=== PATIENT | male | born 1950 | race Caucasian/White ===

== ENCOUNTER 2018-11-27 23:55 | Emergency (ER) | payer OTHER ==
--- OUTSIDE RECORDS SUMMARY | 2018-11-27 23:57 | XMS REPORT | Clinical Summary ---
:1950 Author Organization [facility] Address [address] [place] [address] Care Team Providers Name Role Phone Vincent Pinedo MD Primary Care Provider Allergies Active Allergy Reactions Severity Noted Date Comments Niacin 08/19/2016 Medications Medication Sig Dispensed Refills Start Date End Date Status metoprolol metoprolol 0 Active succinate XL succinate ER 50 (TOPROL-XL) 50 mg mg 24 hr tablet tablet,extended release 24 hr insulin degludec Tresiba FlexTouch 0 Active (TRESIBA U-200 200 unit/mL FLEXTOUCH U-200) (3 mL) 200 unit/mL (3 subcutaneous mL) insulin pen insulin pen ELVIS ASPIRIN Elvis Aspirin 0 Active ORAL pen needle, BD Ultra-Fine 0 Active diabetic 32 gauge Roselia Pen [place] x 5/32" needle 32 gauge x 5/32" omeprazole omeprazole 40 mg 0 Active (PriLOSEC) 40 MG capsule,delayed capsule release fenofibrate Take 134 mg by 1 06/25/2016 Active micronized mouth once daily. (LOFIBRA) 134 MG capsule isosorbide Take 1 tablet (30 90 tablet 3 12/16/2016 Active mononitrate mg total) by (IMDUR) 30 MG 24 mouth daily. hr tabletIndications : Essential hypertension repaglinide TAKE 1 TABLET BY 1 10/12/2016 Active (PRANDIN) 2 MG MOUTH 3 TIMES A tablet DAY BEFORE MEALS hydrALAZINE Take 25 mg by 1 10/10/2016 Active (APRESOLINE) 25 mouth 2 (two) MG tablet times a day. gabapentin Take 100 mg by 0 Active (NEURONTIN) 100 mouth 3 (three) mg capsule times a day. rosuvastatin Take 1 tablet (20 90 tablet 3 02/24/2018 Active (CRESTOR) 20 MG mg total) by tablet mouth once daily. omega-3 acid TAKE 1 CAPSULE (1 360 capsule 0 11/03/2018 Active ethyl esters G TOTAL) BY MOUTH (LOVAZA) 1 gram 4 (FOUR) TIMES A capsuleIndication DAY. s: Coronary artery disease involving [place] coronary artery of [place] heart without angina pectoris, Carotid artery disease, unspecified laterality (HCC) amLODIPine Take 1 tablet (10 60 tablet 0 11/08/2018 Active (NORVASC) 10 mg mg total) by tabletIndications mouth 2 (two) : Coronary artery times a day. disease involving [place] coronary artery of [place] heart without angina pectoris, Carotid artery disease, unspecified laterality (HCC) amLODIPine Take 1 tablet (10 180 tablet 3 12/17/2016 02/17/20 Discontinued (NORVASC) 10 mg mg total) by 18 tabletIndications mouth 2 (two) : Coronary artery times a day. disease involving [place] coronary artery of [place] heart without angina pectoris, Carotid artery disease, unspecified laterality (HCC) omega-3 acid Take 1 capsule (1 360 capsule 3 12/17/2016 12/30/19 Discontinued ethyl esters g total) by mouth 18 (LOVAZA) 1 gram 4 (four) times a capsuleIndication day. s: Coronary artery disease involving [place] coronary artery of [place] heart without angina pectoris, Carotid artery disease, unspecified laterality (HCC) rosuvastatin Take 1 tablet (20 90 tablet 3 02/15/2017 02/25/20 Discontinued (CRESTOR) 20 MG mg total) by 18 tablet mouth once daily. clopidogrel Take 1 tablet (75 90 tablet 3 06/15/2017 06/15/20 (PLAVIX) 75 mg mg total) by 18 tablet mouth daily. omega-3 acid Take 1 capsule (1 360 capsule 2 12/29/2017 07/27/20 Discontinued ethyl esters g total) by mouth 18 (LOVAZA) 1 gram 4 (four) times a capsuleIndication day. s: Coronary artery disease involving [place] coronary artery of [place] heart without angina pectoris, Carotid artery disease, unspecified laterality (HCC) amLODIPine Take 1 tablet (10 180 tablet 3 02/16/2018 08/10/20 Discontinued (NORVASC) 10 mg mg total) by 18 tabletIndications mouth 2 (two) : Coronary artery times a day. disease involving [place] coronary artery of [place] heart without angina pectoris, Carotid artery disease, unspecified laterality (HCC) omega-3 acid Take 1 capsule (1 360 capsule 0 07/27/2018 11/02/19 Discontinued ethyl esters g total) by mouth 19 (LOVAZA) 1 gram 4 (four) times a capsuleIndication day. s: Coronary artery disease involving [place] coronary artery of [place] heart without angina pectoris, Carotid artery disease, unspecified laterality (HCC) amLODIPine Take 1 tablet (10 180 tablet 0 08/10/2018 08/12/20 Discontinued (NORVASC) 10 mg mg total) by 18 tabletIndications mouth 2 (two) : Coronary artery times a day. disease involving [place] coronary artery of [place] heart without angina pectoris, Carotid artery disease, unspecified laterality (HCC) amLODIPine Take 1 tablet (10 180 tablet 0 08/12/2018 11/08/19 Discontinued (NORVASC) 10 mg mg total) by 19 tabletIndications mouth 2 (two) : Coronary artery times a day. disease involving [place] coronary artery of [place] heart without angina pectoris, Carotid artery disease, unspecified laterality (HCC) Active Problems Problem Noted Date CAD in [place] artery 08/31/2017 SOB (shortness of breath) 08/31/2017 Coronary artery disease involving [place] coronary artery of [place] heart 12/20 without angina pectoris Carotid artery disease 12/20/2016 Stented coronary artery 12/20/2016 Stenosis of left carotid artery 08/19/2016 Last Assessment & Plan: Advised to start a statin. Need CTA neck and aortic arch to assess for plaque due to conflicting carotid reports Encounters Date Type Specialty Care Team Description 11/08/2018 Orders Only Cardiology Shan Parra MA Coronary artery disease involving [place] coronary artery of [place] heart without angina pectoris; Carotid artery disease, unspecified laterality (HCC) 11/02/2018 Refill Cardiology Kenan Alvarez MD Med Refill 08/12/2018 Orders Only Cardiology Shan Parra MA Coronary artery disease involving [place] coronary artery of [place] heart without angina pectoris; Carotid artery disease, unspecified laterality (HCC) 08/10/2018 Orders Only Cardiology Shan Parra MA Coronary artery disease involving [place] coronary artery of [place] heart without angina pectoris; Carotid artery disease, unspecified laterality (HCC) 07/27/2018 Orders Only Cardiology Shan Parra MA Coronary artery disease involving [place] coronary artery of [place] heart without angina pectoris; Carotid artery disease, unspecified laterality (HCC) 02/24/2018 Refill Cardiology Keysha Hendrix Med Refill MA 02/16/2018 Orders Only Cardiology Shan Parra MA Coronary artery disease involving [place] coronary artery of [place] heart without angina pectoris; Carotid artery disease, unspecified laterality 01/04/2018 Office Visit Cardiology Kenan Alvarez MD CAD in [place] artery (Primary Dx); Bilateral carotid artery disease 12/29/2017 Refill Cardiology Shan Parra MA Med Refill after 11/26/2017 Social History Tobacco Use Types Packs/Day Years Used Date Light Tobacco Smoker Cigars Quit: 08/19/1976 Alcohol Use Drinks/Week oz/Week Comments Yes moderate Sex Assigned at Date Recorded Not on file Job Start Date Occupation Industry Not on file Not on file Not on file Travel History Travel Start Travel End No recent travel history available. Last Filed Vital Signs Vital Sign Reading Time Taken Blood Pressure 116/64 01/04/2018 8:21 AM CDT Pulse 61 01/04/2018 8:21 AM CDT Temperature - - Respiratory Rate - - Oxygen Saturation - - Inhaled Oxygen Concentration - - Weight 91.6 kg (202 lb) 01/04/2018 8:21 AM CDT Height 172.7 cm (5' 8") 01/04/2018 8:21 AM CDT Body Mass Index 30.71 01/04/2018 8:21 AM CDT Plan of Treatment Health Maintenance Due Date Last Done Comments COLON CANCER SCREENING 2000 SHINGLES VACCINES (#1) 2000 65+ PNEUMOCOCCAL VACCINE (2 of 2 - PPSV23) 12/14/2015 08/28/2017 INFLUENZA VACCINE 04/13/2018 PNEUMOCOCCAL POLYSACCHARIDE VACCINE AGE 65 AND OVER Completed 08/28/2017 Results Not on fileafter 11/26/2017 Insurance Payer Benefit Plan / Group Subscriber ID Type Phone Address AETNA MEDICARE AETNA MEDICARE HMO/PPO [facility] xxxxxxxx HMO ([place]) [place] [address] Advance Directives Patient has advance care planning documents on file. For more information, please contact:Kole Morel[address] [place] [address]
[2018-11-28] MEDS ORDERED: ASPIRIN 81 MG CHEWABLE TABLET ONE (00:51)
[2018-11-28] MEDS ORDERED: NITROGLYCERIN 1 GM PKT TD ONE (00:52)
[2018-11-28] MEDS ORDERED: MORPHINE 2 MG/ML SYR ONE (00:52)
[2018-11-28 01:20] LABS: Absolute Lymphocytes (CBC) 1.2 K/uL (0.7-4.9); Absolute Monocytes 0.5 K/uL (0.1-1.3); Absolute Neutrophil 6.1 K/uL (1.8-8.0); Basophils % 1.2 % (0-1.3); Eosinophils % 2.9 % (0-4.4); Lymphocytes % 14.8 % (15.3-44.8); MPV 8.3 fL (7.6-11.3); RBC Red Blood Cell Count 6.13 M/uL (4.33-5.43)
[2018-11-28 01:21] LABS: Protime INR 1.01
[2018-11-28 02:06] LABS: ALT/SGPT 50 U/L (12-78); AST/SGOT 35 U/L (15-37); Albumin 3.7 g/dL (3.4-5.0); Alkaline Phosphatase 64 U/L (45-117); BUN Blood Urea Nitrogen 34 mg/dL (7-18); Bicarbonate 27 mmol/L (21-32); Bilirubin Direct < 0.1 mg/dL (0-0.2); Bilirubin Total 0.6 mg/dL (0.2-1.0); Glucose Level 282 mg/dL (74-106); Magnesium 2.1 mg/dL (1.8-2.4); NT PRO-BNP 734 pg/mL (<125); Potassium 4.3 mmol/L (3.5-5.1); Protein, Total 7.8 g/dL (6.4-8.2); Sodium Level 137 mmol/L (136-145)
[2018-11-28 02:08] LABS: Troponin (Emerg Dept Use Only) 0.59 ng/mL (0.0-0.045)
[2018-11-28] MEDS ORDERED: HEPARIN/D5W 25,000 UNIT/500 ML BAG IV ONE (02:42)
[2018-11-28] MEDS ORDERED: HEPARIN 5000 UNIT/ML 1 ML VIAL ONE (02:42)
--- NOTE | 2018-11-28 03:22 | ER ---
Nurse's Notes [facility] Name: Fran Summers Age: 67 yrs Sex: Male : 1950 Arrival Date: 11/27/2018 Time: 23:55 Bed 16 Private MD: Diagnosis: Non-ST elevation (NSTEMI) myocardial infarction;Renal insufficiency;Mild pulmonary edema Presentation: 11/28 00:02 Presenting complaint: Patient states: he started having severe chest pain at approx bb 1900 tonight thought it was heart burn at first but pain is getting worse pain is constant and radiates to arms pt has 11 heart stents. Transition of care: patient was not received from another setting of care. Onset of symptoms was November 27, 2018. Risk Assessment: Do you want to hurt yourself or someone else? Patient reports no desire to harm self or others. Initial Sepsis Screen: Does the patient meet any 2 criteria? No. Patient's initial sepsis screen is negative. Does the patient have a suspected source of infection? No. Patient's initial sepsis screen is negative. Care prior to arrival: None. 00:02 Method Of Arrival: Ambulatory 00:02 Acuity: CRAIG 2 bb Triage Assessment: 00:10 General: Appears in no apparent distress. uncomfortable, Behavior is cooperative. Pain: cc3 Complains of pain in chest Pain currently is 10 out of 10 on a pain scale. Quality of pain is described as aching. EENT: No signs and/or symptoms were reported regarding the EENT system. Neuro: Level of Consciousness is awake, alert, obeys commands, Oriented to person, place, time, situation, Appropriate for age. Cardiovascular: Reports chest pain, Patient's skin is warm and dry. Respiratory: Airway is patent Respiratory effort is even, unlabored, Respiratory pattern is regular, symmetrical. GI: Abdomen is round non-distended. : No signs and/or symptoms were reported regarding the genitourinary system. Derm: No signs and/or symptoms reported regarding the dermatologic system. Musculoskeletal: Circulation, motion, and sensation intact. Range of motion: intact in all extremities. Historical: - Allergies: 00:04 Niaspan; bb - Home Meds: 03:45 gabapentin 100 mg oral cap 3 times per day [Active]; amlodipine 10 mg oral tab twice cc3 daily [Active]; Hira Chewable Aspirin 81 mg Oral chew once daily [Active]; Crestor Oral [Active]; Glimepiride Oral [Active]; isosorbide mononitrate 30 mg oral Tb24 once daily [Active]; Omeprazole Oral [Active]; Toujeo SoloStar 300 unit/mL (1.5 mL) subcutaneous inpn [Active]; repaglinide 2 mg oral tab 1 tab 3 times per day [Active]; omega-3 fatty acids 1,000 mg oral cap four times a day [Active]; metoprolol tartrate 50 mg Oral tab once daily [Active]; hydralazine 25 mg Oral tab 2 times per day [Active]; Plavix 75 mg Oral tab 1 tab once daily [Active]; Tresiba 40 units daily [Active]; Lasix 40 mg Oral tab once daily [Active]; - PMHx: 00:04 Diabetes - NIDDM; Hypertension; Myocardial infarction; CAD; Hyperlipidemia; Diabetes - bb IDDM; - PSHx: 00:04 Heart stents; bb - Immunization history:: Adult Immunizations up to date. - Social history:: Smoking status: Patient/guardian denies using tobacco. - Ebola Screening: : No symptoms or risks identified at this time. Screenin:10 Abuse screen: Denies threats or abuse. Denies injuries from another. Nutritional cc3 screening: No deficits noted. Tuberculosis screening: No symptoms or risk factors identified. Fall Risk Ambulatory Aid- None/Bed Rest/Nurse Assist (0 pts). Gait- Normal/Bed Rest/Wheelchair (0 pts) Mental Status- Oriented to own ability (0 pts). Assessment: 00:10 Pain: Pain radiates to bilateral arms Pain began 1900H tonight. cc3 01:18 Reassessment: Patient appears in no apparent distress at this time. Patient and/or cc3 family updated on plan of care and expected duration. Pain level reassessed. Patient is alert, oriented x 3, equal unlabored respirations, skin warm/dry/pink. 02:25 Reassessment: Patient appears in no apparent distress at this time. Patient and/or cc3 family updated on plan of care and expected duration. Pain level reassessed. Patient is alert, oriented x 3, equal unlabored respirations, skin warm/dry/pink. 03:22 Reassessment: Patient appears in no apparent distress at this time. Patient and/or cc3 family updated on plan of care and expected duration. Pain level reassessed. Patient is alert, oriented x 3, equal unlabored respirations, skin warm/dry/pink. 03:50 Reassessment: Patient for transfer to [facility] but as per finishing room operator named Sloane jose enrique she's having problems connecting to the receiving unit so she'll call me back, charge nurse Catalina de la rosa. 04:00 Reassessment: Patient appears in no apparent distress at this time. Patient and/or cc3 family updated on plan of care and expected duration. Pain level reassessed. Patient is alert, oriented x 3, equal unlabored respirations, skin warm/dry/pink. [facility] called and report handed over to GUY Mack for continuity of care. Transfer form completed and signed by the patient himself. EMS contacted by the secretary office clerk. 05:15 Reassessment: Patient appears in no apparent distress at this time. Patient and/or cc3 family updated on plan of care and expected duration. Pain level reassessed. Patient is alert, oriented x 3, equal unlabored respirations, skin warm/dry/pink. [facility] came for patient transport. Patient left ER vitally stable by EMS stretcher. Vital Signs: 00:04 BP 173 / 96; Pulse 92; Resp 18 S; Temp 98(O); Pulse Ox 97% on R/A; Weight 89.81 kg (R); bb Height 5 ft. 8 in. (172.72 cm) (R); Pain 10/10; 01:00 BP 173 / 96; Pulse 79; Resp 20 S; Pulse Ox 96% on R/A; cc3 02:18 BP 159 / 88; Pulse 77; Resp 20 S; Pulse Ox 95% on R/A; Pain 0/10; cc3 02:30 BP 167 / 81; Pulse 79; Resp 20 S; Pulse Ox 95% on R/A; Pain 0/10; cc3 03:15 BP 174 / 92; Pulse 75; Resp 20 S; Pulse Ox 96% on R/A; Pain 0/10; cc3 03:45 BP 170 / 85; Pulse 76; Resp 13 S; Pulse Ox 96% on R/A; Pain 0/10; cc3 04:13 BP 168 / 91; Pulse 74; Resp 15 S; Pulse Ox 97% on R/A; Pain 0/10; cc3 05:00 BP 163 / 86; Pulse 71; Resp 15 S; Pulse Ox 96% on R/A; Pain 0/10; cc3 00:04 Body Mass Index 30.11 (89.81 kg, 172.72 cm) bb ED Course: 11/27 23:55 Patient arrived in ED. am2 11/28 00:03 Triage completed. bb 00:04 Arm band placed on Patient placed in an exam room, on a stretcher, on ekg monitor, bb on pulse oximetry. EKG completed in triage. Results shown to MD. Family accompanied patient. 00:10 Dari Moran is Primary Nurse. cc3 00:10 Patient has correct armband on for positive identification. Placed in gown. Bed in low cc3 position. Call light in reach. Side rails up X2. equipment monitor phototypesetting on. Pulse ox on. NIBP on. 00:10 Patient maintains SpO2 saturation greater than 95% on room air. cc3 00:15 Inserted saline lock: 20 gauge in left antecubital area, using aseptic technique. Blood cc3 collected. 00:18 Terri Underwood FNP-C is PHCP. snw 00:18 Greg Lnad MD is Attending Physician. snw 00:41 X-ray completed. Portable x-ray completed in exam room. Patient tolerated procedure kw well. 00:42 XRAY Chest (1 view) In Process Unspecified. EDMS 05:15 No provider procedures requiring assistance completed. Patient transferred, IV remains cc3 in place. Administered Medications: 00:45 Drug: Nitroglycerin Ointment 2 % 1 inches Route: Transdermal; Site: anterior chest wall;cc3 01:00 Follow up: Response: No adverse reaction; Pain is decreased cc3 00:45 Drug: Aspirin Chewable Tablet 324 mg Route: PO; cc3 01:00 Follow up: Response: No adverse reaction; Pain is decreased cc3 00:50 Drug: morphine 2 mg Route: IVP; Site: left antecubital; cc3 01:15 Follow up: Response: No adverse reaction; Pain is decreased cc3 02:35 Drug: Heparin (MN-Bolus No thrombolytic) - HEParin 60 units/kg {Co-Signature: cc3 la1 (Dari Cordel).} Route: IVP; Site: left antecubital; 02:40 Follow up: Response: No adverse reaction cc3 02:38 Drug: Heparin ([place] Drip) 12 units/kg/hr - (HEParin 50883 units, D5W 500 ml) la1 {Co-Signature: cc3 (Dari Cordel).} Route: IV; Rate: calculated rate; Site: left antecubital; 03:50 Follow up: Response: No adverse reaction; IV Status: Infusion continued upon transfer cc3 Outcome: 03:21 ER care complete, transfer ordered by sncecilia 05:15 Transferred by ground EMS [place] [facility]. cc3 05:15 Condition: stable 05:15 Instructed on the need for transfer, Demonstrated understanding of instructions. 05:20 Patient left the ED. cc3 Signatures: Dispatcher [employer] EDMS Terri Underwood, MICAH SEWING PATTERN LAYOUT TECHNICIAN-Berkley Payton RN RN bb Whitley, Kimberlee kw Attema, Lee, RN RN la1 Queenie Mojica am2 Dari Moran cc3 Dari Cordel cc3 Corrections: (The following items were deleted from the chart) 03:22 02:18 BP 159 / 88; Pulse 77bpm; Resp 20bpm; Spontaneous; Pulse Ox 95% RA; cc3 cc3 03:58 02:30 BP 167 / 81; Pulse 79bpm; Resp 20bpm; Spontaneous; Pulse Ox 95% RA; 3 cc3 03:58 03:15 BP 174 / 92; Pulse 75bpm; Resp 20bpm; Spontaneous; Pulse Ox 96% RA; 3 cc3 03:58 03:45 BP 170 / 85; Pulse 76bpm; Resp 13bpm; Spontaneous; Pulse Ox 96% RA; cc3 cc3 05:25 04:13 BP 168 / 91; Pulse 74bpm; Resp 15bpm; Spontaneous; Pulse Ox 97% RA; 3 cc3 05:25 05:00 BP 163 / 86; Pulse 71bpm; Resp 15bpm; Spontaneous; Pulse Ox 96% RA; cc3 cc3
--- NOTE | 2018-11-28 03:22 | EDPHYS ---
Physician Documentation [facility] Name: Fran Summers Age: 67 yrs Sex: Male : 1950 Arrival Date: 11/27/2018 Time: 23:55 Bed 16 Private MD: ED Physician Greg Land HPI: 11/28 00:27 This 67 yrs old Male presents to ER via Ambulatory with complaints of Chest snw Pain. 00:27 The patient or guardian reports chest pain that is located primarily in the substernal snw area. Onset: suddenly, at 19:00, and became persistent. The pain radiates to the left shoulder, the right shoulder. Associated signs and symptoms: Pertinent positives: None. The chest pain is described as causing indigestion, a pressure. Duration: The patient or guardian reports a single episode, that is still ongoing. Severity of pain: At its worst the pain was moderate severe. The patient has experienced similar episodes in the past. The patient has not recently seen a physician. Pt sees Dr. Pinedo, Dr. Arango, Dr. Alvarez, Has had stents here and at [facility]. + stage 5 kidney damage and pt went to see Dr. Conroy. Pt taken off 6 medications and GFR has recovered to 30. Historical: - Allergies: 00:04 Niaspan; bb - Home Meds: 03:45 gabapentin 100 mg oral cap 3 times per day [Active]; amlodipine 10 mg oral tab twice cc3 daily [Active]; Hira Chewable Aspirin 81 mg Oral chew once daily [Active]; Crestor Oral [Active]; Glimepiride Oral [Active]; isosorbide mononitrate 30 mg oral Tb24 once daily [Active]; Omeprazole Oral [Active]; Toujeo SoloStar 300 unit/mL (1.5 mL) subcutaneous inpn [Active]; repaglinide 2 mg oral tab 1 tab 3 times per day [Active]; omega-3 fatty acids 1,000 mg oral cap four times a day [Active]; metoprolol tartrate 50 mg Oral tab once daily [Active]; hydralazine 25 mg Oral tab 2 times per day [Active]; Plavix 75 mg Oral tab 1 tab once daily [Active]; Tresiba 40 units daily [Active]; Lasix 40 mg Oral tab once daily [Active]; - PMHx: 00:04 Diabetes - NIDDM; Hypertension; Myocardial infarction; CAD; Hyperlipidemia; Diabetes - bb IDDM; - PSHx: 00:04 Heart stents; bb - Immunization history:: Adult Immunizations up to date. - Social history:: Smoking status: Patient/guardian denies using tobacco. - Ebola Screening: : No symptoms or risks identified at this time. ROS: 00:26 Constitutional: Negative for fever, chills, and weight loss, Eyes: Negative for injury, snw pain, redness, and discharge, ENT: Negative for injury, pain, and discharge, Neck: Negative for injury, pain, and swelling, Respiratory: Negative for shortness of breath, cough, wheezing, and pleuritic chest pain, Abdomen/GI: Negative for abdominal pain, nausea, vomiting, diarrhea, and constipation, Back: Negative for injury and pain, : Negative for injury, bleeding, discharge, and swelling, MS/Extremity: Negative for injury and deformity, Skin: Negative for injury, rash, and discoloration, Neuro: Negative for headache, weakness, numbness, tingling, and seizure, Psych: Negative for depression, anxiety, suicide ideation, homicidal ideation, and hallucinations. 00:26 Cardiovascular: Positive for chest pain. Exam: 00:26 Constitutional: This is a well developed, well nourished patient who is awake, alert, snw and in no acute distress. Head/Face: Normocephalic, atraumatic. Eyes: Pupils equal round and reactive to light, extra-ocular motions intact. Lids and lashes normal. Conjunctiva and sclera are non-icteric and not injected. Cornea within normal limits. Periorbital areas with no swelling, redness, or edema. ENT: Nares patent. No nasal discharge, no septal abnormalities noted. Tympanic membranes are normal and external auditory canals are clear. Oropharynx with no redness, swelling, or masses, exudates, or evidence of obstruction, uvula midline. Mucous membranes moist. Neck: Trachea midline, no thyromegaly or masses palpated, and no cervical lymphadenopathy. Supple, full range of motion without nuchal rigidity, or vertebral point tenderness. No Meningismus. Chest/axilla: Normal chest wall appearance and motion. Nontender with no deformity. No lesions are appreciated. Abdomen/GI: Soft, non-tender, with normal bowel sounds. No distension or tympany. No guarding or rebound. No evidence of tenderness throughout. Back: No spinal tenderness. No costovertebral tenderness. Full range of motion. Skin: Warm, dry with normal turgor. Normal color with no rashes, no lesions, and no evidence of cellulitis. MS/ Extremity: Pulses equal, no cyanosis. Neurovascular intact. Full, normal range of motion. Neuro: Awake and alert, GCS 15, oriented to person, place, time, and situation. Cranial nerves II-XII grossly intact. Motor strength 5/5 in all extremities. Sensory grossly intact. Cerebellar exam normal. Normal gait. Psych: Awake, alert, with orientation to person, place and time. Behavior, mood, and affect are within normal limits. 00:26 Cardiovascular: Regular rate and rhythm with a normal S1 and S2. No gallops, murmurs, or rubs. Normal PMI, no JVD. No pulse deficits. Respiratory: Lungs have equal breath sounds bilaterally, clear to auscultation and percussion. No rales, rhonchi or wheezes noted. No increased work of breathing, no retractions or nasal flaring. Vital Signs: 00:04 BP 173 / 96; Pulse 92; Resp 18 S; Temp 98(O); Pulse Ox 97% on R/A; Weight 89.81 kg (R); bb Height 5 ft. 8 in. (172.72 cm) (R); Pain 10/10; 01:00 BP 173 / 96; Pulse 79; Resp 20 S; Pulse Ox 96% on R/A; cc3 02:18 BP 159 / 88; Pulse 77; Resp 20 S; Pulse Ox 95% on R/A; Pain 0/10; cc3 02:30 BP 167 / 81; Pulse 79; Resp 20 S; Pulse Ox 95% on R/A; Pain 0/10; cc3 03:15 BP 174 / 92; Pulse 75; Resp 20 S; Pulse Ox 96% on R/A; Pain 0/10; cc3 03:45 BP 170 / 85; Pulse 76; Resp 13 S; Pulse Ox 96% on R/A; Pain 0/10; cc3 04:13 BP 168 / 91; Pulse 74; Resp 15 S; Pulse Ox 97% on R/A; Pain 0/10; cc3 05:00 BP 163 / 86; Pulse 71; Resp 15 S; Pulse Ox 96% on R/A; Pain 0/10; cc3 00:04 Body Mass Index 30.11 (89.81 kg, 172.72 cm) bb MDM: 01:09 Patient medically screened. snw 02:24 The patient was given aspirin in the Emergency Department. Data reviewed: vital signs, snw nurses notes, lab test result(s), EKG, radiologic studies. Data interpreted: Pulse oximetry: on room air is 97 %. Interpretation: acceptable. Counseling: I had a detailed discussion with the patient and/or guardian regarding: the historical points, exam findings, and any diagnostic results supporting the discharge/admit diagnosis, the presence of at least one elevated blood pressure reading (>120/80) during this emergency department visit, lab results, radiology results, the need to transfer to another facility, for higher level of care, no ICU beds, pt needs cardiology, nephrology,. 03:10 ECG:. snw 03:16 Medication response: morphine relieved the patient's pain. Symptoms have resolved. [facility] Physician consultation: Dr Jim was called at 03:00, was contacted at 03:10, regarding regarding transfer, to [facility]. Dr. Jim kindly accepts pt in transfer. We have no beds in ICU and pt may require bypass/higher level of care. 11/28 00:18 Order name: Basic Metabolic Panel; Complete Time: 02:09 snw 11/28 00:18 Order name: CBC with Diff; Complete Time: :34 snw 11/28 00:18 Order name: LFT's; Complete Time: 02:09 snw 11/28 00:18 Order name: Magnesium; Complete Time: 02:09 snw 11/28 00:18 Order name: NT PRO-BNP; Complete Time: 02:09 snw 11/28 00:18 Order name: PT-INR; Complete Time: :34 snw 11/28 00:18 Order name: Troponin (emerg Dept Use Only); Complete Time: 02:09 snw 11/28 00:18 Order name: XRAY Chest (1 view) snw 11/28 01:10 Order name: Urine Microscopic Only snw 11/28 02:33 Order name: Urine Dipstick--Ancillary (enter results); Complete Time: 04:07 mw2 11/28 00:18 Order name: EKG; Complete Time: 00:19 snw 11/28 00:18 Order name: Cardiac monitoring; Complete Time: 00:20 snw 11/28 00:18 Order name: EKG - Nurse/Tech; Complete Time: 00:20 snw 11/28 00:18 Order name: IV Saline Lock; Complete Time: 00: snw 11/28 00:18 Order name: Labs collected and sent; Complete Time: 00:21 snw 11/28 00:18 Order name: O2 Per Protocol; Complete Time: 00:21 snw 11/28 00:18 Order name: O2 Sat Monitoring; Complete Time: 00: snw 11/28 01:10 Order name: Urine Dipstick-Ancillary (obtain specimen); Complete Time: 02:45 snw EC:10 Rate is 93 beats/min. Rhythm is regular. QRS [place] is Normal. [place] interval is normal. QRS snw interval is normal. QT interval is normal. Q waves are Old in leads II, III, aVF. T waves are Normal. ST Segment is depressed in leads V3, V4, V5, 2-5mm. Clinical impression: Cardiac ischemia. Administered Medications: 00:45 Drug: Nitroglycerin Ointment 2 % 1 inches Route: Transdermal; Site: anterior chest wall;cc3 01:00 Follow up: Response: No adverse reaction; Pain is decreased cc3 00:45 Drug: Aspirin Chewable Tablet 324 mg Route: PO; cc3 01:00 Follow up: Response: No adverse reaction; Pain is decreased cc3 00:50 Drug: morphine 2 mg Route: IVP; Site: left antecubital; cc3 01:15 Follow up: Response: No adverse reaction; Pain is decreased cc3 02:35 Drug: Heparin (WA-Bolus No thrombolytic) - HEParin 60 units/kg {Co-Signature: cc3 la1 (Dari Cordel).} Route: IVP; Site: left antecubital; 02:40 Follow up: Response: No adverse reaction cc3 02:38 Drug: Heparin ([place] Drip) 12 units/kg/hr - (HEParin 61846 units, D5W 500 ml) la1 {Co-Signature: cc3 (Dari Cordel).} Route: IV; Rate: calculated rate; Site: left antecubital; 03:50 Follow up: Response: No adverse reaction; IV Status: Infusion continued upon transfer cc3 Disposition: 11/28/18 03:21 Transfer ordered to [facility]. Diagnosis are Non-ST elevation (NSTEMI) myocardial infarction, Renal insufficiency, Mild pulmonary edema. - Reason for transfer: Higher level of care. - Accepting physician is Dr. Jim. - Condition is Stable. - Problem is new. - Symptoms have improved. Signatures: Dispatcher [employer] EDMS Terri Underwood, DENSITY CONTROL PUNCHER-C DENSITY CONTROL PUNCHER-Csnw Berkley Douglas RN RN bb Shahab Andersen RN RN la1 Dari Moran cc3 Dari Moran cc3 Corrections: (The following items were deleted from the chart) 05:20 03:21 11/28/2018 03:21 Transfer ordered to [facility]. Diagnosis is cc3 Non-ST elevation (NSTEMI) myocardial infarction; Renal insufficiency; Mild pulmonary edema. Reason for transfer: Higher level of care. Accepting physician is Dr. Jim. Condition is Stable. Problem is new. Symptoms have improved. snw
[2018-11-28 03:39] LABS: Urine Blood 1+ (NEG); Urine Glucose TRACE (NEG); Urine Protein 3+ (NEG); Urine Specific Gravity 1.025 (1.005-1.030); Urine pH 6.5 (5.0-7.0)
[2018-11-28 04:51] LABS: Urine Bacteria <20 /HPF (NONE SEEN); Urine RBC <5 /HPF (NONE SEEN)
[2018-11-28 04:52] LABS: Urine Culture Reflex Order NOT NEEDED
[2018-11-28 05:31] VITALS: TEMP 98
[2018-11-28 05:40] VITALS: BP 163/86; O2SAT 96
--- NOTE | 2018-11-28 08:38 | RAD REPORT ---
EXAM DESCRIPTION: Ketan Single View11/28/2018 12:42 am CLINICAL HISTORY: Chest pain COMPARISON: May 2018 FINDINGS: Borderline mild interstitial pulmonary edema. Heart is normal size
--- NOTE | 2018-11-28 12:19 | EKG ---
Test Date: 2018-11-27 Test Time: 23:58:08 Photographic Equipment Assembler: KIAHB MEASUREMENT RESULTS: Intervals: Rate: 93 PA: 172 QRSD: 90 QT: 348 QTc: 432 [place]: P: 61 PA: 172 QRS: -4 T: 94 INTERPRETIVE STATEMENTS: Normal sinus rhythm Possible Inferior infarct, age undetermined Marked ST abnormality, possible lateral subendocardial injury Abnormal ECG Compared to ECG 08/27/2017 16:12:01 ST (T wave) deviation now present Myocardial infarct finding still present Electronically Signed On 11-28-18 12:18:39 CDT by Hugo Pacheco
== END 2018-11-28 05:20 | disposition short-term general hospital (02) ==
LOC: ER 23:55
DX: I21.4 Non-ST elevation (NSTEMI) myocardial infarction (principal); J81.1 Chronic pulmonary edema; I12.0 Hypertensive chronic kidney disease with stage 5 chronic kidney disease or end stage renal disease; E11.22 Type 2 diabetes mellitus with diabetic chronic kidney disease; N18.5 Chronic kidney disease, stage 5; Z79.4 Long term (current) use of insulin; Z79.82 Long term (current) use of aspirin; Z88.8 Allergy status to other drugs, medicaments and biological substances; Z95.818 Presence of other cardiac implants and grafts
CPT/HCPCS: 96365; 93005; 85025; 80048; 36415; 83735; 85610; 80076; 84484; 83880; 71045; 96375; 99285; J1644; J2270; 81003; 81015

== ENCOUNTER 2019-02-21 08:18 | Day surgery (SDC) | payer OTHER ==
--- NOTE | 2019-02-20 16:18 | RAD REPORT ---
EXAM DESCRIPTION: Ketan Davis (2 Views)02/20/2019 4:13 pm CLINICAL HISTORY: Preop coronary arterial catheterization COMPARISON: May 2018 FINDINGS: The lungs appear clear of acute infiltrate. The heart is normal size IMPRESSION: No acute abnormalities displayed
[2019-02-20 17:14] LABS: Absolute Lymphocytes (CBC) 1.7 K/uL (0.7-4.9); Absolute Monocytes 0.5 K/uL (0.1-1.3); Absolute Neutrophil 3.3 K/uL (1.8-8.0); Basophils % 1.3 % (0-1.3); Eosinophils % 6.2 % (0-4.4); Lymphocytes % 28.8 % (15.3-44.8); MPV 7.9 fL (7.6-11.3)
[2019-02-20 17:17] LABS: Protime INR 1.03
[2019-02-20 17:52] LABS: Potassium 4.7 mmol/L (3.5-5.1)
--- OUTSIDE RECORDS SUMMARY | 2019-02-21 08:21 | XMS REPORT | Clinical Summary ---
:1950 Author Organization [facility] Address [address] [place] [address] Care Team Providers Name Role Phone Vincent [...] 0 Active diabetic 32 gauge Roselia Pen [place] x 5/32" needle 32 gauge x 5/32" [...] capsuleIndication DAY. s: Coronary artery disease involving [place] coronary artery of [place] heart without angina pectoris, Carotid artery disease, unspecified laterality (HCC) amLODIPine Take 1 tablet (10 60 tablet 0 11/08/2018 Active (NORVASC) 10 mg mg total) by tabletIndications mouth 2 (two) : Coronary artery times a day. disease involving [place] coronary artery of [place] heart without angina pectoris, Carotid artery disease, [...] capsuleIndication day. s: Coronary artery disease involving [place] coronary artery of [place] heart without angina pectoris, Carotid artery disease, unspecified laterality (HCC) amLODIPine Take 1 tablet (10 180 tablet 3 02/16/2018 08/10/20 Discontinued (NORVASC) 10 mg mg total) by 18 tabletIndications mouth 2 (two) : Coronary artery times a day. disease involving [place] coronary artery of [place] heart without angina pectoris, Carotid artery disease, unspecified laterality (HCC) omega-3 acid Take 1 capsule (1 360 capsule 0 07/27/2018 11/02/19 Discontinued ethyl esters g total) by mouth 19 (LOVAZA) 1 gram 4 (four) times a capsuleIndication day. s: Coronary artery disease involving [place] coronary artery of [place] heart without angina pectoris, Carotid artery disease, unspecified laterality (HCC) amLODIPine Take 1 tablet (10 180 tablet 0 08/10/2018 08/12/20 Discontinued (NORVASC) 10 mg mg total) by 18 tabletIndications mouth 2 (two) : Coronary artery times a day. disease involving [place] coronary artery of [place] heart without angina pectoris, Carotid artery disease, unspecified laterality (HCC) amLODIPine Take 1 tablet (10 180 tablet 0 08/12/2018 11/08/19 Discontinued (NORVASC) 10 mg mg total) by 19 tabletIndications mouth 2 (two) : Coronary artery times a day. disease involving [place] coronary artery of [place] heart without angina pectoris, Carotid artery disease, unspecified laterality (HCC) Active Problems Problem Noted Date CAD in [place] artery 08/31/2017 SOB (shortness of breath) 08/31/2017 Coronary artery disease involving [place] coronary artery of [place] heart 12/20 without angina pectoris Carotid artery disease 12/20/2016 Stented coronary artery 12/20/2016 Stenosis of left carotid artery 08/19/2016 Last Assessment & Plan: Advised to start a statin. Need CTA neck and aortic arch to assess for plaque due to conflicting carotid reports Encounters Date Type Specialty Care Team Description 12/01/2018 Refill Cardiology Kenan Alvarez MD Med Refill 11/08/2018 Orders Only Cardiology Shan Parra MA Coronary artery disease involving [place] coronary artery of [place] heart without angina pectoris; Carotid artery disease, unspecified laterality (HCC) 11/02/2018 Refill Cardiology Kenan Alvarez MD Med Refill 08/12/2018 Orders Only Cardiology Shan Parra MA Coronary artery disease involving [place] coronary artery of [place] heart without angina pectoris; Carotid artery disease, unspecified laterality (HCC) 08/10/2018 Orders Only Cardiology Shan aPrra MA Coronary artery disease involving [place] coronary artery of [place] heart without angina pectoris; Carotid artery disease, unspecified laterality (HCC) 07/27/2018 Orders Only Cardiology Shan Parra MA Coronary artery disease involving [place] coronary artery of [place] heart without angina pectoris; Carotid artery disease, unspecified laterality (HCC) 02/24/2018 Refill Cardiology Keysha Hendrix Med Refill MA after 02/20/2018 Social History Tobacco Use Types Packs/Day Years Used Date Light Tobacco Smoker Cigars Quit: 08/19/1976 Alcohol Use Drinks/Week oz/Week Comments Yes moderate Sex Assigned at Date Recorded Not on file Job Start Date Occupation Industry Not on file Not on file Not on file Travel History Travel Start Travel End No recent travel history available. Last Filed Vital Signs Not on file Plan of Treatment Health Maintenance Due Date Last Done Comments COLONOSCOPY SCREENING 2000 SHINGLES VACCINES (#1) 2000 65+ PNEUMOCOCCAL VACCINE (2 of 2 - PPSV23) 12/14/2015 08/28/2017 INFLUENZA VACCINE 04/13/2019 Results Not on fileafter 02/20/2018 Advance Directives Patient has advance care planning documents on file. For more information, please contact:Kole Morel[address] [place] [address]
--- OUTSIDE RECORDS SUMMARY | 2019-02-21 08:22 | XMS REPORT | Clinical Summary ---
:1950 Author Organization [facility] Address [address] [place] [address] Care Team Providers Name Role Phone ShahidaGianni rojaspatricia Sutherland Primary Care Provider Allergies Active Allergy Reactions Severity Noted Date Comments Niacin 08/19/2016 Medications Medication Sig Dispensed Refills Start End Date Status Date gabapentin Take 100 mg by 0 Active (NEURONTIN) 100 MG mouth 3 (three) capsule times daily. repaglinide Take 2 mg by mouth 0 Active (PRANDIN) 2 MG 3 (three) times tablet daily before meals. omega-3 acid ethyl Take 2 g by mouth 0 Active esters (LOVAZA) 1 2 (two) times gram capsule daily. aspirin 81 MG EC Take 81 mg by 0 Active tablet mouth daily Hira . insulin degludec Inject 40 Units 0 Active 100 unit/mL (3 mL) subcutaneously InPn daily. amLODIPine Take 1 tablet (5 90 tablet 3 11/30/19 Active (NORVASC) 5 MG mg total) by mouth 9 20 tablet daily. atorvastatin Take 1 tablet (80 90 tablet 3 11/30/19 Active (LIPITOR) 80 MG mg total) by mouth 9 20 tablet nightly. carvedilol (COREG) Take 1 tablet 180 tablet 3 11/30/19 Active 6.25 MG tablet (6.25 mg total) by 9 20 mouth 2 (two) times daily. ezetimibe (ZETIA) Take 1 tablet (10 90 tablet 3 11/30/19 Active 10 mg tablet mg total) by mouth 9 20 nightly. losartan (COZAAR) Take 1 tablet (100 90 tablet 3 11/30/19 Active 100 MG tablet mg total) by mouth 9 20 daily. prasugrel Take 1 tablet (10 90 tablet 0 Active (EFFIENT) 10 mg mg total) by mouth 9 Tab tablet daily. spironolactone Take 1 tablet (50 90 tablet 3 11/30/19 Active (ALDACTONE) 50 MG mg total) by mouth 9 20 tablet daily. isosorbide Take 30 mg by 0 12/01/19 Discontinued mononitrate mouth daily. 19 (IMDUR) 30 MG 24 hr tablet metoprolol Take 50 mg by 0 12/01/19 Discontinued (TOPROL-XL) 50 MG mouth daily. 19 24 hr tabletIndications: chronic heart failure, hypertension amLODIPine Take 10 mg by 0 12/01/19 Discontinued (NORVASC) 10 MG mouth 2 (two) 19 tablet times daily. hydrALAZINE Take 25 mg by 0 12/01/19 Discontinued (APRESOLINE) 25 MG mouth 2 (two) 19 tablet times daily. clopidogrel Take 75 mg by 0 12/01/19 Discontinued (PLAVIX) 75 mg mouth nightly. 19 tablet furosemide (LASIX) Take 40 mg by 0 12/01/19 Discontinued 40 MG tablet mouth daily. 19 Active Problems Problem Noted Date NSTEMI (non-ST elevated myocardial infarction) 11/28/2018 Encounters Date Type Specialty Care Team Description 11/28/2018 Surgery Tello Jim L CATH & PCI MD Rigoberto 11/28/2018 - Hospital Encounter Cardiology Tello Jim NSTEMI (non-ST 11/30/2018 MD Rigoberto elevated myocardial infarction) (HCC) (Primary Dx) 11/28/2018 Orders Only General Internal Medicine 11/28/2018 Travel after 02/20/2018 Social History Tobacco Use Types Packs/Day Years Used Date Former Smoker Cigarettes, Cigars Smokeless Tobacco: Never Used Comments: quit over 40 years ago Alcohol Use Drinks/Week oz/Week Comments Yes Alcohol Habits Answer Date Recorded How often do you have a drink containing alcohol? Monthly or less 11/28/2018 How many drinks containing alcohol do you have on a 1 or 2 11/28/2018 typical day when you are drinking? How often do you have six or more drinks on one Never 11/28/2018 occasion? Financial Resource Strain Answer Date Recorded How hard is it for you to pay for the very basics like Not hard at all 2018 food, housing, medical care, and heating? Sex Assigned at Date Recorded Not on file Job Start Date Occupation Industry Not on file Not on file Not on file Travel History Travel Start Travel End No recent travel history available. Last Filed Vital Signs Vital Sign Reading Time Taken Blood Pressure 170/86 11/30/2018 8:00 AM CDT Pulse 67 11/30/2018 8:00 AM CDT Temperature 36.1 C (96.9 F) 11/30/2018 8:00 AM CDT Respiratory Rate 18 11/30/2018 8:00 AM CDT Oxygen Saturation 97% 11/30/2018 8:00 AM CDT Inhaled Oxygen Concentration - - Weight 89.4 kg (197 lb 1.5 oz) 11/28/2018 9:42 AM CDT Height 172.7 cm (5' 8") 11/28/2018 9:42 AM CDT Body Mass Index 29.97 11/28/2018 9:42 AM CDT Plan of Treatment Not on file Implants Implanted Type Area Reed Maker Device Shelf Model / Identifier Expiration Serial / Date Lot 3.00mm X 38mm Synergy Stent Left: Shareight 08/14/2020 [id number] / Implanted: Qty: 1 on 11/28/2018 by Tello Jim MD Coronary [employer]ENT[employer] / [id number] 3.00 Mm X 12 Mm Snergy Stet Left: Shareight 08/16/2020 [id number] / Implanted: Qty: 1 on 11/28/2018 by Tello Jim MD [employer] / [id number] 3.50mm X 20mm Synergy Stent Right: Shareight 02/02/2020 [id number] / Implanted: Qty: 1 on 11/28/2018 by Tello Jim MD [employer] / [id number] 6f/7f Mynx Permit Technician Vascular Closure Device Right: [facility] 09/12/2020 [id number] / Implanted: Qty: 1 on 11/28/2018 by Tello Jim MD Arterial / [id number] Procedures Procedure Name Priority Date/Time Associated Comments Diagnosis VASCULAR DIAGRAM -SCAN 12/22/2018 2:12 PM CDT REPORT OF PROCEDURE - 12/01/2018 12:51 ENDOSCOPY SCAN PM CDT RHYTHM STRIP - SCAN 12/01/2018 12:51 PM CDT VASCULAR DIAGRAM -SCAN 12/01/2018 12:50 PM CDT CARDIAC CATH REPORT - 12/01/2018 12:50 SCAN PM CDT POCT-GLUCOSE METER Routine 11/30/2018 8:10 Results for this AM CDT procedure are in the results section. CBC (HEMOGRAM ONLY) Routine 11/30/2018 6:28 Results for this AM CDT procedure are in the results section. B-TYPE NATRIURETIC Routine 11/30/2018 5:07 Results for this FACTOR (BNP) AM CDT procedure are in the results section. BASIC METABOLIC PANEL Routine 11/30/2018 5:07 Results for this (7) AM CDT procedure are in the results section. POCT-GLUCOSE METER Routine 11/29/2018 10:11 Results for this PM CDT procedure are in the results section. ECHOCARDIOGRAM REPORT - 11/29/2018 9:11 SCAN PM CDT POCT-GLUCOSE METER Routine 11/29/2018 6:10 Results for this PM CDT procedure are in the results section. 2D ECHO W/ DOPPLER MARIE 11/29/2018 9:05 Results for this (CW/PW/COLOR) AM CDT procedure are in the results section. POCT-GLUCOSE METER Routine 11/29/2018 8:07 Results for this AM CDT procedure are in the results section. HEMOGLOBIN A1C Routine 11/29/2018 6:49 Results for this AM CDT procedure are in the results section. URINALYSIS W/ Routine 11/29/2018 3:46 Results for this MICROSCOPIC AM CDT procedure are in the results section. PROTEIN, RANDOM URINE Routine 11/29/2018 3:46 Results for this AM CDT procedure are in the results section. SODIUM, RANDOM URINE Routine 11/29/2018 3:46 Results for this AM CDT procedure are in the results section. CREATININE, RANDOM Routine 11/29/2018 3:46 Results for this URINE AM CDT procedure are in the results section. CBC (HEMOGRAM ONLY) Routine 11/29/2018 3:11 Results for this AM CDT procedure are in the results section. B-TYPE NATRIURETIC Routine 11/29/2018 3:11 Results for this FACTOR (BNP) AM CDT procedure are in the results section. URIC ACID Routine 11/29/2018 3:11 Results for this AM CDT procedure are in the results section. PTH, INTACT Routine 11/29/2018 3:11 Results for this AM CDT procedure are in the results section. BASIC METABOLIC PANEL Routine 11/29/2018 3:11 Results for this (7) AM CDT procedure are in the results section. POCT-GLUCOSE METER Routine 11/28/2018 9:15 Results for this PM CDT procedure are in the results section. L CATH & PCI 11/28/2018 7:41 Unstable angina PM CDT (HCC) POCT-ACT Routine 11/28/2018 7:41 Results for this PM CDT procedure are in the results section. POCT-ACT Routine 11/28/2018 7:31 Results for this PM CDT procedure are in the results section. POCT-GLUCOSE METER Routine 11/28/2018 5:34 Results for this PM CDT procedure are in the results section. APTT Routine 11/28/2018 3:59 Results for this PM CDT procedure are in the results section. POCT-GLUCOSE METER Routine 11/28/2018 12:30 Results for this PM CDT procedure are in the results section. LIPID PANEL Routine 11/28/2018 11:18 Results for this AM CDT procedure are in the results section. BASIC METABOLIC PANEL Routine 11/28/2018 11:18 Results for this (7) AM CDT procedure are in the results section. HEMOGLOBIN A1C Routine 11/28/2018 9:30 Results for this AM CDT procedure are in the results section. FIBRINOGEN Routine 11/28/2018 9:30 Results for this AM CDT procedure are in the results section. PROTHROMBIN TIME/INR Routine 11/28/2018 9:30 Results for this AM CDT procedure are in the results section. CBC (HEMOGRAM ONLY) Routine 11/28/2018 9:30 Results for this AM CDT procedure are in the results section. APTT Routine 11/28/2018 9:30 Results for this AM CDT procedure are in the results section. ECG 12-LEAD STAT 11/28/2018 8:53 Results for this AM CDT procedure are in the results section. after 02/20/2018 Results VASCULAR DIAGRAM -SCAN (12/22/2018 2:12 PM CDT)Only the most recent of2 resultswithin the time period is included. Narrative Performed At EKG-SCANNED (12/01/2018 12:51 PM CDT) Narrative Performed At RHYTHM STRIP - SCAN (12/01/2018 12:51 PM CDT) Narrative Performed At CARDIAC CATH REPORT - SCAN (12/01/2018 12:50 PM CDT) Narrative Performed At POC-Glucose meter (11/30/2018 8:10 AM CDT)Only the most recent of7 resultswithin the time period is included. POC-Glucose Meter 124 (H)Comment: TESTED AT 70 - 110 mg/dL [facility] [address] [facility] [address] Specimen Blood Performing Organization Address City/[facility] Phone Number [address] [address] CENTER CBC (hemogram only) (11/30/2018 6:28 AM CDT)Only the most recent of3 resultswithin the time period is included. WBC 6.2 3.5 - 10.5 K/L [facility] RBC 5.97 4.63 - 6.08 M/L [facility] Hemoglobin 14.6 13.7 - 17.5 GM/DL [facility] Hematocrit 46.5 40.1 - 51.0 % [facility] MCV 77.9 (L) 79.0 - 92.2 fL [facility] MCH 24.5 (L) 25.7 - 32.2 pg [facility] MCHC 31.4 (L) 32.3 - 36.5 GM/DL [facility] RDW 15.1 (H) 11.6 - 14.4 % [facility] Platelets 216 150 - 450 K/CU MM [facility] MPV 9.8 9.4 - 12.4 fL [facility] nRBC 0 0 - 0 /100 WBC [facility] Specimen Blood Performing Organization Address City/State/Zipcode Phone Number [facility] [address], [place] [address] [phone] CENTER B-type Natriuretic Factor (BNP) (11/30/2018 5:07 AM CDT)Only the most recent of2 resultswithin the time period is included. BNP 417 (H) 0 - 100 pg/mL [facility] Specimen Blood Performing Organization Address [facility]/Zipcode Phone Number [facility] [address], [place] [phone] [place] Basic Metabolic Panel (11/30/2018 5:07 AM CDT)Only the most recent of3 resultswithin the time period is included. Sodium 138 136 - 145 meq/L [facility] Potassium 3.6 3.5 - 5.1 meq/L [facility] Chloride 106 98 - 107 meq/L [facility] CO2 23 22 - 29 meq/L [facility] BUN 22 (H) 7 - 21 mg/dL [facility] Creatinine 1.95 (H) 0.57 - 1.25 mg/dL [facility] Glucose 118 (H) 70 - 105 mg/dL [facility] Calcium 9.3 8.4 - 10.2 mg/dL [facility] EGFR 34Comment: ESTIMATED GFR IS mL/min/1.73 sq m [facility] NOT ACCURATE CREATININE [facility] CLEARANCE IN PREDICTING GLOMERULAR FILTRATION RATE. ESTIMATED GFR IS NOT APPLICABLE FOR DIALYSIS PATIENTS. Specimen Blood Performing Organization Address City/[facility]/Zipcode Phone Number [address] [address] [place] ECHOCARDIOGRAM REPORT - SCAN (11/29/2018 9:11 PM CDT) Narrative Performed At 2D Echo W/Doppler(CW/PW/Color) (11/29/2018 9:05 AM CDT) Ejection Fraction [facility] Specimen Narrative Performed At Transthoracic Echocardiography Report (TTE) [facility] Demographics Patient Name Isidoro SUMMERS of Study 11/29/2018 HERBER [id number] GenderMale Visit Number [id number] RaceCaucasian [id number] Room Number C632 Number Date of Birth1950 Referring Physician Hernán Javed MD Age67 year(s) Forensic Science Technician Mickey Clayton [facility] Brock Andrade MD Physician Procedure Type of Study TTE procedure:2DECHO W DOPPLER(CW/PW/COLOR) (MARIE) Indications:Acute Chest Pain/ Suspected CAD. Clinical History HGB 14.6 HCT 45.0 % HTN, HLD, DM2, CKD, CAD, STENTS X11 Height: 68 inches Weight: 89.36 kg (197 lbs) BSA: 2.03 m^2 BMI: 29.95 kg/m^2 HR: 69 bpm BP: 157/87 mmHg Summary HGB 14.6 HCT 45.0 % Global LV systolic function lower limits of normal . Normal LV wall thickness. The following segment(s) appear mildly hypokinetic: basal to mid inferior, inferolateral . Grade 1 diastolic dysfunction (impaired relaxation and low-normal LA pressure). LA size is mildly enlarged (35-41 ml/m2) . Unable to estimate peak systolic PA pressure; inadequate TR velocity signal. The estimated RA pressure by IVC dynamics 5-10mmHg . Aortic root size (Sinus of Valsalva diameter) is moderately dilated. 4.2 cm Proximal ascending aorta size is mildly dilated . Previous Study No prior exam available for comparison. Signature Findings Left Ventricle Global LV systolic function lower limits of normal . Th e left ventricle is chamber size (by vol index) is normal (male - LVED vol - 34-74ml/m2). No rmal LV wall thickness. Th e following segment(s) appear mildly hypokinetic: ba mayur to mid inferior, inferolateral . Th e other segments contract normally. Gr savannah 1 diastolic dysfunction (impaired relaxation an d low-normal LA pressure). Left AtriumLA size is mildly enlarged (35-41 ml/m2) . Right VentricleThe right ventricular chamber size and systolic fu nction are within normal limits. Right Atrium RA size is normal. Aortic Valve Normal AoV structure. Mitral Valve Normal MV structure. Tricuspid ValveTV structure is normal. Un able to estimate peak systolic PA pressure; in adequate TR velocity signal. Pulmonic Valve PV is not well visualized. AortaAortic root size (Sinus of Valsalva diameter) is mo derately dilated. 4.2 cm Pr oximal ascending aorta size is mildly dilated . PericardiumNo pericardial effusion is visualized. IVC/SVC/PA/PV/PleuralThe estimated RA pressure by IVC dynamics 5-10mmHg . Chambers/Structures Left Atrium LA Volume: 70.45 ml LA Area: 13.98 cm^2 LA Vol. Index: 35 ml/m^2 Left Ventricle LVIDd: 4.55 cm LVIDs: 3.51 cm LV Septum Diastolic: 1 cm LV PW Diastolic: 1.16 cm LV FS: 22.9 % LVEDV Crocker's:97.57 ml LVESV Crocker's:51.46 ml LVEDVI: 48 ml/m^2 LVEF Crocker's: 47.3 % LVESVI: 25 ml/m^2 LVOT Diameter: 2.09 cm Aorta Ascending Aorta: 3.91 cm Doppler/Quantitative Measurements Mitral Valve MV Peak E-Wave: 0.64 m/s MV Peak A-Wave: 0.74 m/s E/A Ratio: 0.86 Peak Gradient: 1.62 mmHg MV Luigi. Peak: Tissue Doppler E' Septal Velocity: 0.04 m/s E/E': 17.14 E' Lateral Velocity: 0.06 m/s Aortic Valve Peak Velocity: 1.16 m/s Mean Velocity: 0.77 m/s Peak Gradient: 5.43 mmHgMean Gradient: 2.8 mmHg AV Area (continuity): 3.72 cm^2 AV VTI: 22.49 cm AV DVI: 1.09 LVOT Peak Velocity: 1.17 m/s Peak Gradient: 5.52 mmHg Mean Velocity: 0.68 m/s Mean Gradient: 2.23 mmHg LVOT Diameter: 2.09 cmLVOT VTI: 24.43 cm LVOT Area: 3.43 cm^2LVOT SV:83.77 ml LVOT CO: 5.78 l/min LVOT CI: 2.85 l/min/m^2 Procedure Note Interface, External Ris In - 11/29/2018 4:12 PM CDT Transthoracic Echocardiography Report (TTE) Demographics Patient Name RODNEY SUMMERS Date of Study 11/29/2018 HERBER Gender Male Visit Number [id number] Race Room Number C632 Number Date of 1950 Referring Physician Hernán Javed MD Age 67 year(s) Forensic Science Technician Mickey Clayton RD Interpreting Roz Andrade MD Physician Procedure Type of Study TTE procedure:2DECHO W DOPPLER(CW/PW/COLOR) (MARIE) Indications:Acute Chest Pain/ Suspected CAD. Clinical History HGB 14.6 HCT 45.0 % HTN, HLD, DM2, CKD, CAD, STENTS X11 Height: 68 inches Weight: 89.36 kg (197 lbs) BSA: 2.03 m^2 BMI: 29.95 kg/m^2 HR: 69 bpm BP: 157/87 mmHg Summary HGB 14.6 HCT 45.0 % Global LV systolic function lower limits of normal . Normal LV wall thickness. The following segment(s) appear mildly hypokinetic: basal to mid inferior, inferolateral . Grade 1 diastolic dysfunction (impaired relaxation and low-normal LA pressure). LA size is mildly enlarged (35-41 ml/m2) . Unable to estimate peak systolic PA pressure; inadequate TR velocity signal. The estimated RA pressure by IVC dynamics 5-10mmHg . Aortic root size (Sinus of Valsalva diameter) is moderately dilated. 4.2 cm Proximal ascending aorta size is mildly dilated . Previous Study No prior exam available for comparison. Signature Findings Left Ventricle Global LV systolic function lower limits of normal . The left ventricle is chamber size (by vol index) is normal (male - LVED vol - 34-74ml/m2). Normal LV wall thickness. The following segment(s) appear mildly hypokinetic: basal to mid inferior, inferolateral . The other segments contract normally. Grade 1 diastolic dysfunction (impaired relaxation and low-normal LA pressure). Left Atrium LA size is mildly enlarged (35-41 ml/m2) . Right Ventricle The right ventricular chamber size and systolic function are within normal limits. Right Atrium RA size is normal. Aortic Valve Normal AoV structure. Mitral Valve Normal MV structure. Tricuspid Valve TV structure is normal. Unable to estimate peak systolic PA pressure; inadequate TR velocity signal. Pulmonic Valve PV is not well visualized. Aorta Aortic root size (Sinus of Valsalva diameter) is moderately dilated. 4.2 cm Proximal ascending aorta size is mildly dilated . Pericardium No pericardial effusion is visualized. IVC/SVC/PA/PV/Pleural The estimated RA pressure by IVC dynamics 5-10mmHg . Chambers/Structures Left Atrium LA Volume: 70.45 ml LA Area: 13.98 cm^2 LA Vol. Index: 35 ml/m^2 Left Ventricle LVIDd: 4.55 cm LVIDs: 3.51 cm LV Septum Diastolic: 1 cm LV PW Diastolic: 1.16 cm LV FS: 22.9 % LVEDV Crocker's:97.57 ml LVESV Crocker's:51.46 ml LVEDVI: 48 ml/m^2 LVEF Crocker's: 47.3 % LVESVI: 25 ml/m^2 LVOT Diameter: 2.09 cm Aorta Ascending Aorta: 3.91 cm Doppler/Quantitative Measurements Mitral Valve MV Peak E-Wave: 0.64 m/s MV Peak A-Wave: 0.74 m/s E/A Ratio: 0.86 Peak Gradient: 1.62 mmHg MV Luigi. Peak: Tissue Doppler E' Septal Velocity: 0.04 m/s E/E': 17.14 E' Lateral Velocity: 0.06 m/s Aortic Valve Peak Velocity: 1.16 m/s Mean Velocity: 0.77 m/s Peak Gradient: 5.43 mmHg Mean Gradient: 2.8 mmHg AV Area (continuity): 3.72 cm^2 AV VTI: 22.49 cm AV DVI: 1.09 LVOT Peak Velocity: 1.17 m/s Peak Gradient: 5.52 mmHg Mean Velocity: 0.68 m/s Mean Gradient: 2.23 mmHg LVOT Diameter: 2.09 cm LVOT VTI: 24.43 cm LVOT Area: 3.43 cm^2 LVOT SV:83.77 ml LVOT CO: 5.78 l/min LVOT CI: 2.85 l/min/m^2 Performing Organization Address [facility] Phone Number [facility] Hemoglobin A1c (11/29/2018 6:49 AM CDT)Only the most recent of2 resultswithin the time period is included. Hemoglobin A1C 7.8 (H) 4.3 - 6.1 % [facility] Specimen Blood Performing Organization Address [facility] Cent[facility]ode Phone Number [address] [address] CENTER Sodium, random urine (11/29/2018 3:46 AM CDT) Sodium Urine 130 meq/L [facility] Specimen Urine Narrative Performed At Reference Range: No Normals [facility] Performing Organization Address [facility] Cent[facility] Phone Number [address] [address] CENTER Protein, random urine (11/29/2018 3:46 AM CDT) Protein, Urine 94 (H) 0 - 14 mg/dL [facility] Specimen Urine Performing Organization Address City/[facility]/Zipcode Phone Number [address] [address] [place] Creatinine, random urine (11/29/2018 3:46 AM CDT) Creatinine, Ur 32.4 mg/dL [facility] Specimen Urine Narrative Performed At Reference Range: No Normals [facility] Performing Organization Address [facility] Phone Number [address] [address] [place] Urinalysis w/Microscopic (11/29/2018 3:46 AM CDT) Color, UA Colorless [facility] Clarity, UA Clear [facility] Specific [place], UA 1.011 1.001 - 1.035 [facility] pH, UA 7.5 5.0 - 8.0 [facility] Protein, UA 70 mg/dL (A) Negative [facility] Glucose, UA Negative Negative [facility] Ketones, UA Negative Negative [facility] Bilirubin, UA Negative Negative [facility] Blood, UA Negative Negative [facility] Nitrite, UA Negative Negative [facility] Leukocytes, UA Negative Negative [facility] Urobilinogen, UA 0.2 0.2 - 1.0 mg/dL [facility] RBC, UA 2 /HPF [facility] WBC, UA 0 /HPF [facility] Mucus Rare [facility] Squam Epithel, UA <1 /HPF [facility] Specimen Source Urine, Voided [facility] Specimen Urine Performing Organization Address [facility] Centercout Phone Number [address] [phone] [place] Uric acid (11/29/2018 3:11 AM CDT) Uric Acid 8.2 (H) 2.6 - 7.2 mg/dL [facility] Specimen Blood Performing Organization Address City/[facility] Phone Number [address] [address] [phone] [place] PTH, intact (11/29/2018 3:11 AM CDT) PTH 165.0 (H) 8.5 - 72.5 pg/mL [facility] Specimen Blood Performing Organization Address [facility] Phone Number [address] [address] [place] POC ACTIVATED CLOTTING TIME (11/28/2018 7:41 PM CDT)Only the most recent of2 resultswithin the time period is included. Activated Clotting Time 230Comment: TESTED AT sec [address] [address] Specimen Blood Performing Organization Address [facility] Phone Number [address] [address] [place] aPTT (11/28/2018 3:59 PM CDT)Only the most recent of2 resultswithin the time period is included. PTT 44.3 (H) 22.5 - 36.0 seconds [facility] Specimen Blood Performing Organization Address [facility] Phone Number [address] [address] [place] Lipid panel (11/28/2018 11:18 AM CDT) Triglycerides 455Comment: Specimen slightly mg/dL [facility] hemolyzed [facility] [place] Cholesterol 196Comment: Specimen slightly mg/dL [facility] hemolyzed [facility] [place] HDL 26 mg/dL [facility] Specimen Blood Narrative Performed At Calculated LDL not valid if triglyceride >400 [facility] mg/dL Triglyceride Reference Range: Low Risk <150 [id number] High Risk 200-499 Very High Risk>=500 Cholesterol Reference Range: Low Risk <200 [id number] High Risk>240 HDL Cholesterol Reference Range: Low Risk >=60 High Risk <40 LDL Cholesterol Reference Range: Optimal<100 Near [id number] Very High >=190 Performing Organization Address [facility] Centercode Phone Number [address] [address] [place] Prothromin time/INR (11/28/2018 9:30 AM CDT) Protime 13.7 11.7 - 14.7 seconds [facility] INR 1.0 <=5.9 [facility] Specimen Blood Narrative Performed At RECOMMENDED COUMADIN/WARFARIN INR THERAPY [facility] RANGES STANDARD DOSE: 2.0 - 3.0 Includes: PROPHYLAXIS for venous thrombosis, systemic embolization; TREATMENT for venous thrombosis and/or pulmonary embolus. HIGH RISK: Target INR is 2.5-3.5 for patients with mechanical heart valves. Prior to initiating heparin Performing Organization Address [facility] [facility] Phone Number [address] [address] CENTER Fibrinogen (11/28/2018 9:30 AM CDT) Fibrinogen 438 (H) 225 - 434 mg/dl [facility] Specimen Blood Narrative Performed At Prior to initiating heparin [facility] Performing Organization Address [facility] Phone Number [address] [address] [phone] [place] ECG 12 lead (11/28/2018 8:53 AM CDT) Specimen Narrative Performed At Ventricular Rate 67 BPM GE MUSE Atrial Rate 67 BPM P-R Interval 172 ms QRS Duration 92 ms Q-T Interval 386 ms QTC Calculation(Bazett) 407 ms P [place] 69 degrees R [place] -29 degrees T [place] 24 degrees Normal sinus rhythm Inferior infarct , age undetermined Abnormal ECG No previous ECGs available Confirmed by Yolie YODER BASANT ([id number]) on 11/30/2018 6:31:28 PM Procedure Note Interface, External Ris In - 11/30/2018 6:31 PM CDT Ventricular Rate 67 BPM Atrial Rate 67 BPM P-R Interval 172 ms QRS Duration 92 ms Q-T Interval 386 ms QTC Calculation(Bazett) 407 ms P [place] 69 degrees R [place] -29 degrees T [place] 24 degrees Normal sinus rhythm Inferior infarct , age undetermined Abnormal ECG No previous ECGs available Confirmed by Yolie YODER, ALIE ([id number]) on 11/30/2018 6:31:28 PM Performing Organization Address City/State/Zipcode Phone Number GE MUSE after 02/20/2018 Insurance Payer Benefit Plan / Subscriber ID Type Phone Address Group [employer] - MEDICARE AETNA MEDICARE O xxxxxxxx [phone] [address] [place] [address] Advance Directives For more information, please contact:[address] [phone] Code Status Date Activated Date Inactivated Comments Full Code 11/28/2018 7:06 AM 11/30/2018 1:58 PM This code status was determined by: Patient
--- OUTSIDE RECORDS SUMMARY | 2019-02-21 08:22 | XMS REPORT ---
:1950 [facility] Address [facility] Octavio Jett [address] [place] [id number] Care Team Providers Name Role Phone LAUREN LAM Unavailable Unavailable Problems This patient has no known problems. Allergies, Adverse Reactions, Alerts This patient has no known allergies or adverse reactions. Medications This patient has no known medications. Results Test Description Test Time Test Comments Text Results Atomic Results Result Comments POCT-GLUCOSE METER 2018-11-30 08:43:00 Test Item Value Reference Range Comments POC-GLUCOSE METER (BEAKER) (test 124 mg/dL 70-[address] [facility] [address] [facility] agtn=[id number]) [facility] [id number] CBC (HEMOGRAM ONLY)2018-11-30 07:16:00 Test Item Value Reference Range Comments WHITE BLOOD CELL COUNT (BEAKER) (test hnge=134) 6.2 K/ L 3.5-10.5 RED BLOOD CELL COUNT (BEAKER) (test lbli=616) 5.97 M/ L 4.63-6.08 HEMOGLOBIN (BEAKER) (test cezl=530) 14.6 GM/DL 13.7-17.5 HEMATOCRIT (BEAKER) (test gskl=245) 46.5 % 40.1-51.0 MEAN CORPUSCULAR VOLUME (BEAKER) (test kstc=642) 77.9 fL 79.0-92.2 MEAN CORPUSCULAR HEMOGLOBIN (BEAKER) (test 24.5 pg 25.7-32.2 kdin=789) MEAN CORPUSCULAR HEMOGLOBIN CONC (BEAKER) (test 31.4 GM/DL 32.3-36.5 rotd=387) RED CELL DISTRIBUTION WIDTH (BEAKER) (test 15.1 % 11.6-14.4 ovvy=269) PLATELET COUNT (BEAKER) (test qzwz=465) 216 K/CU MM 150-450 MEAN PLATELET VOLUME (BEAKER) (test gwde=845) 9.8 fL 9.4-12.4 NUCLEATED RED BLOOD CELLS (BEAKER) (test 0 /100 WBC 0-0 uugb=922) B-TYPE NATRIURETIC FACTOR (BNP)2018-11-30 06:12:00 Test Item Value Reference Range Comments B-TYPE NATRIURETIC PEPTIDE (BEAKER) (test 417 pg/mL 0-100 gfgk=058) BASIC METABOLIC [id number] 06:09:00 Test Item Value Reference Range Comments SODIUM (BEAKER) (test 138 meq/L 136-145 ohdr=428) POTASSIUM (BEAKER) (test 3.6 meq/L 3.5-5.1 peku=998) CHLORIDE (BEAKER) (test 106 meq/L 98-107 egjz=924) CO2 (BEAKER) (test 23 meq/L 22-29 zuve=847) BLOOD UREA NITROGEN 22 mg/dL 7-21 (BEAKER) (test shrb=811) CREATININE (BEAKER) (test 1.95 mg/dL 0.57-1.25 kgjw=222) GLUCOSE RANDOM (BEAKER) 118 mg/dL 70-105 (test owuk=992) CALCIUM (BEAKER) (test 9.3 mg/dL 8.4-10.2 ncyb=269) EGFR (BEAKER) (test 34 mL/min/1.73 sq m ESTIMATED GFR IS NOT bvop=9898) ACCURATE CREATININE CLEARANCE IN PREDICTING GLOMERULAR FILTRATION RATE. ESTIMATED GFR IS NOT APPLICABLE FOR DIALYSIS PATIENTS. POCT-GLUCOSE [id number] 22:52:00 Test Item Value Reference Range Comments POC-GLUCOSE METER (BEAKER) 83 mg/dL 70-110 TESTED AT [address] (test eiag=6076) [place] [id number] POCT-GLUCOSE [id number] 18:13:00 Test Item Value Reference Range Comments POC-GLUCOSE METER (BEAKER) 178 mg/dL 70-110 TESTED AT [address] (test fyrz=1773) [facility] [address] HEMOGLOBIN [id number] 09:48:00 Test Item Value Reference Range Comments HEMOGLOBIN A1C (BEAKER) (test xtyu=244) 7.8 % 4.3-6.1 POCT-GLUCOSE [id number] 08:23:00 Test Item Value Reference Range Comments POC-GLUCOSE METER (BEAKER) 134 mg/dL 70-[address] [facility] [address] (test reen=5035) [facility] [address] CREATININE, RANDOM [id number] 05:00:00 Test Item Value Reference Range Comments CREATININE URINE (BEAKER) (test flws=298) 32.4 mg/dL Reference Range: No NormalsPROTEIN, RANDOM [id number] 05:00:00 Test Item Value Reference Range Comments PROTEIN, URINE (BEAKER) (test okji=1826) 94 mg/dL 0-14 SODIUM, RANDOM [id number] 05:00:00 Test Item Value Reference Range Comments SODIUM URINE (BEAKER) (test psbp=868) 130 meq/L Reference Range: No NormalsURINALYSIS W/ [id number] 04:52:00 Test Item Value Reference Range Comments COLOR (BEAKER) (test nryy=943) Colorless CLARITY (BEAKER) (test ptpu=706) Clear SPECIFIC GRAVITY UA (BEAKER) (test nntx=027) 1.011 1.001-1.035 PH UA (BEAKER) (test mkbj=796) 7.5 5.0-8.0 PROTEIN UA (BEAKER) (test myrg=649) 70 mg/dL Negative GLUCOSE UA (BEAKER) (test xjbo=779) Negative Negative KETONES UA (BEAKER) (test cumx=670) Negative Negative BILIRUBIN UA (BEAKER) (test wssx=308) Negative Negative BLOOD UA (BEAKER) (test ckve=916) Negative Negative NITRITE UA (BEAKER) (test mwrr=745) Negative Negative LEUKOCYTE ESTERASE UA (BEAKER) (test byyt=573) Negative Negative UROBILINOGEN UA (BEAKER) (test nnqk=900) 0.2 mg/dL 0.2-1.0 RBC UA (BEAKER) (test enyz=969) 2 /HPF WBC UA (BEAKER) (test hwvu=847) 0 /HPF MUCUS (BEAKER) (test okoi=6126) Rare SQUAMOUS EPITHELIAL (BEAKER) (test ruvq=346) < /HPF SOURCE(BEAKER) (test zcbi=1697) Urine, Voided PTH, [id number] 03:55:00 Test Item Value Reference Range Comments PARATHYROID HORMONE INTACT (BEAKER) (test 165.0 pg/mL 8.5-72.5 elvy=634) B-TYPE NATRIURETIC FACTOR (BNP)2018-11-29 03:54:00 Test Item Value Reference Range Comments B-TYPE NATRIURETIC PEPTIDE (BEAKER) (test 777 pg/mL 0-100 xdah=269) BASIC METABOLIC [id number] 03:47:00 Test Item Value Reference Range Comments SODIUM (BEAKER) (test 138 meq/L 136-145 bger=125) POTASSIUM (BEAKER) (test 3.7 meq/L 3.5-5.1 Specimen slightly uqml=767) hemolyzed CHLORIDE (BEAKER) (test 105 meq/L 98-107 runq=243) CO2 (BEAKER) (test 23 meq/L 22-29 rxwf=904) BLOOD UREA NITROGEN 23 mg/dL 7-21 (BEAKER) (test owal=796) CREATININE (BEAKER) (test 2.04 mg/dL 0.57-1.25 Specimen slightly qygz=068) hemolyzed GLUCOSE RANDOM (BEAKER) 114 mg/dL 70-105 (test rrqs=238) CALCIUM (BEAKER) (test 9.0 mg/dL 8.4-10.2 kruu=085) EGFR (BEAKER) (test 33 mL/min/1.73 sq m ESTIMATED GFR IS NOT kddg=8555) ACCURATE CREATININE CLEARANCE IN PREDICTING GLOMERULAR FILTRATION RATE. ESTIMATED GFR IS NOT APPLICABLE FOR DIALYSIS PATIENTS. URIC [id number] 03:47:00 Test Item Value Reference Range Comments URIC ACID (BEAKER) (test maws=922) 8.2 mg/dL 2.6-7.2 CBC (HEMOGRAM ONLY)2018-11-29 03:41:00 Test Item Value Reference Range Comments WHITE BLOOD CELL COUNT (BEAKER) (test qlin=280) 6.8 K/ L 3.5-10.5 RED BLOOD CELL COUNT (BEAKER) (test xwuf=365) 5.86 M/ L 4.63-6.08 HEMOGLOBIN (BEAKER) (test qbxk=566) 14.6 GM/DL 13.7-17.5 HEMATOCRIT (BEAKER) (test qlpu=366) 45.0 % 40.1-51.0 MEAN CORPUSCULAR VOLUME (BEAKER) (test ocdj=767) 76.8 fL 79.0-92.2 MEAN CORPUSCULAR HEMOGLOBIN (BEAKER) (test 24.9 pg 25.7-32.2 qald=068) MEAN CORPUSCULAR HEMOGLOBIN CONC (BEAKER) (test 32.4 GM/DL 32.3-36.5 lrrv=480) RED CELL DISTRIBUTION WIDTH (BEAKER) (test 15.0 % 11.6-14.4 ijgj=401) PLATELET COUNT (BEAKER) (test oswf=735) 231 K/CU MM 150-450 MEAN PLATELET VOLUME (BEAKER) (test zarv=743) 9.7 fL 9.4-12.4 NUCLEATED RED BLOOD CELLS (BEAKER) (test 0 /100 WBC 0-0 znos=253) POCT-GLUCOSE [id number] 21:40:00 Test Item Value Reference Range Comments POC-GLUCOSE METER (BEAKER) 111 mg/dL 70-110 TESTED AT [address] (test pcgi=7250) [place] [address] [id number] 20:29:00 Test Item Value Reference Range Comments ACTIVATED CLOTTING TIME 230 sec TESTED AT [address] (BEAKER) (test yxif=985) [place] [address] [id number] 20:29:00 Test Item Value Reference Range Comments ACTIVATED CLOTTING TIME 131 sec TESTED AT [address] (BEAKER) (test dbjl=951) [place] [address] POCT-GLUCOSE [id number] 17:58:00 Test Item Value Reference Range Comments POC-GLUCOSE METER (BEAKER) 137 mg/dL 70-110 TESTED AT [address] (test tpuf=4291) [place] [address] [id number] 16:46:00 Test Item Value Reference Range Comments PARTIAL THROMBOPLASTIN TIME (BEAKER) (test 44.3 seconds 22.5-36.0 uxnm=579) BASIC METABOLIC [id number] 12:43:00 Test Item Value Reference Range Comments SODIUM (BEAKER) (test 137 meq/L 136-145 qlxc=571) POTASSIUM (BEAKER) (test 4.0 meq/L 3.5-5.1 Specimen slightly vgqa=340) hemolyzed CHLORIDE (BEAKER) (test 100 meq/L 98-107 ajdp=402) CO2 (BEAKER) (test 27 meq/L 22-29 xwdj=714) BLOOD UREA NITROGEN 29 mg/dL 7-21 (BEAKER) (test jbse=695) CREATININE (BEAKER) (test 2.33 mg/dL 0.57-1.25 Specimen slightly vzmk=326) hemolyzed GLUCOSE RANDOM (BEAKER) 154 mg/dL 70-105 (test vagp=369) CALCIUM (BEAKER) (test 9.1 mg/dL 8.4-10.2 tejd=029) EGFR (BEAKER) (test 28 mL/min/1.73 sq m ESTIMATED GFR IS NOT mrwf=4061) ACCURATE CREATININE CLEARANCE IN PREDICTING GLOMERULAR FILTRATION RATE. ESTIMATED GFR IS NOT APPLICABLE FOR DIALYSIS PATIENTS. POCT-GLUCOSE [id number] 12:33:00 Test Item Value Reference Range Comments POC-GLUCOSE METER (BEAKER) 140 mg/dL 70-[address] [facility] [address] [facility] (test nnog=2798) [facility] [address] LIPID [id number] 12:28:00 Test Item Value Reference Range Comments TRIGLYCERIDES (BEAKER) (test 455 mg/dL Specimen slightly hemolyzed guxi=095) CHOLESTEROL (BEAKER) (test 196 mg/dL Specimen slightly hemolyzed xzvk=285) HDL CHOLESTEROL (BEAKER) (test 26 mg/dL kadi=019) Calculated LDL not valid if triglyceride >400 mg/dLTriglyceride Reference Range: Low Risk <150 Borderline 150-199 High Risk 200-499 Very High Risk >=500Cholesterol Reference Range: Low Risk <200 Borderline 200-239 High Risk >240HDL Cholesterol Reference Range: Low Risk >=60 High Risk <40LDL Cholesterol ReferenceRange: Optimal <100 Near Optimal 100-129 Borderline 130-159 High 160-189 Very High >=190HEMOGLOBIN [id number] 11:30:00 Test Item Value Reference Range Comments HEMOGLOBIN A1C (BEAKER) (test hxus=913) 7.9 % 4.3-6.1 PROTHROMBIN [id number] 10:31:00 Test Item Value Reference Range Comments PROTIME (BEAKER) (test svyt=200) 13.7 seconds 11.7-14.7 INR (BEAKER) (test qajg=714) 1.0 <=5.9 RECOMMENDED COUMADIN/WARFARIN INR THERAPY RANGESSTANDARD DOSE: 2.0 - 3.0 Includes: PROPHYLAXIS forvenous thrombosis, systemic embolization; TREATMENT for venous thrombosis and/or pulmonary embolus.HIGH RISK: Target INR is 2.5-3.5 for patients with mechanical heart valves.Prior to initiating [id number] 10:31:00 Test Item Value Reference Range Comments FIBRINOGEN LEVEL (BEAKER) (test qaig=174) 438 mg/dl 225-434 Prior to initiating [id number] 10:31:00 Test Item Value Reference Range Comments PARTIAL THROMBOPLASTIN TIME (BEAKER) (test 35.8 seconds 22.5-36.0 jjar=068) Prior to initiating heparinCBC (HEMOGRAM ONLY)2018-11-28 10:11:00 Test Item Value Reference Range Comments WHITE BLOOD CELL COUNT (BEAKER) (test zjrh=466) 7.4 K/ L 3.5-10.5 RED BLOOD CELL COUNT (BEAKER) (test rrdo=669) 5.46 M/ L 4.63-6.08 HEMOGLOBIN (BEAKER) (test cjwh=720) 13.8 GM/DL 13.7-17.5 HEMATOCRIT (BEAKER) (test xuwl=512) 41.2 % 40.1-51.0 MEAN CORPUSCULAR VOLUME (BEAKER) (test mnhf=099) 75.5 fL 79.0-92.2 MEAN CORPUSCULAR HEMOGLOBIN (BEAKER) (test 25.3 pg 25.7-32.2 fkgi=442) MEAN CORPUSCULAR HEMOGLOBIN CONC (BEAKER) (test 33.5 GM/DL 32.3-36.5 pfcl=297) RED CELL DISTRIBUTION WIDTH (BEAKER) (test 15.3 % 11.6-14.4 kxrh=578) PLATELET COUNT (BEAKER) (test znbb=124) 211 K/CU MM 150-450 MEAN PLATELET VOLUME (BEAKER) (test qqml=317) 10.3 fL 9.4-12.4 NUCLEATED RED BLOOD CELLS (BEAKER) (test 0 /100 WBC 0-0 suaz=075)
[2019-02-21] MEDS ORDERED: NA CHLORIDE 0.9% 500 ML ONE (08:44)
[2019-02-21] MEDS ORDERED: MIDAZOLAM HCL 2 MG/2 ML INJ ONE ×2 (10:15→10:38)
[2019-02-21] MEDS ORDERED: NA CHLORIDE 0.9% 50 ML ONE (10:15)
[2019-02-21] MEDS ORDERED: FENTANYL CITR 100 MCG/2 ML ONE (10:15)
[2019-02-21] MEDS ORDERED: ATROPINE SULF 1 MG/10 ML SYR IV ONE (10:15)
[2019-02-21] MEDS ORDERED: PRASUGREL (EFFIENT) 10 MG TAB ONE (11:13)
[2019-02-21] MEDS ORDERED: ACETYLCYST 20% 4 ML VIAL IH ONE (11:13)
[2019-02-21] MEDS ORDERED: MORPHINE 4 MG/ML SYR IV PRN (12:52)
[2019-02-21] MEDS ORDERED: ZOLPIDEM TARTRATE 5 MG TABLET PO PRN (12:53)
[2019-02-21] MEDS: NA CHLORIDE 0.9% 1,000 ML IV SCH ×2 (13:25→21:11)
[2019-02-21 17:39] VITALS: BMI 29.6
--- NOTE | 2019-02-21 18:28 | OP ---
Date of Procedure: 02/21/2019 Surgeon: Isaiah Arango MD Animal Researcher: Abe Montoya and Akua Carreon. Admitted to my service as an outpatient on 02/21/2019. Reason For Admission: Performing a left heart catheterization, selective coronary arteriogram. The procedure also included a primary stent of the LAD. Indication: CAD and unstable angina. Procedure In Detail: The patient was brought up to the wastewater analyst lab analyst as an outpatient on 02/21/2019, was given 75 of fentanyl and 3 mg of Versed for IV sedation. Six-Malay sheath introduced in the right c ommon femoral artery. StarClose was used to close the case. Leeann catheter was used to do the ang iography. Mr. Summers has had multiple stents. He has a proximal RCA stent with 30% in-stent resten osis. He had multiple patent distal RCA stent. He had proximal stent in the circumflex that was ope n. He has a 70% stenosis in the distal posterolateral branch and a nondominant circ. He had a 90% o stial LAD stenosis. He has many stents in the proximal, mid, and distal LAD, all of which were open. He had about a 30% left main stenosis. His 90% ostial LAD stenosis was opened with a 2.5 x 12 Syne rgy stent using an XB LAD 3.5 guide with side hole Browning wire. Anesthesia: Total conscious sedation was 45 minutes. Complications: None. Blood Loss: 5 cc. Final Diagnosis: Coronary artery disease status post primary stent of the left anterior descending. The patient received Angiomax, aspirin, and Effient during the procedure. He also received Mucomyst before and after the procedure for renal insufficiency. MYLENE/LIZZY Voice ID: [id number] Report ID: [id number]
[2019-02-21] MEDS ORDERED: EZETIMIBE 10 MG TAB PO SCH (21:00)
[2019-02-21] MEDS ORDERED: REPAGLINIDE 2 MG PO SCH (21:00)
[2019-02-21] MEDS: GABAPENTIN 100 MG CAP PO SCH (21:11)
[2019-02-21] MEDS: CARVEDILOL 12.5 MG TAB PO SCH (21:11)
[2019-02-22 04:47] VITALS: O2SAT 97
[2019-02-22 05:07] LABS: Absolute Lymphocytes (CBC) 1.4 K/uL (0.7-4.9); Absolute Monocytes 0.5 K/uL (0.1-1.3); Absolute Neutrophil 4.3 K/uL (1.8-8.0); Eosinophils % 5.9 % (0-4.4); Lymphocytes % 21.3 % (15.3-44.8); MPV 7.8 fL (7.6-11.3); Monocytes % 7.5 % (3.3-12.3); RBC Red Blood Cell Count 5.21 M/uL (4.33-5.43)
[2019-02-22] MEDS: CARVEDILOL 12.5 MG TAB PO SCH (08:12)
[2019-02-22] MEDS: GABAPENTIN 100 MG CAP PO SCH (08:12)
[2019-02-22 08:21] VITALS: BP 166/81
[2019-02-22] MEDS ORDERED: ASPIRIN 81 MG CHEWABLE TABLET PO SCH (09:00)
[2019-02-22] MEDS ORDERED: PRASUGREL (EFFIENT) 10 MG TAB PO SCH (09:00)
[2019-02-22] MEDS ORDERED: SPIRONOLACTONE 25 MG TABLET PO SCH (09:00)
[2019-02-22] MEDS ORDERED: DOCOSAHEXANOIC AC/EPA 1000 MG PO SCH (09:00)
[2019-02-22] MEDS ORDERED: AMLODIPINE 5 MG TAB PO SCH (09:00)
[2019-02-22] MEDS ORDERED: LOSARTAN POTASSIUM 50 MG TABLET PO SCH (09:00)
[2019-02-22] MEDS ORDERED: TRESIBA SQ SCH (09:00)
[2019-02-22 09:55] VITALS: TEMP 97.6
--- NOTE | 2019-02-22 14:06 | EKG ---
Test Date: 2019-02-22 Test Time: 07:34:39 Coal Yard Supervisor: MARYAM MEASUREMENT RESULTS: Intervals: Rate: 64 [place]: 180 QRSD: 82 QT: 398 QTc: 410 [place]: P: 54 NJ: 180 QRS: -25 T: -33 INTERPRETIVE STATEMENTS: Normal sinus rhythm Possible Lateral infarct, age undetermined Inferior infarct, age undetermined Abnormal ECG Compared to ECG 11/27/2018 23:58:08 ST (T wave) deviation no longer present Myocardial infarct finding still present Electronically Signed On 02-22-19 14:04:56 CDT by Hugo Pacheco
== END 2019-02-22 09:47 | disposition home or self-care (01) ==
LOC: CCL 08:18 → 4TH 11:17 → CCL 02-22 09:47
DX: I25.110 Atherosclerotic heart disease of native coronary artery with unstable angina pectoris (principal); E11.22 Type 2 diabetes mellitus with diabetic chronic kidney disease; I12.9 Hypertensive chronic kidney disease with stage 1 through stage 4 chronic kidney disease, or unspecified chronic kidney disease; N18.4 Chronic kidney disease, stage 4 (severe); K21.9 Gastro-esophageal reflux disease without esophagitis; M10.9 Gout, unspecified; E11.51 Type 2 diabetes mellitus with diabetic peripheral angiopathy without gangrene; E78.5 Hyperlipidemia, unspecified; F17.210 Nicotine dependence, cigarettes, uncomplicated; Z79.82 Long term (current) use of aspirin; Z79.4 Long term (current) use of insulin; Z79.899 Other long term (current) drug therapy; Z82.49 Family history of ischemic heart disease and other diseases of the circulatory system
CPT/HCPCS: 93005; 85025 ×2; 80048 ×2; 36415 ×2; 85610; 80061; 82962 ×5; 85347 ×3; 85730; 71046; 93454; C1893; C1725; C1877; C9600; J2250 ×2; J3010; J0583; J7030 ×2

== ENCOUNTER 2019-08-12 08:24 | Emergency (ER) | payer OTHER ==
--- OUTSIDE RECORDS SUMMARY | 2019-08-12 08:27 | XMS REPORT ---
:1950 Author Organization [facility] Address [address] [place] [address] Care Team Providers Name Role Phone LAUREN [...] (BEAKER) (test 124 mg/dL 70-110 TESTED AT [facility] [address] [facility] djvh=[id number]) [facility] [address] CBC (HEMOGRAM ONLY)2018-11-30 07:16:00 Test Item Value Reference Range Comments WHITE BLOOD CELL COUNT (BEAKER) (test cegk=403) 6.2 K/ L 3.5-10.5 RED BLOOD CELL COUNT (BEAKER) (test vleh=724) 5.97 M/ L 4.63-6.08 HEMOGLOBIN (BEAKER) (test irog=092) 14.6 GM/DL 13.7-17.5 HEMATOCRIT (BEAKER) (test uswg=397) 46.5 % 40.1-51.0 MEAN CORPUSCULAR VOLUME (BEAKER) (test afqs=121) 77.9 fL 79.0-92.2 MEAN CORPUSCULAR HEMOGLOBIN (BEAKER) (test 24.5 pg 25.7-32.2 pkxh=669) MEAN CORPUSCULAR HEMOGLOBIN CONC (BEAKER) (test 31.4 GM/DL 32.3-36.5 onnd=274) RED CELL DISTRIBUTION WIDTH (BEAKER) (test 15.1 % 11.6-14.4 atiy=596) PLATELET COUNT (BEAKER) (test csss=943) 216 K/CU MM 150-450 MEAN PLATELET VOLUME (BEAKER) (test fxac=038) 9.8 fL 9.4-12.4 NUCLEATED RED BLOOD CELLS (BEAKER) (test 0 /100 WBC 0-0 dzfy=535) B-TYPE NATRIURETIC FACTOR (BNP)2018-11-30 06:12:00 Test Item Value Reference Range Comments B-TYPE NATRIURETIC PEPTIDE (BEAKER) (test 417 pg/mL 0-100 jpli=597) BASIC METABOLIC [id number] 06:09:00 Test Item Value Reference Range Comments SODIUM (BEAKER) (test 138 meq/L 136-145 ifhd=062) POTASSIUM (BEAKER) (test 3.6 meq/L 3.5-5.1 mhkz=547) CHLORIDE (BEAKER) (test 106 meq/L 98-107 hbbo=828) CO2 (BEAKER) (test 23 meq/L 22-29 ilsb=936) BLOOD UREA NITROGEN 22 mg/dL 7-21 (BEAKER) (test mudl=282) CREATININE (BEAKER) (test 1.95 mg/dL 0.57-1.25 hqxl=535) GLUCOSE RANDOM (BEAKER) 118 mg/dL 70-105 (test lpgb=362) CALCIUM (BEAKER) (test 9.3 mg/dL 8.4-10.2 nwif=134) EGFR (BEAKER) (test 34 mL/min/1.73 sq m ESTIMATED GFR IS NOT ibab=2634) ACCURATE CREATININE CLEARANCE IN PREDICTING GLOMERULAR FILTRATION RATE. ESTIMATED GFR IS NOT APPLICABLE FOR DIALYSIS PATIENTS. POCT-GLUCOSE [id number] 22:52:00 Test Item Value Reference Range Comments POC-GLUCOSE METER (BEAKER) 83 mg/dL 70-110 TESTED AT [facility] [address] [facility] (test kval=2030) [facility] [address] POCT-GLUCOSE [id number] 18:13:00 Test Item Value Reference Range Comments POC-GLUCOSE METER (BEAKER) 178 mg/dL 70-110 TESTED AT [place] [id number] [facility] (test goos=9737) [facility] [address] HEMOGLOBIN [id number] 09:48:00 Test Item Value Reference Range Comments HEMOGLOBIN A1C (BEAKER) (test bodr=894) 7.8 % 4.3-6.1 POCT-GLUCOSE [id number] 08:23:00 Test Item Value Reference Range Comments POC-GLUCOSE METER (BEAKER) 134 mg/dL 70-110 TESTED AT [facility] [address] (test usix=9051) [facility] [address] CREATININE, RANDOM [id number] 05:00:00 Test Item Value Reference Range Comments CREATININE URINE (BEAKER) (test pijk=262) 32.4 mg/dL Reference Range: No NormalsPROTEIN, RANDOM [id number] 05:00:00 Test Item Value Reference Range Comments PROTEIN, URINE (BEAKER) (test noyp=6019) 94 mg/dL 0-14 SODIUM, RANDOM [id number] 05:00:00 Test Item Value Reference Range Comments SODIUM URINE (BEAKER) (test yanp=287) 130 meq/L Reference Range: No NormalsURINALYSIS W/ [id number] 04:52:00 Test Item Value Reference Range Comments COLOR (BEAKER) (test uege=417) Colorless CLARITY (BEAKER) (test cgeg=374) Clear SPECIFIC GRAVITY UA (BEAKER) (test mixx=705) 1.011 1.001-1.035 PH UA (BEAKER) (test tyms=826) 7.5 5.0-8.0 PROTEIN UA (BEAKER) (test qzrz=370) 70 mg/dL Negative GLUCOSE UA (BEAKER) (test ojnf=818) Negative Negative KETONES UA (BEAKER) (test fxgi=038) Negative Negative BILIRUBIN UA (BEAKER) (test wewt=676) Negative Negative BLOOD UA (BEAKER) (test lyef=928) Negative Negative NITRITE UA (BEAKER) (test accb=263) Negative Negative LEUKOCYTE ESTERASE UA (BEAKER) (test xuih=390) Negative Negative UROBILINOGEN UA (BEAKER) (test uedw=285) 0.2 mg/dL 0.2-1.0 RBC UA (BEAKER) (test gzwk=322) 2 /HPF WBC UA (BEAKER) (test udmd=246) 0 /HPF MUCUS (BEAKER) (test vmun=8397) Rare SQUAMOUS EPITHELIAL (BEAKER) (test lilm=862) < /HPF SOURCE(BEAKER) (test rzis=7373) Urine, Voided PTH, [id number] 03:55:00 Test Item Value Reference Range Comments PARATHYROID HORMONE INTACT (BEAKER) (test 165.0 pg/mL 8.5-72.5 stfl=526) B-TYPE NATRIURETIC FACTOR (BNP)2018-11-29 03:54:00 Test Item Value Reference Range Comments B-TYPE NATRIURETIC PEPTIDE (BEAKER) (test 777 pg/mL 0-100 hcnq=265) BASIC METABOLIC [id number] 03:47:00 Test Item Value Reference Range Comments SODIUM (BEAKER) (test 138 meq/L 136-145 kpqa=654) POTASSIUM (BEAKER) (test 3.7 meq/L 3.5-5.1 Specimen slightly vied=908) hemolyzed CHLORIDE (BEAKER) (test 105 meq/L 98-107 lfoz=474) CO2 (BEAKER) (test 23 meq/L 22-29 kblk=263) BLOOD UREA NITROGEN 23 mg/dL 7-21 (BEAKER) (test cuun=221) CREATININE (BEAKER) (test 2.04 mg/dL 0.57-1.25 Specimen slightly jsiv=593) hemolyzed GLUCOSE RANDOM (BEAKER) 114 mg/dL 70-105 (test ytad=178) CALCIUM (BEAKER) (test 9.0 mg/dL 8.4-10.2 oecj=343) EGFR (BEAKER) (test 33 mL/min/1.73 sq m ESTIMATED GFR IS NOT phbb=2077) ACCURATE CREATININE CLEARANCE IN PREDICTING GLOMERULAR FILTRATION RATE. ESTIMATED GFR IS NOT APPLICABLE FOR DIALYSIS PATIENTS. URIC [id number] 03:47:00 Test Item Value Reference Range Comments URIC ACID (BEAKER) (test hbwe=656) 8.2 mg/dL 2.6-7.2 CBC (HEMOGRAM ONLY)2018-11-29 03:41:00 Test Item Value Reference Range Comments WHITE BLOOD CELL COUNT (BEAKER) (test fimn=083) 6.8 K/ L 3.5-10.5 RED BLOOD CELL COUNT (BEAKER) (test hzyi=130) 5.86 M/ L 4.63-6.08 HEMOGLOBIN (BEAKER) (test auwq=107) 14.6 GM/DL 13.7-17.5 HEMATOCRIT (BEAKER) (test brik=816) 45.0 % 40.1-51.0 MEAN CORPUSCULAR VOLUME (BEAKER) (test jdjg=605) 76.8 fL 79.0-92.2 MEAN CORPUSCULAR HEMOGLOBIN (BEAKER) (test 24.9 pg 25.7-32.2 myya=017) MEAN CORPUSCULAR HEMOGLOBIN CONC (BEAKER) (test 32.4 GM/DL 32.3-36.5 svor=804) RED CELL DISTRIBUTION WIDTH (BEAKER) (test 15.0 % 11.6-14.4 hrqu=737) PLATELET COUNT (BEAKER) (test hwcn=493) 231 K/CU MM 150-450 MEAN PLATELET VOLUME (BEAKER) (test fdxp=447) 9.7 fL 9.4-12.4 NUCLEATED RED BLOOD CELLS (BEAKER) (test 0 /100 WBC 0-0 lvsb=605) POCT-GLUCOSE [id number] 21:40:00 Test Item Value Reference Range Comments POC-GLUCOSE METER (BEAKER) 111 mg/dL 70-110 TESTED AT [address] (test hcul=9700) [place] [address] [id number] 20:29:00 Test Item Value Reference Range Comments ACTIVATED CLOTTING TIME 230 sec TESTED AT [address] (BEAKER) (test qcft=457) [place] [address] [id number] 20:29:00 Test Item Value Reference Range Comments ACTIVATED CLOTTING TIME 131 sec TESTED AT [address] (BEAKER) (test lizw=956) [place] [address] POCT-GLUCOSE [id number] 17:58:00 Test Item Value Reference Range Comments POC-GLUCOSE METER (BEAKER) 137 mg/dL 70-110 TESTED AT [address] (test cjsu=6122) [place] [address] [id number] 16:46:00 Test Item Value Reference Range Comments PARTIAL THROMBOPLASTIN TIME (BEAKER) (test 44.3 seconds 22.5-36.0 uxbv=947) BASIC METABOLIC [id number] 12:43:00 Test Item Value Reference Range Comments SODIUM (BEAKER) (test 137 meq/L 136-145 wjbq=422) POTASSIUM (BEAKER) (test 4.0 meq/L 3.5-5.1 Specimen slightly pqiw=655) hemolyzed CHLORIDE (BEAKER) (test 100 meq/L 98-107 hdxh=605) CO2 (BEAKER) (test 27 meq/L 22-29 rjxl=343) BLOOD UREA NITROGEN 29 mg/dL 7-21 (BEAKER) (test bpia=074) CREATININE (BEAKER) (test 2.33 mg/dL 0.57-1.25 Specimen slightly zlsk=067) hemolyzed GLUCOSE RANDOM (BEAKER) 154 mg/dL 70-105 (test isbq=695) CALCIUM (BEAKER) (test 9.1 mg/dL 8.4-10.2 wrty=572) EGFR (BEAKER) (test 28 mL/min/1.73 sq m ESTIMATED GFR IS NOT lghk=3471) ACCURATE CREATININE CLEARANCE IN PREDICTING GLOMERULAR FILTRATION RATE. ESTIMATED GFR IS NOT APPLICABLE FOR DIALYSIS PATIENTS. POCT-GLUCOSE [id number] 12:33:00 Test Item Value Reference Range Comments POC-GLUCOSE METER (BEAKER) 140 mg/dL 70-110 TESTED AT [facility] [address] [facility] (test jzdn=7010) [facility] [address] LIPID [id number] 12:28:00 Test Item Value Reference Range Comments TRIGLYCERIDES (BEAKER) (test 455 mg/dL Specimen slightly hemolyzed orkz=617) CHOLESTEROL (BEAKER) (test 196 mg/dL Specimen slightly hemolyzed gpoz=190) HDL CHOLESTEROL (BEAKER) (test 26 mg/dL rmkp=332) Calculated LDL not valid if triglyceride >400 mg/dLTriglyceride Reference Range: Low Risk <150 Borderline 150-199 High Risk 200-499 Very High Risk >=500Cholesterol Reference Range: Low Risk <200 Borderline 200-239 High Risk >240HDL Cholesterol Reference Range: Low Risk >=60 High Risk <40LDL Cholesterol ReferenceRange: Optimal <100 Near Optimal 100-129 Borderline 130-159 High 160-189 Very High >=190HEMOGLOBIN [id number] 11:30:00 Test Item Value Reference Range Comments HEMOGLOBIN A1C (BEAKER) (test qzzb=618) 7.9 % 4.3-6.1 PROTHROMBIN TIME/[id number] 10:31:00 Test Item Value Reference Range Comments PROTIME (BEAKER) (test tkxc=775) 13.7 seconds 11.7-14.7 INR (BEAKER) (test afzv=853) 1.0 <=5.9 RECOMMENDED COUMADIN/WARFARIN INR THERAPY RANGESSTANDARD DOSE: 2.0 - 3.0 Includes: PROPHYLAXIS forvenous thrombosis, systemic embolization; TREATMENT for venous thrombosis and/or pulmonary embolus.HIGH RISK: Target INR is 2.5-3.5 for patients with mechanical heart valves.Prior to initiating [id number] 10:31:00 Test Item Value Reference Range Comments FIBRINOGEN LEVEL (BEAKER) (test tecs=134) 438 mg/dl 225-434 Prior to initiating [id number] 10:31:00 Test Item Value Reference Range Comments PARTIAL THROMBOPLASTIN TIME (BEAKER) (test 35.8 seconds 22.5-36.0 wfjt=112) Prior to initiating heparinCBC (HEMOGRAM ONLY)2018-11-28 10:11:00 Test Item Value Reference Range Comments WHITE BLOOD CELL COUNT (BEAKER) (test bksr=285) 7.4 K/ L 3.5-10.5 RED BLOOD CELL COUNT (BEAKER) (test zxmv=131) 5.46 M/ L 4.63-6.08 HEMOGLOBIN (BEAKER) (test aixe=854) 13.8 GM/DL 13.7-17.5 HEMATOCRIT (BEAKER) (test ebbq=130) 41.2 % 40.1-51.0 MEAN CORPUSCULAR VOLUME (BEAKER) (test qylx=767) 75.5 fL 79.0-92.2 MEAN CORPUSCULAR HEMOGLOBIN (BEAKER) (test 25.3 pg 25.7-32.2 fpyt=774) MEAN CORPUSCULAR HEMOGLOBIN CONC (BEAKER) (test 33.5 GM/DL 32.3-36.5 jbvx=156) RED CELL DISTRIBUTION WIDTH (BEAKER) (test 15.3 % 11.6-14.4 bjgk=479) PLATELET COUNT (BEAKER) (test aiat=522) 211 K/CU MM 150-450 MEAN PLATELET VOLUME (BEAKER) (test zzwx=583) 10.3 fL 9.4-12.4 NUCLEATED RED BLOOD CELLS (BEAKER) (test 0 /100 WBC 0-0 zncv=635)
--- NOTE | 2019-08-12 09:24 | EDPHYS ---
Physician Documentation [facility] Name: Mansoor Summers Age: 68 yrs Sex: Male : 1950 Arrival Date: 08/12/2019 Time: 08:25 Bed 19 Private MD: ED Physician Darinel Guerrero HPI: 08/12 09:08 This 68 yrs old Male presents to ER via Ambulatory with complaints of Flu nh Symptoms. 09:08 Onset: The symptoms/episode began/occurred gradually, 1 week(s) ago, and became nh persistent. Associated signs and symptoms: Pertinent positives: congestion, cough, Pertinent negatives: abdominal pain, chest pain, dysuria, earache, headache, shortness of breath, sore throat, vomiting, wheezing. Modifying factors: The patient symptoms are alleviated by nothing, the patient symptoms are aggravated by nothing. The patient has not experienced similar symptoms in the past. The patient has not recently seen a physician. Historical: - Allergies: 08:35 Niaspan; ss - PMHx: 08:35 CAD; Diabetes - IDDM; Hypertension; Hyperlipidemia; Myocardial infarction; ss - PSHx: 08:35 Heart stents; ss - Immunization history:: Adult Immunizations up to date. - Social history:: Smoking status: Patient/guardian denies using tobacco. - Ebola Screening: : Patient denies exposure to infectious person Patient denies travel to an Ebola-affected area in the 21 days before illness onset. ROS: 09:08 Constitutional: Negative for fever, chills, and weight loss, Eyes: Negative for injury, nh pain, redness, and discharge, ENT: Negative for injury, pain, and discharge, Neck: Negative for injury, pain, and swelling, Cardiovascular: Negative for chest pain, palpitations, and edema, Abdomen/GI: Negative for abdominal pain, nausea, vomiting, diarrhea, and constipation, Back: Negative for injury and pain, : Negative for injury, bleeding, discharge, and swelling, MS/Extremity: Negative for injury and deformity, Skin: Negative for injury, rash, and discoloration, Neuro: Negative for headache, weakness, numbness, tingling, and seizure, Psych: Negative for depression, anxiety, suicide ideation, homicidal ideation, and hallucinations, Allergy/Immunology: Negative for hives, rash, and allergies, Endocrine: Negative for neck swelling, polydipsia, polyuria, polyphagia, and marked weight changes, Hematologic/Lymphatic: Negative for swollen nodes, abnormal bleeding, and unusual bruising. 09:08 Respiratory: Positive for cough, with green sputum, Negative for dyspnea on exertion, hemoptysis, orthopnea, pleurisy, shortness of breath, sputum production, wheezing. Exam: 09:08 Constitutional: This is a well developed, well nourished patient who is awake, alert, nh and in no acute distress. Head/Face: Normocephalic, atraumatic. Eyes: Pupils equal round and reactive to light, extra-ocular motions intact. Lids and lashes normal. Conjunctiva and sclera are non-icteric and not injected. Cornea within normal limits. Periorbital areas with no swelling, redness, or edema. ENT: Nares patent. No nasal discharge, no septal abnormalities noted. Tympanic membranes are normal and external auditory canals are clear. Oropharynx with no redness, swelling, or masses, exudates, or evidence of obstruction, uvula midline. Mucous membranes moist. Neck: Trachea midline, no thyromegaly or masses palpated, and no cervical lymphadenopathy. Supple, full range of motion without nuchal rigidity, or vertebral point tenderness. No Meningismus. Chest/axilla: Normal chest wall appearance and motion. Nontender with no deformity. No lesions are appreciated. Cardiovascular: Regular rate and rhythm with a normal S1 and S2. No gallops, murmurs, or rubs. Normal PMI, no JVD. No pulse deficits. Respiratory: Lungs have equal breath sounds bilaterally, clear to auscultation and percussion. No rales, rhonchi or wheezes noted. No increased work of breathing, no retractions or nasal flaring. Abdomen/GI: Soft, non-tender, with normal bowel sounds. No distension or tympany. No guarding or rebound. No evidence of tenderness throughout. Back: No spinal tenderness. No costovertebral tenderness. Full range of motion. Skin: Warm, dry with normal turgor. Normal color with no rashes, no lesions, and no evidence of cellulitis. MS/ Extremity: Pulses equal, no cyanosis. Neurovascular intact. Full, normal range of motion. Neuro: Awake and alert, GCS 15, oriented to person, place, time, and situation. Cranial nerves II-XII grossly intact. Motor strength 5/5 in all extremities. Sensory grossly intact. Cerebellar exam normal. Normal gait. Vital Signs: 08:35 BP 145 / 92; Pulse 94; Resp 17; Temp 98.3(O); Pulse Ox 99% on R/A; Height 5 ft. 8 in. ss (172.72 cm); Pain 6/10; MDM: 08:26 Patient medically screened. wa 09:08 Data reviewed: vital signs, nurses notes, lab test result(s), radiologic studies, I nh have discussed the patient's presentation/case with the attending Emergency Department Physician; and as a result, I will discharge patient. Counseling: I had a detailed discussion with the patient and/or guardian regarding: the historical points, exam findings, and any diagnostic results supporting the discharge/admit diagnosis, lab results, radiology results, the need for outpatient follow up, to return to the emergency department if symptoms worsen or persist or if there are any questions or concerns that arise at home. 08/12 08:34 Order name: Flu; Complete Time: 09:05 wa 08/12 08:34 Order name: Chest Pa And Lat (2 Views) XRAY wa Administered Medications: No medications were administered Disposition: 11:41 Co-signature as Attending Physician, Darinel Guerrero MD. rn Disposition: 08/12/19 09:24 Discharged to Home. Impression: Acute upper respiratory infection, unspecified. - Condition is Stable. - Discharge Instructions: Upper Respiratory Infection, Adult. - Prescriptions for Augmentin 875- 125 mg Oral Tablet - take 1 tablet by ORAL route every 12 hours for 10 days; 20 tablet. - Medication Reconciliation Form, Thank You Letter, Antibiotic Education, Prescription Opioid Use form. - Follow up: Private Physician; When: 2 - 3 days; Reason: Recheck today's complaints. - Problem is new. - Symptoms are unchanged. Signatures: Dispatcher [employer] EDMS Yesenia Pardo, APPLIANCE INSTALLER APPLIANCE INSTALLER wa Stephan Hook, AADC PLANS STAFF OFFICER AADC PLANS STAFF OFFICER Darinel Quinonez MD MD rn Smirch, Shelby, RN RN ss Corrections: (The following items were deleted from the chart) 09:44 09:24 08/12/2019 09:24 Discharged to Home. Impression: Acute upper respiratory em infection, unspecified. Condition is Stable. Forms are Medication Reconciliation Form, Thank You Letter, Antibiotic Education, Prescription Opioid Use. Follow up: Private Physician; When: 2 - 3 days; Reason: Recheck today's complaints. Problem is new. Symptoms are unchanged. nh
--- NOTE | 2019-08-12 09:24 | ER ---
Nurse's Notes [facility] Name: Mansoor Summers Age: 68 yrs Sex: Male : 1950 Arrival Date: 08/12/2019 Time: 08:25 Bed 19 Private MD: Diagnosis: Acute upper respiratory infection, unspecified Presentation: 08/12 08:33 Presenting complaint: Patient states: cough with green sputum, runny nose, nasal ss congestion and sinus pressure x 1 week. Denies fever. Transition of care: patient was not received from another setting of care. Onset of symptoms was August 04, 2019. Risk Assessment: Do you want to hurt yourself or someone else? Patient reports no desire to harm self or others. Initial Sepsis Screen: Does the patient meet any 2 criteria? HR > 90 bpm. Does the patient have a suspected source of infection? Yes: Productive cough/pneumonia. Care prior to arrival: None. 08:33 Method Of Arrival: Ambulatory ss 08:33 Acuity: CRAIG 3 ss Historical: - Allergies: 08:35 Niaspan; ss - PMHx: 08:35 CAD; Diabetes - IDDM; Hypertension; Hyperlipidemia; Myocardial infarction; ss - PSHx: 08:35 Heart stents; ss - Immunization history:: Adult Immunizations up to date. - Social history:: Smoking status: Patient/guardian denies using tobacco. - Ebola Screening: : Patient denies exposure to infectious person Patient denies travel to an Ebola-affected area in the 21 days before illness onset. Screenin:49 Abuse screen: Denies threats or abuse. Nutritional screening: No deficits noted. em Tuberculosis screening: No symptoms or risk factors identified. Fall Risk None identified. Assessment: 08:45 General: Appears in no apparent distress. comfortable, Behavior is calm, cooperative, em Denies fever. Pain: Complains of pain in chest Pain currently is 6 out of 10 on a pain scale. Neuro: Level of Consciousness is awake, alert, obeys commands, Oriented to person, place, time, situation, Appropriate for age. Cardiovascular: Capillary refill < 3 seconds Patient's skin is warm and dry. Respiratory: Reports pain with cough Airway is patent Respiratory effort is even, unlabored, Respiratory pattern is regular, symmetrical, Breath sounds are clear bilaterally. Derm: Skin is intact, is healthy with good turgor, Skin is pink, warm \T\ dry. Musculoskeletal: Capillary refill < 3 seconds, Range of motion: intact in all extremities. 08:45 EENT: Reports nasal congestion since 1 week. em Vital Signs: 08:35 BP 145 / 92; Pulse 94; Resp 17; Temp 98.3(O); Pulse Ox 99% on R/A; Height 5 ft. 8 in. ss (172.72 cm); Pain 6/10; ED Course: 08:25 Patient arrived in ED. as 08:26 Yesenia Pardo FNP is PHCP. nh 08:26 Darinel Guerrero MD is Attending Physician. nh 08:29 Stephan Hook LVN is Primary Nurse. em 08:34 Triage completed. ss 08:35 Arm band placed on right wrist. ss 08:41 Flu and/or RSV swab sent to lab. em1 08:49 Patient has correct armband on for positive identification. Bed in low position. Call em light in reach. Side rails up X2. Adult w/ patient. Pulse ox on. NIBP on. 09:04 Chest Pa And Lat (2 Views) XRAY In Process Unspecified. EDMS 09:43 No provider procedures requiring assistance completed. Patient did not have IV access em during this emergency room visit. Administered Medications: No medications were administered Outcome: 09:24 Discharge ordered by . ma 09:43 Discharged to home ambulatory. em 09:43 Condition: good 09:43 Discharge instructions given to patient, Instructed on discharge instructions, follow up and referral plans. medication usage, Demonstrated understanding of instructions, follow-up care, medications, Prescriptions given X 1. 09:44 Patient left the ED. em Signatures: Dispatcher [employer] EDMS Yesenia Pardo FNP FNP ma Stephan Hook LVN LVN em Radhika Barksdale Eric em1 Seema Sanchez, GUY RN
--- NOTE | 2019-08-12 09:28 | RAD REPORT ---
EXAM DESCRIPTION: Ketan Davis (2 Views)08/12/2019 9:07 am CLINICAL HISTORY: Cough COMPARISON: February 2019 FINDINGS: The lungs appear clear of acute infiltrate. The heart is normal size IMPRESSION: No acute abnormalities displayed
[2019-08-12 13:03] VITALS: BP 145/92; TEMP 98.3; O2SAT 99
== END 2019-08-12 09:44 | disposition home or self-care (01) ==
LOC: ER 08:24
DX: J06.9 Acute upper respiratory infection, unspecified (principal); I10 Essential (primary) hypertension; I25.2 Old myocardial infarction; Z88.8 Allergy status to other drugs, medicaments and biological substances; Z95.818 Presence of other cardiac implants and grafts
CPT/HCPCS: 71046; 87804; 99284

== ENCOUNTER 2023-03-04 06:00 | Day surgery (SDC) | payer OTHER ==
[2023-03-02 15:59] LABS: Absolute Lymphocytes (CBC) 1.8 K/uL (0.7-4.9); Hematocrit 41.9 % (39.6-49.0); MCV 90.2 fL (80-100); MPV 7.5 fL (7.6-11.3); RBC Red Blood Cell Count 4.64 M/uL (4.33-5.43)
[2023-03-02 16:19] LABS: Potassium 5.1 mEq/L (3.5-5.1)
[2023-03-02 16:23] LABS: Protime INR 1.04
[2023-03-04] MEDS ORDERED: HEPA 1000U/500MLS 2,000 UNIT/1,000 ML BAG IV ONE (06:22)
[2023-03-04] MEDS ORDERED: MIDAZOLAM HCL 2 MG/2 ML INJ ONE (06:23)
[2023-03-04] MEDS ORDERED: FENTANYL CITR 100 MCG/2 ML ONE (06:23)
[2023-03-04] MEDS ORDERED: VERAPAMIL HCL 10 MG/4 ML VIAL IV ONE (06:23)
[2023-03-04] MEDS ORDERED: NA CHLORIDE 0.9% 500 ML ONE (06:24)
[2023-03-04] MEDS ORDERED: HEPARIN 10,000 UNIT/10 ML VIAL IV ONE (06:24)
[2023-03-04] MEDS ORDERED: ATROPINE SULF 1 MG/10 ML SYR IV ONE (06:24)
[2023-03-04] MEDS ORDERED: NITROGLYCERIN 100 MCG/ML SYR (for cath lab use only) IV ONE (06:24)
[2023-03-04] MEDS ORDERED: HEPARIN 5000 UNIT/ML 1 ML VIAL ONE (06:25)
[2023-03-04 06:40] VITALS: TEMP 98.4
[2023-03-04 09:32] VITALS: BP 161/73; O2SAT 99
== END 2023-03-04 09:20 | disposition home or self-care (01) ==
LOC: CCL 06:00
PROVIDERS: ATTEND Internal Medicine
DX: I25.110 Atherosclerotic heart disease of native coronary artery with unstable angina pectoris (principal); T82.855A Stenosis of coronary artery stent, initial encounter; I65.23 Occlusion and stenosis of bilateral carotid arteries; I73.9 Peripheral vascular disease, unspecified; I12.9 Hypertensive chronic kidney disease with stage 1 through stage 4 chronic kidney disease, or unspecified chronic kidney disease; E11.22 Type 2 diabetes mellitus with diabetic chronic kidney disease; N18.4 Chronic kidney disease, stage 4 (severe); E78.2 Mixed hyperlipidemia; I51.7 Cardiomegaly; G62.9 Polyneuropathy, unspecified; K21.9 Gastro-esophageal reflux disease without esophagitis; M10.9 Gout, unspecified; Z87.891 Personal history of nicotine dependence; Z88.8 Allergy status to other drugs, medicaments and biological substances
CPT/HCPCS: 85025; 80048; 36415; 85610; 82947; 85730; 93458; 76937; C1893; Q9966; J1644; J2250; J3010; J7040; J0461

== ENCOUNTER 2023-04-28 17:19 | Inpatient (IN) | payer OTHER ==
--- OUTSIDE RECORDS SUMMARY | 2023-04-28 17:34 | XMS REPORT | Continuity of Care Document ---
:1950 Author Organization [facility] t Address [address] [place] [address] Care Team Providers Name Role Phone Vincent Pinedo MD Primary Care Physician Johan Lovelace Attending Clinician Unavailable LAUREN LAM Attending Clinician Unavailable Vincent Pinedo V Admitting Clinician Unavailable LAUREN LAM Admitting Clinician Unavailable Payers Payer Name Policy Type Policy Number Effective Date Expiration Date S ource Problems Condition Condition Condition Status Onset Resolution Last Treating Co mments Source Name Details Category Date Date Treatment Clinician Date NSTEMI NSTEMI Disease Recurre [facility] elevated elevated 00:00: Medica l myocardial myocardial 00 Ce nter infarction infarction ) ) CAD in CAD in Disease Active 2016-09 [facility] habematolel habematolel 2-19 st artery artery 00:00: Hospita 00 l SOB SOB Disease Active 2016-09 [facility] (shortness (shortness 2-19 st of breath) of breath) 00:00: Ho spita 00 l 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 4-09 st disease disease 00:00: Hospita involving involving 00 l habematolel habematolel coronary coronary artery of artery of habematolel habematolel heart heart without without angina angina pectoris pectoris Carotid Carotid Disease Active Methodi artery artery 4-09 st disease disease 00:00: Hospita 00 l Stented Stented Disease Active [facility] coronary coronary 4-09 st artery artery 00:00: Hospita 00 l Stenosis Stenosis Disease Active 2015-09 Last Metho di of left of left 2-[address] carotid carotid 00:00: t & Plan: Hospi ta artery artery 00 Formattin l g of this note might be different from the original. Advised to start a statin.Ne ed CTA neck and aortic arch to assess for plaque due to conflicti ng carotid reports Allergies, Adverse Reactions, Alerts Allergy Allergy Status Severity Reaction(s) Onset Inactive Treating Comm ents Source Name Type Date Date Clinician niacin DA Active SV "PINS AND [facility] NEEDLES ALL 03-19 Clear OVER" PER PT 00:[facility]: [facility] Niacin Propensi Active 2015-09 Methodi ty to 2-07 st adverse 00:00: Hospita reaction 00 l s to drug Niacin Propensi Active 2015-[address] ty to 2-07 [facility] adverse 00:00: Medical reaction 00 Center s NIACIN Allergy Active 2015-[address] 2[facility]07 [facility] 00:[facility]: Medical 00 Center Social History Social Habit Start Date Stop Date Quantity Comments Source History of tobacco Cigar Smoker [facility] Alcohol intake 2018-11-29 2018-11-29 [facility] alcohol [facility] (finding) Tobacco use and 2018-11-28 2018-11-[address] [facility] exposure 00:00:00 00:00:00 tobacco non-user Medical Center History [facility] 2018-11-28 2018-11-[address] [facility] Alcohol Std Drinks 00:00:00 00:00:00 Medica l Center History [facility] 2018-11-28 2018-11-[address] [facility] Alcohol Binge 00:00:00 00:00:[address] [facility] [address] History [facility] 2018-11-28 2018-11-[address] [facility] Financial 00:00:00 00:00:00 Medical Center Tobacco Comment 2018-11-28 2018-11-28 quit over [address] [facility] 00:00:00 00:00:00 years ago Medical Center History SDOH 2018-11-28 2018-11-[address] [facility] Alcohol Frequency 00:00:00 00:00:00 Medical Center History of Social 2016-12-17 2016-12-[address] function 00:00:00 00:00:00 Hospital Alcohol Comment 2016-08-19 2016-08-19 moderate Religious 00:00:00 00:00:00 [facility] Sex Assigned At [address] 00:00:00 00:00:00 [facility] Smoking Status Start Date Stop Date Source Ex-smoker 2018-11-28 00:00:00 2018-11-28 00:00:[address] [facility] Light tobacco smoker 2016-12-17 00:00:00 [facility] Medications Ordered Filled Start Stop Current Ordering Indication Dosage Frequency Signature Comments Components Source Medication Medication Date Date Medication? Clinician (SIG) Name Name gabapentin Yes 100mg Q.[id number] Take [address] (NEURONTIN) 3-20 [id number] mg by L ukes 100 MG 11:58: 3D mouth 3 Medical capsule 54 (three) Center times daily. repaglinide 2018-0 Yes 2mg Take [address] (PRANDIN) 2 3-20 by mouth 3 Sofi kes MG tablet 11:58: (three) Medic al 54 times Center daily before meals. omega-3 2019-0 Yes 2g Q.5D Take [address] acid ethyl 3-20 by mouth 2 Yajaira es esters 11:58: (two) Medical (LOVAZA) 1 54 times Center gram daily. capsule aspirin 81 2019-0 Yes 81mg QD Take [address] MG EC 3-20 by mouth [facility] tablet 11:58: daily Medical 54 Hira . Center insulin 0 Yes 40U QD Inject 40 [facility] t degludec 3-20 Units [facility] 100 unit/mL 11:58: subcutaneo Medical (3 mL) InPn 54 usly Center daily. gabapentin 2019-0 Yes 100mg Q.[id number] Take [address] (NEURONTIN) 3-20 [id number] mg by L ukes 100 MG 11:58: 3D mouth 3 Medical capsule 54 (three) Center times daily. repaglinide 2019-0 Yes 2mg Take [address] (PRANDIN) 2 3-20 by mouth 3 Sofi kes MG tablet 11:58: (three) Medic al 54 times Center daily before meals. omega-3 2019-0 Yes 2g Q.5D Take [address] acid ethyl 3-20 by mouth 2 Yajaira es esters 11:58: (two) Medical (LOVAZA) 1 54 times Center gram daily. capsule aspirin 81 2019-0 Yes 81mg QD Take [address] MG EC 3-20 by mouth [facility] tablet 11:58: daily Medical 54 Hira . [place] insulin 2019-0 Yes 40U QD Inject 40 [facility]I S t degludec 3-20 Units [facility] 100 unit/mL 11:58: subcutaneo Medical (3 mL) InPn 54 usly Center daily. prasugrel 2019-0 Yes 10mg QD Take [address] (EFFIENT) 3-20 tablet (10 Luke s 10 mg Tab 00:00: mg total) Med ical tablet 00 by mouth Center daily. prasugrel 2019-0 Yes 10mg QD Take [address] (EFFIENT) 3-20 tablet (10 Luke s 10 mg Tab 00:00: mg total) Med ical tablet 00 by mouth Center daily. amLODIPine 2019-0 Yes [id number] 10mg Q.5D Take 1 Methodi (NORVASC) 2-26 tablet (10 st 10 mg 00:00: mg total) Hospita tablet 00 by mouth 2 l (two) times a day. amLODIPine 2019-0 Yes [id number] 10mg Q.5D Take 1 [facility] (NORVASC) 2-26 tablet (10 st 10 mg 00:00: mg total) Hospita tablet 00 by mouth 2 l (two) times a day. omega-3 2019-0 Yes [id number] 1g Q.25D TAKE 1 Me thodi acid ethyl 2-21 CAPSULE (1 st esters 00:00: G TOTAL) Hospita (LOVAZA) 1 00 BY MOUTH 4 l gram (FOUR) capsule TIMES A DAY. omega-3 2019-0 Yes [id number] 1g Q.25D TAKE 1 Me thodi acid ethyl 2-21 CAPSULE (1 st esters 00:00: G TOTAL) Hospita (LOVAZA) 1 00 BY MOUTH 4 l gram (FOUR) capsule TIMES A DAY. rosuvastati 2018-0 Yes 20mg QD Take 1 Meth steven n (CRESTOR) 6-14 tablet (20 st 20 MG 00:00: mg total) Hospita tablet 00 by mouth l once daily. rosuvastati 2018-0 Yes 20mg QD Take 1 Meth steven n (CRESTOR) 6-14 tablet (20 st 20 MG 00:00: mg total) Hospita tablet 00 by mouth l once daily. omeprazole Yes omeprazole M ethodi (PriLOSEC) 4-[address] 40 MG 08:22: capsule,de Hospit a capsule 51 layed l release gabapentin 2018-0 Yes 100mg Q.[id number] Take 100 Methodi (NEURONTIN) 4-24 [id number] mg by s t 100 mg 08:22: 3D mouth 3 Hospita capsule 51 (three) l times a day. metoprolol Yes metoprolol M ethodi succinate 4-[address] XL 08:22: ER 50 mg Hospita (TOPROL-XL) 51 tablet,ext l 50 mg 24 hr ended tablet release 24 hr insulin Yes Tresiba Methodi degludec 4-[address] (TRESIBA 08:22: U-200 200 Hosp olga FLEXTOUCH 51 unit/mL (3 l U-200) 200 mL) unit/mL (3 subcutaneo mL) insulin us insulin pen pen HIRA Yes Hira Methodi ASPIRIN 4-[address] ORAL 08:22: Hospita 51 l pen needle, Yes BD Method i diabetic 32 4-[address] Ultra-[address] gauge x 08:22: [facility] " 51 Dora 32 l needle gauge x 5/32" omeprazole 2017-0 Yes omeprazole M ethodi (PriLOSEC) 4-[address] 40 MG 08:22: capsule,de Hospit a capsule 51 layed l release gabapentin 2017-0 Yes 100mg Q.[id number] Take 100 Methodi (NEURONTIN) 4-24 [id number] mg by s t 100 mg 08:22: 3D mouth 3 Hospita capsule 51 (three) l times a day. metoprolol 0 Yes metoprolol M ethodi succinate 4-[address] XL 08:22: ER 50 mg Hospita (TOPROL-XL) 51 tablet,ext l 50 mg 24 hr ended tablet release 24 hr insulin Yes Tresiba Methodi degludec 4-[address] (TRESIBA 08:22: U-200 200 Hosp olga FLEXTOUCH 51 unit/mL (3 l U-200) 200 mL) unit/mL (3 subcutaneo mL) insulin us insulin pen pen HIRA Yes Hira Methodi ASPIRIN 4-[address] ORAL 08:22: Hospita 51 l pen needle, Yes BD Method i diabetic 32 4-[address] gauge x 08:22: [facility] " 51 [place] 32 l needle gauge x " isosorbide Yes [id number] 30mg QD Take 1 M ethodi mononitrate 4-05 tablet (30 st (IMDUR) 30 00:00: mg total) Ho spita MG 24 hr 00 by mouth l tablet daily. isosorbide Yes [id number] 30mg QD Take 1 M ethodi mononitrate 4-05 tablet (30 st (IMDUR) 30 00:00: mg total) Ho spita MG 24 hr 00 by mouth l tablet daily. repaglinide Yes TAKE 1 Meth steven (PRANDIN) 2 1-[address] MG tablet 00:00: MOUTH 3 Hospi ta 00 TIMES A l DAY BEFORE MEALS repaglinide Yes TAKE 1 Meth steven (PRANDIN) 2 1-[address] MG tablet 00:00: MOUTH 3 Hospi ta 00 TIMES A l DAY BEFORE MEALS hydrALAZINE Yes 25mg Q.5D Take 25 mg Methodi (APRESOLINE 1-[address] ) 25 MG 00:00: (two) Hospita tablet 00 times a l day. hydrALAZINE Yes 25mg Q.5D Take 25 mg [facility]i (APRESOLINE 1-[address] ) 25 MG 00:00: (two) Hospita tablet 00 times a l day. fenofibrate 2015-09 Yes 134mg QD Take 134 M ethodi micronized 0-[address] (LOFIBRA) 00:00: mouth once Ho spita 134 MG 00 daily. l capsule fenofibrate 2015-09 Yes 134mg QD Take 134 M ethodi micronized 0-[address] (LOFIBRA) 00:00: mouth once Ho spita 134 MG 00 daily. l capsule Procedures This patient has no known procedures. Plan of Care Planned Activity Planned Date Details Comments Source Future Scheduled 2023-04-14 [facility] 05:01:06 malignant neoplasm of colon (procedure) [code = 264776872] Future Scheduled 2023-04-14 [facility] Test 05:01:06 malignant neoplasm of colon (procedure) [code = 392350429] Future Scheduled 2023-04-14 [facility] Test 05:01:06 malignant neoplasm of colon (procedure) [code = 457025714] Future Scheduled 2023-04-14 COVID-19 VACCINE (#1) Me [facility] Test 05:01:06 [code = COVID-19 VACCINE (#1)] Future Scheduled 2023-04-14 [facility] Test 05:01:06 malignant neoplasm of colon (procedure) [code = 199155243] Future Scheduled 2023-04-14 [facility] Test 05:01:06 malignant neoplasm of colon (procedure) [code = 779672633] Future Scheduled 2023-04-14 [facility] 05[facility]01:06 of 2) [code = SHINGLES VACCINES (1 of 2)] Future Scheduled 2023-04-14 65+ [facility] 05:01:06 VACCINE (1 - PCV) [code = 65+ PNEUMOCOCCAL VACCINE (1 - PCV)] Future Scheduled 2023-04-14 INFLUENZA VACCINE Method [facility] Test 05:01:06 [code = INFLUENZA VACCINE] Future Scheduled 2023-03-03 [facility] Test 05:18:26 malignant neoplasm of colon (procedure) [code = 853977084] Future Scheduled 2023-03-03 [facility] Test 05:18:26 malignant neoplasm of colon (procedure) [code = 546772431] Future Scheduled 2023-03-03 [facility] Test 05:18:26 malignant neoplasm of colon (procedure) [code = 808096249] Future Scheduled 2023-03-03 COVID-19 VACCINE (#1) [facility] Test 05:18:26 [code = COVID-19 VACCINE (#1)] Future Scheduled 2023-03-[address] [facility] Test 05:18:26 malignant neoplasm of colon (procedure) [code = 154883399] Future Scheduled 2023-03-[address] [facility] Test 05:18:26 malignant neoplasm of colon (procedure) [code = 313881522] Future Scheduled 2023-03-03 SHINGLES VACCINES ([facility] 05:18:26 of 2) [code = SHINGLES VACCINES (1 of 2)] Future Scheduled 2023-03-03 65+ [facility] 05:18:26 VACCINE (1 - PCV) [code = 65+ PNEUMOCOCCAL VACCINE (1 - PCV)] Future Scheduled 2023-03-03 INFLUENZA VACCINE Method [facility] Test 05:18:26 [code = INFLUENZA VACCINE] Results Test Description Test Time Test Comments Results Result Comments Source GLUCOSE BEDSIDE 2023-04-09 15:02:00 Test Item Value Reference Range Interpretation Comme nts GLUCOSE BEDSIDE (test code = 106 MG/DL 70-110 N Performed by certified pneumatic system conveyor operator at [facility]) [facility] [id number] 12:15:00 Test Item Value Reference Range Interpretation Comments ACT-ISTAT (test code 305 SEC 74-137 H Perform ed by certified = ACTI) pneumatic system conveyor operator at [facility] [id number] 11:55:00 Test Item Value Reference Range Interpretation Comments ACT-ISTAT (test code 299 SEC 74-137 H Perform ed by certified = ACTI) pneumatic system conveyor operator at [facility] GLUCOSE [id number] 10:16:00 Test Item Value Reference Range Interpretation Comments GLUCOSE BEDSIDE (test 113 MG/DL 70-[address] [facility] by certified code = GLUBED) pneumatic system conveyor operator at [facility] BASIC METABOLIC [id number] 18:26:00 Test Item Value Reference Range Interpretation Comments SODIUM (test code = 138 mEq/L 134-147 N NA) POTASSIUM (test code 4.6 mEq/L 3.4-5.0 N = K) CHLORIDE (test code 104 mEq/L 100-108 N = CL) CARBON DIOXIDE (test 24 mEq/l 21-33 N code = CO2) ANION GAP (test code 15 0-20 N = GAP) GLUCOSE (test code = 131 mg/dL 70-110 H GLU) BLOOD UREA NITROGEN 31 mg/dL 7-18 H (test code = BUN) GLOMERULAR 25.4 70-80 L The Glomerular FILTRATION RATE Filtration R ate is a (test code = GFR) calculated parameterbased on serum Creatinine, pat ient age and sex. GFR va luesless than 60 mL/min/ 1.73 square meters a re indicative ofCh ronic Kidney Disease. Values less than 15 mL/min/1.73squa re meters indicate Kidney failure. The calculation forGFR is based on the CKD-EPI (2020) calculat ion. This formulais race indifferent and is the recommended for spike for GFRby the Natio nal Kidney Foundati on for Adults.The GFR will not calculate if th e sex is unknown or if thepatient's ag e is <18 years. CREATININE (test 2.6 mg/dL 0.6-1.3 H code = CREAT) CALCIUM (test code = 9.3 mg/dL 8.0-10.5 N CA) PROTHROMBIN [id number] 18:13:00 Test Item Value Reference Range Interpretation Comments PROTHROMBIN TIME 12.5 SECONDS 9.3-12.9 N PATIENT (test code = PTP) INTERNATIONAL NORMAL 1.1 0.8-1.2 N TARGET INR BY RATIO (test code = INDICATIO N Indication INR) INR1. Prophylax is of venous thrombos is 2.0 - 3.0 (orthoped ic surgery), Proph ylaxis of venous throm bosis (other than hig h-risk surgery), Treat ment of Deep Vein Thrombosis/Pulm onary Embolism, Preve ntion of systemic emb olism - Tissue heart va lves, Acute Myocardia l Infarction (to prevent systemic emboli sm), Valvular heart disease, Atrial Fibrillation, Bileaflet mecha nical valve in aortic position.2. Mec hanical prosthetic valv es (high risk), 2. 5 - 3.5 Presence of Lup us Anticoagulant o r Antiphospholipi d Antibodies, Pre vention of systemic emb olism - Acute Myocardia l Infarction (to prevent recurrent infar ct). CBC W/AUTO [id number] 18:08:00 Test Item Value Reference Range Interpretation Comments WHITE BLOOD CELL (test code = 7.1 x10 3/uL 4.5-11.0 N WBC) RED BLOOD CELL (test code = 4.76 x10 6/uL 4.00-5.60 N RBC) HEMOGLOBIN (test code = HGB) 14.3 g/dL 12.5-16.9 N HEMATOCRIT (test code = HCT) 42.4 % 37.5-50.7 N MEAN CELL VOLUME (test code = 89.1 fL 81.0-99.0 N MCV) MEAN CELL HGB (test code = MCH) 30.0 pg 27.0-33.0 N MEAN CELL HGB CONCETRATION 33.7 g/dL 33.0-37.0 N (test code = MCHC) RED CELL DISTRIBUTION WIDTH CV 13.8 % 11.5-14.5 N (test code = RDW) RED CELL DISTRIBUTION WIDTH SD 44.9 fL 37.0-54.0 N (test code = RDW-SD) PLATELET COUNT (test code = 210 x10 3/uL 150-400 N PLT) MEAN PLATELET VOLUME (test code 9.3 fL 7.0-9.0 H = MPV) NEUTROPHIL % (test code = NT%) 63.6 % 56.0-77.0 N IMMATURE GRANULOCYTE % (test 0.3 % 0.0-2.0 N code = IG%) LYMPHOCYTE % (test code = LY%) 21.3 % 14.0-32.0 N MONOCYTE % (test code = MO%) 7.7 % 4.8-9.0 N EOSINOPHIL % (test code = EO%) 5.8 % 0.3-3.7 H BASOPHIL % (test code = BA%) 1.3 % 0.0-2.0 N NUCLEATED RBC % (test code = 0.0 % 0-0 N NRBC%) NEUTROPHIL # (test code = NT#) 4.54 x10 3/uL 2.0-7.6 N IMMATURE GRANULOCYTE # (test 0.02 x10 3/uL 0.00-0.03 N code = IG#) LYMPHOCYTE # (test code = LY#) 1.52 x10 3/uL 1.0-3.8 N MONOCYTE # (test code = MO#) 0.55 x10 3/uL 0.1-0.8 N EOSINOPHIL # (test code = EO#) 0.41 x10 3/uL 0.0-0.2 H BASOPHIL # (test code = BA#) 0.09 x10 3/uL 0.0-0.2 N NUCLEATED RBC # (test code = 0.00 x10 3/uL 0.0-0.1 N NRBC#) MANUAL DIFF REQUIRED (test code NO = MDIFF) - XR CHEST 2 [id number] 00:00:00 [facility] 1950 Sex: M FAX: Johan Walker MD [phone] [place]: St: PRE Name: RODNEY PURDY [facility] : 1950 Age/S: 72/M [address] [place] [address] Unit #: [id number] Loc: [place] [address] Phys: Johan Lovelace MD Acct: [id number] Dis Date: Status: PRE [facility] [place] PHONE #: [phone] Exam Date: 03/19/2023 1633 FAX #: [phone] Reason: PRE OP EXAMS: CPT CODE: [id number] XR CHEST 2 V 54006 PROCEDURE INFORMATION: Exam: XR Chest Exam date and time: 03/19/2023 4:30 PM Age: 72 years old Clinical indication: Pre-operative exam; Respiratory screening exam; Additional info: Pre op TECHNIQUE: Imaging protocol: Radiologic exam of the chest. Views: 2 views. PA and Lateral COMPARISON: No relevant prior studies available. FINDINGS: Lungs: There are normal lung volumes without consolidation or interstitial opacities. Pleural spaces: Unremarkable. No pleural effusion. No pneumothorax. Heart/Mediastinum: The heart size is normal. The pulmonary vasculature is normal. The mediastinal contour is normal. The trachea is midline. Bones/joints: No acute abnormality seen. IMPRESSION: No acute cardiopulmonary findings. at 1707 Reported and signed by: Sylvester Harden M.D. CC: Johan Lovelace MD Technologist: RT Kody(Linda) Trnscrd Date/Time/By: 03/19/2023 (1706) :By: JuliaTDO Orig Print D/T: S: 03/19/2023 (1706) PAGE 1 Signed ReportPOCT-GLUCOSE [id number] 08:43:00 Test Item Value Reference Range Interpretation Comments POC-GLUCOSE METER 124 mg/dL 70-110 H TESTED AT [facility] 67[address] ([facility]) (test code = JONAS Mckeon [facility] 1538) [address] CBC (HEMOGRAM ONLY)2018-11-30 07:16:00 Test Item Value Reference Range Interpretation Comments WHITE BLOOD CELL COUNT ([facility]) 6.2 K/ L 3.5-10.5 (test code = 775) RED BLOOD CELL COUNT (AKER) 5.97 M/ L 4.63-6.08 (test code = 761) HEMOGLOBIN (BEAKER) (test code = 14.6 GM/DL 13.7-17.5 410) HEMATOCRIT ([facility]) (test code = 46.5 % 40.1-51.0 411) MEAN CORPUSCULAR VOLUME (AKER) 77.9 fL 79.0-92.2 L (test code = 753) MEAN CORPUSCULAR HEMOGLOBIN 24.5 pg 25.7-32.2 L (AKER) (test code = 751) MEAN CORPUSCULAR HEMOGLOBIN CONC 31.4 GM/DL 32.3-36.5 L (BEAKER) (test code = 752) RED CELL DISTRIBUTION WIDTH 15.1 % 11.6-14.4 H (BEAKER) (test code = 412) PLATELET COUNT (BEAKER) (test 216 K/CU MM 150-450 code = 756) MEAN PLATELET VOLUME (BEAKER) 9.8 fL 9.4-12.4 (test code = 754) NUCLEATED RED BLOOD CELLS 0 /100 WBC 0-0 (BEAKER) (test code = 413) B-TYPE NATRIURETIC FACTOR (BNP)2018-11-30 06:12:00 Test Item Value Reference Range Interpretation Comments B-TYPE NATRIURETIC PEPTIDE (BEAKER) 417 pg/mL 0-100 H (test code = 700) BASIC METABOLIC [id number] 06:09:00 Test Item Value Reference Range Interpretation Comments SODIUM (BEAKER) 138 meq/L 136-145 (test code = 381) POTASSIUM (BEAKER) 3.6 meq/L 3.5-5.1 (test code = 379) CHLORIDE (BEAKER) 106 meq/L 98-107 (test code = 382) CO2 (BEAKER) (test 23 meq/L 22-29 code = 355) BLOOD UREA NITROGEN 22 mg/dL 7-21 H (BEAKER) (test code = 354) CREATININE (BEAKER) 1.95 mg/dL 0.57-1.25 H (test code = 358) GLUCOSE RANDOM 118 mg/dL 70-105 H (BEAKER) (test code = 652) CALCIUM (BEAKER) 9.3 mg/dL 8.4-10.2 (test code = 697) EGFR (BEAKER) (test 34 mL/min/1.73 ESTIMA ALPHONSO GFR IS code = 1092) sq m NOT ACCURATE CREATININE CLEARANCE IN PREDICTING GLOMERULAR FILTRATION RATE . ESTIMATED GFR I S NOT APPLICABLE FOR DIALYSIS PATIEN TS. POCT-GLUCOSE [id number] 22:52:00 Test Item Value Reference Range Interpretation Comments POC-GLUCOSE METER 83 mg/dL 70-110 TESTED AT [facility] [address] ([facility]) (test code = [place] [address] 1538) POCT-GLUCOSE [id number] 18:13:00 Test Item Value Reference Range Interpretation Comments POC-GLUCOSE METER 178 mg/dL 70-110 H TESTED AT [facility] 6720 (BEAKER) (test code = JONAS Mckeon [facility] 1538) [address] HEMOGLOBIN [id number] 09:48:00 Test Item Value Reference Range Interpretation Comments HEMOGLOBIN A1C (BEAKER) (test code = 7.8 % 4.3-6.1 H 368) POCT-GLUCOSE [id number] 08:23:00 Test Item Value Reference Range Interpretation Comments POC-GLUCOSE METER 134 mg/dL 70-110 H TESTED AT [facility] 67[address] (BEAKER) (test code = [facility] Linda [facility] 1538) [address] CREATININE, RANDOM [id number] 05:00:00 Test Item Value Reference Range Interpretation Comments CREATININE URINE (BEAKER) (test 32.4 mg/dL code = 375) Reference Range: No NormalsPROTEIN, RANDOM [id number] 05:00:00 Test Item Value Reference Range Interpretation Comments PROTEIN, URINE (BEAKER) (test code = 94 mg/dL 0-14 H 1569) SODIUM, RANDOM [id number] 05:00:00 Test Item Value Reference Range Interpretation Comments SODIUM URINE (BEAKER) (test code = 130 meq/L 243) Reference Range: No NormalsURINALYSIS W/ [id number] 04:52:00 Test Item Value Reference Range Interpretation Comments COLOR (BEAKER) (test code = Colorless 470) CLARITY (BEAKER) (test code = Clear 469) SPECIFIC GRAVITY UA (BEAKER) 1.011 1.001-1.035 (test code = 468) PH UA (BEAKER) (test code = 7.5 5.0-8.0 467) PROTEIN UA (BEAKER) (test code 70 mg/dL Negative A = 464) GLUCOSE UA (BEAKER) (test code Negative Negative = 365) KETONES UA (BEAKER) (test code Negative Negative = 371) BILIRUBIN UA (BEAKER) (test Negative Negative code = 462) BLOOD UA (BEAKER) (test code = Negative Negative 461) NITRITE UA (BEAKER) (test code Negative Negative = 465) LEUKOCYTE ESTERASE UA (BEAKER) Negative Negative (test code = 466) UROBILINOGEN UA (BEAKER) (test 0.2 mg/dL 0.2-1.0 code = 463) RBC UA (BEAKER) (test code = 2 /HPF 519) WBC UA (BEAKER) (test code = 0 /HPF 520) MUCUS (BEAKER) (test code = Rare 1574) SQUAMOUS EPITHELIAL (BEAKER) < /HPF (test code = 516) SOURCE(BEAKER) (test code = Urine, Voided 2560) PTH, [id number] 03:55:00 Test Item Value Reference Range Interpretation Comments PARATHYROID HORMONE INTACT 165.0 pg/mL 8.5-72.5 H (BEAKER) (test code = 577) B-TYPE NATRIURETIC FACTOR (BNP)2018-11-29 03:54:00 Test Item Value Reference Range Interpretation Comments B-TYPE NATRIURETIC PEPTIDE (BEAKER) 777 pg/mL 0-100 H (test code = 700) BASIC METABOLIC [id number] 03:47:00 Test Item Value Reference Range Interpretation Comments SODIUM (BEAKER) 138 meq/L 136-145 (test code = 381) POTASSIUM (BEAKER) 3.7 meq/L 3.5-5.1 Specimen slightly (test code = 379) hemolyzed CHLORIDE (BEAKER) 105 meq/L 98-107 (test code = 382) CO2 (BEAKER) (test 23 meq/L 22-29 code = 355) BLOOD UREA NITROGEN 23 mg/dL 7-21 H (BEAKER) (test code = 354) CREATININE (BEAKER) 2.04 mg/dL 0.57-1.25 H Specimen slightly (test code = 358) hemolyzed GLUCOSE RANDOM 114 mg/dL 70-105 H (BEAKER) (test code = 652) CALCIUM (BEAKER) 9.0 mg/dL 8.4-10.2 (test code = 697) EGFR (BEAKER) (test 33 mL/min/1.73 ESTIMA ALPHONSO GFR IS code = 1092) sq m NOT ACCURATE CREATININE CLEARANCE IN PREDICTING GLOMERULAR FILTRATION RATE . ESTIMATED GFR I S NOT APPLICABLE FOR DIALYSIS PATIEN TS. URIC [id number] 03:47:00 Test Item Value Reference Range Interpretation Comments URIC ACID (BEAKER) (test code = 8.2 mg/dL 2.6-7.2 H 773) CBC (HEMOGRAM ONLY)2018-11-29 03:41:00 Test Item Value Reference Range Interpretation Comments WHITE BLOOD CELL COUNT (BEAKER) 6.8 K/ L 3.5-10.5 (test code = 775) RED BLOOD CELL COUNT (AKER) 5.86 M/ L 4.63-6.08 (test code = 761) HEMOGLOBIN (BEAKER) (test code = 14.6 GM/DL 13.7-17.5 410) HEMATOCRIT (BEAKER) (test code = 45.0 % 40.1-51.0 411) MEAN CORPUSCULAR VOLUME (BEAKER) 76.8 fL 79.0-92.2 L (test code = 753) MEAN CORPUSCULAR HEMOGLOBIN 24.9 pg 25.7-32.2 L (BEAKER) (test code = 751) MEAN CORPUSCULAR HEMOGLOBIN CONC 32.4 GM/DL 32.3-36.5 (BEAKER) (test code = 752) RED CELL DISTRIBUTION WIDTH 15.0 % 11.6-14.4 H (AKER) (test code = 412) PLATELET COUNT ([facility]) (test 231 K/CU MM 150-450 code = 756) MEAN PLATELET VOLUME (BEAKER) 9.7 fL 9.4-12.4 (test code = 754) NUCLEATED RED BLOOD CELLS 0 /100 WBC 0-0 (AKER) (test code = 413) POCT-GLUCOSE [id number] 21:40:00 Test Item Value Reference Range Interpretation Comments POC-GLUCOSE METER 111 mg/dL 70-110 H TESTED AT [place] [address] ([facility]) (test code = JONAS Mckeon [facility] 1538) [id number] 20:29:00 Test Item Value Reference Range Interpretation Comments ACTIVATED CLOTTING TIME 230 sec TEST ED AT [place] [address] ([facility]) (test code = JONAS Mckeon [facility] 441) [id number] 20:29:00 Test Item Value Reference Range Interpretation Comments ACTIVATED CLOTTING TIME 131 sec TEST ED AT [place] [address] ([facility]) (test code = [facility] 441) [id number] POCT-GLUCOSE [id number] 17:58:00 Test Item Value Reference Range Interpretation Comments POC-GLUCOSE METER 137 mg/dL 70-110 H TESTED AT [place] [address] ([facility]) (test code = [facility] 1538) [id number] 16:46:00 Test Item Value Reference Range Interpretation Comments PARTIAL THROMBOPLASTIN TIME 44.3 seconds 22.5-36.0 H (BEAKER) (test code = 760) BASIC METABOLIC [id number] 12:43:00 Test Item Value Reference Range Interpretation Comments SODIUM (BEAKER) 137 meq/L 136-145 (test code = 381) POTASSIUM (BEAKER) 4.0 meq/L 3.5-5.1 Specimen slightly (test code = 379) hemolyzed CHLORIDE (BEAKER) 100 meq/L 98-107 (test code = 382) CO2 (BEAKER) (test 27 meq/L 22-29 code = 355) BLOOD UREA NITROGEN 29 mg/dL 7-21 H (BEAKER) (test code = 354) CREATININE (BEAKER) 2.33 mg/dL 0.57-1.25 H Specimen slightly (test code = 358) hemolyzed GLUCOSE RANDOM 154 mg/dL 70-105 H (BEAKER) (test code = 652) CALCIUM (BEAKER) 9.1 mg/dL 8.4-10.2 (test code = 697) EGFR (BEAKER) (test 28 mL/min/1.73 ESTIMA ALPHONSO GFR IS code = 1092) sq m NOT ACCURATE CREATININE CLEARANCE IN PREDICTING GLOMERULAR FILTRATION RATE . ESTIMATED GFR I S NOT APPLICABLE FOR DIALYSIS PATIEN TS. POCT-GLUCOSE [id number] 12:33:00 Test Item Value Reference Range Interpretation Comments POC-GLUCOSE METER 140 mg/dL 70-110 H TESTED AT [facility] 6720 (BEAKER) (test code = [place] 1538) [id number] LIPID [id number] 12:28:00 Test Item Value Reference Range Interpretation Comments TRIGLYCERIDES (BEAKER) 455 mg/dL Speci men slightly (test code = 540) hemolyzed CHOLESTEROL (BEAKER) 196 mg/dL Specime n slightly (test code = 631) hemolyzed HDL CHOLESTEROL (BEAKER) 26 mg/dL (test code = 976) Calculated LDL not valid if triglyceride >400 mg/dLTriglyceride Reference Range: Low Risk <150 Borderline 150-199 High Risk 200-499 Very High Risk >=500Cholesterol Reference Range: Low Risk <200 Borderline 200-239 High Risk >240HDL Cholesterol Reference Range: Low Risk >=60 High Risk <40LDL Cholesterol Reference Range: Optimal <100 Near Optimal 100-129 Borderline 130-159 Hdqz422-150 Very High >=190HEMOGLOBIN [id number] 11:30:00 Test Item Value Reference Range Interpretation Comments HEMOGLOBIN A1C (BEAKER) (test code = 7.9 % 4.3-6.1 H 368) PROTHROMBIN [id number] 10:31:00 Test Item Value Reference Range Interpretation Comments PROTIME (BEAKER) (test code = 13.7 seconds 11.7-14.7 759) INR (BEAKER) (test code = 370) 1.0 <=5.9 RECOMMENDED COUMADIN/WARFARIN INR THERAPY RANGESSTANDARD DOSE: 2.0 - 3.0 Includes: PROPHYLAXIS for venous thrombosis, systemic embolization; TREATMENT for venous thrombosis and/or pulmonary embolus.HIGH RISK: Target INR is 2.5-3.5 for patients with mechanical heart valves.Prior to initiating heparinFIBRINOGEN 2018-11-28 10:31:00 Test Item Value Reference Range Interpretation Comments FIBRINOGEN LEVEL (BEAKER) (test 438 mg/dl 225-434 H code = 658) Prior to initiating [id number] 10:31:00 Test Item Value Reference Range Interpretation Comments PARTIAL THROMBOPLASTIN TIME 35.8 seconds 22.5-36.0 (BEAKER) (test code = 760) Prior to initiating heparinCBC (HEMOGRAM ONLY)2018-11-28 10:11:00 Test Item Value Reference Range Interpretation Comments WHITE BLOOD CELL COUNT (BEAKER) 7.4 K/ L 3.5-10.5 (test code = 775) RED BLOOD CELL COUNT (BEAKER) 5.46 M/ L 4.63-6.08 (test code = 761) HEMOGLOBIN (BEAKER) (test code = 13.8 GM/DL 13.7-17.5 410) HEMATOCRIT (BEAKER) (test code = 41.2 % 40.1-51.0 411) MEAN CORPUSCULAR VOLUME (BEAKER) 75.5 fL 79.0-92.2 L (test code = 753) MEAN CORPUSCULAR HEMOGLOBIN 25.3 pg 25.7-32.2 L (BEAKER) (test code = 751) MEAN CORPUSCULAR HEMOGLOBIN CONC 33.5 GM/DL 32.3-36.5 (BEAKER) (test code = 752) RED CELL DISTRIBUTION WIDTH 15.3 % 11.6-14.4 H (BEAKER) (test code = 412) PLATELET COUNT (BEAKER) (test 211 K/CU MM 150-450 code = 756) MEAN PLATELET VOLUME (BEAKER) 10.3 fL 9.4-12.4 (test code = 754) NUCLEATED RED BLOOD CELLS 0 /100 WBC 0-0 (BEAKER) (test code = 413) Notes Date/Time Note Provider Source 2023-03-23 12:37:00-00:00 [id number] [place] [address] PATIENT NAME: RODNEY PURDY ADMIT DATE: 3 ACCOUNT NO: [id number] ROOM NO: AGE: 72 REPORT TYPE: eELECTROCARDIOGRAM REPORT SEX: M ADMITTING PHYSICIAN: ATTENDING PHYSICIAN:Johan Lovelace MD Order: [id number] Test Reason : PCI Postprocedure Test Date/Time Stamp: WedMar 23 2023 12:37:13 Blood Pressure : / mmHG Vent. Rate : 063 BPM Atrial Rate : 063 BPM P-R Int : 168 ms QRS Dur : 086 ms QT Int : 420 ms P-R-T Axes : 060 -26 045 degree s QTc Int : 429 ms Normal sinus rhythm Inferior infarct (cited on or before 19-MAR-2023 ) Abnormal ECG When compared with ECG of 19-MAR-2023 16:25, No significant change was found Confirmed by MD MCKENZIE, MCKENZIE ([id number]) on 3 7:43:47 AM Referred By: Johan Lovelace Confirmed by:MCKENZIE QUESADA MD Electronically Signed by Mckenzie García MD on at 0743 PATIENT NAME: RODNEY PURDY [id number] 2023-03-19 16:25:00-00:00 [id number] [place] [address] PATIENT NAME: RODNEY PURDY ADMIT DATE: 3 ACCOUNT NO: [id number] ROOM NO: AGE: 72 REPORT TYPE: eELECTROCARDIOGRAM REPORT SEX: M ADMITTING PHYSICIAN: ATTENDING PHYSICIAN:Johan Lovelace MD Order: [id number] Test Reason : PREOP Test Date/Time Stamp: WedMar 19 2023 16:25:53 Blood Pressure : / mmHG Vent. Rate : 064 BPM Atrial Rate : 064 BPM P-R Int : 164 ms QRS Dur : 084 ms QT Int : 410 ms P-R-T Axes : 055 -03 020 degree s QTc Int : 422 ms Normal sinus rhythm Inferior infarct , age undetermined Abnormal ECG No previous ECGs available Confirmed by VIOLETTA ALVAREZ MD ([id number]) on 03/31/2023 11:06:02 AM Referred By: Johan Lovelace Confirmed by:VIOLETTA ALLAN MD Electronically Signed by Violetta Alvarez MD on 03/13 06/05 at 1106 PATIENT NAME: RODNEY PURDY [id number]
[2023-04-28] MEDS ORDERED: ONDANSETRON 4 MG/2 ML VIAL IV PRN (18:00)
[2023-04-28] MEDS ORDERED: DIPHENHYDRAMINE 25 MG TAB/CAP PO PRN (18:00)
[2023-04-28] MEDS ORDERED: PNEUMOCOCCAL VACCINE 0.5 ML IMVAC ONE (18:00)
[2023-04-28] MEDS ORDERED: LOPERAMIDE HCL 2 MG CAPSULE PO PRN (18:00)
[2023-04-28] MEDS ORDERED: POLYETHYL GLY 3350 17 GM/DOSE PO PRN (18:00)
[2023-04-28] MEDS ORDERED: ONDANSETRON 4 MG (ODT) TAB PO PRN (18:00)
[2023-04-28] MEDS ORDERED: ACETAMINOPHEN 325 MG TABLET PO PRN (18:00)
--- NOTE | 2023-04-28 18:30 | RAD REPORT ---
EXAM DESCRIPTION: RAD - Chest Pa And Lat (2 Views) - 04/28/2023 6:15 pm CLINICAL HISTORY: shortness of breath Chest pain. COMPARISON: <Comparisons> FINDINGS: Mild interstitial pulmonary edema suspected. Trace bilateral pleural effusions. The heart is mildly enlarged in size. No displaced fractures. IMPRESSION: Mild CHF is suspected.
[2023-04-28] MEDS: ENOXAPARIN 30 MG/0.3 ML SQ SCH (18:43)
[2023-04-28 18:59] LABS: Absolute Lymphocytes (CBC) 1.4 K/uL (0.7-4.9); Hematocrit 37.5 % (39.6-49.0); Lymphocytes % 19.9 % (15.3-44.8); MCV 86.4 fL (80-100); MPV 7.2 fL (7.6-11.3); Platelets 211 thou/uL (152-406); RBC Red Blood Cell Count 4.33 M/uL (4.33-5.43)
[2023-04-28 19:16] LABS: Protime INR 1.19
[2023-04-28 19:30] LABS: Albumin 3.3 g/dL (3.4-5.0); Bilirubin Direct 0.2 mg/dL (0-0.2); Bilirubin Indirect, Calculated 0.3 mg/dL (0.2-0.8); Bilirubin Total 0.5 mg/dL (0.2-1.0); Phosphorus 3.1 mg/dL (2.5-4.9); Potassium 4.4 mEq/L (3.5-5.1); Protein, Total 6.6 g/dL (6.4-8.2); Thyroid Stimulating Hormone 2.22 uIU/mL (0.358-3.740)
[2023-04-28] MEDS ORDERED: D50W 25 GM/50 ML SYRINGE IV PRN (20:12)
[2023-04-28] MEDS ORDERED: GLUCAGON 1 MG/VIAL IM PRN (20:12)
[2023-04-28] MEDS: FUROSEMIDE 100 MG in NA CHLORIDE 0.9% 90 ML IV SCH (20:28)
[2023-04-28] MEDS: INSULIN -REGULAR HUMAN 50 UNIT/0.5 ML ML SQ SCH (21:00)
[2023-04-28] MEDS: NACHLORIDE 0.45% 1,000 ML IV SCH (22:34)
[2023-04-29] MEDS: FUROSEMIDE 100 MG in NA CHLORIDE 0.9% 90 ML IV SCH ×2 (04:00→15:44)
[2023-04-29 05:13] LABS: Absolute Lymphocytes (CBC) 1.4 K/uL (0.7-4.9); Lymphocytes % 19.6 % (15.3-44.8); Platelets 220 thou/uL (152-406); RBC Red Blood Cell Count 3.79 M/uL (4.33-5.43)
[2023-04-29 05:33] LABS: Magnesium 1.7 mg/dL (1.6-2.4); Potassium 4.2 mEq/L (3.5-5.1)
[2023-04-29] MEDS: ENOXAPARIN 30 MG/0.3 ML SQ SCH (08:23)
[2023-04-29] MEDS: INSULIN -REGULAR HUMAN 50 UNIT/0.5 ML ML SQ SCH ×4 (08:26→20:06)
[2023-04-29 14:50] LABS: Specific Gravity 1.008 (1.005-1.030); Urine Bacteria None Seen /HPF (<20); Urine Bilirubin NEGATIVE (Negative); Urine Blood Negative (Negative); Urine Clarity Turbid (Clear); Urine Color Colorless (Yellow); Urine Glucose NEGATIVE (Negative); Urine Mucus Slight /HPF (None Seen); Urine Protein 1+ (Negative); Urine RBC <5 /HPF (None Seen); Urine Urobilinogen Normal (Normal); Urine pH 5.5 (5.0-7.0)
[2023-04-29 15:07] LABS: UR MICROALBUMIN 29.8 mg/dL (< 1.9)
--- NOTE | 2023-04-29 15:12 | CON ---
Date of Consultation: 04/29/2023 Reason For Consultation: Elevated BUN, creatinine. Fluid management. History Of Present Illness: This is a pleasant 72-year-old gentleman with significant past medical history of type 2 diabetes since 2007; no retinopathy; positive neuropathy; hypertension since 2007; CAD, status post PTCA recently, complicated with congestive heart failure, diastolic dysfunction, preserved ejection fraction; chronic kidney disease, stage 3B/4 secondary to hypertension, nephrosclerosis, cardiorenal, diabetes nephropathy. Patient came to the hospital complaining of shortness of breath. Patient was found to be overvolume. For that reason, patient was started on Lasix drip. Patient is feeling slightly better. Patient is seen by Cardiology. Plan for cardiac cath today or tomorrow. Past Medical History: Includes: 1. Diabetes. 2. Hypertension. 3. Hyperlipidemia. 4. CAD. 5. Chronic kidney disease, stage 4. Past Surgical History: Include: 1. Cardiac cath. 2. PTCA. Social History: Denied smoking. Denied drinking. Denied drugs abuse. Family History: Positive for diabetes. Home Medications: Include: 1. Allopurinol. 2. Finerenone. 3. Carvedilol. 4. Lyrica. 5. Losartan. 6. Aspirin. 7. Amlodipine. Review of Systems: Head and Neck: No red eye. No ear pain. GI: No nausea, no vomiting. : No polyuria, no dysuria, no hematuria. UTILITY BILL COLLECTOR: Not applicable. Respiratory: Has shortness of breath. Cardiovascular: Has orthopnea. Endocrine: No polydipsia. Skin: No rash. Neuro: Has neuropathy. Musculoskeletal: No joint pain. Physical Examination: Vital Signs: When I saw the patient, blood pressure of 137/81, pulse of 84, afebrile. Chest: Clear on the upper zone, crackles on the base. Heart: S1, S2. Systolic murmur. Abdomen: Soft, nontender. Extremities: No edema. Neurologic: Alert. No focality. Laboratory Data: Hemoglobin 11.3. Sodium 140, potassium 4.2, bicarb 24, BUN 60, creatinine 2.5. GFR of 27. Calcium 8.6. Magnesium 1.7. Chest x-ray: Cardiomegaly with congestion. Current Medications: The patient is on include Lovenox, Tylenol, Lasix, loperamide. Assessment And Plan: 1. Acute kidney injury on chronic kidney disease secondary to cardiorenal, still on the wet side. I am going to continue diuresis for the time being. 2. Hypertension. We will continue to utilize blood pressure for more diuresis. 3. Congestive heart failure with exacerbation. We will optimize the fluid status. 4. Non-ST elevation myocardial infarction, possible cardiac cath tomorrow. We will continue diuresis until midnight, then we will start the patient on normal saline 50 per hour, 10 hour before and 10 hour after the cardiac cath. We will follow up with Cardiology. 5. Diabetes as by primary. Time spent examining the patient [id number], reviewing data, lab and radiology, placing order, discussing the case with the patient, discussing the case with the member including nursing staffand the hospitalist more than 65 minutes. SYLVIA Voice ID: [id number] Report ID: [id number] XAVI
[2023-04-29] MEDS: INSULIN GLARGINE 100 UNIT/ML SQ SCH (15:53)
--- NOTE | 2023-04-29 18:28 | P.PN ---
Subjective Date of Service: 04/29/23 Chief Complaint: DYSPNEA Subjective: Improving HE CALLED YESTERDAY SAYING HE CAN'T SLEEP LAYING DOWN HE IS SHORT OF BREATH. HE IS NOT COMPLIANT WITH HIS DIET EVEN AFTER MANY DISCUSSIONS OVER LAST 5 YEARS. HE EATS WHATEVER HE WANTS. IT CAN BE SALTY AND OILY. I ADMITED HIM AND PUT HIM ON LASIX DRIPS SO HIS RENAL FUNCTION WILL NOT GET RAPIDLY WORSE. I CONSULTED DR. MILLER AND NEPHROLOGY TEAM. HE WILL GET CATH ON WEDNESDAY. HE WANTS TO GO HOME BUT HE WILLHAVE TO STAY TO CONTINUE DIURESIS. Review of Systems 10-point ROS is otherwise unremarkable General: Weakness Physical Examination - Vital Signs Temperature: 98.1 F Blood Pressure: 147/82 Pulse: 85 Respirations: 16 Pulse Ox (%): 84 - Physical Exam General: Oriented x3, Mild distress HEENT: Atraumatic, PERRLA, EOMI Neck: Supple, JVD not distended Respiratory: Clear to auscultation bilaterally, Normal air movement Cardiovascular: Regular rate/rhythm, Normal S1 S2 Gastrointestinal: Normal bowel sounds, No tenderness Musculoskeletal: No tenderness Integumentary: No rashes Neurological: Normal speech, Normal tone, Normal affect Lymphatics: No axilla or inguinal lymphadenopathy - Studies Laboratory Data (last 24 hrs) 04/29/23 04/29/23 04/28/23 04:57 04:57 18:31 WBC 7.00 Hgb 11.3 L D Hct 33.0 L Plt Count 220 PT INR APTT Sodium 140 140 Potassium 4.2 4.4 BUN 60 H 39 H Creatinine 2.51 H 2.48 H Glucose 171 H 109 H Phosphorus 3.1 Magnesium 1.7 2.0 Total Bilirubin 0.5 AST 19 ALT 27 Alkaline Phosphatase 74 04/28/23 04/28/23 18:31 18:31 WBC 7.00 Hgb 12.7 L Hct 37.5 L Plt Count 211 PT 13.1 H INR 1.19 APTT 32.1 Sodium Potassium BUN Creatinine Glucose Phosphorus Magnesium Total Bilirubin AST ALT Alkaline Phosphatase Medications List Reviewed: Yes Assessment And Plan - Current Problems (Diagnosis) (1) Acute on chronic diastolic (congestive) heart failure Current Visit: Yes Status: Acute Plan: LASIX DRIP AND CONSULTS ABOVE WE MAY BE ABLE TO AVOID HD FOR NOW. DIET ADVISE GIVEN ONCE AGAIN. (2) Diabetes mellitus due to underlying condition with chronic kidney disease on chronic dialysis Current Visit: Yes Status: Chronic Plan: HE AHS HAD RENAL MD FOR A WHILE. (3) Diabetic vasculopathy Current Visit: Yes Status: Acute (4) Coronary artery disease due to type 2 diabetes mellitus Current Visit: Yes Status: Chronic Plan: HE HAS HAD MORE THAN 10 STENTS ALREADY. HE IS A DIABETIC WITH POOR HABITS AND POOR DM CONTROL FOR LONG TIME MAINLY DUE TO LACK OF COMPLIANCE.
[2023-04-29] MEDS ORDERED: SODIUM CHLORIDE 0.9% 10ML INJ IV PRN (18:38)
[2023-04-29 18:54] LABS: Potassium 4.1 mEq/L (3.5-5.1)
[2023-04-29] MEDS: PANTOPRAZOLE 40 MG INJ IVP SCH (19:43)
--- NOTE | 2023-04-29 19:57 | PN ---
Date of Progress Note: 04/29/2023 Subjective: Seen by bedside. Doing clinically better. His fluid status is improving slowly. Still has orthopnea and mild lower extremity edema. Review of Systems: No chest pain. Has orthopnea. No cough. Has shortness of breath on exertion. No lower extremity e antoine anymore. No nausea, vomiting, diarrhea. All other systems reviewed are negative. Physical Examination: Vital Signs: Reviewed. Head and Neck: Pupils are equal, reactive to light. Intact eye movements. Positive JVD. No cervic al lymphadenopathy. Neck is supple. Thyroid is not enlarged. Lungs: Decreased breathing sounds with thin crackles in the bases. No accessory muscle use or muscl e retraction. Heart: Irregular. No extra sounds. Abdomen: Soft, nontender. Bowel sounds positive. No organomegaly. No masses or hernia. No rigidi ty or rebound. Extremities: Trace edema bilaterally. No clubbing, cyanosis. Intact pulses. Skin: No rash. Neurologic: Alert, awake. No acute focal deficits were appreciated. Investigations: BUN 60, creatinine is 2.51. Assessment And Recommendations: 1.Acute on chronic diastolic heart failure exacerbation. He is improving gradually. I recommend to repeat basic metabolic panel this evening as his BUN has jumped significantly and to hold the Lasix if there is a rise in the creatinine. 2.Acute on chronic renal failure and Nephrology is following. 3.Coronary artery disease, status post multiple vessel percutaneous coronary intervention and he nee ds a percutaneous coronary intervention of the left circumflex. This will be put on hold until his kidney function gets situated and stabilized as well as the heart failure condition is cont rolled. SR/MODL Voice ID: [id number] Report ID: [id number]
[2023-04-29] MEDS: ATORVASTATIN 40 MG TAB PO SCH (20:05)
[2023-04-29] MEDS: carvediloL 12.5 MG TAB PO SCH (20:05)
[2023-04-29] MEDS: allopurinoL 100 MG TAB PO SCH (20:05)
[2023-04-29] MEDS ORDERED: REPAGLINIDE 0.5 MG TABLET PO SCH (21:00)
[2023-04-30] MEDS: NACHLORIDE 0.45% 1,000 ML IV SCH (03:49)
[2023-04-30 04:52] LABS: Magnesium 1.5 mg/dL (1.6-2.4); Potassium 3.8 mEq/L (3.5-5.1)
[2023-04-30] MEDS: DOXAZOSIN 2 MG TAB PO SCH (08:55)
[2023-04-30] MEDS: AMLODIPINE 10 MG TAB PO SCH (08:55)
[2023-04-30] MEDS: ASPIRIN EC 81 MG TAB PO SCH (08:56)
[2023-04-30] MEDS: PANTOPRAZOLE 40 MG INJ IVP SCH ×2 (08:56→22:02)
[2023-04-30] MEDS: allopurinoL 100 MG TAB PO SCH ×2 (08:56→22:04)
[2023-04-30] MEDS: carvediloL 12.5 MG TAB PO SCH ×2 (08:56→22:02)
[2023-04-30] MEDS: INSULIN -REGULAR HUMAN 50 UNIT/0.5 ML ML SQ SCH ×4 (08:57→22:04)
[2023-04-30] MEDS: PRASUGREL (EFFIENT) 10 MG TAB PO SCH (08:57)
[2023-04-30 08:59] LABS: SARS-CoV-2 Antigen Rapid Res Negative (Negative)
[2023-04-30] MEDS ORDERED: POTASSIUM CL SA 10 MEQ TAB PO ONE (09:00)
[2023-04-30] MEDS: INSULIN GLARGINE 100 UNIT/ML SQ SCH (09:00)
[2023-04-30] MEDS ORDERED: HOME MED 1 EA UNK (Insulin Degludec [Tresiba] 100 UNIT/ML Vial) SQ SCH (09:00)
[2023-04-30] MEDS ORDERED: REPAGLINIDE PO SCH (09:00)
[2023-04-30] MEDS ORDERED: Magnesium Sulfate 2gm IVPB 2 G/50 ML BAG IV ONE (09:00)
--- NOTE | 2023-04-30 11:09 | P.PN ---
Subjective Date of Service: 04/30/23 Chief Complaint: DYSPNEA Subjective: No new changes HE CALLED YESTERDAY SAYING HE CAN'T SLEEP LAYING DOWN HE IS SHORT OF BREATH. HE IS NOT COMPLIANT WITH HIS DIET EVEN AFTER MANY DISCUSSIONS OVER LAST 5 YEARS. HE EATS WHATEVER HE WANTS. IT CAN BE SALTY AND OILY. I ADMITED HIM AND PUT HIM ON LASIX DRIPS SO HIS RENAL FUNCTION WILL NOT GET RAPIDLY WORSE. I CONSULTED DR. MILLER AND NEPHROLOGY TEAM. HE WILL GET CATH ON WEDNESDAY. HE WANTS TO GO HOME BUT HE WILLHAVE TO STAY TO CONTINUE DIURESIS. HE JUST TOOK SHOWER. EXHAUSTED. ALSO MENTALLY HE IS STRESSED HIS WAS FOUND ON THE FLOOR PASSED OUT WITH COVID A NEW DIAGNOSIS. Physical Examination - Vital Signs Temperature: 97.7 F Blood Pressure: 145/82 Pulse: 95 Respirations: 16 Pulse Ox (%): 99 - Physical Exam General: Oriented x3, Mild distress, Moderate distress, Obese HEENT: Atraumatic, PERRLA, EOMI Neck: Supple, JVD not distended Respiratory: Clear to auscultation bilaterally, Normal air movement Cardiovascular: Regular rate/rhythm, Normal S1 S2 Gastrointestinal: Normal bowel sounds, No tenderness Musculoskeletal: No tenderness Integumentary: No rashes Neurological: Normal speech, Normal tone, Normal affect Lymphatics: No axilla or inguinal lymphadenopathy - Studies Laboratory Data (last 24 hrs) 04/30/23 04/29/23 03:49 18:28 Sodium 134 L 136 Potassium 3.8 4.1 BUN 120 H 98 H Creatinine 3.01 H 2.84 H Glucose 194 H 184 H Magnesium 1.5 L Medications List Reviewed: Yes Assessment And Plan - Current Problems (Diagnosis) (1) Acute on chronic diastolic (congestive) heart failure Current Visit: Yes Status: Acute Plan: LASIX DRIP AND CONSULTS ABOVE WE MAY BE ABLE TO AVOID HD FOR NOW. DIET ADVISE GIVEN ONCE AGAIN. EATS SALTY FOOD NOT FOLLOWING ADVISE FOR MANY YEARS. HE DOES WHAT HE WANTS. PROGNOSIS IS POOR OVERALL. I WILL BE OUT OF TOWN UNTIL WEDNESDAY 8 AM CHECKED OUT TO HOSPITAL DOCTORS. (2) Diabetes mellitus due to underlying condition with chronic kidney disease on chronic dialysis Current Visit: Yes Status: Chronic Plan: HE AHS HAD RENAL MD FOR A WHILE. (3) Diabetic vasculopathy Current Visit: Yes Status: Acute (4) Coronary artery disease due to type 2 diabetes mellitus Current Visit: Yes Status: Chronic Plan: HE HAS HAD MORE THAN 10 STENTS ALREADY. HE IS A DIABETIC WITH POOR HABITS AND POOR DM CONTROL FOR LONG TIME MAINLY DUE TO LACK OF COMPLIANCE.
--- NOTE | 2023-04-30 12:04 | RAD REPORT ---
EXAM DESCRIPTION: RAD - Chest Pa And Lat (2 Views) - 04/30/2023 11:53 am CLINICAL HISTORY: dyspnea COMPARISON: Chest Pa And Lat (2 Views) dated 04/28/2023; Chest Pa And Lat (2 Views) dated 04/26/2023; Chest Pa And Lat (2 Views) dated 09/09/2022; Chest Pa And Lat (2 Views) dated 03/07/2020 FINDINGS: Lines: None. Lungs: No evidence of edema or pneumonia. Pleural: No significant pleural effusions or pneumothorax. Cardiac: The heart size is within normal limits. Mediastinum: Within normal limits. Bones: No acute fractures. Other: None IMPRESSION: No acute cardiopulmonary disease.
--- NOTE | 2023-04-30 15:24 | P.PN ---
Subjective Date of Service: 04/30/23 Chief Complaint: DYSPNEA Subjective: Other (No complaints of increased shortness of breath.) Physical Examination - Vital Signs Temperature: 97.2 F Blood Pressure: 140/71 Pulse: 83 Respirations: 16 Pulse Ox (%): 98 - Physical Exam General: Other (appears as his stated age) HEENT: Atraumatic, Normocephalic Neck: Supple Respiratory: Other (symmetric chest expansion) Cardiovascular: No rubs, No murmurs Gastrointestinal: Soft and benign, No rebound Musculoskeletal: No clubbing Integumentary: No warmth Neurological: Normal tone Lymphatics: No axilla or inguinal lymphadenopathy Urinary: Other (no bladder distention) External genitalia: Deferred Rectal: Deferred - Studies Laboratory Data (last 24 hrs) 04/30/23 04/29/23 03:49 18:28 Sodium 134 L 136 Potassium 3.8 4.1 BUN 120 H 98 H Creatinine 3.01 H 2.84 H Glucose 194 H 184 H Magnesium 1.5 L Medications List Reviewed: Yes Assessment And Plan - Plan 1. Acute kidney injury on chronic kidney disease secondary to cardiorenal. SCr increased to 3.0. [place] po fluid intake at least 2L/d. Resume lasix at 20 mg po bid.. 2. Hypertension. continue current medication regimen. 3. Congestive heart failure with exacerbation. Lasix by mouth as above. [place] by mouth fluid intake. Low-sodium diet less than 2 g per day. 4. Non-ST elevation myocardial infarction. Per Cardiology. 5. DM2. Mgnt per primary team.
[2023-04-30] MEDS: REPAGLINIDE PO SCH (16:53)
[2023-04-30 17:45] VITALS: BMI 31.3
--- NOTE | 2023-04-30 18:14 | PN ---
Date of Progress Note: 04/30/2023 Subjective: Seen by bedside. No shortness of breath. Review of Systems: No chest pain, shortness of breath, orthopnea, cough. No nausea, vomiting, diarrhea. All other syst ems reviewed are negative. Physical Examination: Vital signs: Reviewed. Head and Neck: Pupils are equal, reactive to light. Intact eye movements. No JVD. No cervical lym phadenopathy. Neck is supple. Thyroid is not enlarged. Lungs: Clear to auscultation bilaterally. No rhonchi, wheezing, or crackles. No accessory muscle u se. Heart: Irregular. No extra sounds. Abdomen: Soft, nontender. Bowel sounds positive. No organomegaly. No masses or hernia. No rigidi ty or rebound. Extremities: No edema, clubbing, cyanosis. Intact pulses. Skin: No rash. No nodules. Neurologic: Alert, awake, oriented x3. No acute focal deficits appreciated. Investigations: His BUN is 120, creatinine is 3, and hemoglobin is 11.1. Assessment/recommendations: 1.Acute on chronic renal failure. Very high BUN. Nephrology saw the patient and will follow up wit h recommendations. Hold the Lasix. 2.Acute on chronic diastolic heart failure exacerbation. He seems to be euvolemic. Stop the Lasix for now due to the rise in BUN and creatinine. 3.Coronary artery disease. Needs percutaneous coronary intervention of his left circumflex, which c an be done later on as an outpatient. At this point, I will avoid giving him any contrast due to the acute on chronic renal fa ilure. SR/MODL Voice ID: [id number] Report ID: [id number]
[2023-04-30] MEDS: ATORVASTATIN 40 MG TAB PO SCH (22:04)
[2023-05-01 04:29] LABS: Magnesium 2.1 mg/dL (1.6-2.4); Potassium 3.5 mEq/L (3.5-5.1)
--- NOTE | 2023-05-01 07:13 | P.PN ---
Date of Service: 05/01/23 Subjective: doing okay, denies chest pain, no abdominal pain black tarry stool continues since shortly after admission no acute events overnight ROS: 10 point ROS as noted above, otherwise negative Physical Exam: GEN: Alert, orientedx3, NAD HEENT: pale conjunctiva, sclera anicteric CV: Regular rate and rhythm, trace b/l pedal edema Pulm: Nonlabored respirations on room air, clear bilaterally ABD: Soft, nontender, nondistended; umbilical hernia Integumentary: No rashes Neuro: Normal speech, normal affect vitals reviewed Problem List: Acute on chronic Diastolic CHF exacerbation CAD, s/p multiple PCI - most recent 04/06/23 acute blood loss anemia secondary to UGI bleed h/o GERD KARIN on CKD 3 Hypertension IDDM2 h/o Constipation Acute on chronic Diastolic CHF exacerbation CAD, s/p multiple PCI CXR(04/28): mild CHF pattern CXR(04/30): No acute cardiopulmonary disease. noted to have 16 stents, last stent on 04.06.23 at [place] Cardiology consulted tentative plan for cardiac cath as outpatient; await for stabilized renal function cont aspirin 81mg, statin, coreg, amlodipine monitor on tele patient was on DAPT at home, review of MAR notes for some reason patient did not receive Prasugrel during hospitalization -noted to be unavailable so not given despite ordered will f/u with nursing and pharmacy pt high risk given recent PCI for stent thrombosis Cardiology recommended to hold DAPT (05/01) for 24-48hrs for GI bleed / EGD Patient has not received effient 04/29-05/01, unclear if took day of admission received lovenox on admission KARIN on CKD3 Nephrology consulted karin felt to be secondary to cardiorenal syndrome had stability, then worsened, likely from overdiuresis Previously on lasix drip IV fluids ordered 05/01 liberal PO fluid intake Cr downtrending since admission acute blood loss anemia secondary to UGI bleed h/o GERD black tarry stools since admission noted to take ~1500 mg mc aspirin "most days of the week" for the past 2-3 months no GI director of food and nutrition services IV protonix changed to drip on 05/01 NPO, IVF Hgb: 11.3 (04/29) -> 7.3 (05/01) 1uPRBC ordered stat 05/01 vitals stable transfer initiated for GI given ongoing meleena, high risk given cardiac history - recent PCI and need to minimize missing DAPT Hypertension Continue home medications as appropriate IDDM2 ACHS Accu-Chek, SSI Cont semglee Constipation PRN glycolax VTE: SCD Code: Full Dispo: transfer initiated to [facility]
[2023-05-01] MEDS: PRASUGREL (EFFIENT) 10 MG TAB PO SCH (09:00)
[2023-05-01] MEDS ORDERED: POTASSIUM CL SA 10 MEQ TAB PO ONE (09:00)
[2023-05-01] MEDS ORDERED: NA CHLORIDE 0.9% 1,000 ML IV SCH (10:00)
[2023-05-01] MEDS: INSULIN GLARGINE 100 UNIT/ML SQ SCH (10:11)
[2023-05-01] MEDS: INSULIN -REGULAR HUMAN 50 UNIT/0.5 ML ML SQ SCH ×4 (10:11→20:56)
[2023-05-01] MEDS: FUROSEMIDE 20 MG TABLET PO SCH ×2 (10:12→18:04)
[2023-05-01] MEDS: ASPIRIN EC 81 MG TAB PO SCH (10:12)
[2023-05-01] MEDS: AMLODIPINE 10 MG TAB PO SCH (10:12)
[2023-05-01] MEDS: carvediloL 12.5 MG TAB PO SCH ×2 (10:12→21:07)
[2023-05-01] MEDS: PANTOPRAZOLE 40 MG INJ IVP SCH (10:13)
[2023-05-01] MEDS: DOXAZOSIN 2 MG TAB PO SCH (10:13)
[2023-05-01] MEDS: allopurinoL 100 MG TAB PO SCH ×2 (10:13→21:07)
[2023-05-01] MEDS: REPAGLINIDE PO SCH ×2 (10:13→18:04)
[2023-05-01 10:25] LABS: Hematocrit 21.7 % (39.6-49.0); MCV 88.5 fL (80-100); MPV 7.3 fL (7.6-11.3); Platelets 233 thou/uL (152-406); RBC Red Blood Cell Count 2.45 M/uL (4.33-5.43)
[2023-05-01] MEDS ORDERED: NA CHLORIDE 0.9% 250 ML ONE (12:58)
[2023-05-01] MEDS: PANTOPRAZOLE INJ 80 MG in NA CHLORIDE 0.9% 250 ML IV SCH ×2 (13:03→21:06)
--- NOTE | 2023-05-01 14:09 | P.DS ---
Admission Date: 04/30/23 Discharge Date: 05/02/23 Reason for Admission: DYSPNEA Consultations: Cardiology - Dr. Lovelace Nephrology - Dr. Jael Mera Hospital Course: Problem List: Acute on chronic Diastolic CHF exacerbation NSTEMI CAD, s/p multiple PCI KARIN on CKD secondary to cardiorenal acute upper GI bleed Hypertension IDDM2 Constipation CHF/KARIN on CKD Patient came in as a direct admission by PCP for volume overload / acute CHF. Started on lasix drip. Cardio and nephrology were consulted. He responded well and diuresed 4.5 L of urine on 04/30. his BUN and Creatine were noted to increase throughout hospitalization, (05/01 BUN/CR: 118/3.39). Baseline Cr ~2.2. KARIN on CKD felt secondary to cardiorenal on admission, improved, then worsened, likely secondary to overdiuresis and anemia. On 05/01 he was started on normal saline 50ml/hour. CAD s/p multiple PCI Patient recently underwent heart cath with PCI on 04/06/23 at [place]. He reports history of 16 total stents and has been taking aspirin and effient. Cardiology was consulted. initially was contemplating repeating cardiac catheterization, but patient was without chest pain / asymptomatic and currently plans for outpatient evaluation once renal function settles. Acute blood loss anemia secondary to UGI bleed Patient reported "black tarry stools" that began the day after admission. On 05/01 he reported no significant worsening, denied any abdominal pain. He was started on BID protonix on 04/29 evening. His hgb trended from 12.7 - 11.3(04/29) - 7.3. (05/01) He did receive DVT prophylaxis Lovenox on admission which has since been discontinued. He was continued on aspirin 81mg, and was ordered to continue on his effient, however he did not receive the effient for unknown reason at this time - noted as "unavailable" on MAR review. Cardiology recommended to hold DAPT on 05/01 given GI bleed and anemia and to initiate urgent transfer for GI evaluation for EGD - to minimize duration patient is off DAPT given recent PCI on 04/06/23. Vitals stable in last 24-48hrs, HR: 80-90s, BP: 140-160s. Protonix IV BID started evening of 04/29, transitioned to protonix drip on 05/01 1u PRBC transfused on 05/01 and made NPO Transfer initiated to [facility], doc to doc performed and patient was accepted by refuse laborer pending bed. Patient reported taking 3 Hira pills (500mg aspirin each), most days of the week for last ~2-3 months. Increasing his risk of stomach ulcer / bleed / renal failure. Physical Exam: GEN: Alert, oriented, NAD HEENT: Normal conjunctiva, sclera anicteric CV: Regular rate and rhythm, no edema Pulm: Nonlabored respirations on room air ABD: Soft, nontender, nondistended MSK: No joint tenderness Integumentary: No rashes Neuro: Normal speech, normal affect Vital Signs/Physical Exam: Temp Pulse Resp BP Pulse Ox 98.4 F 88 18 142/70 H 95 05/01/23 12:00 05/01/23 12:00 05/01/23 12:00 05/01/23 12:00 05/01/23 12:00 Laboratory Data at Discharge: WBC 7.40 thou/uL (4.3-10.9) 05/01/23 10:13 Hgb Cancelled 05/01/23 11:37 Hct Cancelled 05/01/23 11:37 Plt Count 233 thou/uL (152-406) 05/01/23 10:13 PT 13.1 SECONDS (9.5-12.5) H 04/28/23 18:31 INR 1.19 04/28/23 18:31 APTT 32.1 SECONDS (24.3-36.9) 04/28/23 18:31 Sodium 137 mEq/L (136-145) 05/01/23 03:17 Potassium 3.5 mEq/L (3.5-5.1) 05/01/23 03:17 BUN 118 mg/dL (7-18) H 05/01/23 03:17 Creatinine 3.39 mg/dL (0.70-1.30) H 05/01/23 03:17 Glucose 119 mg/dL (74-106) H 05/01/23 03:17 Phosphorus 3.1 mg/dL (2.5-4.9) 04/28/23 18:31 Magnesium 2.1 mg/dL (1.6-2.4) 05/01/23 03:17 Total Bilirubin 0.5 mg/dL (0.2-1.0) 04/28/23 18:31 AST 19 U/L (15-37) 04/28/23 18:31 ALT 27 U/L (16-61) 04/28/23 18:31 Alkaline Phosphatase 74 U/L (45-117) 04/28/23 18:31 Home Medications: Amlodipine [Norvasc] 10 mg PO DAILY 02/21/19 Aspirin [Aspirin EC 81 MG] 81 mg PO DAILY 02/21/19 Insulin Degludec [Tresiba] 40 unit SQ DAILY 02/21/19 Prasugrel HCl 10 mg PO DAILY 02/21/19 Repaglinide 2 mg PO BID 02/21/19 Allopurinol 100 mg PO BID 04/28/23 Atorvastatin Calcium [Lipitor] 40 mg PO DAILY 04/28/23 Carvedilol [Coreg] 12.5 mg PO BID 04/28/23 Doxazosin [Cardura*] 2 mg PO DAILY 04/28/23 Physician Discharge Instructions: CHF/KARIN on CKD Patient came in as a direct admission by PCP for volume overload / acute CHF. Started on lasix drip. Cardio and nephrology were consulted. He responded well and diuresed 4.5 L of urine on 04/30. his BUN and Creatine were noted to increase throughout hospitalization, (05/01 BUN/CR: 118/3.39). Baseline Cr ~2.2. KARIN on CKD felt secondary to cardiorenal on admission, improved, then worsened, likely secondary to overdiuresis and anemia. On 05/01 he was started on normal saline 50ml/hour. CAD s/p multiple PCI Patient recently underwent heart cath with PCI on 04/06/23 at [place]. He reports history of 16 total stents and has been taking aspirin and effient. Cardiology was consulted. initially was contemplating repeating cardiac catheterization, but patient was without chest pain / asymptomatic and currently plans for outpatient evaluation once renal function settles. Acute blood loss anemia secondary to UGI bleed Patient reported "black tarry stools" that began the day after admission. On 05/01 he reported no significant worsening, denied any abdominal pain. He was started on BID protonix on 04/29 evening. His hgb trended from 12.7 - 11.3(04/29) - 7.3. (05/01) He did receive DVT prophylaxis Lovenox on admission which has since been discontinued. He was continued on aspirin 81mg, and was ordered to continue on his effient, however he did not receive the effient for unknown reason at this time - noted as "unavailable" on NOV review. Cardiology recommended to hold DAPT on 05/01 given GI bleed and anemia and to initiate urgent transfer for GI evaluation for EGD - to minimize duration patient is off DAPT given recent PCI on 04/06/23. Vitals stable in last 24-48hrs, HR: 80-90s, BP: 140-160s. Protonix IV BID started evening of 04/29, transitioned to protonix drip on 05/01 1u PRBC transfused on 05/01 and made NPO Transfer initiated to [facility], doc to doc performed and patient was accepted by refuse laborer pending bed. Patient reported taking 3 Hira pills (500mg aspirin each), most days of the week for last ~2-3 months. Increasing his risk of stomach ulcer / bleed / renal failure. Time spent managing pt's care (in minutes): 45
[2023-05-01 19:25] LABS: Hematocrit 26.7 % (39.6-49.0)
--- NOTE | 2023-05-01 19:42 | PN ---
Date of Progress Note: 05/01/2023 Chief Complaint: Shortness of breath. Subjective: Patient came to the hospital because of shortness of breath, generalized weakness, and f luid overload. Patient was found to have acute kidney injury, cardiorenal syndrome. Patient is medi cated with IV magnesium for hypomagnesemia. Serum creatinine is going up and Lasix was stopped yeste rday. Patient is tolerating p.o. intake. Despite p.o. fluid intake, serum creatinine has not improv ed. Review of Systems: Denies chest pain, palpitation. Physical Examination: Lungs: Clear to auscultation bilaterally. Heart: S1, S2. Abdomen: Soft, benign. Extremities: Slight edema. Impression And Plan: 1.Acute kidney injury on chronic kidney disease secondary to cardiorenal syndrome. Serum creatinine level has not improved over last 48 hours. Patient will continue p.o. hydration. Plan is to start mild hydration with IV normal saline. 2.Hypertension. Continue current medication. 3.Congestive heart failure exacerbation. Patient was treated with Lasix. Currently, Lasix is on ho ld. Continue to monitor renal function and urine output. 4.[id number] myocardial infarction per Cardiology. 5.Diabetes mellitus. Monitor blood glucose. Avoid metformin. Continue insulin. EB/MODL Voice ID: [id number] Report ID: [id number]
[2023-05-01] MEDS: ATORVASTATIN 40 MG TAB PO SCH (21:07)
--- NOTE | 2023-05-01 21:48 | RAD REPORT ---
EXAM DESCRIPTION: US - Renal Ultrasound-Complete - 05/01/2023 8:46 pm CLINICAL HISTORY: basilio COMPARISON: Renal Ultrasound-Complete dated 11/20/2021 TECHNIQUE: Sonographic grayscale and color flow images of the kidneys and bladder were obtained. FINDINGS: Right kidney is atrophic with cortical thinning. Normal renal contour bilaterally The right kidney measures 6.2 cm in length, previously measured at 9.1 cm. No hydronephrosis, focal m ass or perinephric fluid. The left kidney measures 12.9 cm in length. No hydronephrosis, focal mass or perinephric fluid. The urinary bladder is incompletely distended without gross abnormality seen. IMPRESSION: Atrophic right kidney again seen with cortical thinning. No hydronephrosis or evidence of calculi.
[2023-05-02 06:57] LABS: Hematocrit 26.4 % (39.6-49.0); MPV 7.9 fL (7.6-11.3); Platelets 183 thou/uL (152-406); RBC Red Blood Cell Count 2.96 M/uL (4.33-5.43)
[2023-05-02 07:12] LABS: Magnesium 2.2 mg/dL (1.6-2.4); Potassium 3.2 mEq/L (3.5-5.1); Uric Acid 8.3 mg/dL (3.5-7.2)
[2023-05-02] MEDS: INSULIN -REGULAR HUMAN 50 UNIT/0.5 ML ML SQ SCH ×2 (07:30→11:30)
[2023-05-02] MEDS: PANTOPRAZOLE INJ 80 MG in NA CHLORIDE 0.9% 250 ML IV SCH (08:00)
[2023-05-02] MEDS ORDERED: PANTOPRAZOLE INJ 80 MG in NA CHLORIDE 0.9% 250 ML IV SCH (09:00)
[2023-05-02] MEDS ORDERED: POTASSIUM CL SA 10 MEQ TAB PO ONE (09:00)
[2023-05-02] MEDS: AMLODIPINE 10 MG TAB PO SCH (09:39)
[2023-05-02] MEDS: REPAGLINIDE PO SCH (09:39)
[2023-05-02] MEDS: carvediloL 12.5 MG TAB PO SCH (09:40)
[2023-05-02] MEDS: DOXAZOSIN 2 MG TAB PO SCH (09:42)
[2023-05-02] MEDS: allopurinoL 100 MG TAB PO SCH (09:43)
[2023-05-02 12:32] VITALS: BP 122/50; TEMP 99.1
--- NOTE | 2023-05-02 20:45 | PN ---
Date of Progress Note: 05/02/2023 Chief Complaint: Shortness of breath. Subjective: The patient was found to have acute kidney injury on chronic kidney disease secondary to cardiorenal syndrome. Patient came to the hospital because of shortness of breath, generalized weak ness, fluid overload. The patient has been treated with IV Lasix for cardiorenal syndrome, was medic ated with IV magnesium for hypomagnesemia, and currently Lasix is on hold. Patient received IV fluid s and severe hyperazotemia. Patient is tolerating p.o. intake. He is to have GI workup for acute an emia. Review of Systems: Denies chest pain, palpitation. Physical Examination: Lungs: Clear to auscultation bilaterally. Heart: S1, S2. Abdomen: Soft. Extremities: Slight edema. Impression And Plan: 1.Acute kidney injury on chronic kidney disease secondary to cardiorenal syndrome. Serum creatinine level has not improved over last 48 hours, although patient has nonoliguric urine output. There is no uremic symptomatology and the patient has electrolytes within normal ranges. Continue to monitor. Continue p.o. hydration. 2.Hypertension. Continue current medication. 3.Congestive heart failure. Patient was treated with Lasix. Lasix on hold due to hyperazotemia. T he patient, symptomatically is improving. 4.Non-ST elevation myocardial infarction per Cardiology. 5.Diabetes mellitus. Monitor blood glucose. Avoid metformin. Continue insulin. ROSALIE/MICHELLEL Voice ID: [id number] Report ID: [id number]
[2023-05-05 16:01] LABS: Albumin, (SPE) 3.1 g/dL (3.8-4.8); Alpha-1-Globulins 0.5 g/dL (0.2-0.3); Alpha-2-Globulins 0.8 g/dL (0.5-0.9); Gamma Globulins 0.4 g/dL (0.8-1.7); INTERPRETATION REPORT
== END 2023-05-02 17:00 | disposition short-term general hospital (02) | DRG 280 ==
LOC: INTOOBSV 17:19 → 4TH 17:19 → OBSVTOIN 04-30 17:08
PROVIDERS: ADMIT Internal Medicine; ATTEND Hospitalist
PROC: 30233N1 Transfusion of Nonautologous Red Blood Cells into Peripheral Vein, Percutaneous Approach (ICD-10-PCS; principal; 2023-05-01)
DX: I13.0 Hypertensive heart and chronic kidney disease with heart failure and stage 1 through stage 4 chronic kidney disease, or unspecified chronic kidney disease (principal); I50.33 Acute on chronic diastolic (congestive) heart failure; I21.4 Non-ST elevation (NSTEMI) myocardial infarction; N18.4 Chronic kidney disease, stage 4 (severe); N17.9 Acute kidney failure, unspecified; M31.8 Other specified necrotizing vasculopathies; D62 Acute posthemorrhagic anemia; K92.2 Gastrointestinal hemorrhage, unspecified; N18.30 Chronic kidney disease, stage 3 unspecified; E11.22 Type 2 diabetes mellitus with diabetic chronic kidney disease; E11.40 Type 2 diabetes mellitus with diabetic neuropathy, unspecified; D63.1 Anemia in chronic kidney disease; E83.42 Hypomagnesemia; K59.00 Constipation, unspecified; I25.10 Atherosclerotic heart disease of native coronary artery without angina pectoris; Z20.822 Contact with and (suspected) exposure to COVID-19; Z79.02 Long term (current) use of antithrombotics/antiplatelets; Z79.82 Long term (current) use of aspirin; Z79.899 Other long term (current) drug therapy; Z91.148 Patient's other noncompliance with medication regimen for other reason; Z91.119 Patient's noncompliance with dietary regimen due to unspecified reason
CPT/HCPCS: 36415; 71046; 76770; 80048; 80076; 81001; 82043; 82306; 82550; 82570; 82607; 82947; 83036; 83735; 84100; 84132; 84165; 84443; 84550; 85014; 85018; 85025; 85027; 85610; 85730; 86021; 86334; 86850; 86900; 86901; 86920; 87811; C9113; G0378; J1650; J1815; J3475; J7030; J7050; P9016

== ENCOUNTER 2023-05-13 09:45 | Emergency (ER) | payer OTHER ==
--- OUTSIDE RECORDS SUMMARY | 2023-05-13 09:50 | XMS REPORT | Continuity of Care Document ---
:1950 Author Organization [facility] t Address [address] [facility] [address] [place] [address] Care Team Providers Name Role Phone VINCENT PINEDO Primary Care Physician UnavailBRANDEE Kaufman Attending Clinician Unavailable GABRIEL SUMNER Attending Clinician Unavailable NGOZI RICKETTS Attending Clinician Unavailable Sheikh CORBIN, Kamilla Solomon Attending Clinician Sophia Infante MD Attending Clinician Franchesca Burgess MD Attending Clinician Johan Lovelace Attending Clinician Unavailable LAUREN LAM Attending Clinician Unavailable CANDY OLIVER Admitting Clinician Unavailable GABRIEL SUMNER Admitting Clinician Unavailable Vincent Pinedo V Admitting Clinician Unavailable LAUREN LAM Admitting Clinician Unavailable Payers Payer Name Policy Type Policy Number Effective Date Expiration Date S gabby [employer] MEDICARE HMO [id number] 2018 POS PPO 00:00:00 Problems Condition Condition Condition Status Onset Resolution Last Treating Co mments Source Name Details Category Date Date Treatment Clinician Date CHF CHF Disease Rec[facility]cong[facility]iv (congestiv nce 8-20 [facility] e heart e heart 00:00: Medical failure) failure) 00 Center HTN HTN Disease Recurre [facility] (hypertens (hypertens nce 8-20 Sofi kes ion) ion) 00:00: Medical 00 Center CAD CAD Disease Recurre [facility] (coronary (coronary nce 8-20 [facility] artery artery 00:00: Medical disease) disease) 00 Center T2DM (type T2DM (type Disease Recurre [facility] 2 diabetes 2 diabetes nce 8-20 Sofi kes mellitus) mellitus) 00:00: Medi kelly 00 Center CKD CKD Disease Recurre [facility] (chronic (chronic nce 8-20 [facility] kidney kidney 00:00: Medical disease) disease) 00 Center stage 4, stage 4, GFR 15-29 GFR 15-29 ml/min ml/min Gastrointe Gastrointe Disease Active C HI [facility] stinal stinal 8-20 [facility] hemorrhage hemorrhage 00:00: Me dical with with 00 Center melena melena NSTEMI NSTEMI Disease Recurre [facility] (non-ST (non-ST nce 3-18 [facility] elevated elevated 00:00: Medica l myocardial myocardial 00 Ce nter infarction infarction ) ) CAD in CAD in Disease Active 2016-09 [facility] [place] 2-19 [facility] artery artery 00:00: Hospita 00 l SOB SOB Disease Active 2016-09 [facility] (shortness (shortness 2-19 st of breath) of breath) 00:00: Ho spita 00 l 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 4-09 st disease disease 00:00: Hospita involving involving 00 [place] coronary coronary artery of artery of [place] heart heart without without angina angina pectoris pectoris Carotid Carotid Disease Active [facility] artery artery 4-09 st disease disease 00:00: Hospita 00 l Stented Stented Disease Active [facility] coronary coronary 4-09 st artery artery 00:00: Hospita 00 l Stenosis Stenosis Disease Active 2015-09 Last [facility] di of left of left 10-[address] carotid carotid 00:00: t & [...] Clear OVER" [facility] Active Other (See 2015-[address] [facility] to Comments) 10-20 needles [facility] adverse 00:00: sensation Medica l reaction 00 Center s Niacin Propensi Active 2015-09 Methodi ty to 10-20 st adverse 00:00: Hospita reaction 00 l s to drug NIACIN Allergy Active Other 2015-09 [facility] 10-20 00:00: 00 Family History Family Member Diagnosis Comments Start Date Stop Date Source Natural brother Heart disease [facility] Natural father Heart disease [facility] Natural son Diabetes [facility] Social History Social Habit Start Date Stop Date Quantity Comments Source History of tobacco Chews Tobacco [facility] use [facility] Gender identity [facility] Sexual orientation Method [facility] Tobacco Comment 2023-05-02 2023-05-02 quit over [address] [facility] 00:00:00 00:00:00 years ago Medical Center Tobacco use and 2023-05-02 2023-05-02 Former smokeless [facility] exposure 00:00:00 00:00:00 tobacco user Medical Cent er Cigarettes smoked 2023-05-02 2023-05-[address] [facility] current (pack per 00:00:00 00:00:00 Medical Center day) - Reported Cigarette 2023-05-02 2023-05-[address] [facility] pack-years 00:00:00 00:00:00 Medical Center History [facility] 2018-11-28 2018-11-[address] [facility] Financial 00:00:00 00:00:00 Medical Center History [facility] 2018-11-28 2018-11-[address] [facility] Alcohol Frequency 00:00:00 00:00:00 [facility] Center History [facility] 2018-11-28 2018-11-[address] [facility] Alcohol Std Drinks 00:00:00 00:00:00 Medica l Center History [facility] 2018-11-28 2018-11-[address] [facility] Alcohol Binge 00:00:00 00:00:[address] Alcohol intake 2018-01-04 2018-01-04 Current drinker [facility] dist 00:00:00 00:00:00 of alcohol Hospital (finding) History of Social 2016-12-17 2016-12-[address] function 00:00:00 00:00:00 Hospital Alcohol Comment 2016-08-19 2016-08-19 moderate [facility] 00:00:00 00:00:00 [facility] Sex Assigned At [birth year] [facility] 00:00:00 00:00:00 [facility] Smoking Status Start Date Stop Date Source Ex-smoker 2023-05-02 00:00:00 2023-05-02 00:00:00 [facility] Light tobacco smoker 2016-12-17 00:00:00 [facility] Medications Ordered Filled Start Stop Current Ordering Indication Dosage Frequency Signature Comments Components Source Medication Medication Date Date Medication? Clinician (SIG) Name Name gabapentin 2022-2022- No 100mg Q.[id number] Take [address] (NEURONTIN) 8-20 08-20 [id number] capsule [facility] 100 MG 20:05: 00:00 3D (100 mg Medical capsule 32 :00 total) by Center mouth 3 (three) times daily. repaglinide 2022-0 Yes 2mg Take [address] [facility] (PRANDIN) 2 8-20 tablet (2 Yajaira es MG tablet 20:05: mg total) Med ical 29 by mouth 3 Center (three) times daily before meals. omega-3 2022-0 Yes 2g Q.5D Take [address] acid ethyl 8-20 capsules [facility] esters 20:05: (2 g Medical (LOVAZA) 1 29 total) by Cent er gram mouth 2 capsule (two) times daily. aspirin 81 2022-0 Yes 81mg QD Take 1 [facility]I S t MG EC 8-20 tablet (81 [facility] tablet 20:05: mg total) Medica l 29 by mouth Center daily Hira . insulin 2022-0 Yes 40U QD Inject 40 [facility]I S t degludec 8-20 Units [facility] 100 unit/mL 20:05: subcutaneo Medical (3 mL) InPn 29 usly Center daily. amLODIPine 2022-0 Yes hypertensio 10mg QD Take [address] (NORVASC) 8-20 n tablet (10 Luke s 10 MG 20:05: mg total) Medical tablet 29 by mouth Center daily. doxazosin 2022-0 Yes 2mg QD Take [address] (CARDURA) 2 8-20 tablet (2 Yajaira es MG tablet 20:05: mg total) Med ical 29 by mouth Center nightly. carvediloL 2022-0 Yes 12.5mg Take [address] (COREG) 8-20 tablet [facility] 12.5 MG 20:05: (12.5 mg Medica l tablet 29 total) by Center mouth 2 (two) times daily with breakfast and dinner. atorvastati 2022-0 Yes 40mg QD Take [address] n (LIPITOR) 8-20 tablet (40 Sofi kes 40 MG 20:05: mg total) Medical tablet 29 by mouth Center daily. allopurinoL 2022-0 Yes 100mg QD Take [address] (ZYLOPRIM) 8-20 tablet [facility] 100 MG 20:05: (100 mg Medical tablet 29 total) by Center mouth daily. gabapentin 2018-0 Yes 100mg Q.[id number] Take [address] (NEURONTIN) 3-20 [id number] mg by L ukes 100 MG 11:58: [...] daily Medical 54 Hira . Center insulin 2018-0 Yes 40U QD Inject 40 CHI S t degludec 3-20 Units [facility] 100 unit/mL 11:58: subcutaneo Medical (3 mL) InPn 54 [facility] Center daily. gabapentin 2019-0 Yes 100mg Q.[id number] Take [address] (NEURONTIN) 3-20 [id number] mg by L ukes 100 MG 11:58: [...] by mouth [facility] tablet 11:58: daily Medical [address] [place] [address] . [place] insulin 2019-0 Yes 40U QD Inject 40 CHI S t degludec 3-20 Units [facility] 100 unit/mL 11:58: subcutaneo Medical (3 mL) InPn 54 [facility] Center daily. prasugrel 2019-0 Yes 10mg QD [...] by mouth Center daily. amLODIPine 2019-0 Yes [id number] 10mg Q.5D Take 1 Methodi (NORVASC) 2-26 tablet (10 st 10 mg 00:00: mg total) Hospita tablet 00 by mouth 2 l (two) times a day. amLODIPine 2019-0 Yes [id number] 10mg Q.5D Take 1 [facility] (NORVASC) 2-26 tablet (10 st 10 mg 00:00: mg total) Hospita tablet 00 by mouth 2 l (two) times a day. amLODIPine Yes [id number] 10mg Q.5D Take 1 [facility] (NORVASC) 2-26 tablet (10 st 10 mg 00:00: mg total) Hospita tablet 00 by mouth 2 l (two) times a day. omega-3 Yes [id number] 1g Q.25D TAKE 1 Me thodi acid ethyl 2-21 CAPSULE (1 st esters 00:00: G TOTAL) Hospita (LOVAZA) 1 00 BY MOUTH 4 l gram (FOUR) capsule TIMES A DAY. omega-3 Yes [id number] 1g Q.25D TAKE 1 Me thodi acid ethyl 2-21 CAPSULE (1 st esters 00:00: G TOTAL) Hospita (LOVAZA) 1 00 BY MOUTH 4 l gram (FOUR) capsule TIMES A DAY. omega-3 Yes [id number] 1g Q.25D TAKE 1 Me thodi acid ethyl 2-21 CAPSULE (1 st esters 00:00: G TOTAL) Hospita (LOVAZA) 1 00 BY MOUTH 4 l gram (FOUR) capsule TIMES A DAY. rosuvastati 2017-0 Yes 20mg QD Take 1 Meth steven n (CRESTOR) 6-14 tablet (20 st 20 MG 00:00: mg total) Hospita tablet 00 by mouth l once daily. rosuvastati 2017-0 Yes 20mg QD Take 1 Meth steven n (CRESTOR) 6-14 tablet (20 st 20 MG 00:00: mg total) Hospita tablet 00 by mouth l once daily. rosuvastati 2018-0 Yes 20mg QD Take 1 Meth steven n (CRESTOR) 6-14 tablet (20 st 20 MG 00:00: mg total) Hospita tablet 00 by mouth l once daily. metoprolol Yes metoprolol M ethodi succinate 4-[address] XL 08:22: ER 50 mg Hospita (TOPROL-XL) 51 tablet,ext l 50 mg 24 hr ended tablet release 24 hr insulin Yes Tresiba Methodi degludec 4-[address] (TRESIBA 08:22: U-200 200 Hosp olga FLEXTOUCH 51 unit/mL (3 l U-200) 200 mL) unit/mL (3 subcutaneo mL) insulin us insulin pen pen HIRA 2018-0 Yes Hira Methodi ASPIRIN 4-[address] ORAL 08:22: Hospita 51 l pen needle, 2018-0 Yes BD Method i diabetic 32 4-24 Ultra-Fine [address] gauge x 08:22: [facility] " [facility] [address] 32 l needle gauge x " omeprazole 2018-0 Yes omeprazole M ethodi (PriLOSEC) 4-[address] 40 MG 08:22: capsule,de Hospit a capsule 51 layed l release gabapentin 2017-0 Yes 100mg Q.[id number] Take 100 Methodi (NEURONTIN) 4-24 [id number] mg by s t 100 mg 08:22: 3D mouth 3 Hospita capsule 51 (three) l times a day. metoprolol Yes metoprolol M ethodi succinate 4-[address] XL 08:22: ER 50 mg Hospita (TOPROL-XL) 51 tablet,ext l 50 mg 24 hr ended tablet release 24 hr insulin 2017- Yes Tresiba Methodi degludec 4-[address] (TRESIBA 08:22: U-200 200 Hosp olga FLEXTOUCH 51 unit/mL (3 l U-200) 200 mL) unit/mL (3 subcutaneo mL) insulin us insulin pen pen HIRA 2018-0 Yes Hira Methodi ASPIRIN 4-[address] ORAL 08:22: Hospita 51 l pen needle, 2018-0 Yes BD Method i diabetic 32 4-[address] Ultra[address] gauge x 08:22: [facility] " [facility] [address] 32 l needle gauge x " omeprazole 2018- Yes omeprazole M ethodi (PriLOSEC) 4-[address] 40 MG 08:22: capsule,de Hospit a capsule 51 layed l release gabapentin 2018-0 Yes 100mg Q.[id number] Take 100 Methodi (NEURONTIN) 4-24 [id number] mg by s t 100 mg 08:22: 3D mouth 3 Hospita capsule 51 (three) l times a day. metoprolol 2017- Yes metoprolol M ethodi succinate 4-24 succinate [...] 08:22: [facility] " [address] 32 l needle gauge x " omeprazole Yes omeprazole M ethodi (PriLOSEC) 4-[address] 40 MG 08:22: capsule,de Hospit a capsule 51 layed l release gabapentin Yes 100mg Q.[id number] Take 100 Methodi (NEURONTIN) 4-24 [id number] mg by s t 100 mg 08:22: 3D mouth 3 Hospita capsule 51 (three) l times a day. isosorbide Yes [id number] 30mg QD Take 1 M ethodi mononitrate 4-05 tablet (30 st (IMDUR) 30 00:00: mg total) Ho spita MG 24 hr 00 by mouth l tablet daily. isosorbide Yes [id number] 30mg QD Take 1 M ethodi mononitrate 4-05 tablet (30 st (IMDUR) 30 00:00: mg total) Ho spita MG 24 hr 00 by mouth l tablet daily. isosorbide Yes [id number] 30mg QD Take 1 M ethodi mononitrate [...] TIMES A l DAY BEFORE MEALS hydrALAZINE 2017-0 Yes 25mg Q.5D Take 25 mg Methodi (APRESOLINE 1-[address] ) 25 MG 00:00: (two) Hospita tablet 00 times a l day. hydrALAZINE 2017-0 Yes 25mg Q.5D Take 25 mg [facility] (APRESOLINE 1-[address] ) 25 MG 00:00: (two) Hospita tablet 00 times a l day. hydrALAZINE 2017-0 Yes 25mg Q.5D Take 25 mg Methodi [...] spita 134 MG 00 daily. l capsule Vital Signs Vital Name Observation Time Observation Value Comments Source HEIGHT 2023-05-03 05:37:21 172.7 cm WEIGHT 2023-05-03 05:37:21 89.7 kg HEIGHT 2023-05-03 05:37:21 172.7 cm WEIGHT 2023-05-03 05:37:21 89.7 kg Heart rate 2023-05-04 07:55:13 80 /min [facility] Body temperature 2023-05-04 07:55:13 36.72 Alma Rosa [facility] Respiratory rate 2023-05-04 07:55:13 20 /min [facility] Oxygen saturation in 2023-05-04 07:55:13 96 /min [facility] Arterial blood by Medical Ce nter Pulse oximetry Systolic blood 2023-05-04 07:53:45 156 mm[Hg] [facility] Diastolic blood 2023-05-04 07:53:45 77 mm[Hg] [facility] Body height 2023-05-03 05:37:21 172.7 cm [facility] Body weight 2023-05-03 05:37:21 89.7 kg [facility] BMI 2023-05-03 05:37:21 30.07 kg/m2 [facility] Procedures Procedure Date / Time Performed Performing Clinician Melanie crowe POCT-GLUCOSE METER 2023-05-03 22:38:00 B[facility] POCT-GLUCOSE METER 2023-05-03 17:36:00 [facility] - 2023-05-03 14:38:[address] [facility] ENDOSCOPY, UPPER GI 2023-05-03 14:02:00 Kamilla Downey [facility] TRACT, [facility] BIOPSY [facility] PO[facility]-GLUCOSE METER 2023-05-03 12:53:00 [facility] ECHO W/ CONTRAST LIMITED 2023-05-03 11:20:00 Brandee Erickson [facility] URINALYSIS W/ MICROSCOPIC 2023-05-03 05:49:[address] Sch[address]ina [address] [facility] POCT-GLUCOSE METER 2023-05-03 05:41:00 Candy Oliver [facility] B-TYPE NATRIURETIC FACTOR 2023-05-03 01:52:00 Reina Schuster CH I [facility] (BNP) [facility] CBC W/PLT COUNT & AUTO 2023-05-03 01:51:00 SchusterReina [facility] S [facility] DIFFERENTIAL [facility] ABORH, MANUAL 2023-05-03 01:51:00 Christine Wan [facility] CBC W/PLT COUNT & AUTO 2023-05-03 01:51:00 SchusterReina [facility] DIFFERENTIAL [facility] HIGH SENSITIVITY TROPONIN 2023-05-03 01:51:[address] [facility] BASIC METABOLIC PANEL 2023-05-03 01:51:00 Schuster, Reina [facility] HEMOGLOBIN A1C 2023-05-03 01:51:00 Schuster, Reina [facility] MAGNESIUM 2023-05-03 01:51:00 Schuster, Reina [facility] PHOSPHORUS 2023-05-03 01:51:00 Schuster, Reina [facility] ECG 12-LEAD 2023-05-02 21:03:16 Schuster, Reina [facility] ECG 12-LEAD 2023-05-02 21:03:16 Unknown, Hl7 Doctor [facility] XR CHEST 1 VIEW PORTABLE 2023-05-02 20:41:59 Schuster, Reina [facility] / BEDSIDE [facility] TYPE AND SCREEN, 2023-05-02 18:38:00 Candy Oliver [facility] AUTOMATED [facility] CBC W/PLT COUNT & AUTO 2023-05-02 18:38:00 Candy Oliver [facility] CBC W/PLT COUNT & AUTO 2023-05-02 18:38:00 Candy Oliver [facility] DIFFERENTIAL [facility] COMPREHENSIVE METABOLIC 2023-05-02 18:38:00 Candy Oliver [facility] PANEL [facility] PROTHROMBIN TIME/INR 2023-05-02 18:38:00 Candy Oliver [facility] HIGH SENSITIVITY TROPONIN 2023-05-02 18:38:00 Candy Oliver [facility] B-TYPE NATRIURETIC FACTOR 2023-05-02 18:38:00 Candy Oliver [facility] (BNP) [facility] MAGNESIUM 2023-05-02 18:38:00 Candy Oliver [facility] POCT-GLUCOSE METER 2023-05-02 18:13:[address] [facility] Plan of Care Planned Activity Planned Date Details Comments Source Future Scheduled 2024-05-02 Tobacco Cessation [facility] Test 00:00:00 Counseling and Medical Cente r Screening (12+) [code = Tobacco Cessation Counseling and Screening (12+)] Future Scheduled 2023-05-14 Influenza Vaccine (#1) [facility] Test 00:00:00 [code = Influenza Medical Ce nter Vaccine (#1)] Future Scheduled 2023-05-08 [facility]ening [facility] Test 08:01:46 malignant neoplasm of colon (procedure) [code = 402303531] Future Scheduled 2023-05-08 [facility] Test 08:01:46 malignant neoplasm of colon (procedure) [code = 468288024] Future Scheduled 2023-05-08 [facility] Test 08:01:46 malignant neoplasm of colon (procedure) [code = 808534095] Future Scheduled 2023-05-08 COVID-19 [facility]ACCINE (#[facility]) [facility] 08:01:46 [code = COVID-19 VACCINE (#1)] Future Scheduled 2023-05-08 Screening [facility] Test 08:01:46 malignant neoplasm of colon (procedure) [code = 098611480] Future Scheduled 2023-05-08 [facility]ening [facility] Test 08:01:46 malignant neoplasm of colon (procedure) [code = 973859435] Future Scheduled 2023-05-08 SHINGLES VACCINES (1 [facility] Test 08:01:46 of 2) [code = SHINGLES VACCINES (1 of 2)] Future Scheduled 2023-05-08 65+ PNEUMOCOCCAL [facility] Test 08:01:46 VACCINE (1 - PCV) [code = 65+ PNEUMOCOCCAL VACCINE (1 - PCV)] Future Scheduled 2023-05-08 INFLUENZA VACCINE (#1) [facility] Test 08:01:46 [code = INFLUENZA VACCINE (#1)] Future Scheduled 2023-05-02 Hemoglobin A1c [facility] Test 00:00:00 [facility] (procedure) [code = 08948154] Future Scheduled 2023-04-14 Screening [facility] Test 05:01:06 malignant neoplasm of colon (procedure) [code = 742532312] Future Scheduled 2023-04-14 [facility] Test 05:01:06 malignant neoplasm of colon (procedure) [code = 599598863] Future Scheduled 2023-04-14 [facility]ening [facility] Test 05:01:06 malignant neoplasm of colon (procedure) [code = 605838684] Future Scheduled 2023-04-14 COVID-19 VACCINE (#1) [facility] Test 05:01:06 [code = COVID-19 VACCINE (#1)] Future Scheduled 2023-04-14 [facility]ening [facility] Test 05:01:06 malignant neoplasm of colon (procedure) [code = 578394252] Future Scheduled 2023-04-14 [facility] Test 05:01:06 malignant neoplasm of colon (procedure) [code = 162198734] Future Scheduled 2023-04-14 SHINGLES VACCINES (1 [facility] Test 05:01:06 of 2) [code = SHINGLES VACCINES (1 of 2)] Future Scheduled 2023-04-14 65+ PNEUMOCOCCAL [facility] Test 05:01:06 VACCINE (1 - PCV) [code = 65+ PNEUMOCOCCAL VACCINE (1 - PCV)] Future Scheduled 2023-04-14 INFLUENZA VACCINE Method [facility] Hospital Test 05:01:06 [code = INFLUENZA VACCINE] Future Scheduled 2023-03-03 [facility] Test 05:18:26 malignant neoplasm of colon (procedure) [code = 304265682] Future Scheduled 2023-03-03 [facility] Test 05:18:26 malignant neoplasm of colon (procedure) [code = 373135227] Future Scheduled 2023-03-03 [facility] Test 05:18:26 malignant neoplasm of colon (procedure) [code = 538743641] Future Scheduled 2023-03-03 [facility] 05:18:26 [code = COVID-19 VACCINE (#1)] Future Scheduled 2023-03-03 [facility] Test 05:18:26 malignant neoplasm of colon (procedure) [code = 689908389] Future Scheduled 2023-03-03 [facility] Test 05:18:26 malignant neoplasm of colon (procedure) [code = 399169170] Future Scheduled 2023-03-03 SHINGLES VACCINES (1 [facility] Test 05:18:26 of 2) [code = SHINGLES VACCINES (1 of 2)] Future Scheduled 2023-03-03 65+ [facility]OCOCCAL [facility] Test 05:18:26 VACCINE (1 - PCV) [code = 65+ PNEUMOCOCCAL VACCINE (1 - PCV)] Future Scheduled 2023-03-03 INFLUENZA VACCINE [facility] Hospital Test 05:18:26 [code = INFLUENZA VACCINE] Future Scheduled 2022-09-[address] [facility] Test 00:00:00 (12+) [code = Medical Center DEPRESSION SCREENING (12+)] Future Scheduled 2022-09-13 FALLS RISK SCREENING [facility] Test 00:00:00 [code = FALLS RISK Medical C enter SCREENING] Future Scheduled 2021-01-13 COVID-19 VACCINE (3 - [facility] 00:00:00 Booster for [facility] series) [code = COVID-19 VACCINE (3 - Booster for [employer] series)] Future Scheduled 2019-09-[address] [facility] Test 00:00:00 WELLNESS (YEAR 2 or Medical Center FIRST YEAR if no IPPE) [code = MEDICARE ANNUAL WELLNESS (YEAR 2 or FIRST YEAR if no IPPE)] Future Scheduled 2015-12-[address] [facility] Test 00:00:00 aneurysm screening Medical C enter (procedure) [code = 472834509] Future Scheduled 2000 SHINGLES VACCINES ([address] [facility] Test 00:00:00 of 2) [code = SHINGLES Medic al Center VACCINES (1 of 2)] Future Scheduled 1969 DTAP/TDAP/TD VACCINES [facility] Test 00:00:00 (1 - Tdap) [code = Medical C enter DTAP/TDAP/TD VACCINES (1 - Tdap)] Future Scheduled 1968 HEPATITIS C SCREENING [facility] Test 00:00:00 [code = HEPATITIS C Medical Center SCREENING] Future Scheduled 1960 DIABETIC EYE EXAM [facility] Test 00:00:00 [code = DIABETIC EYE Medical Center EXAM] Future Scheduled [address] [facility] Test 00:00:00 examination Medical Center (regime/therapy) [code = 536230305] Future Scheduled 1960 Urine screening for [facility] Test 00:00:00 protein (procedure) Medical Center [code = 779046592] Future Scheduled [address] [facility] Test 00:00:00 (combo) [code = CT Medical C enter Colonography (combo)] Future Scheduled [address] [facility] Test 00:00:00 malignant neoplasm of Medica l Center colon (procedure) [code = 807013641] Future Scheduled [address] [facility] Test 00:00:00 malignant neoplasm of Medica l Center colon (procedure) [code = 762244020] Future Scheduled [address] [facility] Test 00:00:00 malignant neoplasm of Medica l Center colon (procedure) [code = 126635856] Future Scheduled [address] [facility] Test 00:00:00 malignant neoplasm of Medical Center [place] [facility] colon (procedure) [code = 059232301] Future Scheduled 1950 Sigmoidoscopy [code = [facility] Test 00:00:00 Sigmoidoscopy] Medical Cente r Encounters Start End Encounter Admission Attending Care Care Encounter Source Date/Time Date/Time Type Type Clinicians Facility Department ID 2023-05-03 Inpatient UR MARCELINO [facility] [id number] SLE 10:36:04 BRANDEE 2023-05-02 Inpatient UR TAISHA, SLE SLE [id number] SLE 18:52:13 GABRIEL 2023-05-02 2023-05-05 Inpatient UR LILIAM, SLE Gastro [id number] [facility] 18:09:00 17:07:00 NGOZI 2023-05-03 2023-05-03 Surgery , [facility] [id number] 14:30:00 15:30:00 Kamilla Juanito [facility] 2023-05-03 2023-05-03 Anesthesia Sophia Infante [facility] [id number] 14:02:00 14:55:00 Event [facility] 2023-05-02 2023-05-02 Orders [facility] [id number] 00:00:00 00:00:[address] [facility] 2023-05-01 2023-05-01 Telephone Jenifer [facility] [id number] [facility] 00:00:00 00:00:[address] [facility] Results Test Description Test Time Test Comments Results Result Comments Source POCT-GLUCOSE METER 2023-05-05 11:45:12 Test Item Value Reference Range Interpretation Comme nts POC-GLUCOSE METER (BEAKER) 208 mg/dL 70-110 H : TESTED AT [facility] [address] [facility] (test code = 1538) [facility], [address]: Skiver Counter/Techni lisandro ID = [id number] for Jackie Vallejo POCT-GLUCOSE [id number] 07:44:27 Test Item Value Reference Range Interpretation Comments POC-GLUCOSE METER 130 mg/dL 70-110 H : TESTED A T [facility] [address] (BEAKER) (test code = JONAS Mckeon [facility], 1538) [address]: Skiver Counter/Techni lisandro ID = [id number] for Jackie Arndt BASIC METABOLIC [id number] 05:18:27 Test Item Value Reference Range Interpretation Comments SODIUM (BEAKER) 136 meq/L 136-145 (test code = 381) POTASSIUM 3.3 meq/L 3.5-5.1 L (BEAKER) (test code = 379) CHLORIDE (BEAKER) 104 meq/L 98-107 (test code = 382) CO2 (BEAKER) 22 meq/L 22-29 (test code = 355) BLOOD UREA 49 mg/dL 7-21 H NITROGEN (BEAKER) (test code = 354) CREATININE 3.01 mg/dL 0.57-1.25 H (BEAKER) (test code = 358) GLUCOSE RANDOM 121 mg/dL 70-105 H (BEAKER) (test code = 652) CALCIUM (BEAKER) 7.9 mg/dL 8.4-10.2 L (test code = 697) EGFR (BEAKER) 22 Interpretatio n of eGFR (test code = mL/min/1.73 values Stage De scription 1092) sq m Result G1 Mercedez l or high >=90 G2 Mildly decreased 60-89 G3a Mildl y to moderately 45-5 9 G3b Moderately to s everely 30-44 G4 Severl y decreased 15-29 G5 Kidney failure <15Reported eGF R is based on the CKD-EPI 2020 equation that d oes not use a race coefficientEsti mated GFR is not as accur ate as Creatinine Natasha chow in predicting glom erular filtration rate . Estimated GFR is not appl icable for dialysis patien ts Skiver Counter ID - EMCBC W/PLT COUNT & AUTO [id number] 04:39:04 Test Item Value Reference Range Interpretation Comments WHITE BLOOD CELL COUNT (BEAKER) 4.0 K/ L 3.5-10.5 (test code = 775) RED BLOOD CELL COUNT (BEAKER) 2.89 M/ L 4.63-6.08 L (test code = 761) HEMOGLOBIN (BEAKER) (test code = 8.4 GM/DL 13.7-17.5 L 410) HEMATOCRIT (BEAKER) (test code = 25.3 % 40.1-51.0 L 411) MEAN CORPUSCULAR VOLUME (BEAKER) 88 fL 79-92 (test code = 753) MEAN CORPUSCULAR HEMOGLOBIN 29.1 pg 25.7-32.2 (BEAKER) (test code = 751) MEAN CORPUSCULAR HEMOGLOBIN CONC 33.2 GM/DL 32.3-36.5 (BEAKER) (test code = 752) RED CELL DISTRIBUTION WIDTH 15.2 % 11.6-14.4 H (BEAKER) (test code = 412) PLATELET COUNT (BEAKER) (test 168 K/CU MM 150-450 code = 756) MEAN PLATELET VOLUME (BEAKER) 10.4 fL 9.4-12.4 (test code = 754) NUCLEATED RED BLOOD CELLS 0 /100 WBC 0-0 (BEAKER) (test code = 413) NEUTROPHILS RELATIVE PERCENT 63 % (BEAKER) (test code = 429) LYMPHOCYTES RELATIVE PERCENT 24 % (BEAKER) (test code = 430) MONOCYTES RELATIVE PERCENT 7 % (BEAKER) (test code = 431) EOSINOPHILS RELATIVE PERCENT 4 % (BEAKER) (test code = 432) BASOPHILS RELATIVE PERCENT 1 % (BEAKER) (test code = 437) NEUTROPHILS ABSOLUTE COUNT 2.50 K/ L 1.78-5.38 (BEAKER) (test code = 670) LYMPHOCYTES ABSOLUTE COUNT 0.96 K/ L 1.32-3.57 L (BEAKER) (test code = 414) MONOCYTES ABSOLUTE COUNT (BEAKER) 0.29 K/ L 0.30-0.82 L (test code = 415) EOSINOPHILS ABSOLUTE COUNT 0.17 K/ L 0.04-0.54 (BEAKER) (test code = 416) BASOPHILS ABSOLUTE COUNT (BEAKER) 0.02 K/ L 0.01-0.08 (test code = 417) IMMATURE GRANULOCYTES-RELATIVE 0.30 % 0.00-1.00 PERCENT (BEAKER) (test code = 2801) POCT-GLUCOSE [id number] 20:35:48 Test Item Value Reference Range Interpretation Comments POC-GLUCOSE METER 147 mg/dL 70-110 H : TESTED A T [facility] 6720 (BEAKER) (test code = [facility], 1538) [address]: Skiver Counter/Techni lisandro ID = [id number] for An Denisse tucker OSMOLALITY, [id number] 18:49:14 Test Item Value Reference Range Interpretation Comments OSMOLALITY URINE 400 mOsm/kg See_Comment [Automated message] (BEAKER) (test code = The sy stem which 614) generated this result transmitted ref erence range: 50-1,200 mOsm/kg. The reference range was not used to int erpret this result as normal/abnormal . POCT-GLUCOSE [id number] 15:43:13 Test Item Value Reference Range Interpretation Comments POC-GLUCOSE METER 129 mg/dL 70-110 H : TESTED A T [facility] 6720 (BEAKER) (test code = [facility], 1538) [address]: Skiver Counter/Techni lisandro ID = [id number] for Pr imas (contrac), Samu el PROTEIN, RANDOM [id number] 15:37:22 Test Item Value Reference Range Interpretation Comments PROTEIN, URINE (BEAKER) (test code = 72 mg/dL 0-14 H 1569) Skiver Counter ID - ADMINSODIUM, RANDOM [id number] 15:37:22 Test Item Value Reference Range Interpretation Comments SODIUM URINE (BEAKER) (test code = 35 meq/L 243) Reference Range: No NormalsOperator ID - ADMINCHLORIDE, RANDOM [id number] 15:37:21 Test Item Value Reference Range Interpretation Comments CHLORIDE URINE (BEAKER) (test code = 42 meq/L 20-330 682) Reference Range: No NormalsOperator ID - ADMINCREATININE, RANDOM [id number] 15:37:21 Test Item Value Reference Range Interpretation Comments CREATININE URINE (BEAKER) (test 80.7 mg/dL code = 375) Reference Range: No NormalsOperator ID - ADMINTISSUE [id number] 13:47:19 Surgical Pathology Report Case: [id number] Authorizing Provider: Kamilla Downey MD Collected: 05/03/2023 02:28 PM Ordering Location: [address] Received: 05/03/2023 04:23 PM Service Pathologist: Megan Dumont MD Specimen: Biopsy, Gastric, gastric biopsy r/o H PYLORI GASTRIC, RANDOM BIOPSY- Gastric antrum and oxyntic type mucosa with reactive gastropathy-Negative for intestinal metaplasia, dysplasia or H. pylori-like organisms Signing Pathologist Direct Phone Line: [phone] signed by Megan Dumont MD on 05/04/2023 at 1:47 PMEndoscopy report [id number] hemorrhageA. Biopsy, GastricReceived in formalin labeled with the patient's name, medical record number and "gastric biopsy" are 2 damon-yellow soft tissue fragments ranging in size from 0.3-0.4 cm, which are submitted in toto in A1.[facility], [facility] of [facility]ology, [address] [place] [address], [facility], [facility] of [facility], [address] [place] [address], [facility], Department of Pathology, [address] [place] [address], GHDX-GLUCOSE [id number] 11:16:58 Test Item Value Reference Range Interpretation Comments POC-GLUCOSE METER 237 mg/dL 70-110 H : TESTED A T [facility] 6720 (BEAKER) (test code = JONAS Mckeon [facility], 1538) [address]: Skiver Counter/Techni lisandro ID = [id number] for Pr imas (contrac), Samu el [id number] 10:22:15 Test Item Value Reference Range Interpretation Comments FERRITIN (BEAKER) (test code = 78.61 ng/mL 5.00-275.00 361) Skiver Counter ID Diana ENGLISH WBASIC METABOLIC [id number] 10:16:14 Test Item Value Reference Range Interpretation Comments SODIUM (BEAKER) 135 meq/L 136-145 L (test code = 381) POTASSIUM 3.7 meq/L 3.5-5.1 (BEAKER) (test code = 379) CHLORIDE (BEAKER) 105 meq/L 98-107 (test code = 382) CO2 (BEAKER) 20 meq/L 22-29 L (test code = 355) BLOOD UREA 59 mg/dL 7-21 H NITROGEN (BEAKER) (test code = 354) CREATININE 3.27 mg/dL 0.57-1.25 H (BEAKER) (test code = 358) GLUCOSE RANDOM 203 mg/dL 70-105 H (BEAKER) (test code = 652) CALCIUM (BEAKER) 8.1 mg/dL 8.4-10.2 L (test code = 697) EGFR (BEAKER) 20 Interpretatio n of eGFR (test code = mL/min/1.73 values Stage De scription 1092) sq m Result G1 Mercedez l or high >=90 G2 Mildly decreased 60-89 G3a Mildl y to moderately 45-5 9 G3b Moderately to s everely 30-44 G4 Severl y decreased 15-29 G5 Kidney failure <15Reported eGF R is based on the CKD-EPI 2020 equation that d oes not use a race coefficientEsti mated GFR is not as accur ate as Creatinine Natasha claudine in predicting glom erular filtration rate . Estimated GFR is not appl icable for dialysis patien ts Skiver Counter ID - TAMEKA WIRON, TIBC, % SAT. (WITHOUT FERRITIN)2023-05-04 10:05:54 Test Item Value Reference Range Interpretation Comments IRON (BEAKER) (test code = 547) 19.0 ug/dL 40.0-160.0 L TOTAL IRON BINDING CAPACITY 301 ug/dL 250-450 (BEAKER) (test code = 769) IRON % SATURATION (2) (BEAKER) 6 % 20-55 L (test code = 2590) Skiver Counter ID - TAMEKA WPOCT-GLUCOSE [id number] 08:06:05 Test Item Value Reference Range Interpretation Comments POC-GLUCOSE METER 115 mg/dL 70-110 H : TESTED A T [facility] 6720 (BEAKER) (test code = [facility], 1538) [address]: Skiver Counter/Techni lisandro ID = [id number] for Gio mcclain (contrac)Ruddy el POC-Glucose [id number] 22:50:18 Test Item Value Reference Range Interpretation Comments POC-Glucose Meter (test 255 mg/dL 70-110 H : TE STED AT [facility] code = 1538) 6720 [facility], 770 30: Skiver Counter/Techni lisandro ID = [id number] for Nik Willis el Lab Interpretation (test Abnormal code = 74185-8) [facility] [id number] 22:50:18 Test Item Value Reference Range Interpretation Comments POC-GLUCOSE METER 255 mg/dL 70-110 H : TESTED A T [facility] 6720 (BEAKER) (test code = [facility], 1538) [address]: Skiver Counter/Techni lisandro ID = [id number] for Alex Patel POCT-GLUCOSE [id number] 17:47:56 Test Item Value Reference Range Interpretation Comments POC-GLUCOSE METER 156 mg/dL 70-110 H : TESTED A T [facility] 6720 (BEAKER) (test code = [facility], 1538) [address]: Skiver Counter/Techni lisandro ID = [id number] for Mu nguia, Jackie POCT-GLUCOSE [id number] 13:05:04 Test Item Value Reference Range Interpretation Comments POC-GLUCOSE METER 119 mg/dL 70-110 H : TESTED A T [facility] 6720 (BEAKER) (test code = [facility], 153) [address]: Skiver Counter/Techni lisandro ID = [id number] for Mu nguia, Jackie XR CHEST 1 VIEW PORTABLE / [id number] 10:46:31 [facility] 1950 Sex: MINDICATION: CHF exacerbationCOMPARISON: NoneTECHNIQUE: Single frontal view of the chest.FINDINGS: Lines,tubes, and devices: None.Lungs and pleura: Clear lungs. No pneumothorax.Heart and mediastinum: Normal heart size. Unremarkable mediastinalcontours.Osseous structures: No acute abnormality.Other: None.IM PRESSION:No acute intrathoracic abnormality.Electronically Signed By: Marcus Stevenson05/03/2023 10:48 CDTWorkstation Name: [id number] 07:43:14 Test Item Value Reference Range Interpretation Comments HEMOGLOBIN A1C 6.0 % See_Comment H [Automated m essage] ELECTROPHORESIS (BEAKER) The system which (test code = 3811) generated this result transmitted ref erence range: <=5.6%. The reference range was not used to int erpret this result as normal/abnormal . "The A1c is measured using a NGSP-certified method. HbA1c value equal to or greater than 6.5% as thediagnosis cutoff for diabetes. An HbA1c value of 5.7- 6.4% indicates increased risk for diabetes (prediabetes)."Skiver Counter ID - [id number] ID - ADMUrinalysis w/[id number] 06:23:56 Test Item Value Reference Range Interpretation Comments Color, UA (test code Light Yellow = 5778-6) Clarity, UA (test Clear code = 5767-9) Specific [place], UA 1.014 1.001-1.035 (test code = 5811-5) pH, UA (test code = 6.0 5.0-8.0 5803-2) Protein, UA (test 70 mg/dL Negative A code = 73717-2) Glucose, UA (test Negative Negative code = 365) Ketones, UA (test Negative Negative code = 2514-8) Bilirubin, UA (test Negative Negative code = 50496-6) Blood, UA (test code Negative Negative = 56044-2) Nitrite, UA (test Negative Negative code = 5802-4) Leukocytes, UA (test Negative Negative code = 5799-2) Urobilinogen, UA 0.2 0.2-1.0 (test code = 15050-2) RBC, UA (test code = 0 See_Comment [Autom ated 10435-3) message] The system which generated this result transmit alphonso reference range : /HPF. The reference range was not used to interpret this result as normal/abnormal . WBC, UA (test code = 1 See_Comment [Autom ated 5821-4) message] The system which generated this result transmit alphonso reference range : /HPF. The reference range was not used to interpret this result as normal/abnormal . Bacteria, UA (test Rare code = 50508-0) Squam Epithel, UA See_Comment [Automate d (test code = 20361-8) messag e] The system which generated this result transmit alphonso reference range : /HPF. The reference range was not used to interpret this result as normal/abnormal . Hyaline Casts, UA 2 See_Comment [Automate d (test code = 45907-3) messag e] The system which generated this result transmit alphonso reference range : /LPF. The reference range was not used to interpret this result as normal/abnormal . Specimen Source (test Urine, Voided code = 2795) ROMINA (test code = ROMINA) Skiver Counter ID - [auto]Skiver Counter ID - tech Lab Interpretation Abnormal (test code = 83825-8) [facility]/ [id number] 06:23:56 Test Item Value Reference Range Interpretation Comments COLOR (BEAKER) (test code = Light Yellow 470) CLARITY (BEAKER) (test code = Clear 469) SPECIFIC GRAVITY UA (BEAKER) 1.014 1.001-1.035 (test code = 468) PH UA (BEAKER) (test code = 6.0 5.0-8.0 467) PROTEIN UA (BEAKER) (test code [...] = 466) UROBILINOGEN UA (BEAKER) (test 0.2 0.2-1.0 code = 463) RBC UA (BEAKER) (test code = 0 /HPF 519) WBC UA (BEAKER) (test code = 1 /HPF 520) BACTERIA (BEAKER) (test code = Rare 517) SQUAMOUS EPITHELIAL (BEAKER) < /HPF (test code = 516) HYALINE CASTS (BEAKER) (test 2 /LPF code = 514) SOURCE(BEAKER) (test code = Urine, Voided 0255) Skiver Counter ID - [auto]Skiver Counter ID - techPOCT-GLUCOSE [id number] 06:09:19 Test Item Value Reference Range Interpretation Comments POC-GLUCOSE METER 100 mg/dL 70-110 : TESTED A T [facility] 6720 (BEAKER) (test code = JONAS Mckeon [facility], 1538) [address]: Skiver Counter/Techni lisandro ID = [id number] for MELINDA GUADARRAMA HIGH SENSITIVITY TROPONIN [id number] 02:44:53 Test Item Value Reference Range Interpretation Comments HIGH SENSITIVITY 884 pg/ml See_Comment HH [Automated message] TROPONIN I (test code The sy stem which = [id number]) generated this result transmitted ref erence range: <=35. Th e reference range was not used to int erpret this result as normal/abnormal . Skiver Counter ID - ADMINThe WEB COMMUNICATIONS SPECIALIST STAT High Sensitivity Troponin-I results should be used in conjunction with other diagnostic information such as ECG, clinical observations and information, and patientsymptoms to aid in the diagnosis of NV. B-TYPE NATRIURETIC FACTOR (BNP)2023-05-03 02:33:51 Test Item Value Reference Range Interpretation Comments B-TYPE NATRIURETIC PEPTIDE (BEAKER) 666 pg/mL 0-100 H (test code = 700) Skiver Counter ID - ADMINBASIC METABOLIC [id number] 02:29:29 Test Item Value Reference Range Interpretation Comments SODIUM (BEAKER) 136 meq/L 136-145 (test code = 381) POTASSIUM 3.6 meq/L 3.5-5.1 (BEAKER) (test code = 379) CHLORIDE (BEAKER) 105 meq/L 98-107 (test code = 382) CO2 (BEAKER) 19 meq/L 22-29 L (test code = 355) BLOOD UREA 80 mg/dL 7-21 H NITROGEN (BEAKER) (test code = 354) CREATININE 3.40 mg/dL 0.57-1.25 H (BEAKER) (test code = 358) GLUCOSE RANDOM 86 mg/dL 70-105 (BEAKER) (test code = 652) CALCIUM (BEAKER) 8.0 mg/dL 8.4-10.2 L (test code = 697) EGFR (BEAKER) 19 Interpretatio n of eGFR (test code = mL/min/1.73 values Stage De scription 1092) sq m Result G1 Mercedez l or high >=90 G2 Mildly decreased 60-89 G3a Mildl y to moderately 45-5 9 G3b Moderately to s everely 30-44 G4 Severl y decreased 15-29 G5 Kidney failure <15Reported eGF R is based on the CKD-EPI 2020 equation that d oes not use a race coefficientEsti mated GFR is not as accur ate as Creatinine Natasha claudine in predicting glom erular filtration rate . Estimated GFR is not appl icable for dialysis patien ts Skiver Counter ID - [id number] 02:26:12 Test Item Value Reference Range Interpretation Comments PHOSPHORUS (BEAKER) (test code = 4.3 mg/dL 2.3-4.7 604) Skiver Counter ID - [id number] 02:26:11 Test Item Value Reference Range Interpretation Comments MAGNESIUM (BEAKER) (test code = 1.9 mg/dL 1.6-2.6 627) Skiver Counter ID - ADMINCBC W/PLT COUNT & AUTO [id number] 02:06:08 Test Item Value Reference Range Interpretation Comments WHITE BLOOD CELL COUNT (BEAKER) 4.1 K/ L 3.5-10.5 (test code = 775) RED BLOOD CELL COUNT (BEAKER) 2.83 M/ L 4.63-6.08 L (test code = 761) HEMOGLOBIN (BEAKER) (test code = 8.3 GM/DL 13.7-17.5 L 410) HEMATOCRIT (BEAKER) (test code = 25.1 % 40.1-51.0 L 411) MEAN CORPUSCULAR VOLUME (BEAKER) 89 fL 79-92 (test code = 753) MEAN CORPUSCULAR HEMOGLOBIN 29.3 pg 25.7-32.2 (BEAKER) (test code = 751) MEAN CORPUSCULAR HEMOGLOBIN CONC 33.1 GM/DL 32.3-36.5 (BEAKER) (test code = 752) RED CELL DISTRIBUTION WIDTH 15.2 % 11.6-14.4 H (BEAKER) (test code = 412) PLATELET COUNT (BEAKER) (test 160 K/CU MM 150-450 code = 756) MEAN PLATELET VOLUME (BEAKER) 9.7 fL 9.4-12.4 (test code = 754) NUCLEATED RED BLOOD CELLS 0 /100 WBC 0-0 (BEAKER) (test code = 413) NEUTROPHILS RELATIVE PERCENT 58 % (BEAKER) (test code = 429) LYMPHOCYTES RELATIVE PERCENT 25 % (BEAKER) (test code = 430) MONOCYTES RELATIVE PERCENT 15 % (BEAKER) (test code = 431) EOSINOPHILS RELATIVE PERCENT 2 % (BEAKER) (test code = 432) BASOPHILS RELATIVE PERCENT 0 % (BEAKER) (test code = 437) NEUTROPHILS ABSOLUTE COUNT 2.41 K/ L 1.78-5.38 (BEAKER) (test code = 670) LYMPHOCYTES ABSOLUTE COUNT 1.03 K/ L 1.32-3.57 L (BEAKER) (test code = 414) MONOCYTES ABSOLUTE COUNT (BEAKER) 0.60 K/ L 0.30-0.82 (test code = 415) EOSINOPHILS ABSOLUTE COUNT 0.06 K/ L 0.04-0.54 (BEAKER) (test code = 416) BASOPHILS ABSOLUTE COUNT (BEAKER) 0.01 K/ L 0.01-0.08 (test code = 417) IMMATURE GRANULOCYTES-RELATIVE 0.50 % 0.00-1.00 PERCENT (BEAKER) (test code = 2801) HIGH SENSITIVITY TROPONIN [id number] 19:13:16 Test Item Value Reference Range Interpretation Comments HIGH SENSITIVITY 1240 pg/ml See_Comment HH [Automated message] TROPONIN I (test code The sy stem which = [id number]) generated this result transmitted ref erence range: <=35. Th e reference range was not used to int erpret this result as normal/abnormal . Skiver Counter ID - JSThe WEB COMMUNICATIONS SPECIALIST STAT High Sensitivity Troponin-I results should be used in conjunctionwith other diagnostic information such as ECG, clinical observations and information, and patient symptoms to aid in the diagnosis of NV.COMPREHENSIVE METABOLIC [id number] 19:08:55 Test Item Value Reference Range Interpretation Comments TOTAL PROTEIN 5.7 gm/dL 6.0-8.3 L (BEAKER) (test code = 770) ALBUMIN (BEAKER) 3.6 g/dL 3.5-5.0 (test code = 1145) ALKALINE 55 U/L 40-150 PHOSPHATASE (BEAKER) (test code = 346) BILIRUBIN TOTAL 0.5 mg/dL 0.2-1.2 (BEAKER) (test code = 377) SODIUM (BEAKER) 136 meq/L 136-145 (test code = 381) POTASSIUM (BEAKER) 4.1 meq/L 3.5-5.1 (test code = 379) CHLORIDE (BEAKER) 104 meq/L 98-107 (test code = 382) CO2 (BEAKER) (test 21 meq/L 22-29 L code = 355) BLOOD UREA 86 mg/dL 7-21 H NITROGEN (BEAKER) (test code = 354) CREATININE 3.48 mg/dL 0.57-1.25 H (BEAKER) (test code = 358) GLUCOSE RANDOM 138 mg/dL 70-105 H (BEAKER) (test code = 652) CALCIUM (BEAKER) 8.3 mg/dL 8.4-10.2 L (test code = 697) AST (SGOT) 33 U/L 5-34 (BEAKER) (test code = 353) ALT (SGPT) 40 U/L 6-55 (BEAKER) (test code = 347) EGFR (BEAKER) 18 Interpretatio n of eGFR (test code = 1092) mL/min/1.[address] age Description sq m Result G1 Mercedez l or high >=90 G2 Mildly decreased 60-89 G3a Mildl y to moderately 45-5 9 G3b Moderately to s everely 30-44 G4 Severl y decreased 15-29 G5 Kidney failure <15Reported eGF R is based on the CKD-EPI 2020 equation that d oes not use a race coefficientEsti mated GFR is not as accur ate as Creatinine Natasha chow in predicting glom erular filtration rate . Estimated GFR is not appl icable for dialysis patien ts Skiver Counter ID - JSB-TYPE NATRIURETIC FACTOR (BNP)2023-05-02 19:08:50 Test Item Value Reference Range Interpretation Comments B-TYPE NATRIURETIC PEPTIDE (BEAKER) 722 pg/mL 0-100 H (test code = 700) Skiver Counter ID - [id number] 19:06:53 Test Item Value Reference Range Interpretation Comments MAGNESIUM (BEAKER) (test code = 2.0 mg/dL 1.6-2.6 627) Skiver Counter ID - JSPROTHROMBIN TIME/[id number] 18:59:33 Test Item Value Reference Range Interpretation Comments PROTIME (BEAKER) 15.3 seconds 11.9-14.2 H (test code = 759) INR (BEAKER) (test 1.29 See_Comment [Automat ed message] code = 370) The system CoPatient generated this result transmitted ref erence range: <=5.90. The reference range was not used to int erpret this result as normal/abnormal . RECOMMENDED COUMADIN/WARFARIN INR THERAPY RANGESSTANDARD DOSE: 2.0 - 3.0 Includes: PROPHYLAXIS for venous thrombosis, systemic embolization; TREATMENT for venous thrombosis and/or pulmonary embolus.HIGH RISK: Target INR is 2.5-3.5 for patients with mechanical heart valves.CBC W/PLT COUNT & AUTO [id number] 18:46:27 Test Item Value Reference Range Interpretation Comments WHITE BLOOD CELL COUNT (BEAKER) 4.1 K/ L 3.5-10.5 (test code = 775) RED BLOOD CELL COUNT (BEAKER) 3.09 M/ L 4.63-6.08 L (test code = 761) HEMOGLOBIN (BEAKER) (test code = 8.9 GM/DL 13.7-17.5 L 410) HEMATOCRIT (BEAKER) (test code = 27.4 % 40.1-51.0 L 411) MEAN CORPUSCULAR VOLUME (BEAKER) 89 fL 79-92 (test code = 753) MEAN CORPUSCULAR HEMOGLOBIN 28.8 pg 25.7-32.2 (BEAKER) (test code = 751) MEAN CORPUSCULAR HEMOGLOBIN CONC 32.5 GM/DL 32.3-36.5 (BEAKER) (test code = 752) RED CELL DISTRIBUTION WIDTH 15.4 % 11.6-14.4 H (BEAKER) (test code = 412) PLATELET COUNT (BEAKER) (test 171 K/CU MM 150-450 code = 756) MEAN PLATELET VOLUME (BEAKER) 9.1 fL 9.4-12.4 L (test code = 754) NUCLEATED RED BLOOD CELLS 0 /100 WBC 0-0 (BEAKER) (test code = 413) NEUTROPHILS RELATIVE PERCENT 66 % (BEAKER) (test code = 429) LYMPHOCYTES RELATIVE PERCENT 18 % (BEAKER) (test code = 430) MONOCYTES RELATIVE PERCENT 15 % (BEAKER) (test code = 431) EOSINOPHILS RELATIVE PERCENT 1 % (BEAKER) (test code = 432) BASOPHILS RELATIVE PERCENT 0 % (BEAKER) (test code = 437) NEUTROPHILS ABSOLUTE COUNT 2.72 K/ L 1.78-5.38 (BEAKER) (test code = 670) LYMPHOCYTES ABSOLUTE COUNT 0.75 K/ L 1.32-3.57 L (BEAKER) (test code = 414) MONOCYTES ABSOLUTE COUNT (BEAKER) 0.60 K/ L 0.30-0.82 (test code = 415) EOSINOPHILS ABSOLUTE COUNT 0.05 K/ L 0.04-0.54 (BEAKER) (test code = 416) BASOPHILS ABSOLUTE COUNT (BEAKER) 0.00 K/ L 0.01-0.08 L (test code = 417) IMMATURE GRANULOCYTES-RELATIVE 0.20 % 0.00-1.00 PERCENT (BEAKER) (test code = 2801) POCT-GLUCOSE [id number] 18:24:01 Test Item Value Reference Range Interpretation Comments POC-GLUCOSE METER 139 mg/dL 70-110 H : [facility] (test code = [facility] [place], 1538) [address]: Skiver Counter/Techni lisandro ID = [id number] for Gio mcclain (contrac)Ruddy GLUCOSE [id number] 15:02:00 Test Item Value Reference Range Interpretation Comments GLUCOSE BEDSIDE (test 106 MG/DL 70-110 N Perfor med by certified code = GLUBED) 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 [facility] [id number] 12:15:00 Test Item Value Reference Range Interpretation Comments ACT-ISTAT (test code 305 SEC 74-137 H Perform ed by certified = ACTI) 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 [facility] [id number] 11:55:00 Test Item Value Reference Range Interpretation Comments ACT-ISTAT (test code 299 SEC 74-137 H Perform ed by certified = ACTI) 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 CBC W/AUTO [id number] 18:08:00 Test Item Value Reference Range Interpretation [...] NO = MDIFF) - XR CHEST 2 [id number] 00:00:00 [facility]: RODNEY PURDY : 1950 Sex: M FAX: Johan Walker MD [phone] [place]: St: PRE Name: RODNEY PURDY [facility] Cecilia Jessica : 1950 Age/S: 72/M [address] [place] [address] Unit #: [id number] Loc: [place] [address] Phys: Johan Lovelace MD Acct: [id number] Dis Date: Status: PRE SDC PHONE #: [phone] Exam Date: 03/19/2023 1633 FAX #: [phone] Reason: PRE OP EXAMS: CPT CODE: [id number] XR CHEST 2 V 25781 PROCEDURE INFORMATION: Exam: XR ChestExam date and time: 03/19/2023 4:30 PM Age: 72 years old Clinical indication: Pre-operative exam; Respiratory screening exam; Additional info: Pre op TECHNIQUE: Imaging protocol: Radiologic exam of the est. Views: 2 views. PA and Lateral COMPARISON: No relevant prior studies available. FINDINGS: Lungs: There are normal lung volumes without consolidation or interstitial opacities. Pleural spaces: Unremarkable. No pleural effusion. No pneumothorax. Heart/Mediastinum: The heart size is normal. The pulmonary vasculature is normal. The mediastinal contour is normal. The trachea is midline. Bones/joints:No acute abnormality seen. IMPRESSION: No acute cardiopulmonary findings. at 1707 Reported and signed by: Sylvester Harden M.D. CC: Johan Lovelace MD Technologist: RT Kody(R) Trnscrd Date/Time/By: 03/19/2023 (1706) : By: Ray Orig Print D/T: S: 03/19/2023 (1706) PAGE 1 Signed ReportPOCT-GLUCOSE [id number] 08:43:00 Test Item Value Reference Range Interpretation Comments POC-GLUCOSE METER 124 mg/dL 70-110 H TESTED AT [place] [address] (BEAKER) (test code = [place] 1538) [id number] CBC (HEMOGRAM ONLY)2018-11-30 07:16:00 Test Item Value Reference Range Interpretation Comments WHITE BLOOD CELL COUNT (BEAKER) 6.2 K/ L 3.5-10.5 (test code = 775) RED BLOOD CELL COUNT (BEAKER) 5.97 M/ L 4.63-6.08 (test code = 761) HEMOGLOBIN (BEAKER) (test code = 14.6 GM/DL 13.7-17.5 410) HEMATOCRIT (BEAKER) (test code = 46.5 % 40.1-51.0 411) MEAN CORPUSCULAR VOLUME (BEAKER) 77.9 fL 79.0-92.2 L (test code = 753) MEAN CORPUSCULAR HEMOGLOBIN 24.5 pg 25.7-32.2 L (BEAKER) (test code = [...] H (test code = 700) BASIC METABOLIC [id number] 06:09:00 Test Item Value Reference Range Interpretation [...] NOT APPLICABLE FOR DIALYSIS PATIEN TS. POCT-GLUCOSE [id number] 22:52:00 Test Item Value Reference Range Interpretation Comments POC-GLUCOSE METER 83 mg/dL 70-110 TESTED AT [place] [address] ([facility]) (test code = [facility] [address]) POCT-GLUCOSE [id number] 18:13:00 Test Item Value Reference Range Interpretation Comments POC-GLUCOSE METER 178 mg/dL 70-110 H TESTED AT [place] [address] ([facility]) (test code = [facility] 1538) [address] HEMOGLOBIN [id number] 09:48:00 Test Item Value Reference Range Interpretation Comments HEMOGLOBIN A1C (BEAKER) (test code = 7.8 % 4.3-6.1 H 368) POCT-GLUCOSE [id number] 08:23:00 Test Item Value Reference Range Interpretation Comments POC-GLUCOSE METER 134 mg/dL 70-110 H TESTED AT [place] [address] ([facility]) (test code = [facility] 1538) [address] CREATININE, RANDOM [id number] 05:00:00 Test Item Value Reference Range Interpretation Comments CREATININE URINE (BEAKER) (test 32.4 mg/dL code = 375) Reference Range: No NormalsPROTEIN, RANDOM [id number] 05:00:00 Test Item Value Reference Range Interpretation Comments PROTEIN, URINE (BEAKER) (test code = 94 mg/dL 0-14 H 1569) SODIUM, RANDOM [id number] 05:00:00 Test Item Value Reference Range Interpretation Comments SODIUM URINE (BEAKER) (test code = 130 meq/L 243) Reference Range: No NormalsURINALYSIS W/ [id number] 04:52:00 Test Item Value Reference Range Interpretation [...] 516) SOURCE(BEAKER) (test code = Urine, Voided 0599) PTH, [id number] 03:55:00 Test Item Value Reference Range Interpretation Comments PARATHYROID HORMONE INTACT 165.0 pg/mL 8.5-72.5 H (BEAKER) (test code = 577) B-TYPE NATRIURETIC FACTOR (BNP)2018-11-29 03:54:00 Test Item Value Reference Range Interpretation Comments B-TYPE NATRIURETIC PEPTIDE (BEAKER) 777 pg/mL 0-100 H (test code = 700) BASIC METABOLIC [id number] 03:47:00 Test Item Value Reference Range Interpretation [...] NOT APPLICABLE FOR DIALYSIS PATIEN TS. URIC [id number] 03:47:00 Test Item Value Reference Range Interpretation Comments URIC ACID (BEAKER) (test code = 8.2 mg/dL 2.6-7.2 H 773) CBC (HEMOGRAM ONLY)2018-11-29 03:41:00 Test Item Value Reference Range Interpretation Comments WHITE BLOOD CELL COUNT (BEAKER) 6.8 K/ L 3.5-10.5 (test code = 775) RED BLOOD CELL COUNT (BEAKER) 5.86 M/ L 4.63-6.08 (test code = [...] CELL DISTRIBUTION WIDTH 15.0 % 11.6-14.4 H (BEAKER) (test code = 412) PLATELET COUNT (BEAKER) (test 231 K/CU MM 150-450 code = 756) MEAN PLATELET VOLUME (BEAKER) 9.7 fL 9.4-12.4 (test code = 754) NUCLEATED RED BLOOD CELLS 0 /100 WBC 0-0 (BEAKER) (test code = 413) POCT-GLUCOSE [id number] 21:40:00 Test Item Value Reference Range Interpretation Comments POC-GLUCOSE METER 111 mg/dL 70-110 H TESTED AT [place] [address] ([facility]) (test code = [place] 1538) [address] [id number] 20:29:00 Test Item Value Reference Range Interpretation Comments ACTIVATED CLOTTING TIME 230 sec TEST ED AT [place] [address] ([facility]) (test code = [place] [address]) [address] [id number] 20:29:00 Test Item Value Reference Range Interpretation Comments ACTIVATED CLOTTING TIME 131 sec TEST ED AT [place] [address] ([facility]) (test code = [place] [address]) [address] POCT-GLUCOSE [id number] 17:58:00 Test Item Value Reference Range Interpretation Comments POC-GLUCOSE METER 137 mg/dL 70-110 H TESTED AT [place] [address] ([facility]) (test code = JON[place] 1538) [address] [id number] 16:46:00 Test Item Value Reference Range Interpretation Comments PARTIAL THROMBOPLASTIN TIME 44.3 seconds 22.5-36.0 H (BEAKER) (test code = 760) BASIC METABOLIC [id number] 12:43:00 Test Item Value Reference Range Interpretation [...] NOT APPLICABLE FOR DIALYSIS PATIEN TS. POCT-GLUCOSE [id number] 12:33:00 Test Item Value Reference Range Interpretation Comments POC-GLUCOSE METER 140 mg/dL 70-110 H TESTED AT [facility] 67[facility] (ADEEL) (test code = [place] 1538) [address] LIPID [id number] 12:28:00 Test Item Value Reference Range Interpretation Comments TRIGLYCERIDES (ADEEL) 455 mg/dL Speci men slightly (test code = 540) hemolyzed CHOLESTEROL (ELLIOTAKER) 196 mg/dL Specime n slightly (test code = 631) hemolyzed HDL CHOLESTEROL (ADEEL) 26 mg/dL (test code = 976) Calculated LDL not valid if triglyceride >400 mg/dLTriglyceride Reference Range: Low Risk <150Borderline 150-199 High Risk 200-499 Very High Risk >=500Cholesterol Reference Range: Low Risk <200 Borderline 200-239 High Risk >240HDL Cholesterol Reference Range: Low Risk >=60 High Risk<40LDL Cholesterol Reference Range: Optimal <100 Near Optimal 100-129 Borderline 130-159 High 160-189 Very High >=190HEMOGLOBIN [id number] 11:30:00 Test Item Value Reference Range Interpretation Comments HEMOGLOBIN A1C (ADEEL) (test code = 7.9 % 4.3-6.1 H 368) PROTHROMBIN [id number] 10:31:00 Test Item Value Reference Range Interpretation Comments PROTIME (ADEEL) (test code = 13.7 seconds 11.7-14.7 759) INR (ADEEL) (test code = 370) 1.0 <=5.9 RECOMMENDED COUMADIN/WARFARIN INR THERAPY RANGESSTANDARD DOSE: 2.0 - 3.0 Includes: PROPHYLAXIS for venous thrombosis, systemic embolization; TREATMENT for venous thrombosis and/or pulmonary embolus.HIGH RISK: Target INR is 2.5-3.5 for patients with mechanical heart valves.Prior to initiating heparinFIBRINOGEN 2018-11-28 10:31:00 Test Item Value Reference Range Interpretation Comments FIBRINOGEN LEVEL (ADEEL) (test 438 mg/dl 225-434 H code = 658) Prior to initiating [id number] 10:31:00 Test Item Value Reference Range Interpretation [...] Notes Date/Time Note Provider Source 2023-03-23 12:37:00-00:00 [id number] [place] [address] PATIENT NAME: RODNEY PURDY ADMIT DATE: 3 ACCOUNT NO: [id number] ROOM NO: AGE: 72 REPORT TYPE: eELECTROCARDIOGRAM REPORT SEX: M ADMITTING PHYSICIAN: ATTENDING PHYSICIAN:Johan Lovelace MD Order: [id number] Test Reason : PCI Postprocedure Test Date/Time [...] Confirmed by MD MCKENZIE, MCKENZIE ([id number]) on 7:43:47 AM Referred By: Johan Lovelace Confirmed by:MCKENZIE QUESADA MD Electronically Signed by Mckenzie García MD on at 0743 PATIENT NAME: RODNEY PURDY 8571 2023-03-19 16:25:00-00:00 [id number] [place] [address] PATIENT NAME: RODNEY PURDY ADMIT DATE: 3 ACCOUNT NO: [id number] ROOM NO: AGE: 72 REPORT TYPE: eELECTROCARDIOGRAM REPORT SEX: M ADMITTING PHYSICIAN: ATTENDING PHYSICIAN:Johan Lovelace MD Order: [id number] Test Reason : PREOP Test Date/Time Stamp: [...] No previous ECGs available Confirmed by VIOLETTA FERNANDEZ MD ([id number]) on 03/31/2023 11:06:02 AM Referred By: Johan Lovelace Confirmed by:VIOLETTA ALLAN MD Electronically Signed by Violetta Fernandez MD on 03/13 06/05 at 1106 PATIENT NAME: RODNEY PURDY [id number]
[2023-05-13 10:43] LABS: Absolute Lymphocytes (CBC) 0.6 K/uL (0.7-4.9); Hematocrit 23.3 % (39.6-49.0); Lymphocytes % 6.1 % (15.3-44.8); MCV 83.6 fL (80-100); MPV 7.6 fL (7.6-11.3); Platelets 388 thou/uL (152-406); Protime INR 1.42; RBC Red Blood Cell Count 2.79 M/uL (4.33-5.43)
[2023-05-13 10:54] LABS: SARS-CoV-2 Antigen Rapid Res Negative (Negative)
[2023-05-13 11:01] LABS: Albumin 2.3 g/dL (3.4-5.0); Bilirubin Direct 0.3 mg/dL (0-0.2); Bilirubin Indirect, Calculated 0.4 mg/dL (0.2-0.8); Bilirubin Total 0.7 mg/dL (0.2-1.0); Magnesium 2.2 mg/dL (1.6-2.4); Potassium 3.5 mEq/L (3.5-5.1); Protein, Total 5.9 g/dL (6.4-8.2)
[2023-05-13 11:04] LABS: Troponin High Sensitivity 469.3 pg/mL (<58.9)
[2023-05-13] MEDS ORDERED: ALBUTEROL 2.5 MG/3 ML NEB SOL ONE (11:07)
[2023-05-13] MEDS ORDERED: IPRATROPIUM BROM 0.5MG/2.5ML ONE (11:07)
[2023-05-13] MEDS ORDERED: INSULIN -REGULAR HUMAN 50 UNIT/0.5 ML ML ONE (12:02)
--- NOTE | 2023-05-13 12:13 | RAD REPORT ---
EXAM DESCRIPTION: Ketan Single View05/13/2023 10:10 am CLINICAL HISTORY: Cough COMPARISON: April 30, 2023 FINDINGS: The lungs appear clear of acute infiltrate. The heart is normal size IMPRESSION: No acute abnormalities displayed
--- NOTE | 2023-05-13 13:19 | EDPHYS ---
Physician Documentation [facility] [place] Name: Mansoor Summers Age: 72 yrs Sex: Male : 1950 Arrival Date: 05/13/2023 Time: 09:45 Bed 17 Private MD: Vincent Pinedo V ED Physician Devin Fleming HPI: 05/13 10:00 This 72 yrs old Male presents to ER via Wheelchair with complaints of Breathing jh7 Difficulty, Cough. 10:00 The patient has shortness of breath at rest. Onset: The symptoms/episode began/occurred jh7 7 day(s) ago. Associated signs and symptoms: Pertinent positives: non-productive cough, chest tightness, Pertinent negatives: fever, hemoptysis, vomiting. 72-year-old male presents for progressive cough and shortness of breath over the past week. The patient was [facility] from [facility] last Wednesday with a diagnosis of CHF, KARIN on CKD, CAD with multiple PCI, and acute blood loss anemia secondary to upper GI bleed. He reports that his PCP Dr. Pinedo treated him for COVID with azithromycin and Lagevrio. States that his cough and shortness of breath have been getting much worse.. Historical: - Allergies: 09:56 Niaspan; ll1 - PMHx: 09:56 Diabetes - IDDM; Diabetes - NIDDM; Hyperlipidemia; Hypertension; CAD; Myocardial ll1 infarction; - Immunization history:: Adult Immunizations up to date. - Social history:: Smoking status: unknown. ROS: 10:00 Eyes: Negative for injury, pain, redness, and discharge, ENT: Negative for injury, jh7 pain, and discharge, Neck: Negative for injury, pain, and swelling, Cardiovascular: Negative for chest pain, palpitations, and edema, Abdomen/GI: Negative for abdominal pain, nausea, vomiting, diarrhea, and constipation, MS/Extremity: Negative for injury and deformity, Skin: Negative for injury, rash, and discoloration, Neuro: Negative for headache, weakness, numbness, tingling, and seizure. 10:00 Constitutional: Positive for fatigue. 10:00 Respiratory: Positive for cough, orthopnea, shortness of breath. 10:00 Back: Positive for pain at rest. 10:00 All other systems are negative. Exam: 10:00 Head/Face: Normocephalic, atraumatic. Eyes: Pupils equal round and reactive to light, jh7 extra-ocular motions intact. Lids and lashes normal. Conjunctiva and sclera are non-icteric and not injected. Cornea within normal limits. Periorbital areas with no swelling, redness, or edema. Neck: Trachea midline, no thyromegaly or masses palpated, and no cervical lymphadenopathy. Supple, full range of motion without nuchal rigidity, or vertebral point tenderness. No Meningismus. Cardiovascular: Regular rate and rhythm with a normal S1 and S2. No gallops, murmurs, or rubs. Normal PMI, no JVD. No pulse deficits. Abdomen/GI: Soft, non-tender, with normal bowel sounds. No distension or tympany. No guarding or rebound. No evidence of tenderness throughout. Back: No spinal tenderness. No costovertebral tenderness. Full range of motion. Skin: Warm, dry with normal turgor. Normal color with no rashes, no lesions, and no evidence of cellulitis. MS/ Extremity: Pulses equal, no cyanosis. Neurovascular intact. Full, normal range of motion. Neuro: Awake and alert, GCS 15, oriented to person, place, time, and situation. Motor strength 5/5 in all extremities. Sensory grossly intact. 10:00 Constitutional: The patient appears alert, awake, uncomfortable. 10:00 Respiratory: mild respiratory distress is noted, Respirations: labored breathing, that is mild, Breath sounds: decreased breath sounds, are located in both bases, Respiratory rate: 20 Vital Signs: 10:03 BP 121 / 54; Pulse 79; Resp 22; Temp 98.2; Pulse Ox 97% on NC; Weight 89.36 kg; Height ll1 5 ft. 8 in. ; Pain 8/10; 11:46 BP 109 / 38; Pulse 71; Resp 18; Pulse Ox 93% on 4 lpm Breathing tx; nj1 12:45 BP 121 / 71; Pulse 69; Resp 19; Pulse Ox 100% 4 lpm ; nj1 13:08 BP 115 / 27; Pulse 64; Resp 18; Pulse Ox 93% on R/A; nj1 14:17 BP 110 / 47; Pulse 73; Resp 20; Pulse Ox 99% on 2 lpm NC; nj1 15:11 BP 115 / 60; Pulse 67; Resp 16; Pulse Ox 94% on 2 lpm NC; nj1 10:03 Body Mass Index 29.95 (89.36 kg, 172.72 cm) ll1 10:03 Pain Scale: Adult ll1 MDM: 09:49 Patient medically screened. [facility] 12:45 Management of patient was discussed with the following: Primary Care Provider: Dr. autumn Pinedo. Notified Dr. Pinedo of his patient's condition. Informed him that due to the patient's renal failure we are unable to do a CTA and that nuclear medicine stated that they could not perform a VQ scan due to lack of equipment. He requested that my attending call him.. 13:30 Differential diagnosis: CHF exacerbation, Myocardial Infarction pneumonia, pulmonary aDx edema, Pulmonary Embolism Unstable Angina. The patient's pulmonary embolism risk score was calculated as follows: suspected deep vein thrombosis (3 Pts) alternative diagnosis is less likely (3 Pts) patient has experienced immobilization or surgery in the last four weeks (1.5 Pts) Total Score: greater than 6 points. This patient was found to be at low risk for a pulmonary embolism by using the Well's assessment criteria. Data reviewed: vital signs, nurses notes, lab test result(s), EKG, radiologic studies, plain films. Consideration of Admission/Observation The patient was transferred. I considered the following discharge prescriptions or medication management in the emergency department Medications were administered in the Emergency Department. See MAR. Independent interpretation of the following test(s) in the Emergency Department EKG: See my EKG interpretation above. Historians other than the Patient: Spouse/Significant Other: . Care significantly affected by the following chronic conditions: Diabetes, Hypertension, Congestive Heart Failure. Counseling: I had a detailed discussion with the patient and/or guardian regarding the historical points, exam findings, and any diagnostic results supporting the discharge/admit diagnosis, the need to transfer to another facility, for higher level of care. Response to treatment: the patient's symptoms have mildly improved after treatment. ED course: Discussed the patient's condition with attending physician Dr. Fleming. He agreed that transfer was appropriate due to no [employer] this week and inability to do VQ scan due to lack of equipment. The patient was informed of the need for transfer and he agreed.. 05/13 10:01 Order name: Basic Metabolic Panel; Complete Time: 11:06 [facility] 05/13 10:01 Order name: CBC with Diff; Complete Time: 11:06 [facility] 05/13 10:01 Order name: LFT's; Complete Time: 11:06 [facility] 05/13 10:01 Order name: Magnesium; Complete Time: 11:06 [facility] 05/13 10:01 Order name: NT PRO-BNP; Complete Time: 11:06 [facility] 05/13 10:01 Order name: PT-INR; Complete Time: 11:06 [facility] 05/13 10:01 Order name: Troponin HS; Complete Time: 11: [facility] 05/13 10:01 Order name: SARS RAPID; Complete Time: 11:06 [facility] 05/13 11:07 Order name: Lactate w/ 2H reflex if indic.; Complete Time: 12:44 [facility] 05/13 13:10 Order name: D-Dimer; Complete Time: 14:02 [facility] 05/13 13:41 Order name: Glucose, Ancillary Testing; Complete Time: 14:02 [facility] 05/13 10:01 Order name: XRAY Chest (1 view); Complete Time: 12:30 [facility] 05/13 11:33 Order name: XRAY Thoracic Spine (Ap/lat); Complete Time: 14:25 [facility] 05/13 10:01 Order name: EKG; Complete Time: 10:02 [facility] 05/13 10:01 Order name: Cardiac monitoring; Complete Time: 10:21 [facility] 05/13 10:01 Order name: EKG - Nurse/Tech; Complete Time: 10:39 [facility] 05/13 10:01 Order name: IV Saline Lock; Complete Time: 10:39 [facility] 05/13 10:01 Order name: Labs collected and sent; Complete Time: 10:39 [facility] 05/13 10:01 Order name: O2 Per Protocol; Complete Time: 10:21 [facility] 05/13 10:01 Order name: O2 Sat Monitoring; Complete Time: 10:21 [facility] EC:37 Rate is 72 beats/min. Rhythm is regular. QRS [place] is Normal. OR interval is normal at 7 170 msec. QRS interval is normal at 92 msec. QT interval is normal at 414 msec. No Q waves. T waves are Normal. ST Segment is depressed in leads I, II, aVL, V5, V6. Clinical impression: Normal sinus rhythm with ST depression in lateral leads. Administered Medications: 10:59 Drug: DuoNeb Nebulize (2.5 mg - 0.5 mg) 3 ml Route: Nebulizer; nj1 14:18 Follow up: Response: No adverse reaction nj1 12:05 Drug: Insulin Regular Human IVP 10 units {Co-Signature: db (Sahra Andrews RN).} nj1 Route: IVP; Site: right forearm; 13:43 Follow up: Response: No adverse reaction; Blood sugar is lowered nj1 Disposition: 14:51 Co-signature as Attending Physician, Devin Fleming DO I was immediately available on-site ms3 in the Emergency Department for consultation in the care of the patient . Disposition Summary: 05/13/23 13:18 Transfer Ordered Transfer Location: [place] [address] Reason: Higher level of care [facility] Condition: Fair [facility] Problem: new [facility] Symptoms: have worsened [facility] Accepting Physician: Dr. Aaron Haynes, cardiology(05/13/23 16:00) nj1 Diagnosis - Subsequent non-ST elevation (NSTEMI) myocardial infarction 7 - Shortness of breath [facility] - R/O pulmonary embolism [facility] Forms: - Medication Reconciliation Form 7 - SBAR form [facility] Signatures: Dispatcher [employer] EDMS Misael Joshi, RN RN 1 Devin Fleming DO DO ms3 Jessica Gaston, ACID TESTER ACID TESTER 7 Mercedez William RN RN nj1 Sahra Andrews RN Corrections: (The following items were deleted from the chart) 11:24 10:02 Chest For PE Angio+CT.RAD.BRZ ordered. EDAR EDMS 15:03 13:18 Transferring [place] [address] 16:00 15:03 Dr. Aaron Haynes, cardiology [facility] nj1
--- NOTE | 2023-05-13 13:19 | ER ---
Nurse's Notes [facility] Name: Mansoor Summers Age: 72 yrs Sex: Male : 1950 Arrival Date: 05/13/2023 Time: 09:45 Bed 17 Private MD: Vincent Pinedo V Diagnosis: Subsequent non-ST elevation (NSTEMI) myocardial infarction;Shortness of breath;R/O pulmonary embolism Presentation: 05/13 10:03 Chief complaint: Patient states: pt states hard to catch his breath and pain all over. ll1 Coronavirus screen: Client denies travel out of the [place] in the last 14 days. At this time, the client does not indicate any symptoms associated with coronavirus-19. Ebola Screen: No symptoms or risks identified at this time. Onset of symptoms was May 10, 2023. 10:03 Method Of Arrival: Wheelchair ll1 10:03 Acuity: CRAIG 2 ll1 10:03 Initial Sepsis Screen: Does the patient meet any 2 criteria? RR > 20 per min. No. ll1 Patient's initial sepsis screen is negative. Does the patient have a suspected source of infection? Yes: Productive cough/pneumonia. Risk Assessment: Do you want to hurt yourself or someone else? Patient reports no desire to harm self or others. Triage Assessment: 10:05 General: Appears uncomfortable, Behavior is calm. Cardiovascular: No deficits noted. ll1 Respiratory: Reports shortness of breath labored breathing since 05/10/2023. GI: No deficits noted. : No deficits noted. Derm: No deficits noted. Musculoskeletal: No deficits noted. Historical: - Allergies: 09:56 Niaspan; ll1 - PMHx: 09:56 Diabetes - IDDM; Diabetes - NIDDM; Hyperlipidemia; Hypertension; CAD; Myocardial ll1 infarction; - Immunization history:: Adult Immunizations up to date. - Social history:: Smoking status: unknown. Screenin:55 [facility] ED Fall Risk Assessment (Adult) Score/Fall Risk Level 0 - 2 = Low Risk nj1 Oriented to surroundings, Maintained a safe environment, Hourly rounding (assess needs \\T\\ fall precautionary measures) done. 10:55 Abuse screen: Denies threats or abuse. Denies injuries from another. Nutritional nj1 screening: No deficits noted. Tuberculosis screening: No symptoms or risk factors identified. Assessment: 10:55 General: Appears uncomfortable, Behavior is calm, cooperative, appropriate for age. nj1 Pain: Complains of pain in back and abdomen Pain currently is 7 out of 10 on a pain scale. 10:55 Neuro: Level of Consciousness is awake, alert, obeys commands, Oriented to person, nj1 place, time, situation. Cardiovascular: Patient's skin is warm and dry. Rhythm is. Respiratory: Airway is patent Respiratory effort is labored. 12:10 Reassessment: Patient appears in no apparent distress at this time. Patient and/or nj1 family updated on plan of care and expected duration. Pain level reassessed. Patient is alert, oriented x 3, equal unlabored respirations, skin warm/dry/pink. 13:08 Reassessment: Patient appears in no apparent distress at this time. Patient and/or nj1 family updated on plan of care and expected duration. Pain level reassessed. Patient is alert, oriented x 3, equal unlabored respirations, skin warm/dry/pink. 14:18 Reassessment: Patient appears in no apparent distress at this time. Patient and/or nj1 family updated on plan of care and expected duration. Pain level reassessed. Patient is alert, oriented x 3, equal unlabored respirations, skin warm/dry/pink. 14:39 Reassessment: Unsuccessful attempt to kelly report at this time. "Room not clean, call in nj1 20 minutes". Charge nurse notified. 15:10 Reassessment: Unsuccessful attempt to call report, no answer, kept on hold for 10 nj1 minutes. Call again, no report given, "they are blocking rooms, unsure if that's the room the patient will get" kept on hold for 10 minutes, no answer. This RN notifies charge nurse, instructed to call access center. 15:18 Reassessment: Report given to Zach BATISTA EMTRaquel. [facility] 15:39 Reassessment: This RN calls access center, transferred to give report. After waiting on nj1 hold for about 10 minutes, able to give report to nurse Wang. Patient already on his way. Vital Signs: 10:03 BP 121 / 54; Pulse 79; Resp 22; Temp 98.2; Pulse Ox 97% on NC; Weight 89.36 kg; Height ll1 5 ft. 8 in. ; Pain 8/10; 11:46 BP 109 / 38; Pulse 71; Resp 18; Pulse Ox 93% on 4 lpm Breathing tx; nj1 12:45 BP 121 / 71; Pulse 69; Resp 19; Pulse Ox 100% 4 lpm ; nj1 13:08 BP 115 / 27; Pulse 64; Resp 18; Pulse Ox 93% on R/A; nj1 14:17 BP 110 / 47; Pulse 73; Resp 20; Pulse Ox 99% on 2 lpm NC; nj1 15:11 BP 115 / 60; Pulse 67; Resp 16; Pulse Ox 94% on 2 lpm NC; nj1 10:03 Body Mass Index 29.95 (89.36 kg, 172.72 cm) ll1 10:03 Pain Scale: Adult ll1 ED Course: 09:47 Patient arrived in ED. rg4 09:47 Vincent Pinedo MD is Private Physician. rg4 09:49 [facility] jh7 09:49 Darinel Guerrero MD is Attending Physician. jh7 09:56 Misael Joshi, GUY is Primary Nurse. ll1 09:56 Arm band placed on Patient placed in an exam room, on a stretcher. ll1 10:05 Triage completed. ll1 10:12 XRAY Chest (1 view) In Process Unspecified. EDMS 10:39 SARS RAPID Sent. bc6 10:39 Basic Metabolic Panel Sent. bc6 10:39 CBC with Diff Sent. bc6 10:40 LFT's Sent. bc6 10:40 Magnesium Sent. bc6 10:40 NT PRO-BNP Sent. bc6 10:40 PT-INR Sent. bc6 10:40 Troponin HS Sent. bc6 10:40 Inserted saline lock: 22 gauge in left antecubital area, using aseptic technique. Blood bc6 collected. 10:55 Patient has correct armband on for positive identification. Bed in low position. Call nj1 light in reach. Adult w/ patient. Provided Education on: fall precautions, call light. 11:05 Notified Nurse Practitioner and/or Physician Seeing Eye Dog Teacher of a critical lab result(s), ll1 troponin 469.3. 13:05 Devin Fleming DO is Attending Physician. 7 13:13 XRAY Thoracic Spine (Ap/lat) In Process Unspecified. EDMS 14:13 called spoke with [facility] ,[id number] to kj1 15:20 No provider procedures requiring assistance completed. Patient transferred, IV remains nj1 in place. Administered Medications: 10:59 Drug: DuoNeb Nebulize (2.5 mg - 0.5 mg) 3 ml Route: Nebulizer; nj 14:18 Follow up: Response: No adverse reaction nj1 12:05 Drug: Insulin Regular Human IVP 10 units {Co-Signature: db (Sahra Andrews RN).} nj Route: IVP; Site: right forearm; 13:43 Follow up: Response: No adverse reaction; Blood sugar is lowered nj1 Medication: 15:20 VIS not applicable for this client. nj1 Outcome: 13:18 ER care complete, transfer ordered by MD. leyva 15:20 Transferred by ground EMS to [facility], Transfer form completed. nj 15:20 Transferred 15:20 Condition: stable 15:20 Instructed on the need for transfer. 15:20 Patient left the ED. [facility] Signatures: Dispatcher [employer] Jody Pope rg4 Monisha Lugo kj1 Misael Joshi, RN RN ll1 Jessica Gaston, SPRAY GUN STRIPER SPRAY GUN STRIPER Marguerite Tom Norma RN RN nj1 Sahra Andrews RN Corrections: (The following items were deleted from the chart) 10:09 10:03 BP 121 / 54; Pulse 79bpm; Resp 22bpm; Pulse Ox 97% Nasal Cannula; Temp 98.2F; ll1 Pain 8/10, Adult; ll1 11:09 11:05 Notified Nurse Practitioner and/or Physician Seeing Eye Dog Teacher of a critical lab ll1 result(s), troponin 347.5 1 13:11 13:08 Pulse 64bpm; Resp 18bpm; Pulse Ox 93% RA; nj1 nj1 15:57 15:53 Reassessment: [facility] nj1 16:01 16:00 Patient left the ED. nj1 nj1
--- NOTE | 2023-05-13 14:22 | RAD REPORT ---
EXAM DESCRIPTION: RAD - Thoracic Spine Ap/Lat - 05/13/2023 1:11 pm CLINICAL HISTORY: PAIN COMPARISON: No comparisons TECHNIQUE: Thoracic spine, 2 views. FINDINGS: Thoracic vertebral bodies are normal in height and alignment. There are no acute or destru ctive bony processes see. No paraspinal masses are identified. No disc space narrowing. IMPRESSION: No acute thoracic spine abnormalities.
[2023-05-13 16:55] VITALS: TEMP 98.2
[2023-05-13 17:01] VITALS: BP 115/60; O2SAT 94
--- NOTE | 2023-05-14 15:24 | EKG ---
Test Date: 2023-05-13 Test Time: 10:37:20 Remedial Project Manager: PRASANNA MEASUREMENT RESULTS: Intervals: Rate: 72 KS: 170 QRSD: 92 QT: 414 QTc: 453 [place]: P: 55 KS: 170 QRS: -3 T: 139 INTERPRETIVE STATEMENTS: Normal sinus rhythm Inferior-posterior infarct, age undetermined ST & T wave abnormality, consider lateral ischemia Abnormal ECG Compared to ECG 04/26/2023 09:40:22 ST (T wave) deviation now present Possible ischemia now present Myocardial infarct finding still present Electronically Signed On 05-14-23 15:21:33 CDT by Johan Lovelace
== END 2023-05-13 16:00 | disposition short-term general hospital (02) ==
LOC: ER 09:45
DX: I22.2 Subsequent non-ST elevation (NSTEMI) myocardial infarction (principal); E11.9 Type 2 diabetes mellitus without complications; I10 Essential (primary) hypertension; I50.9 Heart failure, unspecified; I25.10 Atherosclerotic heart disease of native coronary artery without angina pectoris; Z88.8 Allergy status to other drugs, medicaments and biological substances; Z20.822 Contact with and (suspected) exposure to COVID-19
CPT/HCPCS: 93005; 85025; 80048; 36415; 83735; 85610; 82947; 85379; 80076; 83605; 84484; 83880; 71045; 72070; 94640; 96374; 99285; 87811; J1815; J7613; J7644

== ENCOUNTER 2023-06-15 11:02 | Inpatient (IN) | payer OTHER ==
[2023-06-10 15:05] LABS: Absolute Lymphocytes (CBC) 1.6 K/uL (0.7-4.9); Hematocrit 36.5 % (39.6-49.0); Lymphocytes % 22.6 % (15.3-44.8); Platelets 207 thou/uL (152-406); RBC Red Blood Cell Count 4.29 M/uL (4.33-5.43)
[2023-06-10 15:07] LABS: Protime INR 1.14
[2023-06-10 15:14] LABS: Potassium 4.4 mEq/L (3.5-5.1)
--- NOTE | 2023-06-10 21:09 | RAD REPORT ---
EXAM DESCRIPTION: RAD - Chest Pa And Lat (2 Views) - 06/10/2023 3:22 pm CLINICAL HISTORY: pre op for laboratory chief. Hypertension COMPARISON: Chest Single View dated 05/13/2023; Chest Pa And Lat (2 Views) dated 04/30/2023; Chest Pa And Lat (2 Views) dated 04/28/2023; Chest Pa And Lat (2 Views) dated 04/26/2023 TECHNIQUE: PA and lateral views of the chest were obtained. FINDINGS: Right IJ dialysis catheter with catheter tip terminating in the superior cavoatrial juncti on. The lungs are clear. Heart size is normal and central vasculature is within normal limits. No ple ural effusion or pneumothorax seen. No acute bony finding noted. IMPRESSION: No acute cardiopulmonary process.
--- NOTE | 2023-06-11 14:13 | EKG ---
Test Date: 2023-06-10 Test Time: 14:43:45 Computer Clerk: KAMRON MEASUREMENT RESULTS: Intervals: Rate: 64 IL: 116 QRSD: 86 QT: 412 QTc: 425 [place]: P: [place]: 116 QRS: -22 T: -12 INTERPRETIVE STATEMENTS: Normal sinus rhythm Minimal voltage criteria for LVH, may be normal variant Inferior infarct, age undetermined Abnormal ECG Compared to ECG 05/13/2023 10:37:20 Left ventricular hypertrophy now present ST (T wave) deviation no longer present Possible ischemia no longer present Myocardial infarct finding still present Electronically Signed On 06-11-23 14:11:36 CDT by Johan Lovelace
[2023-06-15] MEDS ORDERED: NA CHLORIDE 0.9% 500 ML ONE (11:19)
[2023-06-15] MEDS ORDERED: LIDOCAINE 1% 20 ML MDV ONE (15:51)
[2023-06-15] MEDS ORDERED: HEPA 1000U/500MLS 2,000 UNIT/1,000 ML BAG IV ONE (15:51)
[2023-06-15] MEDS ORDERED: HEPARIN 5000 UNIT/ML 1 ML VIAL ONE (16:03)
[2023-06-15] MEDS ORDERED: ASPIRIN 325 MG TAB ONE (16:04)
[2023-06-15] MEDS ORDERED: HEPARIN 10,000 UNIT/10 ML VIAL IV ONE (16:04)
[2023-06-15] MEDS ORDERED: FENTANYL CITR 100 MCG/2 ML ONE (16:05)
[2023-06-15] MEDS ORDERED: VERAPAMIL HCL 10 MG/4 ML VIAL IV ONE (16:05)
[2023-06-15] MEDS ORDERED: MIDAZOLAM HCL 2 MG/2 ML INJ ONE (16:05)
[2023-06-15 17:52] VITALS: O2SAT 100
--- OUTSIDE RECORDS SUMMARY | 2023-06-15 18:23 | XMS REPORT | Continuity of Care Document ---
:1950 Author Organization [facility] t Address [address] [facility] [address] [place] [address] Care Team Providers Name Role Phone RIAZ PINEDO Primary Care Physician UnavailNGOZI [place] Attending Clinician Unavailable KAYLA WATSON Attending Clinician Unavailable FROY TURNER Attending Clinician Unavailable SCARLETT DE LA PAZ Attending Clinician Unavailable BRANDEE BENSON Attending Clinician Unavailable EUGENE SUMNER Attending Clinician Unavailable CARA MÉNDEZ Attending Clinician Unavailable Sheikh CORBIN, Kamilla Solomon Attending Clinician Naresh ALANIZ, Sophia Zimmer Attending Clinician Franchesca Burgess MD Attending Clinician Johan Lovelace Attending Clinician Unavailable LAUREN LAM Attending Clinician Unavailable FROY TURNER Admitting Clinician Unavailable CANDY OLIVER Admitting Clinician Unavailable EUGENE SUMNER Admitting Clinician Unavailable Riaz Pinedo V Admitting Clinician Unavailable LAUREN LAM Admitting Clinician Unavailable Payers Payer Name Policy Type Policy Number Effective Date Expiration Date [employer] MEDIC[employer] HMO [id number] 2022 POS PPO 00:00:00 Problems Condition Condition Condition [...] in CAD in Disease Active 2016-09 [facility] [place] 2-19 st artery artery 00:00: Hospita 00 l SOB SOB Disease Active 2016-09 [facility] (shortness (shortness 2-19 st of breath) of breath) 00:00: Ho spita 00 l 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 4-09 st disease disease 00:00: Hospita involving involving 00 l [place] coronary coronary artery of artery of [place] heart heart without without angina angina pectoris pectoris Carotid Carotid Disease Active 2017-0 [facility] artery artery 4-09 st disease disease 00:00: Hospita 00 l Stented Stented Disease Active [facility] coronary coronary 4- st artery artery 00:00: Hospita 00 l [...] Clear OVER" PER PT 00:00: Jessica 00 [facility] Niacin Propensi Active Other (See 2015-09 Pins [...] Stop Date Source Natural brother Heart disease [facility] Natural father Heart disease [facility] Natural son Diabetes [facility] Social History Social Habit Start Date Stop Date Quantity Comments Source Gender identity [facility] History of tobacco Chews Tobacco [facility] use [facility] Tobacco Comment 2023-05-02 2023-05-02 quit over [address] [facility] 00:00:00 00:00:00 years ago [facility] Tobacco use and 2023-05-02 2023-05-02 Former smokeless [facility] exposure 00:00:00 00:00:00 tobacco user [facility] Cigarettes smoked 2023-05-02 2023-05-[address] [facility] current (pack per 00:00:00 00:00:00 Medical Center day) - Reported Cigarette 2023-05-02 2023-05-[address] [facility] pack-years 00:00:00 00:00:00 Medical Center History SDOH 2018-11-28 2018-11-[address] [facility] Financial 00:00:00 00:00:00 Medical Center History [facility] 2018-11-28 2018-11-[address] [facility] Alcohol Frequency 00:00:00 00:00:00 Medical Center History [facility] 2018-11-28 2018-11-[address] [facility] Alcohol Std Drinks 00:00:00 00:00:00 Medica l Center History [facility] 2018-11-28 2018-11-[address] [facility] Alcohol Binge 00:00:00 00:00:[address] Alcohol intake 2018-01-04 2018-01-04 Current drinker [facility] 00:00:00 00:00:00 of alcohol Hospital (finding) History of Social 2016-12-17 2016-12-[address] function 00:00:00 00:00:00 Hospital Alcohol Comment 2016-08-19 2016-08-19 moderate [facility] 00:00:00 00:00:00 [facility] Sex Assigned At [birth year] [facility] 00:00:00 00:00:00 [facility] Smoking Status Start Date Stop Date Source Ex-smoker 2023-05-02 00:00:00 2023-05-02 00:00:00 [facility] Light tobacco smoker 2016-12-17 00:00:00 [facility] Medications Ordered Filled Start Stop Current Ordering Indication Dosage Frequency Signature Comments Components Source Medication Medication Date Date Medication? Clinician (SIG) Name Name gabapentin 2022-0 2022- No 100mg Q.[id number] Take [address] (NEURONTIN) 8-20 08-20 [id number] capsule [facility]ukes 100 MG 20:05: 00:00 3D [...] Medica l 29 by mouth Center daily Elvis . insulin 2022-0 Yes 40U QD Inject 40 [facility] t degludec 8-20 Units Lukes 100 unit/mL 20:05: subcutaneo Medical (3 mL) InPn 29 usly Center daily. amLODIPine 0 Yes hypertensio 10mg QD Take [address] (NORVASC) 8-20 n tablet (10 Luke s 10 MG 20:05: mg total) Medical tablet 29 by mouth Center daily. doxazosin 2022-0 Yes 2mg QD Take [address] (CARDURA) 2 8-20 tablet (2 Yajaira es MG tablet 20:05: mg total) Med ical 29 by mouth Center nightly. carvediloL 0 Yes 12.5mg Take [address] (COREG) 8-20 tablet Lukes 12.5 MG 20:05: (12.5 mg Medica l tablet 29 total) by Center mouth 2 (two) times daily with breakfast and dinner. atorvastati 0 Yes 40mg QD Take [address] n (LIPITOR) 8-20 tablet (40 Sofi kes 40 MG 20:05: mg total) Medical tablet 29 by mouth Center daily. allopurinoL 2022-0 Yes 100mg QD Take [address] (ZYLOPRIM) 8-20 tablet Lukes 100 MG 20:05: (100 mg Medical tablet 29 total) by Center mouth daily. gabapentin 2018-0 Yes 100mg Q.[id number] Take [address] (NEURONTIN) 3-20 [id number] mg by L ukes 100 MG 11:58: [...] times Center gram daily. capsule aspirin 81 2018-0 Yes 81mg QD Take [address] MG EC 3-20 by mouth Lukes tablet 11:58: daily Medical [address] [place] [address] insulin 2019-0 Yes 40U QD Inject 40 [facility]I [facility] t degludec 3-20 Units Lukes 100 unit/mL 11:58: subcutaneo Medical (3 mL) In [facility] Center daily. gabapentin 2019-0 Yes 100mg Q.[id number] Take [address] (NEURONTIN) 3-20 [id number] mg by L ukes 100 MG 11:58: [...] 3-20 by mouth Lukes tablet 11:58: daily [address] insulin 2019-0 Yes 40U QD Inject 40 [facility] t degludec 3-20 Units [facility]ukes 100 unit/mL 11:58: subcutaneo Medical (3 mL) [facility] Center daily. prasugrel 2019-0 Yes 10mg QD [...] by mouth Center daily. amLODIPine 2019-0 Yes [id number] 10mg Q.5D Take 1 [facility] (NORVASC) 2-26 tablet (10 st 10 mg 00:00: mg total) Hospita tablet 00 by mouth 2 l (two) times a day. amLODIPine 2019-0 Yes [id number] 10mg Q.5D Take 1 [facility] (NORVASC) 2-26 tablet (10 st 10 mg 00:00: mg total) Hospita tablet 00 by mouth 2 l (two) times a day. amLODIPine 0 Yes [id number] 10mg Q.5D Take 1 [facility] (NORVASC) 2-26 tablet (10 st 10 mg 00:00: mg total) Hospita tablet 00 by mouth 2 l (two) times a day. amLODIPine Yes [id number] 10mg Q.5D Take 1 [facility] (NORVASC) 2-26 tablet (10 st 10 mg 00:00: mg total) Hospita tablet 00 by mouth 2 l (two) times a day. omega-3 0 Yes [id number] 1g Q.25D TAKE 1 Me thodi acid ethyl 2-21 CAPSULE (1 st esters 00:00: G TOTAL) Hospita (LOVAZA) 1 00 BY MOUTH 4 l gram (FOUR) capsule TIMES A DAY. omega-3 0 Yes [id number] 1g Q.25D TAKE 1 Me thodi acid ethyl 2-21 CAPSULE (1 st esters 00:00: G TOTAL) Hospita (LOVAZA) 1 00 BY MOUTH 4 l gram (FOUR) capsule TIMES A DAY. omega-3 0 Yes [id number] 1g Q.25D TAKE 1 Me thodi acid ethyl 2-21 CAPSULE (1 st esters 00:00: G TOTAL) Hospita (LOVAZA) 1 00 BY MOUTH 4 l gram (FOUR) capsule TIMES A DAY. omega-3 0 Yes [id number] 1g Q.25D TAKE 1 Me thodi acid [...] tablet 00 by mouth l once daily. gabapentin 2018-0 Yes 100mg Q.[id number] Take 100 [facility] (NEURONTIN) 4-24 [id number] mg by s t 100 mg 08:22: 3D mouth 3 Hospita capsule 51 (three) l times a day. metoprolol 2018- Yes metoprolol M ethodi succinate 4-[address] XL 08:22: ER 50 mg Hospita (TOPROL-XL) 51 tablet,ext l 50 mg 24 hr ended tablet release 24 hr insulin 2017-0 Yes Tresiba Methodi degludec 4-[address] (TRESIBA 08:22: U-200 200 Hosp olga FLEXTOUCH 51 unit/mL (3 l U-200) 200 mL) unit/mL (3 subcutaneo mL) insulin us insulin pen pen ELVIS 0 Yes Elvis Methodi ASPIRIN 4-[address] ORAL 08:22: Hospita 51 l pen needle, 0 Yes BD Method i diabetic 32 4-[address] Ultra-[address] gauge x 08:22: [facility] 5/32" [address] [place] 32 l needle gauge x 5/32" omeprazole 2018-0 Yes omeprazole M ethodi (PriLOSEC) 4-[address] 40 MG 08:22: capsule,de Hospit a capsule 51 layed l release gabapentin 2018-0 Yes 100mg Q.[id number] Take 100 [facility] (NEURONTIN) 4-24 [id number] mg by s t 100 mg 08:22: [...] subcutaneo mL) insulin us insulin pen pen ELVIS Yes Elvis Methodi ASPIRIN 4-[address] ORAL 08:22: Hospita 51 l pen needle, 2018-0 Yes BD Method i diabetic 32 4-[address] Ultra-[address] gauge x 08:22: [facility] " [address] [place] 32 l needle gauge x " omeprazole Yes omeprazole M ethodi (PriLOSEC) 4-[address] 40 MG 08:22: capsule,de Hospit a capsule 51 layed l release gabapentin 0 Yes 100mg Q.[id number] Take 100 [facility] (NEURONTIN) 4-24 [id number] mg by s t 100 mg 08:22: [...] subcutaneo mL) insulin us insulin pen pen ELVIS Yes Elvis Methodi ASPIRIN 4-[address] ORAL 08:22: Hospita 51 l pen needle, Yes BD Method i diabetic 32 4-[address] Ultra[address] gauge x 08:22: [facility] " [address] [place] 32 l needle gauge x " omeprazole Yes omeprazole M ethodi (PriLOSEC) 4-[address] 40 MG 08:22: capsule,de Hospit a capsule 51 layed l release gabapentin 2017-0 Yes 100mg Q.[id number] Take 100 [facility] (NEURONTIN) 4-24 [id number] mg by s t 100 mg 08:22: [...] subcutaneo mL) insulin us insulin pen pen ELVIS Yes Elvis Methodi ASPIRIN 4-[address] ORAL 08:22: Hospita 51 l pen needle, Yes BD Method i diabetic 32 4-[address] Ultra[address] gauge x 08:22: [facility] " [address] [place] 32 l needle gauge x " omeprazole Yes omeprazole M ethodi (PriLOSEC) 4-[address] 40 MG 08:22: capsule,de Hospit a capsule 51 layed l release isosorbide Yes [id number] 30mg QD Take 1 M ethodi mononitrate 4-05 tablet (30 st (IMDUR) 30 00:00: mg total) Ho spita MG 24 hr 00 by mouth l tablet daily. isosorbide Yes [id number] 30mg QD Take 1 M ethodi mononitrate 4-05 tablet (30 st (IMDUR) 30 00:00: mg total) Ho spita MG 24 hr 00 by mouth l tablet daily. isosorbide Yes [id number] 30mg QD Take 1 M ethodi mononitrate 4-05 tablet (30 st (IMDUR) 30 00:00: mg total) Ho spita MG 24 hr 00 by mouth l tablet daily. isosorbide Yes [id number] 30mg QD Take 1 M ethodi mononitrate [...] TIMES A l DAY BEFORE MEALS repaglinide 2017-0 Yes TAKE 1 Meth steven (PRANDIN) 2 1-[address] MG tablet 00:00: MOUTH 3 Hospi ta 00 TIMES A l DAY BEFORE MEALS repaglinide 2017-0 Yes TAKE 1 Meth steven (PRANDIN) 2 1-[address] MG tablet 00:00: MOUTH 3 Hospi ta 00 TIMES A l DAY BEFORE MEALS hydrALAZINE 2016-0 Yes 25mg Q.5D Take 25 mg Methodi [...] tablet 00 times a l day. hydrALAZINE 2016-0 Yes 25mg Q.5D Take 25 mg Methodi [...] Name Observation Time Observation Value Comments Source WEIGHT 2023-05-22 11:30:00 82.3 kg WEIGHT 2023-05-22 07:56:00 83.8 kg WEIGHT 2023-05-22 06:05:00 83.825 kg WEIGHT 2023-05-20 05:45:00 82.781 kg WEIGHT 2023-05-19 06:00:00 82.419 kg WEIGHT 2023-05-18 20:33:00 85 kg WEIGHT 2023-05-17 18:00:00 85.503 kg WEIGHT 2023-05-17 06:00:00 89.223 kg WEIGHT 2023-05-16 06:00:00 86.456 kg HEIGHT 2023-05-15 07:32:00 172.7 cm WEIGHT 2023-05-15 07:32:00 89.54 kg WEIGHT 2023-05-14 06:00:00 90.4 kg WEIGHT 2023-05-13 18:32:00 91.4 kg WEIGHT 2023-05-22 11:30:00 82.3 kg WEIGHT 2023-05-22 07:56:00 83.8 kg WEIGHT 2023-05-22 06:05:00 83.825 kg WEIGHT 2023-05-20 05:45:00 82.781 kg WEIGHT 2023-05-19 06:00:00 82.419 kg WEIGHT 2023-05-18 20:33:00 85 kg WEIGHT 2023-05-17 18:00:00 85.503 kg WEIGHT 2023-05-17 06:00:00 89.223 kg WEIGHT 2023-05-16 06:00:00 86.456 kg HEIGHT 2023-05-15 07:32:00 172.7 cm WEIGHT 2023-05-15 07:32:00 89.54 kg WEIGHT 2023-05-14 06:00:00 90.4 kg WEIGHT 2023-05-13 18:32:00 91.4 kg HEIGHT 2023-05-03 05:37:21 172.7 cm WEIGHT 2023-05-03 05:37:21 89.7 kg HEIGHT 2023-05-03 05:37:21 172.7 cm WEIGHT 2023-05-03 05:37:21 89.7 kg Heart rate 2023-05-04 07:55:13 80 /min [facility] Body temperature 2023-05-04 07:55:13 36.72 Alma Rosa [facility] Respiratory rate 2023-05-04 07:55:13 20 /min [facility] Oxygen saturation in 2023-05-04 07:55:13 96 /min [facility] Arterial blood by Medical Ce ntmile Pulse oximetry Systolic blood 2023-05-04 07:53:45 156 mm[Hg] [facility] Diastolic blood 2023-05-04 07:53:45 77 mm[Hg] [facility] Body height 2023-05-03 05:37:21 172.7 cm [facility] Body weight 2023-05-03 05:37:21 89.7 kg [facility] BMI 2023-05-03 05:37:21 30.07 kg/m2 [facility] Procedures Procedure Date / Time Performed Performing Clinician [facility] e POCT-GLUCOSE METER 2023-05-03 22:38:00 [facility] POCT-GLUCOSE METER 2023-05-03 17:36:00 [facility] REPORT OF PROCEDURE - 2023-05-03 14:38:33 Kamilla Downey [facility] ENDOSCOPY [facility] ENDOSCOPY, UPPER GI 2023-05-03 14:02:00 Kamilla Downey [facility] TRACT, WITH BIOPSY Medical Cente r POCT-GLUCOSE METER 2023-05-03 12:53:00 [facility] ECHO W/ CONTRAST LIMITED 2023-05-03 11:20:00 Brandee Benson [facility] URINALYSIS W/ MICROSCOPIC 2023-05-03 05:49:00 Reina Schuster CH I [facility] POCT-GLUCOSE METER 2023-05-03 05:41:00 Candy Oliver [facility] B-TYPE NATRIURETIC FACTOR 2023-05-03 01:52:00 Reina Schuster CH I [facility] (BNP) [facility] CBC W/PLT COUNT & AUTO 2023-05-03 01:51:00 Reina Schuster [facility] S [facility] DIFFERENTIAL [facility] ABORH, MANUAL 2023-05-03 01:51:00 Christine Wan [facility] CBC W/PLT COUNT & AUTO 2023-05-03 01:51:00 Schuster, Reina [facility] S [facility] DIFFERENTIAL [facility] HIGH SENSITIVITY TROPONIN 2023-05-03 01:51:00 Schuster, Reina I [facility] BASIC METABOLIC PANEL 2023-05-03 01:51:00 Schuster, Reina [facility] HEMOGLOBIN A1C 2023-05-03 01:51:00 Schuster, Reina [facility] MAGNESIUM 2023-05-03 01:51:00 Schuster, Reina [facility] PHOSPHORUS 2023-05-03 01:51:00 Schuster, Reina [facility] ECG 12-LEAD 2023-05-02 21:03:16 Schuster, Reina [facility] ECG 12-LEAD 2023-05-02 21:03:16 Unknown, Hl7 Doctor [facility] XR CHEST 1 VIEW PORTABLE 2023-05-02 20:41:59 Schuster, Reina [facility] / BEDSIDE [facility] TYPE AND SCREEN, 2023-05-02 18:38:00 Candy Oliver [facility] CBC W/PLT COUNT & AUTO 2023-05-02 18:38:00 Candy Oliver CH I [facility] CBC W/PLT COUNT & AUTO 2023-05-02 18:38:00 Candy Oliver CH I [facility] COMPREHENSIVE METABOLIC 2023-05-02 18:38:00 Candy Oliver [facility] PROTHROMBIN TIME/INR 2023-05-02 18:38:00 Candy Oliver [facility] HIGH SENSITIVITY TROPONIN 2023-05-02 18:38:00 Candy Oliver [facility] B-TYPE NATRIURETIC FACTOR 2023-05-02 18:38:00 [facility] MAGNESIUM 2023-05-02 18:38:00 Candy Oliver [facility] POCT-GLUCOSE METER 2023-05-02 18:13:00 Eugene Sumner [facility] Plan of Care Planned Activity Planned Date Details Comments Source Future Scheduled 2024-05-02 Tobacco Cessation [facility] Test 00:00:00 Counseling and Medical Cente r Screening (12+) [code = Tobacco Cessation Counseling and Screening (12+)] Future Scheduled 2023-05-14 Screening for [facility] Test 05:52:22 malignant neoplasm of colon (procedure) [code = 632567408] Future Scheduled 2023-05-14 Screening for [facility] Test 05:52:22 malignant neoplasm of colon (procedure) [code = 932914443] Future Scheduled 2023-05-14 Screening for [facility] Test 05:52:22 malignant neoplasm of colon (procedure) [code = 352991406] Future Scheduled 2023-05-14 COVID-19 [facility]ACCINE (#[facility] 05:52:22 [code = COVID-19 VACCINE (#1)] Future Scheduled 2023-05-14 Screening for [facility] Test 05:52:22 malignant neoplasm of colon (procedure) [code = 096825797] Future Scheduled 2023-05-14 Scre[facility] for [facility] Test 05:52:22 malignant neoplasm of colon (procedure) [code = 017968820] Future Scheduled 2023-05-14 SHINGLES VACCINES (1 [facility] Test 05:52:22 of 2) [code = SHINGLES VACCINES (1 of 2)] Future Scheduled 2023-05-14 65+ [facility]OCOCCAL [facility] Test 05:52:22 VACCINE (1 - PCV) [code = 65+ PNEUMOCOCCAL VACCINE (1 - PCV)] Future Scheduled 2023-05-14 INFLUENZA VACCINE (#1) [facility] Test 05:52:22 [code = INFLUENZA VACCINE (#1)] Future Scheduled 2023-05-14 Influenza Vaccine (#1[facility] 00:[facility]00 [code = Influenza Medical Ce nter Vaccine (#1)] Future Scheduled 2023-05-08 Screening for [facility] Test 08:01:46 malignant neoplasm of colon (procedure) [code = 613481425] Future Scheduled 2023-05-08 [facility] Test 08:01:46 malignant neoplasm of colon (procedure) [code = 173997500] Future Scheduled 2023-05-08 [facility] Test 08:01:46 malignant neoplasm of colon (procedure) [code = 369885096] Future Scheduled 2023-05-08 [facility] 08:01:46 [code = COVID-19 VACCINE (#1)] Future Scheduled 2023-05-08 [facility] Test 08:01:46 malignant neoplasm of colon (procedure) [code = 566429053] Future Scheduled 2023-05-08 [facility] Test 08:01:46 malignant neoplasm of colon (procedure) [code = 727084517] Future Scheduled 2023-05-08 SHINGLES VACCINES (1 [facility] Test 08:01:46 of 2) [code = SHINGLES VACCINES (1 of 2)] Future Scheduled 2023-05-08 65+ PNEUMOCOCCAL [facility] Test 08:01:46 VACCINE (1 - PCV) [code = 65+ PNEUMOCOCCAL VACCINE (1 - PCV)] Future Scheduled 2023-05-08 INFLUENZA VACCINE (#1) [facility] Test 08:01:46 [code = INFLUENZA VACCINE (#1)] Future Scheduled 2023-05-[address] [facility] Test 00:00:00 [facility] (procedure) [code = 22021885] Future Scheduled 2023-04-14 Screening for [facility] Test 05:01:06 malignant neoplasm of colon (procedure) [code = 734064239] Future Scheduled 2023-04-14 Screening for [facility] Test 05:01:06 malignant neoplasm of colon (procedure) [code = 283330986] Future Scheduled 2023-04-14 [facility] Test 05:01:06 malignant neoplasm of colon (procedure) [code = 953373462] Future Scheduled 2023-04-14 COVID-19 VACCINE (#1) [facility] Test 05:01:06 [code = COVID-19 VACCINE (#1)] Future Scheduled 2023-04-14 [facility] Test 05:01:06 malignant neoplasm of colon (procedure) [code = 115454566] Future Scheduled 2023-04-14 [facility] Test 05:01:06 malignant neoplasm of colon (procedure) [code = 496358279] Future Scheduled 2023-04-14 SHINGLES VACCINES (1 [facility] Test 05:01:06 of 2) [code = SHINGLES VACCINES (1 of 2)] Future Scheduled 2023-04-14 65+ PNEUMOCOCCAL [facility] Test 05:01:06 VACCINE (1 - PCV) [code = 65+ PNEUMOCOCCAL VACCINE (1 - PCV)] Future Scheduled 2023-04-14 INFLUENZA VACCINE [facility] Hospital Test 05:01:06 [code = INFLUENZA VACCINE] Future Scheduled 2023-03-03 Screening for [facility] Test 05:18:26 malignant neoplasm of colon (procedure) [code = 220611334] Future Scheduled 2023-03-03 [facility]ening for [facility] Test 05:18:26 malignant neoplasm of colon (procedure) [code = 489079608] Future Scheduled 2023-03-03 [facility] Test 05:18:26 malignant neoplasm of colon (procedure) [code = 459838843] Future Scheduled 2023-03-03 COVID-19 VACCINE (#1) [facility] Test 05:18:26 [code = COVID-19 VACCINE (#1)] Future Scheduled 2023-03-03 [facility] Test 05:18:26 malignant neoplasm of colon (procedure) [code = 400885128] Future Scheduled 2023-03-03 [facility] Test 05:18:26 malignant neoplasm of colon (procedure) [code = 370572464] Future Scheduled 2023-03-03 SHINGLES VACCINES (1 [facility] Test 05:18:26 of 2) [code = SHINGLES VACCINES (1 of 2)] Future Scheduled 2023-03-03 65+ PNEUMOCOCCAL [facility] Test 05:18:26 VACCINE (1 - PCV) [...] screening Medical C enter (procedure) [code = 988313360] Future Scheduled 2000 SHINGLES VACCINES (1 [facility]I [...] 00:00:00 examination Medical Center (regime/therapy) [code = 083308305] Future Scheduled 1960 Urine screening [facility] Test 00:00:00 protein (procedure) Medical Center [code = 257952127] Future Scheduled [address] [facility] Test 00:00:00 (combo) [code = CT Medical C enter Colonography (combo)] Future Scheduled [address] [facility] Test 00:00:00 malignant neoplasm of Medica l Center colon (procedure) [code = 297029807] Future Scheduled [address] [facility] Test 00:00:00 malignant neoplasm of Medica l Center colon (procedure) [code = 786147142] Future Scheduled [address] [facility] Test 00:00:00 malignant neoplasm of Medica l Center colon (procedure) [code = 877485561] Future Scheduled [address] [facility] Test 00:00:00 malignant neoplasm of Medica l Center colon (procedure) [code = 629787685] Future Scheduled 1950 Sigmoidoscopy [code = [facility] Test [facility]oscopy] Medical Cente r Encounters Start End Encounter Admission Attending Care Care Encounter Source Date/Time Date/Time Type Type Clinicians Facility Department ID 2023-05-19 [id number] 16:12:38 [facility] 2023-05-18 [facility] [id number] [facility] ER BRANN, [facility] [id number] [facility] 09:20[facility] [id number] [facility] 09:18:06 [place] 2023-05-14 [facility] [id number] [facility] 12:17:40 [place] 2023-05-14 Inpatient ER ARIF, [facility] [id number] SLEH 09:38:05 2023-05-14 Inpatient ER DE LA PAZ, SLE SLE [id number] SLE[facility] 06:41:07 [place] 2023-05-14 Inpatient ER ARIF, SAHAR [facility] [id number] SLEH 00:00:00 2023-05-13 Inpatient ER ARIF, SAHAR [facility] SLE [id number] [facility]H 20:48:00 2023-05-03 Inpatient UR MAAG, SLE SLE [id number] [facility] 10:36:04 BRANDEE 2023-05-02 Inpatient UR TAISHA, SLE SLE [id number] [facility] 18:52:13 EUGENE 2023-05-13 2023-05-22 Inpatient ER LILIAM [facility] Cardiology [id number] SLE 16:35:00 12:54:00 NGOZI 2023-05-02 2023-05-05 Inpatient UR LILIAM [facility] Gastro [id number] SLE 18:09:00 17:07:00 NGOZI 2023-05-03 2023-05-03 Surgery Downey, [facility] [id number] 14:30:00 15:30:00 Kamilla Ali [facility] 2023-05-03 2023-05-03 Anesthesia Van, An [facility] [id number] 14:02:00 14:55:[address] [facility] 2023-05-02 2023-05-02 Orders [facility] [id number] 00:00:00 00:00:00 Only [facility] 2023-05-01 2023-05-01 Telephone Jenifer [facility] [id number] 00:00:00 00:00:00 Franc[facility]a [facility] 2023-03-23 2023-03-23 Outpatient JOSR [place], [facility] [id number] [facility] 05:43:00 05:43:[address] Results Test Description Test Time Test Comments Results Result Comments Source POCT-GLUCOSE METER 2023-05-22 11:39:51 Test Item Value Reference Range Interpretation Comme nts POC-GLUCOSE METER (BEAKER) 137 mg/dL 70-110 H : TESTED AT [facility] [address] (test code = 1538) NADER Jones [id number]: Medical And Health Services Manager/Techni lisandro ID = [id number] for Brielle Johnson COMPREHENSIVE METABOLIC [id number] 07:15:05 Test Item Value Reference Range Interpretation Comments TOTAL PROTEIN 6.1 gm/dL 6.0-8.3 Specimen sligh tly (BEAKER) (test hemolyzed code = 770) ALBUMIN (BEAKER) 3.2 g/dL 3.5-5.0 L Specimen sl ightly (test code = 1145) hemolyzed ALKALINE 81 U/L 40-150 PHOSPHATASE (BEAKER) (test code = 346) BILIRUBIN TOTAL 0.5 mg/dL 0.2-1.2 Specimen sli ghtly (BEAKER) (test hemolyzed code = 377) SODIUM (BEAKER) 131 meq/L 136-145 L (test code = 381) POTASSIUM (BEAKER) 4.5 meq/L 3.5-5.1 Specimen slightly (test code = 379) hemolyzed CHLORIDE (BEAKER) 97 meq/L 98-107 L (test code = 382) CO2 (BEAKER) (test 25 meq/L 22-29 code = 355) BLOOD UREA 41 mg/dL 7-21 H NITROGEN (BEAKER) (test code = 354) CREATININE 4.46 mg/dL 0.57-1.25 H Specimen slight ly (BEAKER) (test hemolyzed code = 358) GLUCOSE RANDOM 129 mg/dL 70-105 H (BEAKER) (test code = 652) CALCIUM (BEAKER) 8.9 mg/dL 8.4-10.2 (test code = 697) AST (SGOT) 24 U/L 5-34 Specimen slight ly (BEAKER) (test hemolyzed code = 353) ALT (SGPT) 14 U/L 6-55 Specimen slight ly (BEAKER) (test hemolyzed code = 347) EGFR (BEAKER) 13 Interpretatio n of eGFR (test code = [...] not appl icable for dialysis patien ts Medical And Health Services Manager ID - [id number] (HEMOGRAM ONLY)2023-05-22 06:46:58 Test Item Value Reference Range Interpretation Comments WHITE BLOOD CELL COUNT (BEAKER) 7.2 K/ L 3.5-10.5 (test code = 775) RED BLOOD CELL COUNT (BEAKER) 4.11 M/ L 4.63-6.08 L (test code = 761) HEMOGLOBIN (BEAKER) (test code = 10.8 GM/DL 13.7-17.5 L 410) HEMATOCRIT (BEAKER) (test code = 34.8 % 40.1-51.0 L 411) MEAN CORPUSCULAR VOLUME (BEAKER) 85 fL 79-92 (test code = 753) MEAN CORPUSCULAR HEMOGLOBIN 26.3 pg 25.7-32.2 (BEAKER) (test code = 751) MEAN CORPUSCULAR HEMOGLOBIN CONC 31.0 GM/DL 32.3-36.5 L (BEAKER) (test code = 752) RED CELL DISTRIBUTION WIDTH 16.5 % 11.6-14.4 H (BEAKER) (test code = 412) PLATELET COUNT (BEAKER) (test 252 K/CU MM 150-450 code = 756) MEAN PLATELET VOLUME (BEAKER) 9.0 fL 9.4-12.4 L (test code = 754) NUCLEATED RED BLOOD CELLS 0 /100 WBC 0-0 (BEAKER) (test code = 413) POCT-GLUCOSE [id number] 06:36:56 Test Item Value Reference Range Interpretation Comments POC-GLUCOSE METER 127 mg/dL 70-110 H : TESTED A T [facility] 6720 (BEAKER) (test code = [facility], 153) [address]: Medical And Health Services Manager/Techni lisandro ID = [id number] for Mercy Coatsta POCT-GLUCOSE [id number] 21:45:17 Test Item Value Reference Range Interpretation Comments POC-GLUCOSE METER 153 mg/dL 70-110 H : TESTED A T [facility] 6720 (BEAKER) (test code = [facility], 153) [id number]: Medical And Health Services Manager/Techni lisandro ID = [id number] for Wh avelina, Jeanita POCT-GLUCOSE [id number] 17:00:15 Test Item Value Reference Range Interpretation Comments POC-GLUCOSE METER 219 mg/dL 70-110 H : TESTED A T [facility] 6720 (BEAKER) (test code = [facility], 153) 267[address]: Medical And Health Services Manager/Techni lisandro ID = [id number] for Mc Fee, Sol POCT-GLUCOSE [id number] 13:32:02 Test Item Value Reference Range Interpretation Comments POC-GLUCOSE METER 361 mg/dL 70-110 H : TESTED A T [facility] 6720 (BEAKER) (test code = [place], 1538) [address]: Medical And Health Services Manager/Techni lisandro ID = [id number] for Ch ua, Grafe COMPREHENSIVE METABOLIC [id number] 07:55:07 Test Item Value Reference Range Interpretation Comments TOTAL PROTEIN 6.1 gm/dL 6.0-8.3 (BEAKER) (test code = 770) ALBUMIN (BEAKER) 3.2 g/dL 3.5-5.0 L (test code = 1145) ALKALINE 85 U/L 40-150 PHOSPHATASE (BEAKER) (test code = 346) BILIRUBIN TOTAL 0.5 mg/dL 0.2-1.2 (BEAKER) (test code = 377) SODIUM (BEAKER) 135 meq/L 136-145 L (test code = 381) POTASSIUM (BEAKER) 5.1 meq/L 3.5-5.1 (test code = 379) CHLORIDE (BEAKER) 101 meq/L 98-107 (test code = 382) CO2 (BEAKER) (test 25 meq/L 22-29 code = 355) BLOOD UREA 36 mg/dL 7-21 H NITROGEN (BEAKER) (test code = 354) CREATININE 4.19 mg/dL 0.57-1.25 H (BEAKER) (test code = 358) GLUCOSE RANDOM 152 mg/dL 70-105 H (BEAKER) (test code = 652) CALCIUM (BEAKER) 9.0 mg/dL 8.4-10.2 (test code = 697) AST (SGOT) 25 U/L 5-34 (BEAKER) (test code = 353) ALT (SGPT) 13 U/L 6-55 (BEAKER) (test code = 347) EGFR (BEAKER) 15 Interpretatio n of eGFR (test code = 1092) mL/min/1.[address] age Description sq m Result G1 Norm al or high >=90 G2 Mildly decreased 60-89 G3a Mildl y to moderately 45-5 9 G3b Moderately to s everely 30-44 G4 Severl y decreased 15-29 G5 Kidne y failure <15Reported eGF R is based on the CKD-EPI 2020 equation that d oes not use a race coefficientEsti mated GFR is not as accur ate as Creatinine Natasha chow in predicting glom erular filtration rate . Estimated GFR is not appl icable for dialysis patien ts Medical And Health Services Manager ID - [id number] 07:49:06 Test Item Value Reference Range Interpretation Comments MAGNESIUM (BEAKER) (test code = 2.4 mg/dL 1.6-2.6 627) Medical And Health Services Manager ID - EMPOCT-GLUCOSE [id number] 06:48:21 Test Item Value Reference Range Interpretation Comments POC-GLUCOSE METER 162 mg/dL 70-110 H : TESTED A T [facility] 6720 (BEAKER) (test code = [place], 1538) [address]: Medical And Health Services Manager/Techni lisandro ID = [id number] for John Coats CBC (HEMOGRAM ONLY)2023-05-21 06:25:23 Test Item Value Reference Range Interpretation Comments WHITE BLOOD CELL COUNT (BEAKER) 9.8 K/ L 3.5-10.5 (test code = 775) RED BLOOD CELL COUNT (BEAKER) 4.00 M/ L 4.63-6.08 L (test code = 761) HEMOGLOBIN (BEAKER) (test code = 10.4 GM/DL 13.7-17.5 L 410) HEMATOCRIT (BEAKER) (test code = 34.0 % 40.1-51.0 L 411) MEAN CORPUSCULAR VOLUME (BEAKER) 85 fL 79-92 (test code = 753) MEAN CORPUSCULAR HEMOGLOBIN 26.0 pg 25.7-32.2 (BEAKER) (test code = 751) MEAN CORPUSCULAR HEMOGLOBIN CONC 30.6 GM/DL 32.3-36.5 L (BEAKER) (test code = 752) RED CELL DISTRIBUTION WIDTH 16.6 % 11.6-14.4 H (BEAKER) (test code = 412) PLATELET COUNT (BEAKER) (test 255 K/CU MM 150-450 code = 756) MEAN PLATELET VOLUME (BEAKER) 9.2 fL 9.4-12.4 L (test code = 754) NUCLEATED RED BLOOD CELLS 0 /100 WBC 0-0 (BEAKER) (test code = 413) POCT-GLUCOSE [id number] 22:12:15 Test Item Value Reference Range Interpretation Comments POC-GLUCOSE METER 308 mg/dL 70-110 H : TESTED A T [facility] 6720 (BEAKER) (test code = JONAS Mckeon [facility], 1538) [address]: Medical And Health Services Manager/Techni lisandro ID = [id number] for John Coats POCT-GLUCOSE [id number] 18:13:08 Test Item Value Reference Range Interpretation Comments POC-GLUCOSE METER 192 mg/dL 70-110 H : TESTED A T [facility] 6720 (BEAKER) (test code = JONAS Mckeon [facility], 1538) [address]: Medical And Health Services Manager/Techni lisandro ID = [id number] for Radha Hernandez BASIC METABOLIC [id number] 17:48:40 Test Item Value Reference Range Interpretation Comments SODIUM (BEAKER) 139 meq/L 136-145 (test code = 381) POTASSIUM 3.4 meq/L 3.5-5.1 L (BEAKER) (test code = 379) CHLORIDE (BEAKER) 100 meq/L 98-107 (test code = 382) CO2 (BEAKER) 27 meq/L 22-29 (test code = 355) BLOOD UREA 18 mg/dL 7-21 NITROGEN (BEAKER) (test code = 354) CREATININE 1.83 mg/dL 0.57-1.25 H (BEAKER) (test code = 358) GLUCOSE RANDOM 136 mg/dL 70-105 H (BEAKER) (test code = 652) CALCIUM (BEAKER) 9.1 mg/dL 8.4-10.2 (test code = 697) EGFR (BEAKER) 39 Interpretatio n of eGFR (test code = mL/min/1.73 values Stage De scription 1092) sq m Result G1 Mercedez l or high >=90 G2 Mildly decreased 60-89 G3a Mildl y to moderately 45-5 9 G3b Moderately to s everely 30-44 G4 Severl y decreased 15-29 G5 Kidney failure <15Reported eGF R is based on the CKD-EPI 1 equation that d oes not use a race coefficientEsti mated GFR is not as accur ate as Creatinine Natasha claudine in predicting glom erular filtration rate . Estimated GFR is not appl icable for dialysis patien ts Medical And Health Services Manager ID - EMPOCT-GLUCOSE [id number] 12:41:12 Test Item Value Reference Range Interpretation Comments POC-GLUCOSE METER 294 mg/dL 70-110 H : TESTED A T [facility] 6720 (BEAKER) (test code = [place], 1538) [address]: Medical And Health Services Manager/Techni lisandro ID = [id number] for GERARDO BERTRAND COMPREHENSIVE METABOLIC [id number] 06:37:19 Test Item Value Reference Range Interpretation Comments TOTAL PROTEIN 6.0 gm/dL 6.0-8.3 (BEAKER) (test code = 770) ALBUMIN (BEAKER) 3.4 g/dL 3.5-5.0 L (test code = 1145) ALKALINE 88 U/L 40-150 PHOSPHATASE (BEAKER) (test code = 346) BILIRUBIN TOTAL 0.5 mg/dL 0.2-1.2 (BEAKER) (test code = 377) SODIUM (BEAKER) 134 meq/L 136-145 L (test code = 381) POTASSIUM (BEAKER) 4.5 meq/L 3.5-5.1 (test code = 379) CHLORIDE (BEAKER) 96 meq/L 98-107 L (test code = 382) CO2 (BEAKER) (test 25 meq/L 22-29 code = 355) BLOOD UREA 57 mg/dL 7-21 H NITROGEN (BEAKER) (test code = 354) CREATININE 4.93 mg/dL 0.57-1.25 H (BEAKER) (test code = 358) GLUCOSE RANDOM 187 mg/dL 70-105 H (BEAKER) (test code = 652) CALCIUM (BEAKER) 9.0 mg/dL 8.4-10.2 (test code = 697) AST (SGOT) 16 U/L 5-34 (BEAKER) (test code = 353) ALT (SGPT) 12 U/L 6-55 (BEAKER) (test code = 347) EGFR (BEAKER) 12 Interpretatio n of eGFR (test code = 1092) mL/min/1.73 values S tage Description sq m Result G1 Mercedez l or high >=90 G2 Mildly decreased 60-89 G3a Mildl y to moderately 45-5 9 G3b Moderately to s everely 30-44 G4 Severl y decreased 15-29 G5 Kidney failure <15Reported eGF R is based on the CKD-EPI 202 equation that d oes not use a race coefficientEsti mated GFR is not as accur ate as Creatinine Natasha chow in predicting glom erular filtration rate . Estimated GFR is not appl icable for dialysis patien steve Medical And Health Services Manager ID - EMCBC (HEMOGRAM ONLY)2023-05-20 06:14:30 Test Item Value Reference Range Interpretation Comments WHITE BLOOD CELL COUNT (BEAKER) 11.8 K/ L 3.5-10.5 H (test code = 775) RED BLOOD CELL COUNT (BEAKER) 4.37 M/ L 4.63-6.08 L (test code = 761) HEMOGLOBIN (BEAKER) (test code = 11.2 GM/DL 13.7-17.5 L 410) HEMATOCRIT (BEAKER) (test code = 36.5 % 40.1-51.0 L 411) MEAN CORPUSCULAR VOLUME (BEAKER) 84 fL 79-92 (test code = 753) MEAN CORPUSCULAR HEMOGLOBIN 25.6 pg 25.7-32.2 L (BEAKER) (test code = 751) MEAN CORPUSCULAR HEMOGLOBIN CONC 30.7 GM/DL 32.3-36.5 L (BEAKER) (test code = 752) RED CELL DISTRIBUTION WIDTH 16.3 % 11.6-14.4 H (BEAKER) (test code = 412) PLATELET COUNT (BEAKER) (test 306 K/CU MM 150-450 code = 756) MEAN PLATELET VOLUME (BEAKER) 9.0 fL 9.4-12.4 L (test code = 754) NUCLEATED RED BLOOD CELLS 0 /100 WBC 0-0 (BEAKER) (test code = 413) POCT-GLUCOSE [id number] 06:14:22 Test Item Value Reference Range Interpretation Comments POC-GLUCOSE METER 191 mg/dL 70-110 H : TESTED A T [facility] 6720 (BEAKER) (test code = JONAS Mckeon [facility], 1538) [id number]: Medical And Health Services Manager/Techni lisandro ID = [id number] for John Coats POCT-GLUCOSE [id number] 21:30:31 Test Item Value Reference Range Interpretation Comments POC-GLUCOSE METER 223 mg/dL 70-110 H : TESTED A T [facility] 6720 (BEAKER) (test code = [place], 1538) [address]: Medical And Health Services Manager/Techni lisandro ID = [id number] for John Coats HEPATITIS B [id number] 19:27:00 Test Item Value Reference Range Interpretation Comments HEPATITIS B CORE TOTAL ANTIBODY Nonreactive Nonreactive (BEAKER) (test code = 497) HEPATITIS B SURFACE ANTIBODY < mIU/mL <8.0 (BEAKER) (test code = 647) HEPATITIS B SURFACE ANTIGEN (2) Nonreactive Nonreactive (BEAKER) (test code = 2585) Medical And Health Services Manager ID - ADMINBASIC METABOLIC [id number] 19:06:11 Test Item Value Reference Range Interpretation Comments SODIUM (BEAKER) 131 meq/L 136-145 L (test code = 381) POTASSIUM 4.7 meq/L 3.5-5.1 Specimen slight ly (BEAKER) (test hemolyzed code = 379) CHLORIDE (BEAKER) 93 meq/L 98-107 L (test code = 382) CO2 (BEAKER) 24 meq/L 22-29 (test code = 355) BLOOD UREA 50 mg/dL 7-21 H NITROGEN (BEAKER) (test code = 354) CREATININE 4.55 mg/dL 0.57-1.25 H Specimen slight ly (BEAKER) (test hemolyzed code = 358) GLUCOSE RANDOM 244 mg/dL 70-105 H (BEAKER) (test code = 652) CALCIUM (BEAKER) 8.8 mg/dL 8.4-10.2 (test code = 697) EGFR (BEAKER) 13 Interpretatio n of eGFR (test code = mL/min/1.73 values Stage De scription 1092) sq m Result G1 Mercedez l or high >=90 G2 Mildly decreased 60-89 G3a Mildl y to moderately 45-5 9 G3b Moderately to s everely 30-44 G4 Severl y decreased 15-29 G5 Kidney failure <15Reported eGF R is based on the CKD-EPI 1 equation that d oes not use a race coefficientEsti mated GFR is not as accur ate as Creatinine Natasha claudine in predicting glom erular filtration rate . Estimated GFR is not appl icable for dialysis patien ts Medical And Health Services Manager ID - ADMINPOCT-GLUCOSE [id number] 16:54:18 Test Item Value Reference Range Interpretation Comments POC-GLUCOSE METER 312 mg/dL 70-110 H : Notified RN/MD: (ADEEL) (test code = TESTED AT [facility] 67[address] 1538) [facility], [address]: Medical And Health Services Manager/Techni lisandro ID = [id number] for Saritha Grantia POCT-GLUCOSE [id number] 12:10:19 Test Item Value Reference Range Interpretation Comments POC-GLUCOSE METER 207 mg/dL 70-110 H : TESTED A T [facility] 6720 [facility] ([facility], 1538) [address]: Medical And Health Services Manager/Techni lisandro ID = [id number] for Saritha Grantia POCT-GLUCOSE [id number] 06:43:31 Test Item Value Reference Range Interpretation Comments POC-GLUCOSE METER 202 mg/dL 70-110 H : Notified RN/MD: (ADEEL) (test code = TESTED AT [facility] 67[address] 1538) [facility], [address]: Medical And Health Services Manager/Techni lisandro ID = [id number] for Tammy Paiz [id number] 05:49:06 Test Item Value Reference Range Interpretation Comments MAGNESIUM (BEAKER) (test code = 2.6 mg/dL 1.6-2.6 627) Medical And Health Services Manager ID - EMCOMPREHENSIVE METABOLIC [id number] 05:13:52 Test Item Value Reference Range Interpretation Comments TOTAL PROTEIN 6.3 gm/dL 6.0-8.3 (BEAKER) (test code = 770) ALBUMIN (BEAKER) 3.3 g/dL 3.5-5.0 L (test code = 1145) ALKALINE 89 U/L 40-150 PHOSPHATASE (BEAKER) (test code = 346) BILIRUBIN TOTAL 0.5 mg/dL 0.2-1.2 (BEAKER) (test code = 377) SODIUM (BEAKER) 134 meq/L 136-145 L (test code = 381) POTASSIUM (BEAKER) 4.2 meq/L 3.5-5.1 (test code = 379) CHLORIDE (BEAKER) 93 meq/L 98-107 L (test code = 382) CO2 (BEAKER) (test 26 meq/L 22-29 code = 355) BLOOD UREA 69 mg/dL 7-21 H NITROGEN (BEAKER) (test code = 354) CREATININE 4.88 mg/dL 0.57-1.25 H (BEAKER) (test code = 358) GLUCOSE RANDOM 168 mg/dL 70-105 H (BEAKER) (test code = 652) CALCIUM (BEAKER) 9.2 mg/dL 8.4-10.2 (test code = 697) AST (SGOT) 20 U/L 5-34 (BEAKER) (test code = 353) ALT (SGPT) 16 U/L 6-55 (BEAKER) (test code = 347) EGFR (BEAKER) 12 Interpretatio n of eGFR (test code = [...] not appl icable for dialysis patien ts Medical And Health Services Manager ID - EMCBC (HEMOGRAM ONLY)2023-05-19 04:47:21 Test Item Value Reference Range Interpretation Comments WHITE BLOOD CELL COUNT (BEAKER) 10.3 K/ L 3.5-10.5 (test code = 775) RED BLOOD CELL COUNT (BEAKER) 4.26 M/ L 4.63-6.08 L (test code = 761) HEMOGLOBIN (BEAKER) (test code = 11.1 GM/DL 13.7-17.5 L 410) HEMATOCRIT (BEAKER) (test code = 34.3 % 40.1-51.0 L 411) MEAN CORPUSCULAR VOLUME (BEAKER) 81 fL 79-92 (test code = 753) MEAN CORPUSCULAR HEMOGLOBIN 26.1 pg 25.7-32.2 (BEAKER) (test code = 751) MEAN CORPUSCULAR HEMOGLOBIN CONC 32.4 GM/DL 32.3-36.5 (BEAKER) (test code = 752) RED CELL DISTRIBUTION WIDTH 15.8 % 11.6-14.4 H (BEAKER) (test code = 412) PLATELET COUNT (BEAKER) (test 347 K/CU MM 150-450 code = 756) MEAN PLATELET VOLUME (BEAKER) 8.8 fL 9.4-12.4 L (test code = 754) NUCLEATED RED BLOOD CELLS 0 /100 WBC 0-0 (BEAKER) (test code = 413) POCT-GLUCOSE [id number] 21:49:14 Test Item Value Reference Range Interpretation Comments POC-GLUCOSE METER 218 mg/dL 70-110 H : Notified RN/MD: (BEAKER) (test code = TESTED AT [facility] 38[address] 4091) [facility], [address]: Medical And Health Services Manager/Techni lisandro ID = [id number] for Tammy Paiz HEPATITIS B SURFACE [id number] 18:29:46 Test Item Value Reference Range Interpretation Comments HEPATITIS B SURFACE ANTIGEN (2) Nonreactive Nonreactive (BEAKER) (test code = 2585) Specimen is considered negative for HBsAg.BASIC METABOLIC [id number] 18:10:19 Test Item Value Reference Range Interpretation Comments SODIUM (BEAKER) 128 meq/L 136-145 L (test code = 381) POTASSIUM 5.1 meq/L 3.5-5.1 (BEAKER) (test code = 379) CHLORIDE (BEAKER) 86 meq/L 98-107 L (test code = 382) CO2 (BEAKER) 27 meq/L 22-29 (test code = 355) BLOOD UREA 102 mg/dL 7-21 H NITROGEN (BEAKER) (test code = 354) CREATININE 6.11 mg/dL 0.57-1.25 H (BEAKER) (test code = 358) GLUCOSE RANDOM 335 mg/dL 70-105 H (BEAKER) (test code = 652) CALCIUM (BEAKER) 9.2 mg/dL 8.4-10.2 (test code = 697) EGFR (BEAKER) 9 Interpretatio n of eGFR (test code = mL/min/1.73 values Stage D escription 1092) sq m Result G1 Mercedze l or high >=90 G2 Mildly decreased [...] not appl icable for dialysis patien ts Medical And Health Services Manager ID - adminPOCT-GLUCOSE [id number] 17:03:46 Test Item Value Reference Range Interpretation Comments POC-GLUCOSE METER 312 mg/dL 70-110 H : Notified RN/MD: (ADEEL) (test code = TESTED AT [facility] 6720 1538) [place], [address]: Medical And Health Services Manager/Techni lisandro ID = [id number] for Giulia Grant IR TUNNELED CATHETER [id number] 16:30:14 [facility] : 1950 Sex: MTunneled dialysis catheter insertion. History: Renal failure. Modality: Sonography and fluoroscopy. Sedation: Moderate sedation was administered. 1 mg of Versed and 50 mcgof fentanyl IV was used for moderate sedation monitored under mydirection. Total intra-service time of sedation was 20 minutes. Thepatient's vital signs were monitored throughout the procedure andrecorded in the patient's medical record by the nurse.Practice Advisor: Yolie DicksonQuality Process Lead: Omer Blanca M.D. (fellow). Approach: Right internal jugular vein Estimated blood loss: < 5 cc.Specimen: None. Fluoroscopy Time: Due to equipment malfunction, a fluoroscopic time wasnot providedDose (linda Nolan): Due to equipment malfunction, a fluoroscopic dose was notprovidedTechnique: Informed written consent was obtained. Discussion of risks,benefits, and alternatives were made with the patient. The patientexpressed understanding and agreed to proceed. All elements maximalsterile barrier technique was utilized for this procedure, includin gutilization of sterile scrub solution for skin prep, a large sterilesheet to cover the areas of thepatient that were not prepped, and handhygiene, mask, head covering, and sterile gown for performingradiologist and scrub technologist. The skin was anesthetized with 2% lidocaine.Ultrasound evaluationshoweda patent and compressible right internal jugular vein, which waspunctured under direct real-time ultrasound guidance with amicropuncture needle. An ultrasound image was saved to PACS. A 0.018 inch wire was placed through the needle into the right atrium. A4 Korean micropuncture sheath was placedand a 0.035 wire was advancedinto the IVC. A subcutaneous tunnel was created in the right anteriorche st wall by blunt dissection. A 19 cm tip to cuff 15.5 FrenchDuraflow 2 catheter was brought through the tunnel. The vessel tract wasserially dilated. A peel- away sheath was placed in the right IJ vein andthe catheter was advanced through the sheath, with its distal tipterminating in the superior rightatrium. The peel-away sheath wasremoved. The ports were flushed and aspirated easily followingplacement. The catheter was sutured to the skin to secure itsplacement. The small jugular incision site wasclosed using Dermabond.Vital signs were monitored throughout the procedure by a nurse, jamaica stein. The patient tolerated the procedure well and left thedepartment in the same condition. Results: Spot radiograph of the chest demonstrates the new dialysiscatheter to lie in the expected positionwith its tip overlying thesuperior right atrium. IMPRESSION:Impression: Successful, uncomplicated placement of a right internal jugular tunneleddialysis catheter using sonographic and fluoroscopic guidance andconscious sedation. Electronically Signed By: Dhaval Dickson MD05/18/2023 16:32 CDTWorkstation Name: [id number] 15:52:49 Test Item Value Reference Range Interpretation Comments POC-GLUCOSE METER 190 mg/dL 70-110 H : TESTED A T [facility] 6720 (BEALVAREZ) (test code = [place], 1538) [address]: Medical And Health Services Manager/Techni lisandro ID = [id number] for Giulia Grant COMPREHENSIVE METABOLIC [id number] 09:04:19 Test Item Value Reference Range Interpretation Comments TOTAL PROTEIN 6.1 gm/dL 6.0-8.3 (BEAKER) (test code = 770) ALBUMIN (BEAKER) 3.9 g/dL 3.5-5.0 (test code = 1145) ALKALINE 83 U/L 40-150 PHOSPHATASE (BEAKER) (test code = 346) BILIRUBIN TOTAL 0.5 mg/dL 0.2-1.2 (BEAKER) (test code = 377) SODIUM (BEAKER) 133 meq/L 136-145 L (test code = 381) POTASSIUM (BEAKER) 3.6 meq/L 3.5-5.1 (test code = 379) CHLORIDE (BEAKER) 90 meq/L 98-107 L (test code = 382) CO2 (BEAKER) (test 29 meq/L 22-29 code = 355) BLOOD UREA 94 mg/dL 7-21 H NITROGEN (BEAKER) (test code = 354) CREATININE 5.21 mg/dL 0.57-1.25 H (BEAKER) (test code = 358) GLUCOSE RANDOM 137 mg/dL 70-105 H (BEAKER) (test code = 652) CALCIUM (BEAKER) 8.7 mg/dL 8.4-10.2 (test code = 697) AST (SGOT) 16 U/L 5-34 (BEAKER) (test code = 353) ALT (SGPT) 17 U/L 6-55 (BEAKER) (test code = 347) EGFR (BEAKER) 11 Interpretatio n of eGFR (test code = 1092) mL/min/1.[address] age Description sq m Result G1 Mercedez l or high >=90 G2 Mildly decreased 60-89 G3a Mildl y to moderately 45-5 9 G3b Moderately to s everely 30-44 G4 Severl y decreased 15-29 G5 Kidney failure <15Reported eGF R is based on the CKD-EPI 2021 equation that d oes not use a race coefficientEsti mated GFR is not as accur ate as Creatinine Natasha claudine in predicting glom erular filtration rate . Estimated GFR is not appl icable for dialysis patien ts [id number] 08:53:12 Test Item Value Reference Range Interpretation Comments MAGNESIUM (BEAKER) (test code = 2.6 mg/dL 1.6-2.6 627) PROTHROMBIN TIME/[id number] 06:15:39 Test Item Value Reference Range Interpretation Comments PROTIME (BEAKER) 15.3 seconds 11.9-14.2 H (test code = 759) INR (BEAKER) (test 1.29 See_Comment [Automat ed message] code = 370) The system [employer] generated this result transmitted ref erence range: <=5.90. The reference range was not used to int erpret this result as normal/abnormal . RECOMMENDED COUMADIN/WARFARIN INR THERAPY RANGESSTANDARD DOSE: 2.0 - 3.0 Includes: PROPHYLAXIS for venous thrombosis, systemic embolization; TREATMENT for venous thrombosis and/or pulmonary embolus.HIGH RISK: Target INR is 2.5-3.5 for patients with mechanical heart valves.CBC (HEMOGRAM ONLY)2023-05-18 06:05:58 Test Item Value Reference Range Interpretation Comments WHITE BLOOD CELL COUNT (BEAKER) 7.6 K/ L 3.5-10.5 (test code = 775) RED BLOOD CELL COUNT (BEAKER) 3.89 M/ L 4.63-6.08 L (test code = 761) HEMOGLOBIN (BEAKER) (test code = 10.0 GM/DL 13.7-17.5 L 410) HEMATOCRIT (BEAKER) (test code = 31.1 % 40.1-51.0 L 411) MEAN CORPUSCULAR VOLUME (BEAKER) 80 fL 79-92 (test code = 753) MEAN CORPUSCULAR HEMOGLOBIN 25.7 pg 25.7-32.2 (BEAKER) (test code = 751) MEAN CORPUSCULAR HEMOGLOBIN CONC 32.2 GM/DL 32.3-36.5 L (BEAKER) (test code = 752) RED CELL DISTRIBUTION WIDTH 15.4 % 11.6-14.4 H (BEAKER) (test code = 412) PLATELET COUNT (BEAKER) (test 348 K/CU MM 150-450 code = 756) MEAN PLATELET VOLUME (BEAKER) 8.9 fL 9.4-12.4 L (test code = 754) NUCLEATED RED BLOOD CELLS 0 /100 WBC 0-0 (BEAKER) (test code = 413) POCT-GLUCOSE [id number] 21:37:55 Test Item Value Reference Range Interpretation Comments POC-GLUCOSE METER 179 mg/dL 70-110 H : TESTED A T [facility] 6720 (BEAKER) (test code = JONAS Mckeon [place], [address]) [id number]: [facility] Manager/Techni lisandro ID = [id number] for Tammy Paiz BASIC METABOLIC [id number] 19:09:43 Test Item Value Reference Range Interpretation Comments SODIUM (BEAKER) 129 meq/L 136-145 L (test code = 381) POTASSIUM 4.2 meq/L 3.5-5.1 Specimen slight ly (BEAKER) (test hemolyzed code = 379) CHLORIDE (BEAKER) 88 meq/L 98-107 L (test code = 382) CO2 (BEAKER) 29 meq/L 22-29 (test code = 355) BLOOD UREA 100 mg/dL 7-21 H NITROGEN (BEAKER) (test code = 354) CREATININE 5.71 mg/dL 0.57-1.25 H Specimen slight ly (BEAKER) (test hemolyzed code = 358) GLUCOSE RANDOM 169 mg/dL 70-105 H (BEAKER) (test code = 652) CALCIUM (BEAKER) 9.1 mg/dL 8.4-10.2 (test code = 697) EGFR (BEAKER) 10 Interpretatio n of eGFR (test code = mL/min/1.73 values Stage De scription 1092) sq m Result G1 Mercedez l or high >=90 G2 Mildly decreased 60-89 G3a Mildl y to moderately 45-5 9 G3b Moderately to s everely 30-44 G4 Severl y decreased 15-29 G5 Kidney failure <15Reported eGF R is based on the CKD-EPI 1 equation that d oes not use a race coefficientEsti mated GFR is not as accur ate as Creatinine Natasha chow in predicting glom erular filtration rate . Estimated GFR is not appl icable for dialysis patien ts Medical And Health Services Manager ID - MARCOPOCT-GLUCOSE [id number] 17:19:49 Test Item Value Reference Range Interpretation Comments POC-GLUCOSE METER 130 mg/dL 70-110 H : TESTED A T [facility] 6720 (BEAKER) (test code = JONAS Mckeon DOE [place], 1538) [address]: Medical And Health Services Manager/Techni lisandro ID = [id number] for Carolyn pedraza Alfredito POCT-GLUCOSE [id number] 12:31:35 Test Item Value Reference Range Interpretation Comments POC-GLUCOSE METER 318 mg/dL 70-110 H : TESTED A T [facility] 6720 (BEAKER) (test code = JONAS DOE [place], 1538) [address]: Medical And Health Services Manager/Techni lisandro ID = [id number] for Alfredito Shelby COMPREHENSIVE METABOLIC [id number] 06:19:06 Test Item Value Reference Range Interpretation Comments TOTAL PROTEIN 5.9 gm/dL 6.0-8.3 L (BEAKER) (test code = 770) ALBUMIN (BEAKER) 3.1 g/dL 3.5-5.0 L (test code = 1145) ALKALINE 74 U/L 40-150 PHOSPHATASE (BEAKER) (test code = 346) BILIRUBIN TOTAL 0.6 mg/dL 0.2-1.2 (BEAKER) (test code = 377) SODIUM (BEAKER) 129 meq/L 136-145 L (test code = 381) POTASSIUM (BEAKER) 3.5 meq/L 3.5-5.1 (test code = 379) CHLORIDE (BEAKER) 88 meq/L 98-107 L (test code = 382) CO2 (BEAKER) (test 25 meq/L 22-29 code = 355) BLOOD UREA 99 mg/dL 7-21 H NITROGEN (BEAKER) (test code = 354) CREATININE 5.53 mg/dL 0.57-1.25 H (BEAKER) (test code = 358) GLUCOSE RANDOM 160 mg/dL 70-105 H (BEAKER) (test code = 652) CALCIUM (BEAKER) 8.6 mg/dL 8.4-10.2 (test code = 697) AST (SGOT) 16 U/L 5-34 (BEAKER) (test code = 353) ALT (SGPT) 18 U/L 6-55 (BEAKER) (test code = 347) EGFR (BEAKER) 10 Interpretatio n of eGFR (test code = 1092) mL/min/1.73 values S tage Description sq m Result G1 Mercedez l [...] not appl icable for dialysis patien ts Medical And Health Services Manager ID - [id number] 06:18:11 Test Item Value Reference Range Interpretation Comments MAGNESIUM (BEAKER) (test code = 2.3 mg/dL 1.6-2.6 627) Medical And Health Services Manager ID - ADMINCBC (HEMOGRAM ONLY)2023-05-17 05:18:15 Test Item Value Reference Range Interpretation Comments WHITE BLOOD CELL COUNT (BEAKER) 7.8 K/ L 3.5-10.5 (test code = 775) RED BLOOD CELL COUNT (BEAKER) 3.67 M/ L 4.63-6.08 L (test code = 761) HEMOGLOBIN (BEAKER) (test code = 9.7 GM/DL 13.7-17.5 L 410) HEMATOCRIT (BEAKER) (test code = 29.4 % 40.1-51.0 L 411) MEAN CORPUSCULAR VOLUME (BEAKER) 80 fL 79-92 (test code = 753) MEAN CORPUSCULAR HEMOGLOBIN 26.4 pg 25.7-32.2 (BEAKER) (test code = 751) MEAN CORPUSCULAR HEMOGLOBIN CONC 33.0 GM/DL 32.3-36.5 (BEAKER) (test code = 752) RED CELL DISTRIBUTION WIDTH 15.4 % 11.6-14.4 H (BEAKER) (test code = 412) PLATELET COUNT (BEAKER) (test 386 K/CU MM 150-450 code = 756) MEAN PLATELET VOLUME (BEAKER) 9.4 fL 9.4-12.4 (test code = 754) NUCLEATED RED BLOOD CELLS 0 /100 WBC 0-0 (BEAKER) (test code = 413) POCT-GLUCOSE [id number] 21:00:28 Test Item Value Reference Range Interpretation Comments POC-GLUCOSE METER 230 mg/dL 70-110 H : Notified RN/MD: (BEAKER) (test code = TESTED AT [facility] 9635 0411) [facility], [address]: Medical And Health Services Manager/Techni lisandro ID = [id number] for IzabelTammy morejon BASIC METABOLIC [id number] 18:19:08 Test Item Value Reference Range Interpretation Comments SODIUM (BEAKER) 129 meq/L 136-145 L (test code = 381) POTASSIUM 3.5 meq/L 3.5-5.1 (BEAKER) (test code = 379) CHLORIDE (BEAKER) 89 meq/L 98-107 L (test code = 382) CO2 (BEAKER) 24 meq/L 22-29 (test code = 355) BLOOD UREA 98 mg/dL 7-21 H NITROGEN (BEAKER) (test code = 354) CREATININE 5.74 mg/dL 0.57-1.25 H (BEAKER) (test code = 358) GLUCOSE RANDOM 215 mg/dL 70-105 H (BEAKER) (test code = 652) CALCIUM (BEAKER) 8.8 mg/dL 8.4-10.2 (test code = 697) EGFR (BEAKER) 10 Interpretatio n of eGFR (test code = [...] not appl icable for dialysis patien ts Medical And Health Services Manager ID - ADMINPOCT-GLUCOSE [id number] 16:46:31 Test Item Value Reference Range Interpretation Comments POC-GLUCOSE METER 207 mg/dL 70-110 H : TESTED A T [facility] 6720 (ADEEL) (test code = JONAS Mckeon [facility], 1538) [address]: Medical And Health Services Manager/Techni lisandro ID = [id number] for Grant, [place] POCT-GLUCOSE [id number] 11:32:58 Test Item Value Reference Range Interpretation Comments POC-GLUCOSE METER 252 mg/dL 70-110 H : Notified RN/MD: [facility] (test code = TESTED AT [facility] 6720 1538) JAYSON [facility], [address]: Medical And Health Services Manager/Techni lisandro ID = [id number] for Grant, Giulia POCT-GLUCOSE [id number] 06:41:16 Test Item Value Reference Range Interpretation Comments POC-GLUCOSE METER 182 mg/dL 70-110 H : TESTED A T [facility] 6720 (BEAKER) (test code = JONAS DOE [place], 1538) [address]: Medical And Health Services Manager/Techni lisandro ID = [id number] for PETE MCCRACKEN COMPREHENSIVE METABOLIC [id number] 06:37:52 Test Item Value Reference Range Interpretation Comments TOTAL PROTEIN 6.0 gm/dL 6.0-8.3 (BEAKER) (test code = 770) ALBUMIN (BEAKER) 3.2 g/dL 3.5-5.0 L (test code = 1145) ALKALINE 82 U/L 40-150 PHOSPHATASE (BEAKER) (test code = 346) BILIRUBIN TOTAL 0.7 mg/dL 0.2-1.2 (BEAKER) (test code = 377) SODIUM (BEAKER) 131 meq/L 136-145 L (test code = 381) POTASSIUM (BEAKER) 3.5 meq/L 3.5-5.1 (test code = 379) CHLORIDE (BEAKER) 91 meq/L 98-107 L (test code = 382) CO2 (BEAKER) (test 24 meq/L 22-29 code = 355) BLOOD UREA 96 mg/dL 7-21 H NITROGEN (BEAKER) (test code = 354) CREATININE 5.69 mg/dL 0.57-1.25 H (BEAKER) (test code = 358) GLUCOSE RANDOM 166 mg/dL 70-105 H (BEAKER) (test code = 652) CALCIUM (BEAKER) 9.2 mg/dL 8.4-10.2 (test code = 697) AST (SGOT) 21 U/L 5-34 (BEAKER) (test code = 353) ALT (SGPT) 23 U/L 6-55 (BEAKER) (test code = 347) EGFR (BEAKER) 10 Interpretatio n of eGFR (test code = [...] not appl icable for dialysis patien ts Medical And Health Services Manager ID - TAMEKA WCBC (HEMOGRAM ONLY)2023-05-16 05:45:47 Test Item Value Reference Range Interpretation Comments WHITE BLOOD CELL COUNT (BEAKER) 7.8 K/ L 3.5-10.5 (test code = 775) RED BLOOD CELL COUNT (BEAKER) 3.54 M/ L 4.63-6.08 L (test code = 761) HEMOGLOBIN (BEAKER) (test code = 9.4 GM/DL 13.7-17.5 L 410) HEMATOCRIT (BEAKER) (test code = 28.6 % 40.1-51.0 L 411) MEAN CORPUSCULAR VOLUME (BEAKER) 81 fL 79-92 (test code = 753) MEAN CORPUSCULAR HEMOGLOBIN 26.6 pg 25.7-32.2 (BEAKER) (test code = 751) MEAN CORPUSCULAR HEMOGLOBIN CONC 32.9 GM/DL 32.3-36.5 (BEAKER) (test code = 752) RED CELL DISTRIBUTION WIDTH 15.2 % 11.6-14.4 H (BEAKER) (test code = 412) PLATELET COUNT (BEAKER) (test 416 K/CU MM 150-450 code = 756) MEAN PLATELET VOLUME (BEAKER) 9.3 fL 9.4-12.4 L (test code = 754) NUCLEATED RED BLOOD CELLS 0 /100 WBC 0-0 (BEAKER) (test code = 413) POCT-GLUCOSE [id number] 21:39:36 Test Item Value Reference Range Interpretation Comments POC-GLUCOSE METER 184 mg/dL 70-110 H : TESTED A T [facility] 6720 (BEAKER) (test code = JONAS DOE [place], 1538) [address]: Medical And Health Services Manager/Techni lisandro ID = [id number] for LAURA TALBERT PETE BASIC METABOLIC [id number] 17:56:30 Test Item Value Reference Range Interpretation Comments SODIUM (BEAKER) 128 meq/L 136-145 L (test code = 381) POTASSIUM 3.2 meq/L 3.5-5.1 L (BEAKER) (test code = 379) CHLORIDE (BEAKER) 90 meq/L 98-107 L (test code = 382) CO2 (BEAKER) 21 meq/L 22-29 L (test code = 355) BLOOD UREA 96 mg/dL 7-21 H NITROGEN (BEAKER) (test code = 354) CREATININE 5.60 mg/dL 0.57-1.25 H (BEAKER) (test code = 358) GLUCOSE RANDOM 186 mg/dL 70-105 H (BEAKER) (test code = 652) CALCIUM (BEAKER) 8.7 mg/dL 8.4-10.2 (test code = 697) EGFR (BEAKER) 10 Interpretatio n of eGFR (test code = [...] not appl icable for dialysis patien ts Medical And Health Services Manager ID - ADMINPOCT-GLUCOSE [id number] 16:46:20 Test Item Value Reference Range Interpretation Comments POC-GLUCOSE METER 194 mg/dL 70-110 H : TESTED A T [facility] 6720 (SnoopWallAKER) ([facility] = [facility], 1538) [address]: Medical And Health Services Manager/Techni lisandro ID = [id number] for Grant, Giulia POCT-GLUCOSE [id number] 11:56:15 Test Item Value Reference Range Interpretation Comments POC-GLUCOSE METER 202 mg/dL 70-110 H : TESTED A T [facility] 6720 (BEAKER) (test code = [facility] Linda [facility], 1538) [address]: Medical And Health Services Manager/Techni lisandro ID = [id number] for Grant, [place] POCT-GLUCOSE [id number] 07:36:10 Test Item Value Reference Range Interpretation Comments POC-GLUCOSE METER 168 mg/dL 70-110 H : TESTED A T [facility] 6720 (BEAKER) (test code = JONAS DOE [place], 1538) [address]: Medical And Health Services Manager/Techni lisandro ID = [id number] for Giulia Grant COMPREHENSIVE METABOLIC [id number] 06:42:11 Test Item Value Reference Range Interpretation Comments TOTAL PROTEIN 5.8 gm/dL 6.0-8.3 L (BEAKER) (test code = 770) ALBUMIN (BEAKER) 3.1 g/dL 3.5-5.0 L (test code = 1145) ALKALINE 81 U/L 40-150 PHOSPHATASE (BEAKER) (test code = 346) BILIRUBIN TOTAL 0.8 mg/dL 0.2-1.2 (BEAKER) (test code = 377) SODIUM (BEAKER) 130 meq/L 136-145 L (test code = 381) POTASSIUM (BEAKER) 3.4 meq/L 3.5-5.1 L (test code = 379) CHLORIDE (BEAKER) 93 meq/L 98-107 L (test code = 382) CO2 (BEAKER) (test 22 meq/L 22-29 code = 355) BLOOD UREA 94 mg/dL 7-21 H NITROGEN (BEAKER) (test code = 354) CREATININE 5.51 mg/dL 0.57-1.25 H (BEAKER) (test code = 358) GLUCOSE RANDOM 174 mg/dL 70-105 H (BEAKER) (test code = 652) CALCIUM (BEAKER) 9.0 mg/dL 8.4-10.2 (test code = 697) AST (SGOT) 18 U/L 5-34 (BEAKER) (test code = 353) ALT (SGPT) 23 U/L 6-55 (BEAKER) (test code = 347) EGFR (BEAKER) 10 Interpretatio n of eGFR (test code = [...] not appl icable for dialysis patien ts Medical And Health Services Manager ID - ADMINCBC (HEMOGRAM ONLY)2023-05-15 06:05:19 Test Item Value Reference Range Interpretation Comments WHITE BLOOD CELL COUNT (BEAKER) 8.1 K/ L 3.5-10.5 (test code = 775) RED BLOOD CELL COUNT (BEAKER) 3.41 M/ L 4.63-6.08 L (test code = 761) HEMOGLOBIN (BEAKER) (test code = 9.1 GM/DL 13.7-17.5 L 410) HEMATOCRIT (BEAKER) (test code = 27.6 % 40.1-51.0 L 411) MEAN CORPUSCULAR VOLUME (BEAKER) 81 fL 79-92 (test code = 753) MEAN CORPUSCULAR HEMOGLOBIN 26.7 pg 25.7-32.2 (BEAKER) (test code = 751) MEAN CORPUSCULAR HEMOGLOBIN CONC 33.0 GM/DL 32.3-36.5 (BEAKER) (test code = 752) RED CELL DISTRIBUTION WIDTH 15.6 % 11.6-14.4 H (BEAKER) (test code = 412) PLATELET COUNT (BEAKER) (test 389 K/CU MM 150-450 code = 756) MEAN PLATELET VOLUME (BEAKER) 9.5 fL 9.4-12.4 (test code = 754) NUCLEATED RED BLOOD CELLS 0 /100 WBC 0-0 (BEAKER) (test code = 413) POCT-GLUCOSE [id number] 21:52:24 Test Item Value Reference Range Interpretation Comments POC-GLUCOSE METER 198 mg/dL 70-110 H : TESTED A T [facility] 6720 (BEAKER) (test code = JONAS DOE [place], 1538) [address]: Medical And Health Services Manager/Techni lisandro ID = [id number] for LAURA BARRIOSITALO PETE BASIC METABOLIC [id number] 17:43:23 Test Item Value Reference Range Interpretation Comments SODIUM (BEAKER) 126 meq/L 136-145 L (test code = 381) POTASSIUM 3.8 meq/L 3.5-5.1 (BEAKER) (test code = 379) CHLORIDE (BEAKER) 92 meq/L 98-107 L (test code = 382) CO2 (BEAKER) 20 meq/L 22-29 L (test code = 355) BLOOD UREA 88 mg/dL 7-21 H NITROGEN (BEAKER) (test code = 354) CREATININE 5.55 mg/dL 0.57-1.25 H (BEAKER) (test code = 358) GLUCOSE RANDOM 234 mg/dL 70-105 H (BEAKER) (test code = 652) CALCIUM (BEAKER) 8.5 mg/dL 8.4-10.2 (test code = 697) EGFR (BEAKER) 10 Interpretatio n of eGFR (test code = [...] not appl icable for dialysis patien ts Medical And Health Services Manager ID - ADMINPOCT-GLUCOSE [id number] 16:51:26 Test Item Value Reference Range Interpretation Comments POC-GLUCOSE METER 218 mg/dL 70-110 H : TESTED A T [facility] 6720 (ADEEL) (test code = JONAS Mckeon [facility], 1538) [address]: Medical And Health Services Manager/Techni lisandro ID = [id number] for Sol Fofana XR RIBS 2 VIEWS MIN UNILATERAL [id number] 16:47:28 [facility] HERBER : 1950 Sex: MLeft rib series with PA chest:HISTORY: Pain after fallingNo acute rib fracture is identified. There is no pneumothorax or pleuraleffusion. The frontal view of the chest shows no acute cardiopulmonaryabnormality.IMPRESSION:Negative left rib series.Electronically Signed By: Guanako Morgan05/14/2023 16:49 CDTWorkstation Name: [id number] 12:10:00 Test Item Value Reference Range Interpretation Comments POC-GLUCOSE METER 201 mg/dL 70-110 H : TESTED A T [facility] 6720 (BEAKER) (test code = JONAS DOE [place], 1538) [address]: Medical And Health Services Manager/Techni lisandro ID = [id number] for Nazia Sol COMPREHENSIVE METABOLIC [id number] 10:52:10 Test Item Value Reference Range Interpretation Comments TOTAL PROTEIN 5.8 gm/dL 6.0-8.3 L Specimen sligh tly (BEAKER) (test hemolyzed code = 770) ALBUMIN (BEAKER) 3.1 g/dL 3.5-5.0 L Specimen sl ightly (test code = 1145) hemolyzed ALKALINE 81 U/L 40-150 PHOSPHATASE (BEAKER) (test code = 346) BILIRUBIN TOTAL 1.3 mg/dL 0.2-1.2 H Specimen sli ghtly (BEAKER) (test hemolyzed code = 377) SODIUM (BEAKER) 129 meq/L 136-145 L (test code = 381) POTASSIUM (BEAKER) 3.8 meq/L 3.5-5.1 Specimen slightly (test code = 379) hemolyzed CHLORIDE (BEAKER) 95 meq/L 98-107 L (test code = 382) CO2 (BEAKER) (test 19 meq/L 22-29 L code = 355) BLOOD UREA 85 mg/dL 7-21 H NITROGEN (BEAKER) (test code = 354) CREATININE 5.20 mg/dL 0.57-1.25 H Specimen slight ly (BEAKER) (test hemolyzed code = 358) GLUCOSE RANDOM 188 mg/dL 70-105 H (BEAKER) (test code = 652) CALCIUM (BEAKER) 8.5 mg/dL 8.4-10.2 (test code = 697) AST (SGOT) 24 U/L 5-34 Specimen slight ly (BEAKER) (test hemolyzed code = 353) ALT (SGPT) 26 U/L 6-55 Specimen slight ly (BEAKER) (test hemolyzed code = 347) EGFR (BEAKER) 11 Interpretatio n of eGFR (test code = [...] not appl icable for dialysis patien ts Medical And Health Services Manager ID - ADMINB-TYPE NATRIURETIC FACTOR (BNP)2023-05-14 10:50:47 Test Item Value Reference Range Interpretation Comments B-TYPE NATRIURETIC PEPTIDE 1993 pg/mL 0-100 H (BEAKER) (test code = 700) Medical And Health Services Manager ID - [id number] 10:45:27 Test Item Value Reference Range Interpretation Comments MAGNESIUM (BEAKER) 2.3 mg/dL 1.6-2.6 Specimen slightly (test code = 627) hemolyzed Medical And Health Services Manager ID - [id number] 10:45:27 Test Item Value Reference Range Interpretation Comments PHOSPHORUS (BEAKER) 5.0 mg/dL 2.3-4.7 H Specimen slightly (test code = 604) hemolyzed Medical And Health Services Manager ID - ADMINCBC (HEMOGRAM ONLY)2023-05-14 10:20:59 Test Item Value Reference Range Interpretation Comments WHITE BLOOD CELL COUNT (BEAKER) 10.1 K/ L 3.5-10.5 (test code = 775) RED BLOOD CELL COUNT (BEAKER) 3.55 M/ L 4.63-6.08 L (test code = 761) HEMOGLOBIN (BEAKER) (test code = 9.4 GM/DL 13.7-17.5 L 410) HEMATOCRIT (BEAKER) (test code = 29.4 % 40.1-51.0 L 411) MEAN CORPUSCULAR VOLUME (BEAKER) 83 fL 79-92 (test code = 753) MEAN CORPUSCULAR HEMOGLOBIN 26.5 pg 25.7-32.2 (BEAKER) (test code = 751) MEAN CORPUSCULAR HEMOGLOBIN CONC 32.0 GM/DL 32.3-36.5 L (BEAKER) (test code = 752) RED CELL DISTRIBUTION WIDTH 15.3 % 11.6-14.4 H (BEAKER) (test code = 412) PLATELET COUNT (BEAKER) (test 368 K/CU MM 150-450 code = 756) MEAN PLATELET VOLUME (BEAKER) 9.7 fL 9.4-12.4 (test code = 754) NUCLEATED RED BLOOD CELLS 0 /100 WBC 0-0 (BEAKER) (test code = 413) POCT-GLUCOSE [id number] 06:48:06 Test Item Value Reference Range Interpretation Comments POC-GLUCOSE METER 189 mg/dL 70-110 H : TESTED A T [facility] 6720 (BEAKER) (test code = JONAS DOE [place], 1538) [address]: Medical And Health Services Manager/Techni lisandro ID = [id number] for UG PETE TALBERT URINALYSIS W/ REFLEX URINE [id number] 02:52:23 Test Item Value Reference Range Interpretation Comments COLOR (BEAKER) (test code = 470) Light Yellow CLARITY (BEAKER) (test code = Hazy 469) SPECIFIC GRAVITY UA (BEAKER) 1.014 1.001-1.035 (test code = 468) PH UA (BEAKER) (test code = 467) 5.5 5.0-8.0 PROTEIN UA (BEAKER) (test code = 50 mg/dL Negative A 464) GLUCOSE UA (BEAKER) (test code = Negative Negative 365) KETONES UA (BEAKER) (test code = Negative Negative 371) BILIRUBIN UA (BEAKER) (test code Negative Negative = 462) BLOOD UA (BEAKER) (test code = Negative Negative 461) NITRITE UA (BEAKER) (test code = Negative Negative 465) LEUKOCYTE ESTERASE UA (BEAKER) Negative Negative (test code = 466) UROBILINOGEN UA (BEAKER) (test 0.2 0.2-1.0 code = 463) RBC UA (BEAKER) (test code = 1 /HPF 519) WBC UA (BEAKER) (test code = 2 /HPF 520) MUCUS (BEAKER) (test code = Rare 1574) HYALINE CASTS (BEAKER) (test 15 /LPF code = 514) SOURCE(BEAKER) (test code = 2795) Medical And Health Services Manager ID - [auto]Medical And Health Services Manager ID - Silke RENAL [id number] 02:44:17 [facility] : 1950 Sex: MTECHNIQUE: Grayscale ultrasound of the kidneys and bladder with Dopplerand spectral analysis.INDICATION:Elevated Cr.COMPARISON: None.FINDINGS:RIGHT KIDNEY: The right kidney is 7.2 x 3.4 x 3.9 cm. Corticalthicknessis 0.8 cm. No solid mass lesions. No hydronephrosis. Renal artery andvein are patent.LEFT KIDNEY: The left kidney is 12.6 x 5.4 x 4.6 cm. Cortical thicknessis 1.2 cm. No solid mass lesions. Nohydronephrosis. Renal artery andvein are patent.BLADDER: Unremarkable.IMPRESSION:No hydronephrosis.The right kidney is atrophic.Electronically Signed By: Prashant Elder05/14/2023 02:46 CDTWorkstation Name: [id number], RANDOM [id number] 02:02:34 Test Item Value Reference Range Interpretation Comments SODIUM URINE (BEAKER) (test code = < meq/L 243) Reference Range: No NormalsOperator ID - ADMINCREATININE, RANDOM [id number] 02:00:43 Test Item Value Reference Range Interpretation Comments CREATININE URINE (BEAKER) (test 145.6 mg/dL code = 375) Reference Range: No NormalsOperator ID - ADMINHIGH SENSITIVITY TROPONIN I 2023-05-13 23:31:33 Test Item Value Reference Range Interpretation Comments HIGH SENSITIVITY 413 pg/ml See_Comment H [Automated message] TROPONIN I (test code The sy stem which = [id number]) generated this result transmitted ref erence range: <=35. Th e reference range was not used to int erpret this result as normal/abnormal . Medical And Health Services Manager ID - ADMINThe OR RN STAT High Sensitivity Troponin-I results should be used in conjunction with other diagnostic information such as ECG, clinical observations and information, and patientsymptoms to aid in the diagnosis of NH. CBC (HEMOGRAM ONLY)2023-05-13 23:11:13 Test Item Value Reference Range Interpretation Comments WHITE BLOOD CELL COUNT (BEAKER) 9.5 K/ L 3.5-10.5 (test code = 775) RED BLOOD CELL COUNT (BEAKER) 2.45 M/ L 4.63-6.08 L (test code = 761) HEMOGLOBIN (BEAKER) (test code = 6.7 GM/DL 13.7-17.5 L 410) HEMATOCRIT (BEAKER) (test code = 20.5 % 40.1-51.0 L 411) MEAN CORPUSCULAR VOLUME (BEAKER) 84 fL 79-92 (test code = 753) MEAN CORPUSCULAR HEMOGLOBIN 27.3 pg 25.7-32.2 (BEAKER) (test code = 751) MEAN CORPUSCULAR HEMOGLOBIN CONC 32.7 GM/DL 32.3-36.5 (BEAKER) (test code = 752) RED CELL DISTRIBUTION WIDTH 15.1 % 11.6-14.4 H (BEAKER) (test code = 412) PLATELET COUNT (BEAKER) (test 353 K/CU MM 150-450 code = 756) MEAN PLATELET VOLUME (BEAKER) 9.9 fL 9.4-12.4 (test code = 754) NUCLEATED RED BLOOD CELLS 0 /100 WBC 0-0 (BEAKER) (test code = 413) POCT-GLUCOSE [id number] 21:17:43 Test Item Value Reference Range Interpretation Comments POC-GLUCOSE METER 285 mg/dL 70-110 H : TESTED A T [facility] 6720 (BEAKER) (test code = JONAS DOE [place], 1538) [address]: Medical And Health Services Manager/Techni lisandro ID = [id number] for PETE MCCRACKEN CREATINE KINASE (CK)2023-05-13 18:43:14 Test Item Value Reference Range Interpretation Comments CREATINE KINASE TOTAL (BEAKER) (test 111 U/L 29-200 code = 380) Medical And Health Services Manager ID - ADMINPOCT-GLUCOSE [id number] 18:21:25 Test Item Value Reference Range Interpretation Comments POC-GLUCOSE METER 172 mg/dL 70-110 H : TESTED A T [facility] 6720 (BEAKER) (test code = JONAS DOE [place], 1538) [id number]: Medical And Health Services Manager/Techni lisandro ID = [id number] for Jaime Roca HIGH SENSITIVITY TROPONIN [id number] 18:10:00 Test Item Value Reference Range Interpretation Comments HIGH SENSITIVITY 629 pg/ml See_Comment HH [Automated message] TROPONIN I (test code The sy stem which = [id number]) generated this result transmitted ref erence range: <=35. Th e reference range was not used to int erpret this result as normal/abnormal . Medical And Health Services Manager ID - ADMINThe OR RN STAT High Sensitivity Troponin-I results should be used in conjunction with other diagnostic information such as ECG, clinical observations and information, and patientsymptoms to aid in the diagnosis of NH. COMPREHENSIVE METABOLIC [id number] 18:08:47 Test Item Value Reference Range Interpretation Comments TOTAL PROTEIN 5.6 gm/dL 6.0-8.3 L (BEAKER) (test code = 770) ALBUMIN (BEAKER) 3.0 g/dL 3.5-5.0 L (test code = 1145) ALKALINE 72 U/L 40-150 PHOSPHATASE (BEAKER) (test code = 346) BILIRUBIN TOTAL 0.7 mg/dL 0.2-1.2 (BEAKER) (test code = 377) SODIUM (BEAKER) 128 meq/L 136-145 L (test code = 381) POTASSIUM (BEAKER) 3.7 meq/L 3.5-5.1 (test code = 379) CHLORIDE (BEAKER) 95 meq/L 98-107 L (test code = 382) CO2 (BEAKER) (test 21 meq/L 22-29 L code = 355) BLOOD UREA 86 mg/dL 7-21 H NITROGEN (BEAKER) (test code = 354) CREATININE 5.10 mg/dL 0.57-1.25 H (BEAKER) (test code = 358) GLUCOSE RANDOM 160 mg/dL 70-105 H (BEAKER) (test code = 652) CALCIUM (BEAKER) 8.5 mg/dL 8.4-10.2 (test code = 697) AST (SGOT) 26 U/L 5-34 (BEAKER) (test code = 353) ALT (SGPT) 23 U/L 6-55 (BEAKER) (test code = 347) EGFR (BEAKER) 11 Interpretatio n of eGFR (test code = [...] not appl icable for dialysis patien ts Medical And Health Services Manager ID - ADMINCBC (HEMOGRAM ONLY)2023-05-13 17:46:18 Test Item Value Reference Range Interpretation Comments WHITE BLOOD CELL COUNT (BEAKER) 11.1 K/ L 3.5-10.5 H (test code = 775) RED BLOOD CELL COUNT (BEAKER) 2.71 M/ L 4.63-6.08 L (test code = 761) HEMOGLOBIN (BEAKER) (test code = 7.5 GM/DL 13.7-17.5 L 410) HEMATOCRIT (BEAKER) (test code = 22.1 % 40.1-51.0 L 411) MEAN CORPUSCULAR VOLUME (BEAKER) 82 fL 79-92 (test code = 753) MEAN CORPUSCULAR HEMOGLOBIN 27.7 pg 25.7-32.2 (BEAKER) (test code = 751) MEAN CORPUSCULAR HEMOGLOBIN CONC 33.9 GM/DL 32.3-36.5 (BEAKER) (test code = 752) RED CELL DISTRIBUTION WIDTH 15.1 % 11.6-14.4 H (BEAKER) (test code = 412) PLATELET COUNT (BEAKER) (test 387 K/CU MM 150-450 code = 756) MEAN PLATELET VOLUME (BEAKER) 9.3 fL 9.4-12.4 L (test code = 754) NUCLEATED RED BLOOD CELLS 0 /100 WBC 0-0 (BEAKER) (test code = 413) POCT-GLUCOSE [id number] 11:45:12 Test Item Value Reference Range Interpretation Comments POC-GLUCOSE METER 208 mg/dL 70-110 H : TESTED A T [facility] 6720 (BEAKER) (test [facility] = [facility], 1538) [id number]: Medical And Health Services Manager/Techni lisandro ID = [id number] for Mu nguia, Jackie POCT-GLUCOSE [id number] 07:44:27 Test Item Value Reference Range Interpretation Comments POC-GLUCOSE METER 130 mg/dL 70-110 H : TESTED A T [facility] 6720 (BEAKER) (test code = [facility] Linda [facility], 1538) [address]: Medical And Health Services Manager/Techni lisandro ID = [id number] for Mu nguia, Jackie BASIC METABOLIC [id number] 05:18:27 Test Item Value Reference Range Interpretation [...] eGF R is based on the CKD-EPI 202 equation that d oes not use a race coefficientEsti mated GFR is not as accur ate as Creatinine Natasha claudine in predicting glom erular filtration rate . Estimated GFR is not appl icable for dialysis patien ts Medical And Health Services Manager ID - EMCBC W/PLT COUNT & AUTO [id number] 04:39:04 Test Item Value Reference Range Interpretation [...] PERCENT (BEAKER) (test code = 2801) POCT-GLUCOSE [id number] 20:35:48 Test Item Value Reference Range Interpretation Comments POC-GLUCOSE METER 147 mg/dL 70-110 H : TESTED A T [facility] 6720 (BEAKER) (test code = [facility], 1538) 994[address]: Medical And Health Services Manager/Techni lisandro ID = [id number] for An Denisse tucker OSMOLALITY, [id number] 18:49:14 Test Item Value Reference Range Interpretation Comments OSMOLALITY URINE 400 mOsm/kg See_Comment [Automated message] (BEAKER) (test code = The stem which 614) generated this result transmitted ref erence range: 50-1,200 mOsm/kg. The reference range was not used to int erpret this result as normal/abnormal . POCT-GLUCOSE [id number] 15:43:13 Test Item Value Reference Range Interpretation Comments POC-GLUCOSE METER 129 mg/dL 70-110 H : TESTED A T [facility] 6720 (BEAKER) (test code = [facility], 1538) 927[address]: Medical And Health Services Manager/Techni lisandro ID = [id number] for Pr imas (contrac), Samu el PROTEIN, RANDOM [id number] 15:37:22 Test Item Value Reference Range Interpretation Comments PROTEIN, URINE (BEAKER) (test code = 72 mg/dL 0-14 H 1569) Medical And Health Services Manager ID - ADMINSODIUM, RANDOM [id number] 15:37:22 Test Item Value Reference Range Interpretation Comments SODIUM URINE (BEAKER) (test code = 35 meq/L 243) Reference Range: No NormalsOperator ID - ADMINCHLORIDE, RANDOM [id number] 15:37:21 Test Item Value Reference Range Interpretation Comments CHLORIDE URINE (BEAKER) (test code = 42 meq/L 20330 682) Reference Range: No NormalsOperator ID - ADMINCREATININE, RANDOM [id number] 15:37:21 Test Item Value Reference Range Interpretation Comments CREATININE URINE (BEAKER) (test 80.7 mg/dL code = 375) Reference Range: No NormalsOperator ID - ADMINTISSUE [id number] 13:47:19 Surgical Pathology Report Case: [id number] Authorizing Provider: Kamilla Downey MD Collected: 05/03/2023 02:28 PM Ordering Location: [address] Received: 05/03/2023 04:23 PM Service Pathologist: Megan Dumont MD Specimen: Biopsy, Gastric, gastric biopsy r/o H PYLORI GASTRIC, RANDOM BIOPSY- Gastric antrum and oxyntic type mucosa with reactive gastropathy-Negative for intestinal metaplasia, dysplasia or H. pylori-like organisms Signing Pathologist Direct Phone Line: [phone] signed by Megan Dumont MD on 05/04/2023 at 1:47 PMEndoscopy report [id number] hemorrhageA. Biopsy, GastricReceived in formalin labeled with the patient's name, medical record numberand "gastric biopsy" are 2 damon-yellow soft tissue fragments ranging in size from 0.3-0.4 cm, which are submitted in toto in A1.[facility], [facility] of [facility]ology, [address] [place] [address], [facility], Department of Pathology, [address] [place] [address], [facility], Department of Pathology, [address] [place] [address], UUYE-GLUCOSE [id number] 11:16:58 Test Item Value Reference Range Interpretation Comments POC-GLUCOSE METER 237 mg/dL 70-110 H : TESTED A T [facility] 6720 (BEAKER) (test code = JONAS Mckeon [facility], 1538) 71142: Medical And Health Services Manager/Techni lisandro ID = [id number] for Pr imas (contrac), Ronaldogema santacruz [id number] 10:22:15 Test Item Value Reference Range Interpretation Comments FERRITIN (BEAKER) (test code = 78.61 ng/mL 5.00-275.00 361) Medical And Health Services Manager ID Diana ENGLISH WBASIC METABOLIC [id number] 10:16:14 Test Item Value Reference Range Interpretation [...] high >=90 G2 Mildly decreased 60-89 G3a Mild ly to moderately 45-5 9 G3b Moderately to [...] not appl icable for dialysis patien ts Medical And Health Services Manager ID Diana ENGLISH WIRON, TIBC, % SAT. (WITHOUT FERRITIN)2023-05-04 10:05:54 Test Item Value Reference Range Interpretation Comments IRON (BEAKER) (test code = 547) 19.0 ug/dL 40.0-160.0 L TOTAL IRON BINDING CAPACITY 301 ug/dL 250-450 (BEAKER) (test code = 769) IRON % SATURATION (2) (BEAKER) 6 % 20-55 L (test code = 2590) Medical And Health Services Manager ID Diana ENGLISH WPOCT-GLUCOSE [id number] 08:06:05 Test Item Value Reference Range Interpretation Comments POC-GLUCOSE METER 115 mg/dL 70-110 H : TESTED A T [facility] 6720 (BEAKER) (test code = [facility], 153) 32973: Medical And Health Services Manager/Techni lisandro ID = [id number] for Gio mcclain (contrac)Ruddy POC-Glucose [id number] 22:50:18 Test Item Value Reference Range Interpretation Comments POC-Glucose Meter (test 255 mg/dL 70-110 H : TE STED AT [facility] code = 1538) [address] [facility], 770 30: Medical And Health Services Manager/Techni lisandro ID = [id number] for Nik Willis el Lab Interpretation (test Abnormal code = 20673-0) [facility] [id number] 22:50:18 Test Item Value Reference Range Interpretation Comments POC-GLUCOSE METER 255 mg/dL 70-110 H : TESTED A T [facility] 6720 (BEAKER) (test code = [facility], 153) 58907: Medical And Health Services Manager/Techni lisandro ID = [id number] for Alex Patel POCT-GLUCOSE [id number] 17:47:56 Test Item Value Reference Range Interpretation Comments POC-GLUCOSE METER 156 mg/dL 70-110 H : TESTED A T [facility] 6720 (BEAKER) (test code = [facility], 153) 96888: Medical And Health Services Manager/Techni lisandro ID = [id number] for Mu nguia, Jackie POCT-GLUCOSE [id number] 13:05:04 Test Item Value Reference Range Interpretation Comments POC-GLUCOSE METER 119 mg/dL 70-110 H : [facility] ([facility] (test code = [facility], 153) 18823: Medical And Health Services Manager/Techni lisandro ID = [id number] for Mu nguia, Jackie XR CHEST 1 VIEW PORTABLE / [id number] 10:46:31 [facility] 1950 Sex: MINDICATION: CHF exacerbationCOMPARISON: NoneTECHNIQUE: Single frontal view of the chest.FINDINGS: Lines,tubes, and devices: None.Lungs and pleura: Clear lungs. No pneumothorax.Heart and mediastinum: Normal heart size. Unremarkable mediastinalcontours.Osseous structures: No acute abnormality.Other: None.IM PRESSION:No acute intrathoracic abnormality.Electronically Signed By: Marcus Stevenson05/03/2023 10:48 CDTWorkstation Name: [id number] 07:43:14 Test Item Value Reference Range Interpretation [...] 5.7- 6.4% indicates increased risk for diabetes (prediabetes)."Medical And Health Services Manager ID - [id number] ID - ADMUrinalysis w/Sqkgfwspyqj0758-12-82 06:23:56 Test Item Value Reference Range Interpretation Comments Color, UA (test code Light Yellow = 5778-6) Clarity, UA (test Clear code = 5767-9) Specific Gar[place], UA 1.014 1.001-1.035 (test code = 5811-5) pH, UA (test code = 6.0 5.0-8.0 5803-2) Protein, UA (test 70 mg/dL Negative A code = 92958-1) Glucose, UA (test Negative Negative code = 365) Ketones, UA (test Negative Negative code = 2514-8) Bilirubin, UA (test Negative Negative code = 76799-1) Blood, UA (test code Negative Negative = 74530-7) Nitrite, UA (test Negative Negative code = 5802-4) Leukocytes, UA (test Negative Negative code = 5799-2) Urobilinogen, UA 0.2 0.2-1.0 (test code = 08314-6) RBC, UA (test code = 0 See_Comment [Autom ated 14165-3) message] The system which generated this result transmit jo reference range : /HPF. The reference range was not used to interpret this result as normal/abnormal . WBC, UA (test code = 1 See_Comment [Autom ated 5821-4) message] The system which generated this result transmit jo reference range : /HPF. The reference range was not used to interpret this result as normal/abnormal . Bacteria, UA (test Rare code = 29832-8) Squam Epithel, UA See_Comment [Automate d (test code = 17201-4) messag e] The system which generated this result transmit jo reference range : /HPF. The reference range was not used to interpret this result as normal/abnormal . Hyaline Casts, UA 2 See_Comment [Automate d (test code = 20707-6) messag e] The system which generated this result transmit jo reference range : /LPF. The reference range was not used to interpret this result as normal/abnormal . Specimen Source (test Urine, Voided code = 2795) ROMINA (test code = ROMINA) Medical And Health Services Manager ID - [auto]Medical And Health Services Manager ID - tech Lab Interpretation Abnormal (test code = 29273-6) [facility]/ [id number] 06:23:56 Test Item Value Reference Range Interpretation [...] 514) SOURCE(BEAKER) (test code = Urine, Voided 6985) Medical And Health Services Manager ID - [auto]Medical And Health Services Manager ID - techPOCT-GLUCOSE [id number] 06:09:19 Test Item Value Reference Range Interpretation Comments POC-GLUCOSE METER 100 mg/dL 70-110 : TESTED A T [facility] 6720 (BEAKER) (test code = [facility] [place], 1538) [address]: Medical And Health Services Manager/Techni lisandro ID = [id number] for MELINDA GUADARRAMA HIGH SENSITIVITY TROPONIN [id number] 02:44:53 Test Item Value Reference Range Interpretation Comments HIGH SENSITIVITY 884 pg/ml See_Comment HH [Automated message] TROPONIN I (test code The stem which = 4213683) generated this result transmitted ref erence range: <=35. Th e reference range was not used to int erpret this result as normal/abnormal . Medical And Health Services Manager ID - ADMINThe OR RN STAT High Sensitivity Troponin-I results should be used in conjunction with other diagnostic information such as ECG, clinical observations and information, and patientsymptoms to aid in the diagnosis of NH. B-TYPE NATRIURETIC FACTOR (BNP)2023-05-03 02:33:51 Test Item Value Reference Range Interpretation Comments B-TYPE NATRIURETIC PEPTIDE (BEAKER) 666 pg/mL 0-100 H (test code = 700) Medical And Health Services Manager ID - ADMINBASIC METABOLIC [id number] 02:29:29 Test Item Value Reference Range Interpretation [...] not appl icable for dialysis patien ts Medical And Health Services Manager ID - [id number] 02:26:12 Test Item Value Reference Range Interpretation Comments PHOSPHORUS (BEAKER) (test code = 4.3 mg/dL 2.3-4.7 604) Medical And Health Services Manager ID - [id number] 02:26:11 Test Item Value Reference Range Interpretation Comments MAGNESIUM (BEAKER) (test code = 1.9 mg/dL 1.6-2.6 627) Medical And Health Services Manager ID - ADMINCBC W/PLT COUNT & AUTO [id number] 02:06:08 Test Item Value Reference Range Interpretation [...] (test code = 2801) HIGH SENSITIVITY TROPONIN [id number] 19:13:16 Test Item Value Reference Range Interpretation Comments HIGH SENSITIVITY 1240 pg/ml See_Comment HH [Automated message] TROPONIN I (test code The sy stem which = 6890769) generated this result transmitted ref erence range: <=35. Th e reference range was not used to int erpret this result as normal/abnormal . Medical And Health Services Manager ID - JSThe OR RN STAT High Sensitivity Troponin-I results should be used in conjunctionwith other diagnostic information such as ECG, clinical observations and information, and patient symptoms to aid in the diagnosis of NH.COMPREHENSIVE METABOLIC [id number] 19:08:55 Test Item Value Reference Range Interpretation [...] not appl icable for dialysis patien ts Medical And Health Services Manager ID - JSB-TYPE NATRIURETIC FACTOR (BNP)2023-05-02 19:08:50 Test Item Value Reference Range Interpretation Comments B-TYPE NATRIURETIC PEPTIDE (BEAKER) 722 pg/mL 0-100 H (test code = 700) Medical And Health Services Manager ID - [id number] 19:06:53 Test Item Value Reference Range Interpretation Comments MAGNESIUM (BEAKER) (test code = 2.0 mg/dL 1.6-2.6 627) Medical And Health Services Manager ID - JSPROTHROMBIN TIME/[id number] 18:59:33 Test Item Value Reference Range Interpretation Comments PROTIME (BEAKER) 15.3 seconds 11.9-14.2 H (test code = 759) INR (BEAKER) (test 1.29 See_Comment [Automat ed message] code = 370) The system [employer] generated this result transmitted ref erence range: <=5.90. The reference range was not used to int erpret this result as normal/abnormal . RECOMMENDED COUMADIN/WARFARIN INR THERAPY RANGESSTANDARD DOSE: 2.0 - 3.0 Includes: PROPHYLAXIS for venous thrombosis, systemic embolization; TREATMENT for venous thrombosis and/or pulmonary embolus.HIGH RISK: Target INR is 2.5-3.5 for patients with mechanical heart valves.CBC W/PLT COUNT & AUTO [id number] 18:46:27 Test Item Value Reference Range Interpretation [...] PERCENT (BEAKER) (test code = 2801) POCT-GLUCOSE [id number] 18:24:01 Test Item Value Reference Range Interpretation Comments POC-GLUCOSE METER 139 mg/dL 70-110 H : TESTED A T [facility] 6720 (BEAKER) (test code = JONAS Mckeon [facility], 1538) 0[address]: Medical And Health Services Manager/Techni lisandro ID = [id number] for Pr imas (contrac), Ruddy el GLUCOSE [id number] 15:02:00 Test Item Value Reference Range Interpretation Comments GLUCOSE BEDSIDE (test 106 MG/DL 70-110 N Perfor med by certified code = GLUBED) fourdrinier machine operator at [facility] MRG-[id number] 12:15:00 Test Item Value Reference Range Interpretation Comments ACT-ISTAT (test code 305 SEC 74-137 H Perform ed by certified = ACTI) fourdrinier machine operator at [facility] OSV-[id number] 11:55:00 Test Item Value Reference Range Interpretation Comments ACT-ISTAT (test code 299 SEC 74-137 H Perform ed by certified = ACTI) fourdrinier machine operator at [facility] GLUCOSE [id number] 10:16:00 Test Item Value Reference Range Interpretation Comments GLUCOSE BEDSIDE (test 113 MG/DL 70-110 H [facility] by certified code = GLUBED) fourdrinier machine operator at [facility] BASIC METABOLIC [id number] 18:26:00 Test Item Value Reference Range Interpretation [...] the recommended for spike for GFRby the Nat nal Kidney Foundati on for Adults.The GFR will not calculate if th e sex is unknown or if thepatient's ag e is <18 years. CREATININE (test 2.6 mg/dL 0.6-1.3 H code = CREAT) CALCIUM (test code = 9.3 mg/dL 8.0-10.5 N CA) PROTHROMBIN [id number] 18:13:00 Test Item Value Reference Range Interpretation Comments PROTHROMBIN TIME 12.5 SECONDS 9.3-12.9 N PATIENT (test code = PTP) INTERNATIONAL NORMAL 1.1 0.8-1.2 N TARGE T INR BY RATIO (test code = INDICATIO [...] (to prevent recurrent infar ct). CBC W/AUTO [id number] 18:08:00 Test Item Value Reference Range Interpretation [...] MANUAL DIFF REQUIRED (test code NO = IFF) - XR CHEST 2 [id number] 00:00:00 [facility] : 1950 Sex: M FAX: Johan Walker MD [phone] [place]: St: PRE Name: RODNEY PURDY : 1950 Age/S: 72/M [address] [place] [address] Unit #: [id number] Loc: [place] [address] Phys: Johan Lovelace MD Acct: [id number] Dis Date: Status: PRE SDC PHONE #: [phone] Exam Date: 03/19/2023 1633 FAX #: [phone] Reason: PRE OP EXAMS: CPT CODE: [id number] XR CHEST 2 V 84871 PROCEDURE INFORMATION: Exam: XR ChestExam date and [...] S: 03/19/2023 (1706) PAGE 1 Signed ReportPOCT-GLUCOSE [id number] 08:43:00 Test Item Value Reference Range Interpretation Comments POC-GLUCOSE METER 124 mg/dL 70-110 H TESTED AT [place] [address] ([facility]) (test code = [facility] [place] 1538) [address] CBC (HEMOGRAM ONLY)2018-11-30 07:16:00 Test Item Value [...] H (test code = 700) BASIC METABOLIC [id number] 06:09:00 Test Item Value Reference Range Interpretation [...] 697) EGFR (BEAKER) (test 34 mL/min/1.73 ESTIMA JO GFR IS code = 1092) sq m NOT ACCURATE CREATININE CLEARANCE IN PREDICTING GLOMERULAR FILTRATION RATE . ESTIMATED GFR I S NOT APPLICABLE FOR DIALYSIS PATIEN TS. POCT-GLUCOSE [id number] 22:52:00 Test Item Value Reference Range Interpretation Comments POC-GLUCOSE METER 83 mg/dL 70-110 TEST[facility] [place] [address] [facility] (test code = [facility] [address] 1538) POCT-GLUCOSE [id number] 18:13:00 Test Item Value Reference Range Interpretation Comments POC-GLUCOSE METER 178 mg/dL 70-110 H TESTED AT [place] [address] ([facility]) (test code = [facility] 1538) [address] HEMOGLOBIN [id number] 09:48:00 Test Item Value Reference Range Interpretation Comments HEMOGLOBIN A1C (BEAKER) (test code = 7.8 % 4.3-6.1 H 368) POCT-GLUCOSE [id number] 08:23:00 Test Item Value Reference Range Interpretation Comments POC-GLUCOSE METER 134 mg/dL 70-110 H TESTED AT [place] [address] ([facility]) (test code = [facility] 1538) [address] CREATININE, RANDOM [id number] 05:00:00 Test Item Value Reference Range Interpretation Comments CREATININE URINE (BEAKER) (test 32.4 mg/dL code = 375) Reference Range: No NormalsPROTEIN, RANDOM [id number] 05:00:00 Test Item Value Reference Range Interpretation Comments PROTEIN, URINE (BEAKER) (test code = 94 mg/dL 0-14 H 1569) SODIUM, RANDOM [id number] 05:00:00 Test Item Value Reference Range Interpretation Comments SODIUM URINE (BEAKER) (test code = 130 meq/L 243) Reference Range: No NormalsURINALYSIS W/ [id number] 04:52:00 Test Item Value Reference Range Interpretation [...] 516) SOURCE(BEAKER) (test code = Urine, Voided 8952) PTH, [id number] 03:55:00 Test Item Value Reference Range Interpretation Comments PARATHYROID HORMONE INTACT 165.0 pg/mL 8.5-72.5 H (BEAKER) (test code = 577) B-TYPE NATRIURETIC FACTOR (BNP)2018-11-29 03:54:00 Test Item Value Reference Range Interpretation Comments B-TYPE NATRIURETIC PEPTIDE (BEAKER) 777 pg/mL 0-100 H (test code = 700) BASIC METABOLIC [id number] 03:47:00 Test Item Value Reference Range Interpretation [...] 697) EGFR (BEAKER) (test 33 mL/min/1.73 ESTIMA JO GFR IS code = 1092) sq m NOT ACCURATE CREATININE CLEARANCE IN PREDICTING GLOMERULAR FILTRATION RATE . ESTIMATED GFR I S NOT APPLICABLE FOR DIALYSIS PATIEN TS. URIC [id number] 03:47:00 Test Item Value Reference Range Interpretation [...] 0-0 (BEAKER) (test code = 413) POCT-GLUCOSE [id number] 21:40:00 Test Item Value Reference Range Interpretation Comments POC-GLUCOSE METER 111 mg/dL 70-110 H TESTED AT [place] [address] ([facility]) (test code = JONAS Mckeon [facility] 1538) [address] [id number] 20:29:00 Test Item Value Reference Range Interpretation Comments ACTIVATED CLOTTING TIME 230 sec TEST ED AT [place] [address] ([facility]) (test code = JONAS Mckeon [facility] 441) [address] [id number] 20:29:00 Test Item Value Reference Range Interpretation Comments ACTIVATED CLOTTING TIME 131 sec TEST ED AT [place] [address] ([facility]) (test code = TANYAAR Linda [facility] 441) [address] POCT-GLUCOSE [id number] 17:58:00 Test Item Value Reference Range Interpretation Comments POC-GLUCOSE METER 137 mg/dL 70-110 H TESTED AT [place] [address] ([facility]) (test code = JONAS Mckeon [facility] 1538) [address] [id number] 16:46:00 Test Item Value Reference Range Interpretation Comments PARTIAL THROMBOPLASTIN TIME 44.3 seconds 22.5-36.0 H ([facility]) (test code = 760) BASIC METABOLIC [id number] 12:43:00 Test Item Value Reference Range Interpretation [...] 697) EGFR (BEAKER) (test 28 mL/min/1.73 ESTIMA JO GFR IS code = 1092) sq m NOT ACCURATE CREATININE CLEARANCE IN PREDICTING GLOMERULAR FILTRATION RATE . ESTIMATED GFR I S NOT APPLICABLE FOR DIALYSIS PATIEN TS. POCT-GLUCOSE [id number] 12:33:00 Test Item Value Reference Range Interpretation Comments POC-GLUCOSE METER 140 mg/dL 70-110 H TESTED AT [facility] 6720 ([facility]) (test code = [facility] [place] 1538) [address] LIPID [id number] 12:28:00 Test Item Value Reference Range Interpretation [...] Borderline 130-159 High 160-189 Very High >=190HEMOGLOBIN [id number] 11:30:00 Test Item Value Reference Range Interpretation Comments HEMOGLOBIN A1C (BEAKER) (test code = 7.9 % 4.3-6.1 H 368) PROTHROMBIN [id number] 10:31:00 Test Item Value Reference Range Interpretation Comments PROTIME (BEAKER) (test code = 13.7 seconds 11.7-14.7 759) INR (AKER) (test code = 370) 1.0 <=5.9 RECOMMENDED [...] H code = 658) Prior to initiating [id number] 10:31:00 Test Item Value Reference Range Interpretation [...]
[2023-06-15] MEDS ORDERED: ACETAMINOPHEN 325 MG TABLET PO PRN (18:24)
[2023-06-15] MEDS ORDERED: NITROGLYCERIN 0.4 MG/TAB SL PRN (18:25)
[2023-06-15] MEDS ORDERED: NA CHLORIDE 0.9% 1,000 ML IV SCH (19:00)
--- NOTE | 2023-06-15 19:06 | OP ---
Date of Procedure: 06/15/2023 Surgeon: ZOE MILLER Procedure Performed: Selective coronary angiogram. Indication: Known coronary artery disease, chest pain. Access: Right radial artery 6-[place]ank[place] closed with TR band. Complications: None. Bleeding: Less than 20 mL. Anesthesia: Total sedation time was 20 minutes. Description Of Procedure: After risks, benefits, alternatives were explained, the patient agreed to procedure and signed informed consent. The patient [facility] prepped and draped in the usual sterile fashion. Then, I accessed right radial artery using pediatric micropuncture kit, placed 6-[place] Slender sheath and took 5-[place] Turpin 4.0 catheter into the aortic root, engaged left main and then right coronary, artery took standard views and then genesis mathieu the catheter and sheath, placed TR band with good hemostasis. Findings: 1.Left main; distally 80% to 90%. 2.LAD; ostially to proximal 80% and there is a long stent that is patent. 3.Left circumflex; ostial 90% to 95%. 4.RCA; proximal 60% and then patent stent. Conclusion: Severe multivessel disease, substantially worse since March angiogram. Recommendations: Transfer for CABG evaluation. /MODL Voice ID: [id number] Report ID: [id number]
[2023-06-15 20:09] VITALS: BMI 27.8
[2023-06-15] MEDS ORDERED: ATORVASTATIN 40 MG TAB PO SCH (21:44)
[2023-06-15] MEDS ORDERED: REPAGLINIDE 0.5 MG TABLET PO SCH (21:47)
[2023-06-15] MEDS: BUMETANIDE 1 MG TABLET PO SCH (22:18)
[2023-06-15] MEDS: PANTOPRAZOLE 40MG TABLET PO SCH (22:19)
[2023-06-15] MEDS: carvediloL 12.5 MG TAB PO SCH (22:19)
[2023-06-16] MEDS: carvediloL 12.5 MG TAB PO SCH (05:25)
[2023-06-16] MEDS: REPAGLINIDE PO SCH ×2 (07:30→11:30)
[2023-06-16] MEDS ORDERED: CLOPIDOGREL 75 MG TABLET PO SCH (09:00)
[2023-06-16] MEDS ORDERED: AMLODIPINE 10 MG TAB PO SCH (09:00)
[2023-06-16] MEDS ORDERED: REPAGLINIDE 0.5 MG TABLET PO SCH (09:00)
[2023-06-16] MEDS ORDERED: BUMETANIDE 1 MG TABLET PO SCH (09:00)
[2023-06-16] MEDS ORDERED: HOME MED 1 EA UNK (Insulin Degludec [Tresiba] 100 UNIT/ML Vial) SQ SCH (09:00)
[2023-06-16] MEDS ORDERED: ASPIRIN EC 81 MG TAB PO SCH (09:00)
[2023-06-16] MEDS ORDERED: carvediloL 12.5 MG TAB PO SCH (09:00)
[2023-06-16] MEDS ORDERED: PANTOPRAZOLE 40MG TABLET PO SCH (09:00)
[2023-06-16] MEDS ORDERED: allopurinoL 100 MG TAB PO SCH (09:00)
--- NOTE | 2023-06-16 09:17 | P.SSS ---
Patient History Date of Service: 06/16/23 Reason for admission: PENDING CABG History of Present Illness: MR MISHRA HAS SEVERE DIABETIC VASCULOPATHY WITH 16 STENTS IN CORONARIES, HAD 40% LAD 3 MONTHS AGO AND PROGRESSED TO 80% LAD STENOSIS NOW. HE COULD NOT AFFORD REPATHA SO HE QUIT. HE QUIT ATORVASTATIN ALSO ABOUT 3 WEEKS AGO. HE HAS NO CHEST PAIN BUT HE HAS SEVERE CAD AND WAITING FOR CABG HE WAS ADMITTED HERE BY DR MILLER. HE WILL GET HD TODAY AND ALSO MAY GO TO [facility] TODAY. Allergies niacin [From Niaspan Extended-Release] Adverse Reaction (Verified 06/10/23 14:24) "Burning all over" Home medications list reviewed: Yes Home Medications: Amlodipine [Norvasc] 10 mg PO DAILY 02/21/19 Aspirin [Aspirin EC 81 MG] 81 mg PO DAILY 02/21/19 Insulin Degludec [Tresiba] 40 unit SQ DAILY 02/21/19 Allopurinol 100 mg PO BID 04/28/23 Carvedilol [Coreg] 12.5 mg PO BID 04/28/23 Atorvastatin Calcium [Lipitor] 40 mg PO BEDTIME 06/15/23 Bumetanide [Bumex*] 3 mg PO BID 06/15/23 Clopidogrel Bisulfate [Plavix*] 1 tab PO DAILY 06/15/23 Pantoprazole [Protonix Tab*] 1 tab PO BID 06/15/23 Repaglinide [Prandin] 2 mg PO TID 06/15/23 - Past Medical/Surgical History Has patient received pneumonia vaccine in the past: No Diabetic: Yes -: Diabetes Mellitus Type 2 -: Hypertension -: PVD -: CAD -: Dyslipidemia -: Hepatitis A -: Cardiac cath-15 stents - Family History Father -: Heart disease, Lung disease Mother -: Hypertension, Diabetes - Social History Smoking Status: Never smoker Alcohol use: No CD- Drugs: No Caffeine use: No Place of Residence: Home Review of Systems 10-point ROS is otherwise unremarkable Physical Examination - Vital Signs Temperature: 96.5 F Blood Pressure: 138/67 Pulse: 70 Respirations: 15 Pulse Ox (%): 95 - Physical Exam General: Alert, In no apparent distress HEENT: Atraumatic, PERRLA, Mucous membr. moist/pink, EOMI, Sclerae nonicteric Neck: Supple, 2+ carotid pulse no bruit, No LAD, Without JVD or thyroid abnormality Respiratory: Clear to auscultation bilaterally, Normal air movement Cardiovascular: Regular rate/rhythm, Normal S1 S2 Gastrointestinal: Normal bowel sounds, No tenderness Musculoskeletal: No tenderness Integumentary: No rashes Neurological: Normal gait, Normal speech, Normal strength at 5/5 x4 extr, Normal tone, Normal affect Lymphatics: No axilla or inguinal lymphadenopathy - Diagnosis (Problem(s)) (1) Coronary artery disease Current Visit: Yes Status: Chronic Plan: RAPIDLY WORSENED DISEASE NEEDS CABG PER DR. Mckeon WILL GO TO [facility] TODAY IN [facility] WAITING FOR CABG. TRANSFER STARTED. HE SAYS HE WILL SELL STUFF TO BUY REPATHA. (2) Congestive heart failure with LV diastolic dysfunction, NYHA class 3 Current Visit: No Status: Chronic Plan: STABLE FOR NOW. 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
[2023-06-16] MEDS: PANTOPRAZOLE 40MG TABLET PO SCH (10:21)
[2023-06-16] MEDS: BUMETANIDE 1 MG TABLET PO SCH (10:25)
[2023-06-16 12:24] VITALS: BP 132/62; TEMP 96.9
[2023-06-16 16:48] LABS: Hepatitis B surface AG Interp. Nonreactive (Nonreactive)
[2023-06-16 16:55] LABS: Hepatitis B Surface Ab - Quant < 3.10 mIU/mL (<8.0)
--- NOTE | 2023-06-16 17:42 | CON ---
Date of Consultation: 06/16/2023 Reason For Consultation: Chest pain, coronary artery disease. History Of Present Illness: This is a 72-year-old male with severe familial hypercholesterolemia, co ronary artery disease, peripheral vascular disease, diabetes, hypertension, who presented for coronar y angiogram due to ongoing chest pain and found to have severe distal left main disease with 80% johny re LAD disease and left circumflex disease and a plan to transfer for CABG evaluation. No active kimi st pain at the present time. Past Medical History: As outlined above in the HPI. Medications: Refer to reconciliation sheet for detailed list. Allergies: NIACIN. Family History: No premature coronary artery disease or cancer. Social History: Does not smoke or drink. Does not use any drugs. Review of Systems: All systems were reviewed and they were negative except what mentioned in HPI. Physical Examination: Vital Signs: Reviewed. Head and Neck: Pupils are equal, reactive to light. Intact eye movements. No JVD. No cervical lym phadenopathy. Neck is supple. Thyroid is not enlarged. Lungs: Clear to auscultation bilaterally. No rhonchi, wheezing, or crackles. No accessory muscle u se. Heart: Regular rate and rhythm. No extra sounds. Abdomen: Soft, nontender. Bowel sounds positive. No organomegaly. No masses or hernia. No rigidi ty or rebound. Extremities: No edema, clubbing, cyanosis. Intact pulses. Skin: No rash. Neurologic: Alert, awake, oriented x3. No acute focal deficits appreciated. Investigations: BUN 27, creatinine 3.88, hemoglobin is 12.2. Assessment And Recommendations: 1.Chest pain due to unstable angina and severe multivessel coronary artery disease involving left ma in, LAD, and left circ. Recommend transfer for CABG evaluation. I discussed the case with CT Surger y at [facility] and patient kindly was accepted for transfer and if surgery is not feasi ble due to the long stent that he has in his LAD, then we will plan for complex PCI, Impella assisted of left main to LAD and bifurcating to left circumflex. 2.Dyslipidemia. Recommend to continue statin for life. 3.End-stage renal disease, on hemodialysis. Continue current management. SR/MODL Voice ID: [id number] Report ID: [id number]
--- NOTE | 2023-06-16 20:03 | CON ---
Date of Consultation: 06/16/2023 Reason For Consultation: Elevated BUN and creatinine, fluid management, end- stage renal disease. History Of Present Illness: This is a pleasant 72-year-old gentleman with significant past medical history of diabetes complicated with neuropathy and nephropathy, hypertension since 2007, CAD status post PTCA complicated with congestive heart failure, diastolic dysfunction with triple-vessel disease, recently had multiple angiogram. The patient ended up on dialysis. The patient recently started [facility] The patient came to the hospital for elective cardiac cath for evaluation for his triple-vessel disease. The patient did undergo cardiac cath today, found to have multiple vessel disease, the patient needing CABG. The patient denied any chest pain. Denied any shortness of breath. As I mentioned, the patient has chronic kidney disease stage 3B/4, recently started on dialysis after multiple angiogram. Past Medical History: Includes, 1. Diabetes since 2007 complicated with neuropathy and nephropathy. 2. Hypertension since 2007. 3. Hyperlipidemia. 4. CAD complicated with congestive heart failure, diastolic dysfunction, multiple vessel disease needing CABG. 5. Chronic kidney disease, stage 4, progression to with acute kidney injury, dialysis dependent. Past Surgical History: Includes multiple cardiac cath, multiple PTCA. Social History: Denied smoking. Denied drinking. Denied drug abuse. Family History: Positive for diabetes. Review of Systems: Head and Neck: No red eye. No ear pain. GI: No nausea. No vomiting. : No polyuria. No dysuria. No hematuria. OPERATING ROOM TECHNICIAN: Not applicable. Respiratory: No shortness of breath. Cardiovascular: No chest pain. Endocrine: No polydipsia. Skin: No rash. Neuro: Has neuropathy. Musculoskeletal: No joint pain. Physical Examination: Vital Signs: When I saw the patient; blood pressure 132/62, pulse of 71, afebrile. Chest: Clear to auscultation. Heart: S1, S2. Regular. Abdomen: Soft, nontender. Extremities: No edema. Neurologic: Alert. No focality. Laboratory Data: Hemoglobin 12.2. Sodium 130, potassium 4.4, bicarb 29, BUN 27, creatinine 3.8, calcium 8.6. Current Medications: The patient on include: 1. Carvedilol 12.5 b.i.d. 2. Amlodipine. 3. Nitroglycerin. 4. Pantoprazole. 5. IV fluid. Assessment And Plan: 1. Acute kidney injury on advanced chronic kidney disease, dialysis dependent, status post contrast. I will go ahead and dialyze the patient today and we will monitor the patient. 2. Hypertension, controlled optimal. Continue current treatment. 3. Hyponatremia, will be corrected with dialysis. 4. Diabetes as by primary. 5. Coronary artery disease. Plan for coronary artery bypass graft. We will follow up with the transfer. Time spent examining the patient [id number], reviewing data, lab and radiology, placing order, discussing the case with the patient, discussing the case with the sports team marketing intern including the hospitalist and nursing staff more than 65 minutes. SYLVIA Voice ID: [id number] Report ID: [id number] [email or web address]
[2023-06-16] MEDS ORDERED: ATORVASTATIN 20 MG TAB PO SCH (21:00)
== END 2023-06-16 16:24 | disposition short-term general hospital (02) | DRG 286 ==
LOC: PRE 11:02 → 2ND 17:00
PROVIDERS: ADMIT Internal Medicine; ATTEND Internal Medicine
PROC: B2111ZZ Fluoroscopy of Multiple Coronary Arteries using Low Osmolar Contrast (ICD-10-PCS; principal; 2023-06-15)
DX: I25.110 Atherosclerotic heart disease of native coronary artery with unstable angina pectoris (principal); N18.6 End stage renal disease; I13.2 Hypertensive heart and chronic kidney disease with heart failure and with stage 5 chronic kidney disease, or end stage renal disease; I50.30 Unspecified diastolic (congestive) heart failure; N17.9 Acute kidney failure, unspecified; E87.1 Hypo-osmolality and hyponatremia; E11.22 Type 2 diabetes mellitus with diabetic chronic kidney disease; E11.40 Type 2 diabetes mellitus with diabetic neuropathy, unspecified; E11.21 Type 2 diabetes mellitus with diabetic nephropathy; I73.9 Peripheral vascular disease, unspecified; E78.5 Hyperlipidemia, unspecified; E78.01 Familial hypercholesterolemia; Z99.2 Dependence on renal dialysis; Z91.148 Patient's other noncompliance with medication regimen for other reason; Z95.5 Presence of coronary angioplasty implant and graft; Z87.891 Personal history of nicotine dependence; Z79.82 Long term (current) use of aspirin; Z79.4 Long term (current) use of insulin; Z79.02 Long term (current) use of antithrombotics/antiplatelets; Z79.899 Other long term (current) drug therapy; Z88.8 Allergy status to other drugs, medicaments and biological substances; Z82.49 Family history of ischemic heart disease and other diseases of the circulatory system; Z83.3 Family history of diabetes mellitus
CPT/HCPCS: 36415; 71046; 76937; 80048; 82947; 85025; 85610; 85730; 86706; 87340; 93005; 93454; C1893; J1644; J2001; J2250; J3010; J7030; J7040; Q9966

== ENCOUNTER 2023-08-24 08:00 | Day surgery (SDC) | payer OTHER ==
[2023-08-20 09:30] LABS: Absolute Lymphocytes (CBC) 0.8 K/uL (0.7-4.9); Lymphocytes % 13.8 % (15.3-44.8); MPV 7.3 fL (7.6-11.3); Platelets 164 thou/uL (152-406); RBC Red Blood Cell Count 4.11 M/uL (4.33-5.43)
[2023-08-20 09:38] LABS: Protime INR 1.29
[2023-08-20 09:44] LABS: Potassium 4.4 mEq/L (3.5-5.1)
[2023-08-24] MEDS ORDERED: NA CHLORIDE 0.9% 500 ML ONE (09:15)
[2023-08-24] MEDS ORDERED: ATROPINE SULF 1 MG/10 ML SYR IV ONE (09:30)
[2023-08-24] MEDS ORDERED: METOPROLOL TARTRATE 5 MG/5 ML INJ IV ONE (09:31)
[2023-08-24] MEDS ORDERED: DEXTROSE 10%-WATER 500 ML IV ONE (09:46)
[2023-08-24] MEDS ORDERED: propofoL 200 MG/20 ML VIAL IV ONE (09:52)
[2023-08-24 10:56] VITALS: TEMP 97.6
[2023-08-24 11:37] VITALS: O2SAT 99
[2023-08-24 11:39] VITALS: BP 129/69
--- NOTE | 2023-08-24 13:57 | TEE ---
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 TRANSESOPHAGEAL ECHOCARDIOGRAM INSERTED, NO DIFFICULTY 2. NO LEFT ATRIAL APPENDAGE THROMBUS 3. MODERATE MITRAL REGURGITATION 4. MILD TRICUSPID REGURGITATION TECHNOLOGIST: LESLIE TIPTON
--- NOTE | 2023-08-24 13:59 | EKG ---
Test Date: 2023-08-20 Test Time: 10:08:32 Child'S Nurse: JENNIFER MEASUREMENT RESULTS: Intervals: Rate: 96 OR: QRSD: 96 QT: 398 QTc: 502 [place]: P: OR: QRS: -37 T: 122 INTERPRETIVE STATEMENTS: Atrial flutter with variable AV block Left axis deviation Inferior infarct, age undetermined ST & T wave abnormality, consider lateral ischemia Prolonged QT Abnormal ECG Compared to ECG 06/10/2023 14:43:45 Left-axis deviation now present ST (T wave) deviation now present Possible ischemia now present Prolonged QT interval now present Sinus rhythm no longer present Left ventricular hypertrophy no longer present Myocardial infarct finding still present Electronically Signed On 08-24-23 13:44:00 BRASS ROLLER by Johan Lovelace
--- NOTE | 2023-08-24 13:59 | EKG ---
Test Date: 2023-08-20 Test Time: 10:09:16 Phonograph Needle Tip Maker: JENNIFER MEASUREMENT RESULTS: Intervals: Rate: 107 TN: QRSD: 94 QT: 370 QTc: 493 [place]: P: 87 TN: QRS: -44 T: 134 INTERPRETIVE STATEMENTS: Atrial flutter with variable AV block Left axis deviation Inferior infarct, age undetermined ST & T wave abnormality, consider lateral ischemia Abnormal ECG Compared to ECG 06/10/2023 14:43:45 Left-axis deviation now present ST (T wave) deviation now present Possible ischemia now present Sinus rhythm no longer present Left ventricular hypertrophy no longer present Myocardial infarct finding still present Electronically Signed On 08-24-23 13:43:57 MANAGER SUMMER by Johan Lovelace
--- NOTE | 2023-08-25 13:07 | EKG ---
Test Date: 2023-08-24 Test Time: 10:31:22 Production Sampler: BRAULIO MEASUREMENT RESULTS: Intervals: Rate: 54 TN: 184 QRSD: 96 QT: 492 QTc: 466 [place]: P: 60 TN: 184 QRS: -37 T: 176 INTERPRETIVE STATEMENTS: Sinus bradycardia Left axis deviation Cannot rule out Inferior infarct, age undetermined Abnormal ECG Compared to ECG 08/20/2023 10:09:16 Atrial flutter no longer present ST (T wave) deviation no longer present Possible ischemia no longer present Myocardial infarct finding still present Electronically Signed On 08-25-23 13:04:10 SAFETY PIN ASSEMBLING MACHINE OPERATOR by Johan Lovelace
== END 2023-08-24 11:35 | disposition home or self-care (01) ==
LOC: CCL 08:00
PROVIDERS: ATTEND Internal Medicine
DX: I48.91 Unspecified atrial fibrillation (principal); I48.92 Unspecified atrial flutter; I25.10 Atherosclerotic heart disease of native coronary artery without angina pectoris; I13.2 Hypertensive heart and chronic kidney disease with heart failure and with stage 5 chronic kidney disease, or end stage renal disease; E11.22 Type 2 diabetes mellitus with diabetic chronic kidney disease; I50.32 Chronic diastolic (congestive) heart failure; N18.6 End stage renal disease; Z99.2 Dependence on renal dialysis; I27.20 Pulmonary hypertension, unspecified; I65.23 Occlusion and stenosis of bilateral carotid arteries; E78.5 Hyperlipidemia, unspecified; M10.9 Gout, unspecified; Z87.891 Personal history of nicotine dependence; Z95.1 Presence of aortocoronary bypass graft; Z95.5 Presence of coronary angioplasty implant and graft; Z79.82 Long term (current) use of aspirin; Z79.02 Long term (current) use of antithrombotics/antiplatelets; Z79.84 Long term (current) use of oral hypoglycemic drugs; Z79.899 Other long term (current) drug therapy; Z88.8 Allergy status to other drugs, medicaments and biological substances
CPT/HCPCS: 36415; 80048; 82947; 85025; 85610; 85730; 92960; 93005; 93312; J0461; J2704; J7040

== ENCOUNTER 2024-03-17 08:02 | Emergency (ER) | payer OTHER ==
--- NOTE | 2024-03-17 08:43 | RAD REPORT ---
EXAM DESCRIPTION: CT - Head Brain Wo Cont - 03/17/2024 8:34 am CLINICAL HISTORY: AMS, slurred speech Headache, drowsiness, CVA COMPARISON: No comparisons TECHNIQUE: All CT scans are performed using dose optimization technique as appropriate and may inclu de automated exposure control or mA/KV adjustment according to patient size. FINDINGS: No intracranial hemorrhage, hydrocephalus or extra-axial fluid collection.Mild generalized brain atrophy.No areas of brain edema or evidence of midline shift. Left vertebral atherosclerosis. The paranasal sinuses and mastoids are clear. The calvarium is intact. IMPRESSION: No acute intracranial abnormality.
[2024-03-17 08:44] LABS: Absolute Basophils 0.1 K/uL (0-0.5); Absolute Eosinophils 0.2 K/uL (0-0.5); Absolute Lymphocytes (CBC) 0.5 K/uL (0.7-4.9); Absolute Monocytes 0.5 K/uL (0.1-1.3); Absolute Neutrophil 5.9 K/uL (1.8-8.0); Basophils % 1.1 % (0-1.3); Eosinophils % 3.2 % (0-4.4); Hematocrit 37.1 % (39.6-49.0); Hemoglobin 11.8 g/dL (13.6-17.9); Lymphocytes % 6.5 % (15.3-44.8); MCH 28.6 pg (27.0-35.0); MCHC 31.9 g/dL (32.0-36.0); MCV 89.8 fL (80-100); Monocytes % 6.4 % (3.3-12.3); Neutrophils % 82.8 % (41.7-73.7); Platelets 186 thou/uL (152-406); RBC Red Blood Cell Count 4.13 M/uL (4.33-5.43); Red Cell Distribution Width 15.7 % (12.1-15.2)
--- NOTE | 2024-03-17 10:23 | EDPHYS ---
Physician Documentation [facility] Name: Mansoor Summers Age: 73 yrs Sex: Male : 1950 Arrival Date: 03/17/2024 Time: 08:02 Bed 16 Private MD: ED Physician Darinle Guerrero HPI: 03/17 08:29 This 73 yrs old Male presents to ER via EMS with complaints of Low Blood Sugar. rn 08:29 The patient or guardian reports hypoglycemia. Onset: The symptoms/episode rn began/occurred last night. Current symptoms: In the emergency department the patient's symptoms have improved. The patient has experienced similar episodes in the past. EMS reports family member called 911 for low blood sugar and altered mental status. Patient states did not feel well yesterday following dialysis, fatigued and fell asleep early. This morning woke him up and he was slurring his speech and seemed altered, sugar was in the 50s, EMS administered amp of D50 and a bag of D10 with resolution of symptoms. Glucose was 170 following administration of glucose by EMS. Patient denies any symptoms at this time. States had a snack prior to bed as he usually does. No recent illness. No fever. No changes in medication dosing.. Historical: - Allergies: 08:09 Niaspan; rs5 - PMHx: 08:09 CAD; CHF; Afib with need for cardioversion; Diabetes - IDDM; Atrial fibrillation; rs5 Myocardial infarction; Hyperlipidemia; ESRD; hemodialysis; Hypertension; diabetes mellitus; - PSHx: 08:09 Dialysis catheter to right upper chest; CABG; Heart stents x 16; rs5 08:10 stent placement; rs5 - Immunization history:: Adult Immunizations up to date. - Infectious Disease History:: Denies. - Social history:: Smoking status: Patient denies any tobacco usage or history of. - Family history:: not pertinent. - Hospitalizations: : No recent hospitalization is reported. ROS: 08:29 Constitutional: Negative for fever, chills, and weight loss, Cardiovascular: Negative rn for chest pain, palpitations, and edema, Respiratory: Negative for shortness of breath, cough, wheezing, and pleuritic chest pain, Abdomen/GI: Negative for abdominal pain, nausea, vomiting, diarrhea, and constipation, MS/Extremity: Negative for injury and deformity, Skin: Negative for injury, rash, and discoloration, Neuro: Negative for headache, weakness, numbness, tingling, and seizure, Exam: 08:29 Constitutional: This is a well developed, well nourished patient who is awake, alert, rn and in no acute distress. Head/Face: Normocephalic, atraumatic. Cardiovascular: Regular rate and rhythm. No pulse deficits. Respiratory: No increased work of breathing, no retractions or nasal flaring. Abdomen/GI: Soft, non-tender MS/ Extremity: Pulses equal, no cyanosis. Neurovascular intact. Full, normal range of motion. Equal circumference. Neuro: Awake and alert, GCS 15, oriented to person, place, time, and situation. Cranial nerves II-XII grossly intact. Motor strength 5/5 in all extremities. Sensory grossly intact. Cerebellar exam normal. 09:47 ECG was reviewed by the Attending Physician. rn Vital Signs: 08:06 BP 164 / 77; Pulse 80; Resp 17; Temp 97.8(O); Pulse Ox 99% on R/A; rs5 10:10 BP 151 / 69; Pulse 50; Resp 18; Pulse Ox 100% ; as6 MDM: 08:06 Patient medically screened. rn 10:22 Differential diagnosis: hypoglycemic episode. Data reviewed: vital signs, nurses notes, editing intern test result(s), EKG, radiologic studies, CT scan, and as a result, I will discharge patient. Care significantly affected by the following chronic conditions: Diabetes, Chronic Kidney Disease. Counseling: I had a detailed discussion with the patient and/or guardian regarding the historical points, exam findings, and any diagnostic results supporting the discharge/admit diagnosis, lab results, radiology results, the need for outpatient follow up, to return to the emergency department if symptoms worsen or persist or if there are any questions or concerns that arise at home. Response to treatment: the patient's symptoms have resolved after treatment, the patient's condition has returned to base line, and as a result, I will discharge patient. Special discussion: I discussed with the patient/guardian in detail that at this point there is no indication for admission to the hospital. It is understood, however, that if the symptoms persist or worsen the patient needs to return immediately for re-evaluation. ED course: Patient back to baseline after just glucose administration. No acute findings and workup here. CT head negative. I have personally reviewed all of the results, including but not limited to blood tests and imaging deemed necessary to safely discharge this patient at this time. All results given to and printed out for patient. I personally went over all the results with the patient and answered all questions. Patient will follow-up with PCP and or specialist as discussed. Return precautions given and understood.. 03/17 08:20 Order name: CBC with Diff; Complete Time: 09:10 rn 03/17 08:20 Order name: Basic Metabolic Panel; Complete Time: 09:47 rn 03/17 08:25 Order name: Glucose, Ancillary Testing; Complete Time: 09:10 EDMS 03/17 08:20 Order name: CT Head Brain wo Cont; Complete Time: 09: rn 03/17 08:20 Order name: IV Start; Complete Time: 08:44 rn 03/17 08:20 Order name: Glucose Level; Complete Time: 08:44 rn 03/17 08:20 Order name: EKG - Nurse/Tech; Complete Time: 08:44 rn 03/17 08:20 Order name: PO challenge; Complete Time: 08:44 rn 03/17 08:20 Order name: Cardiac monitoring; Complete Time: 08:44 rn 03/17 08:20 Order name: O2 Sat Monitoring; Complete Time: 08:44 rn 03/17 08:54 Order name: Labs - recollect needed: recollect chemistries hemolyzed per Tess; eb Complete Time: 09:22 EC:47 Rate is 50 beats/min. Rhythm is regular. QRS [place] is Normal. [place] interval is normal. QRS rn interval is normal. QT interval is normal. No Q waves. T waves are Normal. No ST changes noted. Clinical impression: Sinus bradycardia. Interpreted by me. Reviewed by me. Administered Medications: No medications were administered Point of Care Testing: Blood Glucose: 10:17 Blood Glucose: 109 mg/dL; as6 Ranges: Critical Glucose Levels:Adult <50 mg/dl or >400 mg/dl <40 mg/dl or >180 mg/dl Disposition Summary: 03/17/24 10:23 Discharge Ordered Notes: Location: Home rn Problem: new rn Symptoms: have improved rn Condition: Stable rn Diagnosis - Hypoglycemia, unspecified rn Followup: rn - With: Private Physician - When: As needed - Reason: Recheck today's complaints, Re-evaluation by your physician Discharge Instructions: - Discharge Summary Sheet rn - Hypoglycemia rn - Blood Glucose Monitoring, Adult rn Forms: - Medication Reconciliation Form rn - Antibiotic or rn - Prescription Opioid Use rn - Patient Portal Instructions rn - Leadership Thank You Letter rn Signatures: Dispatcher [employer] EDMS Darinel Guerrero MD MD rn Botello, Elizabeth eb Sotelo, Ricky, RN RN rs5 Corrections: (The following items were deleted from the chart) 08:21 08:20 CBC+H.LAB.BRZ ordered. EDMS EDMS 08:21 08:21 BASIC METABOLIC PANEL+C.LAB.BRZ ordered. EDMS EDMS 08:21 08:21 Head Brain Wo Cont+CT.RAD.BRZ ordered. EDMS EDMS
--- NOTE | 2024-03-17 10:23 | ER ---
Nurse's Notes [facility] Name: Mansoor Summers Age: 73 yrs Sex: Male : 1950 Arrival Date: 03/17/2024 Time: 08:02 Bed 16 Private MD: Diagnosis: Hypoglycemia, unspecified Presentation: 03/17 08:06 Chief complaint: EMS states: Family toned out EMS for low blood sugar readings in 50's. rs5 Coronavirus screen: At this time, the client does not indicate any symptoms associated with coronavirus-19. Ebola Screen: No symptoms or risks identified at this time. Initial Sepsis Screen: Does the patient meet any 2 criteria? No. Patient's initial sepsis screen is negative. Initial Sepsis Screen: Does the patient have a suspected source of infection? No. Patient's initial sepsis screen is negative. Risk Assessment: Do you want to hurt yourself or someone else? Patient reports no desire to harm self or others. Onset of symptoms was March 17, 2024. Care prior to arrival: IV initiated. 20 GA, in the left antecubital area. 08:06 Method Of Arrival: EMS: [facility] rs5 08:06 Acuity: CRAIG 3 rs5 08:08 Care prior to arrival: Medication(s) given: 250 ml of D10W. rs5 Historical: - Allergies: 08:09 Niaspan; rs5 - PMHx: 08:09 CAD; CHF; Afib with need for cardioversion; Diabetes - IDDM; Atrial fibrillation; rs5 Myocardial infarction; Hyperlipidemia; ESRD; hemodialysis; Hypertension; diabetes mellitus; - PSHx: 08:09 Dialysis catheter to right upper chest; CABG; Heart stents x 16; rs5 08:10 stent placement; rs5 - Immunization history:: Adult Immunizations up to date. - Infectious Disease History:: Denies. - Social history:: Smoking status: Patient denies any tobacco usage or history of. - Family history:: not pertinent. - Hospitalizations: : No recent hospitalization is reported. Screenin:06 [facility] ED Fall Risk Assessment (Adult) History of falling in the last 3 months, rs5 including since admission No falls in past 3 months (0 pts) Confusion or Disorientation No (0 pts) Intoxicated or Sedated No (0 pts) Impaired Gait No (0 pts) Mobility Assist Device Used No (0 pt) Altered Elimination No (0 pt) Score/Fall Risk Level 0 - 2 = Low Risk Oriented to surroundings, Maintained a safe environment. Abuse screen: Denies threats or abuse. Nutritional screening: No deficits noted. Tuberculosis screening: No symptoms or risk factors identified. Assessment: 08:06 General: Appears in no apparent distress. comfortable, Behavior is calm, cooperative. rs5 Pain: Denies pain. Neuro: Level of Consciousness is awake, alert, obeys commands, Oriented to person, place, time, situation. Cardiovascular: Patient's skin is warm and dry. Respiratory: Airway is patent Respiratory effort is even, unlabored, Respiratory pattern is regular, symmetrical. GI: Abdomen is round non-distended, Abd is soft and non tender X 4 quads. : No signs and/or symptoms were reported regarding the genitourinary system. EENT: No signs and/or symptoms were reported regarding the EENT system. Derm: Skin is intact, Skin is pink, warm \\T\\ dry. Musculoskeletal: Range of motion: intact in all extremities. 08:13 Reassessment: to bedside for blood sugar check, blood sugar readings:178. rs5 08:14 Reassessment: pt states "I feel a lot better now that the EMS guys gave me that rs5 medicine bag through my IV". 10:17 Reassessment: Patient appears in no apparent distress at this time. Patient and/or as6 family updated on plan of care and expected duration. Pain level reassessed. Patient is alert, oriented x 3, equal unlabored respirations, skin warm/dry/pink. Vital Signs: 08:06 BP 164 / 77; Pulse 80; Resp 17; Temp 97.8(O); Pulse Ox 99% on R/A; rs5 10:10 BP 151 / 69; Pulse 50; Resp 18; Pulse Ox 100% ; as6 ED Course: 08:06 Patient arrived in ED. rs5 08:06 Darinel Guerrero MD is Attending Physician. rn 08:06 Patient has correct armband on for positive identification. Placed in gown. Bed in low rs5 position. Call light in reach. Side rails up X2. 08:06 No provider procedures requiring assistance completed. rs5 08:08 Triage completed. rs5 08:13 Clark, Jono, RN is Primary Nurse. rs5 08:35 CT Head Brain wo Cont In Process Unspecified. EDMS 10:17 Arm band placed on right wrist. as6 10:27 Provided Education on: eating a good meal when get home . as6 10:27 IV discontinued, intact, bleeding controlled, No redness/swelling at site. Pressure as6 dressing applied. Administered Medications: No medications were administered Medication: 10:17 VIS not applicable for this client. as6 Point of Care Testing: Blood Glucose: 10:17 Blood Glucose: 109 mg/dL; as6 Ranges: Outcome: 10:17 Discharged to home ambulatory, as6 10:17 Condition: stable 10:23 Discharge ordered by . rn 10:27 Discharge instructions given to patient, Instructed on discharge instructions, follow as6 up and referral plans. Demonstrated understanding of instructions, follow-up care, 10:28 Patient left the ED. as6 Signatures: Dispatcher [employer] EDMS Darinel Guerrero MD MD rn Slawson, Ashby, RN RN as6 Jono Clark RN RN rs5 Corrections: (The following items were deleted from the chart) 08:15 08:06 BP 137 / 80; Pulse 80bpm; Resp 17bpm; Pulse Ox 99% RA; Temp 97.8F Oral; rs5 rs5
[2024-03-17 10:41] VITALS: BP 151/69; TEMP 97.8; O2SAT 100
--- NOTE | 2024-03-19 10:33 | EKG ---
Test Date: 2024-03-17 Test Time: 08:27:05 Foil Spinner: SANGITA MEASUREMENT RESULTS: Intervals: Rate: 50 ND: 202 QRSD: 98 QT: 528 QTc: 481 [place]: P: 77 ND: 202 QRS: -14 T: 72 INTERPRETIVE STATEMENTS: Sinus bradycardia Inferior infarct, age undetermined Abnormal ECG Compared to ECG 08/24/2023 10:31:22 Left-axis deviation no longer present Myocardial infarct finding still present Electronically Signed On 03-19-24 10:31:48 CDT by Lopez Oliveira
== END 2024-03-17 10:28 | disposition home or self-care (01) ==
LOC: ER 08:02
DX: E11.649 Type 2 diabetes mellitus with hypoglycemia without coma (principal); E11.22 Type 2 diabetes mellitus with diabetic chronic kidney disease; I13.2 Hypertensive heart and chronic kidney disease with heart failure and with stage 5 chronic kidney disease, or end stage renal disease; I50.9 Heart failure, unspecified; N18.6 End stage renal disease; Z99.2 Dependence on renal dialysis; Z95.1 Presence of aortocoronary bypass graft; Z95.818 Presence of other cardiac implants and grafts
CPT/HCPCS: 36415; 70450; 80048; 82947; 85025; 93005; 99283

== ENCOUNTER 2024-08-18 10:59 | Day surgery (SDC) | payer OTHER ==
[2024-08-16 16:01] LABS: Absolute Basophils 0.1 K/uL (0-0.5); Absolute Eosinophils 0.3 K/uL (0-0.5); Absolute Lymphocytes (CBC) 0.9 K/uL (0.7-4.9); Absolute Monocytes 0.5 K/uL (0.1-1.3); Absolute Neutrophil 4.2 K/uL (1.8-8.0); Basophils % 1.3 % (0-1.3); Eosinophils % 4.8 % (0-4.4); Hemoglobin 11.5 g/dL (13.6-17.9); Lymphocytes % 15.4 % (15.3-44.8); MCH 31.1 pg (27.0-35.0); MPV 7.1 fL (7.6-11.3); Neutrophils % 70.5 % (41.7-73.7); Nucleated Red Blood Cells % 0.1 % (0-0); Platelets 193 thou/uL (152-406); RBC Red Blood Cell Count 3.72 M/uL (4.33-5.43); Red Cell Distribution Width 15.5 % (12.1-15.2)
[2024-08-16 16:14] LABS: Anion Gap 12.3 mEq/L (5.0-15.0); Potassium 4.3 mEq/L (3.5-5.1)
[2024-08-16 16:17] LABS: PT Prothrombin Time 12.9 SECONDS (9.4-12.5); PTT, Activated Partial Thromb 32.6 SECONDS (24.3-36.9); Protime INR 1.16
[2024-08-18] MEDS ORDERED: NA CHLORIDE 0.9% 500 ML ONE (11:00)
[2024-08-18] MEDS ORDERED: HEPA 1000U/500MLS 2,000 UNIT/1,000 ML BAG IV ONE (11:30)
[2024-08-18] MEDS ORDERED: LIDOCAINE 1% 20 ML MDV ONE (11:31)
[2024-08-18] MEDS ORDERED: ATROPINE SULF 1 MG/10 ML SYR IV ONE (11:31)
[2024-08-18] MEDS ORDERED: NITROGLYCERIN/D5W 50 MG/250 ML BTL IV ONE (11:57)
[2024-08-18] MEDS ORDERED: MIDAZOLAM HCL 2 MG/2 ML INJ ONE (12:03)
[2024-08-18] MEDS ORDERED: FENTANYL CITR 100 MCG/2 ML ONE (12:03)
[2024-08-18 13:41] VITALS: TEMP 98.4
[2024-08-18 14:42] VITALS: O2SAT 98
[2024-08-18 15:21] VITALS: BP 129/58
--- NOTE | 2024-08-18 23:33 | OP ---
Date of Procedure: 08/18/2024 Surgeon: ZOE MILLER Procedure Performed: 1.Peripheral angiogram with runoff. 2.Carotid angiogram. Indications: 1.Carotid stenosis. 2.Peripheral vascular disease with claudication. Access: Right common femoral artery 5-[place], closed with Mynx closure device. Complications: None. Bleeding: Less than 50 mL. Anesthesia: Total sedation time was 45 minutes. Used fentanyl, Versed. Description Of Procedure: After risks, benefits, and alternatives were explained, the patient agreed to procedure and signed informed consent. [facility], prepped and draped in usual sterile fashion. Then, I accessed right common femoral artery us ing micropuncture kit, ultrasound guidance, and fluoroscopy, placed 5-[place] Billingsley sheath and took 4-[place] 3DRC catheter, engaged the right common carotid, took standard views, and then in the left common carotid, took standard views, and then exchanged for a straight pigtail 4-[place] and performed distal aortogram and runoff. Removed the catheter and the sheath, and Mynx. 5-[place] Mynx closure device was used for closure with good hemostasis. Findings: Carotid angiogram: 1.Right common carotid is normal. Right internal carotid has 20% stenosis proximally and the acute care physician al carotid is normal. 2.Left common carotid is normal. Left internal carotid has 60% proximally and the left external car otid is normal. Peripheral angiogram: 1.Widely patent distal aorta. 2.Right lower extremity, right common iliac, external iliac, common femoral, and profunda are patent . The right SFA has proximal 40% stenosis and then becomes normal. The popliteal is normal and then below the knee, the anterior tibial has also 80% stenosis. Tibial trunk is normal. The peroneal martinez s diffuse 70% to 80% stenosis, and posterior tibial becomes [employer] in the mid segment and fills from the other vessels. 3.Left lower extremity: The left common iliac, external iliac, common femoral, profunda are all wid kelly patent. Left SFA proximal segment is normal. Mid segment, there is 30% stenosis, diffuse. The popliteal has focal 50% stenosis. The anterior tibial has proximal 95% stenosis and then luminal irr egularities. The tibial trunk appears to be normal. The peroneal has 40% to 50% stenosis. Conclusion: 1.Moderate carotid stenosis. 2.Severe below the knee peripheral vascular disease bilaterally. Plan: Intervention on the left leg at [place] on the vessels below the knee and then the right le g at the later time. /LIZZY Voice ID: [id number] Report ID: [id number]
--- NOTE | 2024-08-25 16:26 | EKG ---
Test Date: 2024-08-16 Test Time: 16:17:08 Stoner Out: KAMRON MEASUREMENT RESULTS: Intervals: Rate: 64 [place]: 206 QRSD: 92 QT: 470 QTc: 484 [place]: P: 77 [place]: 206 QRS: -20 T: 107 INTERPRETIVE STATEMENTS: Normal sinus rhythm Inferior infarct, age undetermined Abnormal ECG Compared to ECG 03/17/2024 08:27:05 Sinus bradycardia no longer present Myocardial infarct finding still present Electronically Signed On 08-25-24 16:10:50 PRINCIPAL ADMINISTRATIVE CLERK by Lopez Oliveira
== END 2024-08-18 15:10 | disposition home or self-care (01) ==
LOC: CCL 10:59
PROVIDERS: ATTEND Internal Medicine
DX: I70.213 Atherosclerosis of native arteries of extremities with intermittent claudication, bilateral legs (principal); I70.92 Chronic total occlusion of artery of the extremities; I65.23 Occlusion and stenosis of bilateral carotid arteries; I25.10 Atherosclerotic heart disease of native coronary artery without angina pectoris; I34.0 Nonrheumatic mitral (valve) insufficiency; I13.2 Hypertensive heart and chronic kidney disease with heart failure and with stage 5 chronic kidney disease, or end stage renal disease; E11.22 Type 2 diabetes mellitus with diabetic chronic kidney disease; I50.32 Chronic diastolic (congestive) heart failure; N18.6 End stage renal disease; I71.20 Thoracic aortic aneurysm, without rupture, unspecified; E78.5 Hyperlipidemia, unspecified; Z95.1 Presence of aortocoronary bypass graft; Z87.891 Personal history of nicotine dependence; Z79.01 Long term (current) use of anticoagulants; Z79.899 Other long term (current) drug therapy; Z88.8 Allergy status to other drugs, medicaments and biological substances; Z82.49 Family history of ischemic heart disease and other diseases of the circulatory system
CPT/HCPCS: 93005; 85025; 80048; 36415; 85610; 85730; 75716; 75625; 36222; 76937; C1893; J2003; J2250; J3010; J7040; C1760; 36200; 75630; 99152; J0461

== ENCOUNTER 2024-12-27 23:04 | Emergency (ER) | payer OTHER ==
[2024-12-27] MEDS ORDERED: FOLIC ACID 5 MG/ML VIAL ONE (23:35)
[2024-12-27] MEDS ORDERED: NA CHLORIDE 0.9% 1,000 ML ONE (23:36)
[2024-12-27 23:38] LABS: Absolute Basophils 0.1 K/uL (0-0.5); Absolute Lymphocytes (CBC) 0.5 K/uL (0.7-4.9); Absolute Monocytes 0.3 K/uL (0.1-1.3); Hematocrit 33.9 % (39.6-49.0); Hemoglobin 11.6 g/dL (13.6-17.9); Lymphocytes % 6.1 % (15.3-44.8); MCH 30.6 pg (27.0-35.0); MCHC 34.4 g/dL (32.0-36.0); MCV 89.1 fL (80-100); MPV 7.5 fL (7.6-11.3); Monocytes % 3.7 % (3.3-12.3); Neutrophils % 89.2 % (41.7-73.7); Nucleated Red Blood Cells % 0.1 % (0-0); Platelets 158 thou/uL (152-406); Red Cell Distribution Width 15.3 % (12.1-15.2)
--- NOTE | 2024-12-27 23:38 | RAD REPORT ---
ADDENDUM #1 THIS REPORT CONTAINS FINDINGS THAT MAY BE CRITICAL TO PATIENT CARE: I communicated the above findings by telephone with Dr. Drew Wilkins on 12/27/2024 11:34 PM CDT who demonstrated understanding of the above finding(s)/recommendation(s). Electronically signed by: Francesca Renteria MD 12/27/2024 11:34 PM CDT End of Addendum EXAM: CT Head Without Intravenous Contrast CLINICAL HISTORY: The patient is 74 years old and is Male; STROKE ALERT TECHNIQUE: Axial computed tomography images of the head/brain without intravenous contrast. Sagittal and cor onal reformatted images were created and reviewed. This CT exam was performed using one or more of the following dose reduction techniques: automated exposure control, adjustment of the mA and/or kV according to patient size, and/or use of iterative reconstruction technique. COMPARISON: March 17, 2024 FINDINGS: BRAIN: There is diffuse cerebral atrophy present, consistent with this patient's age. Evidence of prior bilateral basal ganglia lacunar infarcts are noted. No intracranial hemorrhage, mass effect or midline shift is seen. There are no extra-axial fluid collections. The watts-white different iation is maintained. There is no cerebral edema. VENTRICLES: Unremarkable. No ventriculomegaly. BONES/JOINTS: No acute fracture. SOFT TISSUES: Unremarkable. VASCULATURE: Atherosclerosis of intracranial vasculature is present. SINUSES: Unremarkable as visualized. No acute sinusitis. MASTOID AIR CELLS: Unremarkable as visualized. No mastoid effusion. ORBITS: Unremarkable as visualized. IMPRESSION: No acute intracranial findings. Electronically signed by: Francesca Renteria MD 12/27/2024 11:31 PM CDT Due to temporary technical issues with the PACS/[email or web address] reporting system, reports are being julius d by the in-house radiologist without review as a courtesy to ensure prompt reporting the interpreting radiologist is fully responsible for the content of the report. Transcribed Date/Time: 12/27/2024 11:37 PM
[2024-12-27 23:51] LABS: PT Prothrombin Time 19.4 SECONDS (10-13.0); Protime INR 1.75
--- NOTE | 2024-12-28 00:01 | RAD REPORT ---
EXAM: CT Angiography Neck With Intravenous Contrast CLINICAL HISTORY: The patient is 74 years old and is Male; APHASIA TECHNIQUE: Routine carotid CT angiography protocol was performed with intravenous contrast. NASCE T criteria using the distal ICAs for comparison were used for evaluation of stenoses. Sagittal and coronal reformatted images were created and reviewed. This CT exam was performed using one or m ore of the following dose reduction techniques: automated exposure control, adjustment of the mA and/or kV according to patient size, and/or use of iterative reconstruction technique. MIP reconstr ucted images were created and reviewed. COMPARISON: None. FINDINGS: VASCULATURE: Right common carotid artery: Unremarkable. No occlusion or significant stenosis. No dissectio n. Right internal carotid artery: Unremarkable. Extracranial segment is patent with no occlusion o r significant stenosis. No dissection. Right external carotid artery: Unremarkable. No occlusion. Right vertebral artery: Diminutive right vertebral artery. No occlusion or significant stenosis. No dissection. Left common carotid artery: Noncalcified plaque causing moderate narrowing of the left common car otid artery. No dissection. Left internal carotid artery: Moderate narrowing of the proximal left ICA. No dissection. Left external carotid artery: Unremarkable. No occlusion. Left vertebral artery: Unremarkable. No occlusion or significant stenosis. No dissection. NECK: Bones/joints: Unremarkable. No acute fracture. Soft tissues: Unremarkable. Lung apices: Scattered consolidation in the right lung. Partially visualized groundglass changes in the left lung. Mediastinum: Mediastinal lymphadenopathy. CAROTID STENOSIS REFERENCE USING NASCET CRITERIA: % ICA stenosis = (1 - narrowest ICA diameter/diameter of distal cervical ICA) x 100. Mild - <50% stenosis. Moderate - 50-69% stenosis. Severe - 70-94% stenosis. Near occlusion - 95-99% stenosis. Occluded - 100% stenosis. * A single impression for all exams can be found at the end of this report IMPRESSION: CT Angiography Head With Intravenous Contrast: No occlusion or significant stenosis. No aneurysm. CT Angiography Neck With Intravenous Contrast: 1. No acute finding in the arteries of the neck. 2. Scattered consolidation in the right lung. Partially visualized groundglass changes in the left lung. 3. Mediastinal lymphadenopathy. Electronically signed by: Alex Walters MD 12/27/2024 11:56 PM CDT RP 8 Due to temporary technical issues with the PACS/[employer] reporting system, reports are being julius d by the in-house radiologist without review as a courtesy to ensure prompt reporting the interpreting radiologist is fully responsible for the content of the report. Transcribed Date/Time: 12/28/2024 12:01 AM
[2024-12-28] MEDS ORDERED: IPRATROPIUM BROM 0.5MG/2.5ML ONE (00:19)
[2024-12-28] MEDS ORDERED: Levofloxacin500mg IV 500 MG/100 ML BAG IV ONE (00:20)
[2024-12-28] MEDS ORDERED: LEVALBUTEROL 1.25 MG/3 ML NEB ONE (00:20)
[2024-12-28] MEDS ORDERED: NA CHLORIDE 0.9% 100 ML ONE (00:20)
[2024-12-28] MEDS ORDERED: Meropenem 1000 MG/VIAL IV ONE (00:20)
[2024-12-28] MEDS ORDERED: ASPIRIN 81 MG CHEWABLE TABLET ONE (00:20)
--- NOTE | 2024-12-28 00:27 | EDPHYS ---
Physician Documentation [facility] Name: Mansoor Summers Age: 74 yrs Sex: Male : 1950 Arrival Date: 12/27/2024 Time: 23:04 Bed 2 Private MD: ED Physician Drew Wilkins HPI: 12/28 00:14 This 74 yrs old Male presents to ER via Wheelchair with complaints of Slurred jay Speech. 00:14 The patient presents to the emergency department with a speech or higher order brain jay function problem, aphasia, that is marked. Onset: The symptoms/episode began/occurred yesterday, 1 day(s) ago. Historical: - Allergies: 12/27 23:19 Niaspan; cp4 - PMHx: 23:19 Afib with need for cardioversion; Atrial fibrillation; CAD; CHF; Diabetes - IDDM; cp4 Diabetes - NIDDM; diabetes mellitus; ESRD; hemodialysis; Hyperlipidemia; Hypertension; Myocardial infarction; - PSHx: 23:19 CABG; Dialysis catheter to right upper chest; Heart stents x 16; stent placement; cp4 - Immunization history:: Adult Immunizations up to date. - Infectious Disease History:: Denies. - Social history:: Smoking status: Patient denies any tobacco usage or history of. ROS: 12/28 00:18 Constitutional: Negative for fever, chills, and weight loss, Eyes: Negative for injury, jay pain, redness, and discharge, ENT: Negative for injury, pain, and discharge, Neck: Negative for injury, pain, and swelling, Cardiovascular: Negative for chest pain, palpitations, and edema, Abdomen/GI: Negative for abdominal pain, nausea, vomiting, diarrhea, and constipation, Back: Negative for injury and pain, : Negative for injury, bleeding, discharge, and swelling, MS/Extremity: Negative for injury and deformity, Skin: Negative for injury, rash, and discoloration, Psych: Negative for depression, anxiety, suicide ideation, homicidal ideation, and hallucinations, Allergy/Immunology: Negative for hives, rash, and allergies, Endocrine: Negative for neck swelling, polydipsia, polyuria, polyphagia, and marked weight changes, Hematologic/Lymphatic: Negative for swollen nodes, abnormal bleeding, and unusual bruising, Respiratory: Positive for cough, "sounds productive", shortness of breath, at rest. Exam: 00:18 Constitutional: This is a well developed, well nourished patient who is awake, alert, jay and in no acute distress. Head/Face: Normocephalic, atraumatic. Eyes: Pupils equal round and reactive to light, extra-ocular motions intact. Lids and lashes normal. Conjunctiva and sclera are non-icteric and not injected. Cornea within normal limits. Periorbital areas with no swelling, redness, or edema. ENT: Nares patent. No nasal discharge, no septal abnormalities noted. Tympanic membranes are normal and external auditory canals are clear. Oropharynx with no redness, swelling, or masses, exudates, or evidence of obstruction, uvula midline. Mucous membranes moist. Neck: Trachea midline, no thyromegaly or masses palpated, and no cervical lymphadenopathy. Supple, full range of motion without nuchal rigidity, or vertebral point tenderness. No Meningismus. Chest/axilla: Normal chest wall appearance and motion. Nontender with no deformity. No lesions are appreciated. Cardiovascular: Regular rate and rhythm with a normal S1 and S2. No gallops, murmurs, or rubs. Normal PMI, no JVD. No pulse deficits. Abdomen/GI: Soft, non-tender, with normal bowel sounds. No distension or tympany. No guarding or rebound. No evidence of tenderness throughout. Back: No spinal tenderness. No costovertebral tenderness. Full range of motion. Male : Normal genitalia with no discharge or lesions. Skin: Warm, dry with normal turgor. Normal color with no rashes, no lesions, and no evidence of cellulitis. MS/ Extremity: Pulses equal, no cyanosis. Neurovascular intact. Full, normal range of motion., bilateral aka Psych: Awake, alert, with orientation to person, place and time. Behavior, mood, and affect are within normal limits. 00:18 ECG was reviewed by the Attending Physician. 00:18 Respiratory: the patient does not display signs of respiratory distress, Respirations: labored breathing, that is mild, Breath sounds: bronchial sounds, that are mild, are scattered, decreased breath sounds, that are moderate, are heard in the right middle lobe, right lower lobe, right posterior middle lobe and right posterior lower lobe, 02:04 Respiratory: Respiratory rate: 30 jay Vital Signs: 12/27 11:30 BP 115 / 53; Pulse 79; Resp 36; Temp 98.8; Pulse Ox 85% on R/A; Weight 81.5 kg; Height cp4 5 ft. 8 in. ; Pain 0/10; 12/28 00:00 BP 109 / 50; Pulse 73; Resp 16 S; Pulse Ox 93% on 4 lpm NC; lg3 00:30 BP 108 / 54; Pulse 71; Resp 16 S; Pulse Ox 96% on 4 lpm NC; lg3 01:00 BP 107 / 49; Pulse 69; Resp 17 S; Pulse Ox 95% on 4 lpm NC; lg3 01:30 BP 108 / 56; Pulse 74; Resp 17; Temp 98.7; Pulse Ox 97% on 4 lpm NC; dd2 02:00 BP 117 / 55; Pulse 72; Resp 17; Pulse Ox 94% on 4 lpm NC; dd2 02:30 BP 111 / 50; Pulse 70; Resp 16; Pulse Ox 100% on 4 lpm NC; dd2 03:00 BP 118 / 64; Pulse 74; Resp 16; Pulse Ox 98% on 4 lpm NC; dd2 03:25 BP 112 / 55; Pulse 69; Resp 16; Pulse Ox 94% on 4 lpm NC; dd2 12/27 11:30 Body Mass Index 27.32 (81.50 kg, 172.72 cm) cp4 12/27 11:30 Pain Scale: Adult cp4 NIH Stroke Scale Scores: 12/27 23:04 NIHSS Score: 3 lg3 12/28 00:16 NIHSS Score: 3 jay 00:27 NIHSS Score: 0 jya 00:30 NIHSS Score: 0 lg3 03:25 NIHSS Score: 0 lg3 Patricia Coma Score: 00:31 Eye Response: spontaneous(4). Motor Response: obeys commands(6). Verbal Response: dd2 oriented(5). Total: 15. MDM: 12/27 23:07 Medical Screening Exam initiated jay 12/28 00:21 Data reviewed: vital signs, nurses notes, lab test result(s), EKG, radiologic studies, [facility] CT scan, plain films. Consideration of Admission/Observation Escalation of care including admission/observation considered. I considered the following discharge prescriptions or medication management in the emergency department Medications were administered in the Emergency Department. See MAR. Independent interpretation of the following test(s) in the Emergency Department EKG: See my EKG interpretation above. Test considered but Not performed: MRI: no mri brain. Historians other than the Patient: Spouse/Significant Other: well informed. Care significantly affected by the following chronic conditions: Diabetes, Hypertension, Congestive Heart Failure, Chronic Kidney Disease, afib, cad. Counseling: I had a detailed discussion with the patient and/or guardian regarding the historical points, exam findings, and any diagnostic results supporting the discharge/admit diagnosis, lab results, radiology results, the need to transfer to another facility, for higher level of care, [facility] does not immediately have the required specialist. 02:03 Post IV fluid administration reassessment for Sepsis: Client not prescribed the 30 jay mL/kg IVF due to: Lungs: Decreased breath sounds noted. 12/27 23:09 Order name: Basic Metabolic Panel; Complete Time: 01:58 [facility] 12/27 23:09 Order name: CBC with Diff; Complete Time: :58 [facility] 12/27 23:09 Order name: LFT's; Complete Time: :58 [facility] 12/27 23:09 Order name: Magnesium; Complete Time: :58 [facility] 12/27 23:09 Order name: NT PRO-BNP; Complete Time: :58 [facility] 12/27 23:09 Order name: PT-INR; Complete Time: 23:57 [facility] 12/27 23:09 Order name: Troponin HS; Complete Time: :58 [facility] 12/27 23:09 Order name: CRP; Complete Time: :58 [facility] 12/27 23:38 Order name: Glucose, Ancillary Testing; Complete Time: 23:57 EDMS 12/27 23:56 Order name: Manual Differential; Complete Time: :58 EDCT 12/27 23:57 Order name: Lactate w/ 2H reflex if indic.; Complete Time: :58 [facility] 12/27 23:57 Order name: Blood Culture Adult (2) 12/27 23:09 Order name: XRAY Chest (1 view) 12/27 23:09 Order name: CT Stroke Brain w/o Contrast; Complete Time: 23:57 [facility] 12/27 23:09 Order name: CT Head Angio; Complete Time: :58 [facility] 12/27 23:09 Order name: CT Neck Angio; Complete Time: :58 jay 12/28 00:12 Order name: CT Chest Wo Con [facility] 12/27 23:09 Order name: Cardiac monitoring; Complete Time: :42 [facility] 12/27 23:09 Order name: EKG - Nurse/Tech; Complete Time: : [facility] 12/27 23:09 Order name: IV Saline Lock; Complete Time: :25 [facility] 12/27 23:09 Order name: Labs collected and sent; Complete Time: : [facility] 12/27 23:09 Order name: O2 Per Protocol; Complete Time: : [facility] 12/27 23:09 Order name: O2 Sat Monitoring; Complete Time: : [facility] EC:18 Rate is 77 beats/min. Rhythm is regular. QRS Bruce is Normal. WI interval is prolonged [facility] at 214 msec. QRS interval is normal. QT interval is normal. No Q waves. T waves are Normal. No ST changes noted. Clinical impression: NSR w/ Non-specific ST/T Changes, 1st degree heart block, and No evidence of ischemia. Interpreted by me. Reviewed by me. Administered Medications: 00:13 Discontinued: ns 0.9% 500 ml 500 ml IV at 1 bolus once; to be given as a bolus over 30 jay minutes 00:13 Discontinued: ns 0.9% 500 ml 500 ml IV at 100 ml/hr once [facility] 12/27 23:42 Drug: foLIC Acid IVPB 1 mg IVPB once Route: IVPB; Site: right antecubital; dd2 12/28 01:11 Follow up: Response: No adverse reaction; IV Status: Completed infusion; IV Intake: lg3 0.2ml 12/27 23:42 Drug: NS 0.9% IV 500 ml 500 ml IV at 1 bolus once; to be given as a bolus over 30 dd2 minutes Volume: 500 ml; Route: IV; Rate: 1 bolus; Site: right antecubital; 12/28 00:19 Follow up: IV Status: Order to discontinue infusion dd2 12/27 23:42 Drug: NS 0.9% IV 500 ml 500 ml IV at 100 ml/hr once Volume: 500 ml; Route: IV; Rate: dd2 100 ml/hr; Site: right antecubital; 12/28 00:20 Follow up: IV Status: Order to discontinue infusion dd2 00:27 Drug: Levalbuterol Inhalation 2.5 mg Inhalation once Route: Inhalation; dd2 01:11 Follow up: Response: No adverse reaction lg3 00:27 Drug: Ipratropium Inhalation Aerosol 0.5 mg Inhalation once Route: Inhalation; dd2 01:11 Follow up: Response: No adverse reaction lg3 00:27 Drug: Aspirin PO Chewable Tablet 162 mg PO once Route: PO; dd2 01:10 Follow up: Response: No adverse reaction lg3 00:29 Drug: Meropenem IV 1 grams IV at per protocol once; (mix in NS 100 mL) Route: IV; Rate: dd2 per protocol; Site: right antecubital; 01:11 Follow up: Response: No adverse reaction; IV Status: Completed infusion; IV Intake: lg3 100ml 01:11 Drug: levofloxacin IVPB 500 mg 100 ml IVPB once over 60 mins Volume: 100 ml; Route: lg3 IVPB; Infused Over: 60 mins; Site: right antecubital; 02:26 Follow up: Response: No adverse reaction; IV Status: Completed infusion; IV Intake: lg3 100ml 02:26 Drug: Magnesium Sulfate IVPB 2 grams IVPB once over 2 hrs Route: IVPB; Infused Over: 2 lg3 hrs; Site: right antecubital; 03:56 Follow up: Response: No adverse reaction; IV Status: Completed infusion; IV Intake: lg3 100ml Disposition Summary: 12/28/24 00:27 Transfer Ordered Notes: Transfer Location: [facility] jay Reason: Higher level of care jay Condition: Fair jay Problem: new jay Symptoms: have improved jay Accepting Physician: to [facility] , [facility]u(12/28/24 03:57) lg3 Diagnosis - Aphasia following cerebral infarction jay - Dependence on renal dialysis jay - Pneumonia due to other specified bacteria - right lower lobe, consolidation jay - Hypoxemia jay Forms: - Medication Reconciliation Form jay - SBAR form jay Critical care time excluding procedures: 01:03 Critical care time: Bedside Care: 25 minutes, Consultation: 15 minutes, Family jay Intervention: 10 minutes. Total time: 50 minutes NIH Stroke Scale - NIH Stroke Score Date: 12/27/2024 Time: 23:04 Total Score = 3 10. Dysarthria (speech clarity - read or repeat words) - 1(Mild to Moderate) 11. Extinction and Inattention (visual/tactile/auditory/spatial/personal) - 0(No abnormality) 1a. Level of Consciousness (LOC) - 0(Alert) 1b. Level of Consciousness (LOC) (Month \\T\\ Age) - 0(Both) 1c. LOC Commands (Open \\T\\ Closes Eyes/Multiple Drum Sander Helper) - 0(Both) 2. Best Gaze (Lateral Gaze Paresis) - 0(Normal) 3. Visual Field Loss - 0(No visual loss) 4. Facial Palsy - 0(Normal) 5a. Left Arm: Motor (10-second hold) - 0(No drift) 5b. Right Arm: Motor (10-second hold) - 0(No drift) 6a. Left Leg: Motor (5-second hold - always test supine) - 0(No drift) 6b. Right Leg: Motor (5-second hold - always test supine) - 0(No drift) 7. Limb Ataxia (finger/nose \\T\\ heel/[place] - test with eyes open) - 0(Absent) 8. Sensory Loss (pinprick arms/legs/face) - 0(Normal) 9. Best Language: Aphasia (description/naming/reading) - 2(Severe aphasia) Initials: lg3 NIH Stroke Scale - NIH Stroke Score Date: 12/28/2024 Time: 00:16 Total Score = 3 10. Dysarthria (speech clarity - read or repeat words) - 1(Mild to Moderate) 11. Extinction and Inattention (visual/tactile/auditory/spatial/personal) - 0(No abnormality) 1a. Level of Consciousness (LOC) - 0(Alert) 1b. Level of Consciousness (LOC) (Month \\T\\ Age) - 0(Both) 1c. LOC Commands (Open \\T\\ Closes Eyes/Multiple Drum Sander Helper) - 0(Both) 2. Best Gaze (Lateral Gaze Paresis) - 0(Normal) 3. Visual Field Loss - 0(No visual loss) 4. Facial Palsy - 0(Normal) 5a. Left Arm: Motor (10-second hold) - 0(No drift) 5b. Right Arm: Motor (10-second hold) - 0(No drift) 6a. Left Leg: Motor (5-second hold - always test supine) - 0(No drift) 6b. Right Leg: Motor (5-second hold - always test supine) - 0(No drift) 7. Limb Ataxia (finger/nose \\T\\ heel/[place] - test with eyes open) - 0(Absent) 8. Sensory Loss (pinprick arms/legs/face) - 0(Normal) 9. Best Language: Aphasia (description/naming/reading) - 2(Severe aphasia) Initials: [facility] NIH Stroke Scale - NIH Stroke Score Date: 12/28/2024 Time: 00:27 Total Score = 0 10. Dysarthria (speech clarity - read or repeat words) - 0(Normal) 11. Extinction and Inattention (visual/tactile/auditory/spatial/personal) - 0(No abnormality) 1a. Level of Consciousness (LOC) - 0(Alert) 1b. Level of Consciousness (LOC) (Month \\T\\ Age) - 0(Both) 1c. LOC Commands (Open \\T\\ Closes Eyes/Multiple Drum Sander Helper) - 0(Both) 2. Best Gaze (Lateral Gaze Paresis) - 0(Normal) 3. Visual Field Loss - 0(No visual loss) 4. Facial Palsy - 0(Normal) 5a. Left Arm: Motor (10-second hold) - 0(No drift) 5b. Right Arm: Motor (10-second hold) - 0(No drift) 6a. Left Leg: Motor (5-second hold - always test supine) - 0(No drift) 6b. Right Leg: Motor (5-second hold - always test supine) - 0(No drift) 7. Limb Ataxia (finger/nose \\T\\ heel/[place] - test with eyes open) - 0(Absent) 8. Sensory Loss (pinprick arms/legs/face) - 0(Normal) 9. Best Language: Aphasia (description/naming/reading) - 0(No aphasia) Initials: [facility] NIH Stroke Scale - NIH Stroke Score Date: 12/28/2024 Time: 00:30 Total Score = 0 10. Dysarthria (speech clarity - read or repeat words) - 0(Normal) 11. Extinction and Inattention (visual/tactile/auditory/spatial/personal) - 0(No abnormality) 1a. Level of Consciousness (LOC) - 0(Alert) 1b. Level of Consciousness (LOC) (Month \\T\\ Age) - 0(Both) 1c. LOC Commands (Open \\T\\ Closes Eyes/Multiple Drum Sander Helper) - 0(Both) 2. Best Gaze (Lateral Gaze Paresis) - 0(Normal) 3. Visual Field Loss - 0(No visual loss) 4. Facial Palsy - 0(Normal) 5a. Left Arm: Motor (10-second hold) - 0(No drift) 5b. Right Arm: Motor (10-second hold) - 0(No drift) 6a. Left Leg: Motor (5-second hold - always test supine) - 0(No drift) 6b. Right Leg: Motor (5-second hold - always test supine) - 0(No drift) 7. Limb Ataxia (finger/nose \\T\\ heel/[place] - test with eyes open) - 0(Absent) 8. Sensory Loss (pinprick arms/legs/face) - 0(Normal) 9. Best Language: Aphasia (description/naming/reading) - 0(No aphasia) Initials: lg3 NIH Stroke Scale - NIH Stroke Score Date: 12/28/2024 Time: 03:25 Total Score = 0 10. Dysarthria (speech clarity - read or repeat words) - 0(Normal) 11. Extinction and Inattention (visual/tactile/auditory/spatial/personal) - 0(No abnormality) 1a. Level of Consciousness (LOC) - 0(Alert) 1b. Level of Consciousness (LOC) (Month \\T\\ Age) - 0(Both) 1c. LOC Commands (Open \\T\\ Closes Eyes/Multiple Drum Sander Helper) - 0(Both) 2. Best Gaze (Lateral Gaze Paresis) - 0(Normal) 3. Visual Field Loss - 0(No visual loss) 4. Facial Palsy - 0(Normal) 5a. Left Arm: Motor (10-second hold) - 0(No drift) 5b. Right Arm: Motor (10-second hold) - 0(No drift) 6a. Left Leg: Motor (5-second hold - always test supine) - 0(No drift) 6b. Right Leg: Motor (5-second hold - always test supine) - 0(No drift) 7. Limb Ataxia (finger/nose \\T\\ heel/[place] - test with eyes open) - 0(Absent) 8. Sensory Loss (pinprick arms/legs/face) - 0(Normal) 9. Best Language: Aphasia (description/naming/reading) - 0(No aphasia) Initials: lg3 Signatures: Dispatcher [employer] Drew Fox MD MD cha Able, Lacie, RN RN lg3 Niya Lizarraga 4 JUAN YUAN RN RN dd2 Corrections: (The following items were deleted from the chart) 12/27 23:10 23:10 CT-STROKE BRAIN W/O CONTRAST+CT.RAD.BRZ ordered. EDMS EDMS 23:10 23:10 Head Angio+CT.RAD.BRZ ordered. EDMS EDMS 23:10 23:10 Neck Angio+CT.RAD.BRZ ordered. EDMS EDMS 23:10 23:10 Urinalysis+U.LAB.BRZ ordered. EDMS EDMS 23:57 23:57 LACTATE+C.LAB.BRZ ordered. EDMS EDMS 23:57 23:57 BLOOD CULTURE*+BA.LAB.BRZ ordered. EDMS EDMS 12/28 03:57 00:27 [address] [facility] , [facility] jay lg3
--- NOTE | 2024-12-28 00:27 | ER ---
Nurse's Notes [facility] Name: Mansoor Summers Age: 74 yrs Sex: Male : 1950 Arrival Date: 12/27/2024 Time: 23:04 Bed 2 Private MD: Diagnosis: Aphasia following cerebral infarction;Dependence on renal dialysis;Pneumonia due to other specified bacteria-right lower lobe, consolidation;Hypoxemia Presentation: 12/27 11:30 Initial Sepsis Screen: Does the patient meet any 2 criteria? RR > 20 per min. No. cp4 Patient's initial sepsis screen is negative. Does the patient have a suspected source of infection? No. Patient's initial sepsis screen is negative. Risk Assessment: Do you want to hurt yourself or someone else? Patient reports no desire to harm self or others. 23:17 Chief complaint: Patient states: slurred speech, difficulty talking and walking and cp4 shortness of breath that started yesterday morning. Coronavirus screen: Client denies travel out of the [place] in the last 14 days. At this time, the client does not indicate any symptoms associated with coronavirus-19. Ebola Screen: Patient negative for fever greater than or equal to 101.5 degrees Fahrenheit, and additional compatible Ebola Virus Disease symptoms Patient denies exposure to infectious person. Patient denies travel to an Ebola-affected area in the 21 days before illness onset. No symptoms or risks identified at this time. An acute neurological deficit is present. The charge nurse has been notified. The patient has been moved to a treatment area. Initial Sepsis Screen:. Onset of symptoms was December 26, 2024. 23:17 Method Of Arrival: Wheelchair cp4 23:17 Acuity: CRAIG 2 cp4 Triage Assessment: 23:19 The onset of the patients symptoms was more than six hours ago. cp4 23:19 The onset of the patients symptoms was at an unknown time. lg3 Stroke Activation: Physician: ED Attending; Name: Franky; Notified At: ; Arrived At: Physician: Mid-Level Provider; Name: ; Notified At: ; Arrived At: Physician: [not used]; Name: ; Notified At: ; Arrived At: Physician: [not used]; Name: ; Notified At: ; Arrived At: Physician: [not used]; Name: ; Notified At: ; Arrived At: Historical: - Allergies: 23:19 Niaspan; cp4 - PMHx: 23:19 Afib with need for cardioversion; Atrial fibrillation; CAD; CHF; Diabetes - IDDM; cp4 Diabetes - NIDDM; diabetes mellitus; ESRD; hemodialysis; Hyperlipidemia; Hypertension; Myocardial infarction; - PSHx: 23:19 CABG; Dialysis catheter to right upper chest; Heart stents x 16; stent placement; cp4 - Immunization history:: Adult Immunizations up to date. - Infectious Disease History:: Denies. - Social history:: Smoking status: Patient denies any tobacco usage or history of. Screenin:04 [facility] ED Fall Risk Assessment (Adult) History of falling in the last 3 months, lg3 including since admission No falls in past 3 months (0 pts) Confusion or Disorientation No (0 pts) Intoxicated or Sedated No (0 pts) Impaired Gait No (0 pts) Mobility Assist Device Used No (0 pt) Altered Elimination No (0 pt) Score/Fall Risk Level 0 - 2 = Low Risk. Abuse screen: Denies threats or abuse. Denies injuries from another. Nutritional screening: No deficits noted. Tuberculosis screening: No symptoms or risk factors identified. Assessment: 23:04 VAN Scoring: Arm Drift: Patients demonstrates NO arm weakness. Patient is VAN Negative. lg3 Visual Disturbance: No visual disturbance noted. Aphasia: Expressive aphasia noted. Provider notified of +VAN scoring. Neglect: No neglect noted. General: Appears in no apparent distress. comfortable, Behavior is calm, cooperative. Pain: Denies pain. Neuro: Bar Agitation-Sedation Scale (RASS): 0 - Alert and Calm Level of Consciousness is awake, alert, obeys commands, Oriented to person, place, time, situation, Barber are equal bilaterally Moves all extremities. Full function Gait is steady, Speech is slurred, Facial symmetry appears normal. Cardiovascular: No deficits noted. Denies chest pain, Capillary refill < 3 seconds Clubbing of nail beds is absent JVD is absent Patient's skin is warm and dry. Respiratory: Reports shortness of breath at rest Airway is patent Respiratory effort is even, unlabored, Respiratory pattern is regular, symmetrical. GI: No deficits noted. No signs and/or symptoms were reported involving the gastrointestinal system. : No signs and/or symptoms were reported regarding the genitourinary system. EENT: No deficits noted. No signs and/or symptoms were reported regarding the EENT system. Derm: No deficits noted. No signs and/or symptoms reported regarding the dermatologic system. Skin is intact, is healthy with good turgor, Skin is dry, Skin is normal, Skin temperature is warm. Musculoskeletal: No deficits noted. No signs and/or symptoms reported regarding the musculoskeletal system. Circulation, motion, and sensation intact. Range of motion: intact in all extremities. 23:20 TNKase (Tenecteplase) Screening: Contraindications: Patient reports onset of signs and dd2 symptoms of stroke greater than 6 hours ago: Yes. Is the patient on Aspirin, Heparin, or Warfarin: Yes. 12/28 00:10 [place] Swallow Protocol Exclusion Criteria: Unable to remain alert for testing: No NPO dd2 for medical/surgical reason by provider order No Tracheostomy tube present No No thin liquids due to preexisting dysphagia/baseline modified diet thickened liquids No Exclusion Criteria Result: Proceed Brief Cognitive Screen What is your name? Normal, Where are you right now? Normal, What year is it? Normal. Oral Mechanism Examination Facial Symmetry: Normal, Motion: Normal, Lip Closure: Normal, Oral Mechanism Result: Normal. 3 oz Water Swallow Challenge: Pt able to drink all water without stopping, coughing, choking or throat clearing: Yes Result: PASS MD Notified: Drew Wilkins MD. 00:30 General: Appears in no apparent distress. comfortable, Behavior is calm, cooperative. lg3 00:30 Reassessment: Patient states feeling better. Patient states symptoms have improved. lg3 Pain: Denies pain. Neuro: No deficits noted. Bar Agitation-Sedation Scale (RASS): 0 - Alert and Calm Level of Consciousness is awake, alert, obeys commands, Oriented to person, place, time, situation, Barber are equal bilaterally Moves all extremities. Full function Gait is steady, Speech is normal, Facial symmetry appears normal. 03:25 Reassessment: Patient appears in no apparent distress at this time. No changes from lg3 previously documented assessment. Patient and/or family updated on plan of care and expected duration. Pain level reassessed. Patient is alert, oriented x 3, equal unlabored respirations, skin warm/dry/pink. Patient denies pain at this time. Patient states feeling better. Patient states symptoms have improved. Vital Signs: 12/27 11:30 BP 115 / 53; Pulse 79; Resp 36; Temp 98.8; Pulse Ox 85% on R/A; Weight 81.5 kg; Height cp4 5 ft. 8 in. ; Pain 0/10; 12/28 00:00 BP 109 / 50; Pulse 73; Resp 16 S; Pulse Ox 93% on 4 lpm NC; lg3 00:30 BP 108 / 54; Pulse 71; Resp 16 S; Pulse Ox 96% on 4 lpm NC; lg3 01:00 BP 107 / 49; Pulse 69; Resp 17 S; Pulse Ox 95% on 4 lpm NC; lg3 01:30 BP 108 / 56; Pulse 74; Resp 17; Temp 98.7; Pulse Ox 97% on 4 lpm NC; dd2 02:00 BP 117 / 55; Pulse 72; Resp 17; Pulse Ox 94% on 4 lpm NC; dd2 02:30 BP 111 / 50; Pulse 70; Resp 16; Pulse Ox 100% on 4 lpm NC; dd2 03:00 BP 118 / 64; Pulse 74; Resp 16; Pulse Ox 98% on 4 lpm NC; dd2 03:25 BP 112 / 55; Pulse 69; Resp 16; Pulse Ox 94% on 4 lpm NC; dd2 12/27 11:30 Body Mass Index 27.32 (81.50 kg, 172.72 cm) cp4 12/27 11:30 Pain Scale: Adult cp4 [place] Coma Score: 00:31 Eye Response: spontaneous(4). Motor Response: obeys commands(6). Verbal Response: dd2 oriented(5). Total: 15. NIH Stroke Scale Scores: 12/27 23:04 NIHSS Score: 3 lg3 12/28 00:16 NIHSS Score: 3 jay 00:27 NIHSS Score: 0 jay 00:30 NIHSS Score: 0 lg3 03:25 NIHSS Score: 0 lg3 ED Course: 12/27 11:30 Arm band placed on right wrist. Patient placed in waiting room. cp4 23:04 Patient has correct armband on for positive identification. Placed in gown. Bed in low lg3 position. Call light in reach. Side rails up X2. Client placed on continuous cardiac and pulse oximetry monitoring. NIBP monitoring applied. human resource assistant on. Door closed. Noise minimized. Warm blanket given. Pillow given. Family accompanied patient. 23:07 Patient arrived in ED. vc1 23:07 Drew Wilkins MD is Attending Physician. jay 23:19 Triage completed. cp4 23:25 Inserted saline lock: 20 gauge in right antecubital area, using aseptic technique. af3 Blood collected. Flushed with 10 mL NS. 23:26 CT Stroke Brain w/o Contrast In Process Unspecified. EDMS 23:26 CT Head Angio In Process Unspecified. EDMS 23:26 CT Neck Angio In Process Unspecified. EDMS 23:38 XRAY Chest (1 view) In Process Unspecified. EDMS 23:38 Raven Garsia, GUY is Primary Nurse. lg3 12/28 00:15 Initiated transfer with Valentine at [facility]. rv1 00:21 No provider procedures requiring assistance completed. dd2 00:21 Initial lab(s) drawn, by ED staff, sent to lab. First set of blood cultures drawn by dd2 ia, EKG done, by ED staff, reviewed by Drew Wilkins MD. Oxygen administration via nasal cannula \T\ 2L/min. 00:36 Doc to Doc with neurologist at [facility]. rv1 01:57 Doc to Doc with hospitalist at [facility]. rv1 02:[address] Palomares [address] [facility] [address] [id number] bed 6. rv1 02:18 CT Chest Wo Con In Process Unspecified. EDMS 03:56 Patient transferred, IV remains in place. lg3 Administered Medications: 00:13 Discontinued: ns 0.9% 500 ml 500 ml IV at 1 bolus once; to be given as a bolus over 30 jay minutes 00:13 Discontinued: ns 0.9% 500 ml 500 ml IV at 100 ml/hr once jay 12/27 23:42 Drug: foLIC Acid IVPB 1 mg IVPB once Route: IVPB; Site: right antecubital; dd2 12/28 01:11 Follow up: Response: No adverse reaction; IV Status: Completed infusion; IV Intake: lg3 0.2ml 12/27 23:42 Drug: NS 0.9% IV 500 ml 500 ml IV at 1 bolus once; to be given as a bolus over 30 dd2 minutes Volume: 500 ml; Route: IV; Rate: 1 bolus; Site: right antecubital; 12/28 00:19 Follow up: IV Status: Order to discontinue infusion dd2 12/27 23:42 Drug: NS 0.9% IV 500 ml 500 ml IV at 100 ml/hr once Volume: 500 ml; Route: IV; Rate: dd2 100 ml/hr; Site: right antecubital; 12/28 00:20 Follow up: IV Status: Order to discontinue infusion dd2 00:27 Drug: Levalbuterol Inhalation 2.5 mg Inhalation once Route: Inhalation; dd2 01:11 Follow up: Response: No adverse reaction lg3 00:27 Drug: Ipratropium Inhalation Aerosol 0.5 mg Inhalation once Route: Inhalation; dd2 01:11 Follow up: Response: No adverse reaction lg3 00:27 Drug: Aspirin PO Chewable Tablet 162 mg PO once Route: PO; dd2 01:10 Follow up: Response: No adverse reaction lg3 00:29 Drug: Meropenem IV 1 grams IV at per protocol once; (mix in NS 100 mL) Route: IV; Rate: dd2 per protocol; Site: right antecubital; 01:11 Follow up: Response: No adverse reaction; IV Status: Completed infusion; IV Intake: lg3 100ml 01:11 Drug: levofloxacin IVPB 500 mg 100 ml IVPB once over 60 mins Volume: 100 ml; Route: lg3 IVPB; Infused Over: 60 mins; Site: right antecubital; 02:26 Follow up: Response: No adverse reaction; IV Status: Completed infusion; IV Intake: lg3 100ml 02:26 Drug: Magnesium Sulfate IVPB 2 grams IVPB once over 2 hrs Route: IVPB; Infused Over: 2 lg3 hrs; Site: right antecubital; 03:56 Follow up: Response: No adverse reaction; IV Status: Completed infusion; IV Intake: lg3 100ml Medication: 12/27 23:04 VIS not applicable for this client. lg3 Intake: 12/28 01:11 IV: 100ml; Total: 100ml. lg3 01:11 IV: 0ml; Total: 100ml. lg3 02:26 IV: 100ml; Total: 200ml. lg3 03:56 IV: 100ml; Total: 300ml. lg3 Outcome: 00:27 ER care complete, transfer ordered by MD. thompson 03:[address] [facility] to [facility], Transfer form completed. lg3 03:56 Condition: stable 03:56 Instructed on the need for transfer, Demonstrated understanding of instructions, 03:57 Patient left the ED. lg3 NIH Stroke Scale - NIH Stroke Score Date: 12/27/2024 Time: 23:04 Total Score = 3 10. Dysarthria (speech clarity - read or repeat words) - 1(Mild to Moderate) 11. Extinction and Inattention (visual/tactile/auditory/spatial/personal) - 0(No abnormality) 1a. Level of Consciousness (LOC) - 0(Alert) 1b. Level of Consciousness (LOC) (Month \T\ Age) - 0(Both) 1c. LOC Commands (Open \T\ Closes Eyes/Business Investor) - 0(Both) 2. Best Gaze (Lateral Gaze Paresis) - 0(Normal) 3. Visual Field Loss - 0(No visual loss) 4. Facial Palsy - 0(Normal) 5a. Left Arm: Motor (10-second hold) - 0(No drift) 5b. Right Arm: Motor (10-second hold) - 0(No drift) 6a. Left Leg: Motor (5-second hold - always test supine) - 0(No drift) 6b. Right Leg: Motor (5-second hold - always test supine) - 0(No drift) 7. Limb Ataxia (finger/nose \T\ heel/[place] - test with eyes open) - 0(Absent) 8. Sensory Loss (pinprick arms/legs/face) - 0(Normal) 9. Best Language: Aphasia (description/naming/reading) - 2(Severe aphasia) Initials: lg3 NIH Stroke Scale - NIH Stroke Score Date: 12/28/2024 Time: 00:16 Total Score = 3 10. Dysarthria (speech clarity - read or repeat words) - 1(Mild to Moderate) 11. Extinction and Inattention (visual/tactile/auditory/spatial/personal) - 0(No abnormality) 1a. Level of Consciousness (LOC) - 0(Alert) 1b. Level of Consciousness (LOC) (Month \T\ Age) - 0(Both) 1c. LOC Commands (Open \T\ Closes Eyes/Business Investor) - 0(Both) 2. Best Gaze (Lateral Gaze Paresis) - 0(Normal) 3. Visual Field Loss - 0(No visual loss) 4. Facial Palsy - 0(Normal) 5a. Left Arm: Motor (10-second hold) - 0(No drift) 5b. Right Arm: Motor (10-second hold) - 0(No drift) 6a. Left Leg: Motor (5-second hold - always test supine) - 0(No drift) 6b. Right Leg: Motor (5-second hold - always test supine) - 0(No drift) 7. Limb Ataxia (finger/nose \T\ heel/[place] - test with eyes open) - 0(Absent) 8. Sensory Loss (pinprick arms/legs/face) - 0(Normal) 9. Best Language: Aphasia (description/naming/reading) - 2(Severe aphasia) Initials: [facility] NIH Stroke Scale - NIH Stroke Score Date: 12/28/2024 Time: 00:27 Total Score = 0 10. Dysarthria (speech clarity - read or repeat words) - 0(Normal) 11. Extinction and Inattention (visual/tactile/auditory/spatial/personal) - 0(No abnormality) 1a. Level of Consciousness (LOC) - 0(Alert) 1b. Level of Consciousness (LOC) (Month \T\ Age) - 0(Both) 1c. LOC Commands (Open \T\ Closes Eyes/Business Investor) - 0(Both) 2. Best Gaze (Lateral Gaze Paresis) - 0(Normal) 3. Visual Field Loss - 0(No visual loss) 4. Facial Palsy - 0(Normal) 5a. Left Arm: Motor (10-second hold) - 0(No drift) 5b. Right Arm: Motor (10-second hold) - 0(No drift) 6a. Left Leg: Motor (5-second hold - always test supine) - 0(No drift) 6b. Right Leg: Motor (5-second hold - always test supine) - 0(No drift) 7. Limb Ataxia (finger/nose \T\ heel/[place] - test with eyes open) - 0(Absent) 8. Sensory Loss (pinprick arms/legs/face) - 0(Normal) 9. Best Language: Aphasia (description/naming/reading) - 0(No aphasia) Initials: [facility] NIH Stroke Scale - NIH Stroke Score Date: 12/28/2024 Time: 00:30 Total Score = 0 10. Dysarthria (speech clarity - read or repeat words) - 0(Normal) 11. Extinction and Inattention (visual/tactile/auditory/spatial/personal) - 0(No abnormality) 1a. Level of Consciousness (LOC) - 0(Alert) 1b. Level of Consciousness (LOC) (Month \T\ Age) - 0(Both) 1c. LOC Commands (Open \T\ Closes Eyes/Business Investor) - 0(Both) 2. Best Gaze (Lateral Gaze Paresis) - 0(Normal) 3. Visual Field Loss - 0(No visual loss) 4. Facial Palsy - 0(Normal) 5a. Left Arm: Motor (10-second hold) - 0(No drift) 5b. Right Arm: Motor (10-second hold) - 0(No drift) 6a. Left Leg: Motor (5-second hold - always test supine) - 0(No drift) 6b. Right Leg: Motor (5-second hold - always test supine) - 0(No drift) 7. Limb Ataxia (finger/nose \T\ heel/[place] - test with eyes open) - 0(Absent) 8. Sensory Loss (pinprick arms/legs/face) - 0(Normal) 9. Best Language: Aphasia (description/naming/reading) - 0(No aphasia) Initials: lg3 NIH Stroke Scale - NIH Stroke Score Date: 12/28/2024 Time: 03:25 Total Score = 0 10. Dysarthria (speech clarity - read or repeat words) - 0(Normal) 11. Extinction and Inattention (visual/tactile/auditory/spatial/personal) - 0(No abnormality) 1a. Level of Consciousness (LOC) - 0(Alert) 1b. Level of Consciousness (LOC) (Month \T\ Age) - 0(Both) 1c. LOC Commands (Open \T\ Closes Eyes/Business Investor) - 0(Both) 2. Best Gaze (Lateral Gaze Paresis) - 0(Normal) 3. Visual Field Loss - 0(No visual loss) 4. Facial Palsy - 0(Normal) 5a. Left Arm: Motor (10-second hold) - 0(No drift) 5b. Right Arm: Motor (10-second hold) - 0(No drift) 6a. Left Leg: Motor (5-second hold - always test supine) - 0(No drift) 6b. Right Leg: Motor (5-second hold - always test supine) - 0(No drift) 7. Limb Ataxia (finger/nose \T\ heel/[place] - test with eyes open) - 0(Absent) 8. Sensory Loss (pinprick arms/legs/face) - 0(Normal) 9. Best Language: Aphasia (description/naming/reading) - 0(No aphasia) Initials: lg3 Signatures: Dispatcher [employer] EDDrew Knox MD MD cha Able, Lacie, RN RN lg3 Candice Ortega RN RN vc1 Keturah Carlson 1 Niya Lizarraga 4 Delaney Sommer 3 JUAN YUAN RN RN dd2 Corrections: (The following items were deleted from the chart) 01:03 04 23:20 TNKase (Tenecteplase) Screening: Contraindications: Is the patient dd2 on Aspirin, Heparin, or Warfarin: Yes. dd2
[2024-12-28 00:29] LABS: Albumin/Globulin Ratio 0.9 (1.1-1.8); Anion Gap 17.1 mEq/L (5.0-15.0); Bilirubin Direct 0.7 mg/dL (0-0.2); Bilirubin Indirect, Calculated 0.9 mg/dL (0.2-0.8); Bilirubin Total 1.6 mg/dL (0.2-1.0); Globulin 3.3 g/dL (2.3-3.5); Magnesium 1.5 mg/dL (1.6-2.4); Potassium 4.1 mEq/L (3.5-5.1); Protein, Total 6.3 g/dL (6.4-8.2)
[2024-12-28 00:32] LABS: Troponin High Sensitivity 73.3 pg/mL (<58.9)
[2024-12-28 01:02] LABS: Band Neutrophils 24 % (0-1); Differential Total Cells Count 100; Lymphocytes 4 % (15-42); Metamyelocytes 2 % (0-0); Monocytes 4 % (0-10); Segmented Neutrophils 66 % (40-80)
[2024-12-28 01:03] LABS: Blood Morphology Comment NOT SEEN (NOT SEEN); Platelet Estimate ADEQ
[2024-12-28] MEDS ORDERED: Magnesium Sulfate 2gm IVPB 2 G/50 ML BAG IV ONE (02:23)
[2024-12-28 04:23] VITALS: TEMP 98.7
[2024-12-28 04:29] VITALS: BP 112/55; O2SAT 94
--- NOTE | 2024-12-28 05:07 | RAD REPORT ---
EXAM: CT Chest Without Intravenous Contrast CLINICAL HISTORY: The patient is 74 years old and is Male; DYSPNEA TECHNIQUE: Axial computed tomography images of the chest without intravenous contrast. Sagittal a nd coronal reformatted images were created and reviewed. This CT exam was performed using one or more of the following dose reduction techniques: automated exposure control, adjustment of the mA a nd/or kV according to patient size, and/or use of iterative reconstruction technique. COMPARISON: No relevant prior studies available. FINDINGS: Lungs: Multifocal consolidation bilaterally, right greater than left. No mass. Pleural space: Unremarkable. No pneumothorax. No significant effusion. Heart: Unremarkable. No cardiomegaly. No significant pericardial effusion. No significant c oronary artery calcifications. Mediastinum: Mediastinal lymphadenopathy. Small hiatal hernia. Bones/joints: Median sternotomy wires. Superior endplate depressions at T11 with 40% vertebral body height loss. No acute fracture. No dislocation. Soft tissues: Unremarkable. Vasculature: Unremarkable. No thoracic aortic aneurysm. Lymph nodes: See above. IMPRESSION: 1. Multifocal consolidation bilaterally, right greater than left. 2. Mediastinal lymphadenopathy. 3. Additional non-emergent findings as above. Electronically signed by: Alex Walters MD 12/28/2024 04:03 AM CDT RP 8 Due to temporary technical issues with the PACS/[employer] reporting system, reports are being julius d by the in-house radiologist without review as a courtesy to ensure prompt reporting the interpreting radiologist is fully responsible for the content of the report. Transcribed Date/Time: 12/28/2024 5:06 AM
--- NOTE | 2024-12-28 05:29 | RAD REPORT ---
EXAM: XR Chest, 1 View CLINICAL HISTORY: The patient is 74 years old and is Male; COUGH TECHNIQUE: Frontal view of the chest. COMPARISON: October 02, 2024. FINDINGS: LUNGS: Patchy infiltrate within the right middle and right lower lobe is noted. The lungs are oth erwise clear. PLEURAL SPACE: Unremarkable. No pneumothorax. HEART: Unremarkable. No cardiomegaly. MEDIASTINUM: Unremarkable. Normal mediastinal contour. BONES/JOINTS: Evidence of median sternotomy is noted. No acute fracture. UPPER ABDOMEN: Unremarkable as visualized. IMPRESSION: Findings suggest multifocal pneumonia involving the right middle and right lower lobe. Electronically signed by: Francesca Renteria MD 12/28/2024 12:24 AM CDT RP Due to temporary technical issues with the PACS/[employer] reporting system, reports are being julius d by the in-house radiologist without review as a courtesy to ensure prompt reporting the interpreting radiologist is fully responsible for the content of the report. Transcribed Date/Time: 12/28/2024 5:29 AM
== END 2024-12-28 03:57 | disposition short-term general hospital (02) ==
LOC: ER 23:04
DX: J15.8 Pneumonia due to other specified bacteria (principal); I69.320 Aphasia following cerebral infarction; E11.22 Type 2 diabetes mellitus with diabetic chronic kidney disease; I13.2 Hypertensive heart and chronic kidney disease with heart failure and with stage 5 chronic kidney disease, or end stage renal disease; I50.9 Heart failure, unspecified; N18.6 End stage renal disease; Z99.2 Dependence on renal dialysis; Z95.1 Presence of aortocoronary bypass graft; Z95.818 Presence of other cardiac implants and grafts
CPT/HCPCS: 93005; 87040 ×2; 85025; 80048; 36415; 83735; 87205; 85610; 82947; 80076; 83605; 84484; 83880; 86140; 71250; 70496; 70498; 70450; 71045; Q9967; J3475; J7614; J7644; J2185; J7040